=== PATIENT | male | born 1945 | race Caucasian/White ===

== ENCOUNTER 2022-12-23 07:31 | Outpatient (OUT) | payer MEDICARE, OTHER, SELFPAY ==
--- NOTE | 2022-12-23 08:19 | CA_ITS ---
Patient Name: CLAUDIA DIAS MR#: [id number] : 1945 Exam Date: 12/23/2022 Ordering Doctor: DR CARMELITA WALLACE M.D. ECHOCARDIOGRAM REPORT PROCEDURE: CA ECHO DOPPLER COMPLETE INDICATIONS: Chronic systolic congestive heart failure, nonrheumatic aortic valve stenosis, CABGx6, defibrillator, hypertension, smoker COMPARISON: None. DESCRIPTION: COMPLETE ECHOCARDIOGRAM Real-time transthoracic echocardiography with 2D, M-mode, spectral and color flow Doppler performed. QUALITY: Technical quality was good. LEFT VENTRICLE: Mild dilatation. Proximal septal hypertrophy (sigmoid septum). LV EF: Global left ventricular systolic function is severely reduced; visually estimated ejection fraction is 20-25%. The distal half of the septum is akinetic. The apex is akinetic. Severe, diffuse, hypokinesis. DIASTOLIC: Diastolic dysfunction. ATRIAL SEPTUM: Visually appears intact. LEFT ATRIUM: Severe dilatation. RIGHT ATRIUM: Moderate dilatation. A pacing wire is seen. RIGHT VENTRICLE: Poorly seen. Appears enlarged. Systolic function appears preserved. Pacer wire present. TRICUSPID VALVE: Normal mobility and thickness. Mild to moderate regurgitation. Doppler studies reveal moderately (45-60) elevated right sided pressures. RVSP 48 mmHg MITRAL VALVE: Moderately thickened with decreased mobility. Moderate mitral annular calcification. Moderate mitral regurgitation. AORTIC VALVE: Severely calcified aortic valve. Doppler velocity suggests low-flow, low gradient, severe aortic valve stenosis. DVI 0.18, PETER 0.8 cm2. Trivial aortic regurgitation. AORTIC ROOT: Normal diameter and appearance. PULMONIC VALVE: Normal thickness and mobility. No stenosis. No regurgitation. PERICARDIUM: No evidence of pericardial effusion. IVC: IVC is dilated (2.6 cm) with no collapse. CONCLUSION: 1. Global left ventricular systolic function is severely reduced; visually estimated ejection fraction is 20 to 25% 2. Segmental wall motion abnormalities 3. The right ventricle appears enlarged with preserved systolic function 4. Biatrial enlargement 5. Diastolic dysfunction 6. Mild to moderate tricuspid regurgitation 7. Moderately elevated right ventricular systolic pressure; RVSP 48 mmHg 8. Moderate mitral regurgitation 9. Severe, low-flow, low gradient, aortic valve stenosis; DVI 0.18 Adult Echocardiography Procedure Report Left Ventricle LVEDD (3.7 - 5.6 cm): 6.28 cm LVESD (2.2 - 4.0 cm): 5.16 cm LVIVS thickness (0.6 - 1.2 cm): 1.93 cm LVPW thickness (0.5 - 1.0 cm): 1.32 cm e': 0.06 m/s LVOT Max Gradient: 1.57 mm[Hg] LVOT Area (cm2): 0.63 m/s Peak Velocity (LVOT): 0.63 m/s Mean Velocity (LVOT): 0.43 m/s LVOT Diameter 2.30 cm Left Atrium LA Volume Index (2D A2C): 51.69 ml/m2 Left Atrium Systolic Dimension: 4.14 cm Mitral Valve Right Ventricle Aorta AO Root Diam: 3.78 cm Ascending Ao Diam: 3.21 cm Aortic Valve AoV Area (Peak Estevan): 0.76 cm2, 0.76 cm2 AoV Area (VTI): 0.74 cm2, 0.74 cm2 Peak Velocity(Antegrade Flow): 3.40 m/s, 2.82 m/s, 3.03 m/s Peak Gradient(Antegrade Flow): 46.37 mm[Hg], 31.76 mm[Hg], 36.65 mm[Hg] Mean Velocity(Antegrade Flow): 2.34 m/s, 2.05 m/s, 2.32 m/s Mean Gradient(Antegrade Flow): 25.62 mm[Hg], 19.27 mm[Hg], 23.06 mm[Hg] Velocity Time Integral: 85.61 cm, 63.86 cm, 75.11 cm Tricuspid Valve Peak Velocity (Regurgitant Flow): 2.88 m/s Pulmonic Valve Peak Gradient: 3.62 mm[Hg], 2.30 mm[Hg] Right Atrium Right Atrium Systolic Pressure: 80.23 ml, 80.23 ml Dictated by: Josep Christianson M.D. on 12/26/2022 at 16:45 Approved by: Josep Christianson M.D. on 12/26/2022 at 16:55
== END 2022-12-23 07:32 | disposition home or self-care (01) ==
LOC: CARD 07:32
PROVIDERS: PCP Internal Medicine; Visit Provider Internal Medicine Interventional Cardiology
DX: I08.3 Combined rheumatic disorders of mitral, aortic and tricuspid valves (principal); I50.22 Chronic systolic (congestive) heart failure
CPT/HCPCS: 93306

== ENCOUNTER 2023-08-21 09:53 | Outpatient (OUT) | payer MEDICARE, SELFPAY ==
--- NOTE | 2023-08-21 09:56 | VEIN_ITS ---
The [address] [address] Patient Name: CLAUDIA DIAS MRN: [id number] date: 1945 Sex: M Assigned Patient Location: Current Patient Location: Accession/Order Number: [id number] Exam Date: 08/21/2023 09:55 Report Date: 08/22/2023 07:54 At the request of: CARMELITA WALLACE Procedure: VC Ankle Brachial Index EXAM: VC Ankle Brachial Index HISTORY: I73.9 COMPARISON: None. FINDINGS: Segmental pressures presented as follows (right, left) in mmHg. Brachial: 142, 150 DPA: 65, 105 [employer] SERVER: 263, 112 1st Toe: 64, 132 ENRIQUETA: 1.75, 0.75 TBI: 0.43, 0.88 The ENRIQUETA is falsely elevated on the right due to arterial sclerosis, indicating mild arterial disease on the left The TBI indicates moderate right ischemia and is normal on the left VEIN/VC Ankle Brachial Index IMPRESSION: Elevated right leg ENRIQUETA due to arterial sclerosis Abnormal right TBI indicates moderate ischemia Left leg ENRIQUETA consistent with mild arterial occlusive disease Electronically authenticated by: ZANA HERNÁNDEZ Date: 08/22/2023 07:54
--- OUTSIDE RECORDS SUMMARY | 2023-08-21 09:57 | XMS_ITS | CCD ---
Author Organization [facility] Care Team Providers Care Thermostat Repairer Name Role Phone ARMANI STEWART Primary Care Unavailable STRUS, JUAN Ceballos Attending Unavailable PROVIDER, UNKNOWN Admitting Unavailable PROVIDER, UNKNOWN Attending Unavailable CONSULT, IP SURGERY VASCULAR Consulting Kait LUCINDA Welsh Attending Unavailable PROVIDER, UNKNOWN Admitting Unavailable STRUS, JUAN Referring Unavailable PROVIDER, UNKNOWN Admitting Unavailable PROVIDER, UNKNOWN Attending Unavailable STRUS, JUAN Referring Unavailable UNKNOWN, PROVIDER Admitting Unavailable UNKNOWN, PROVIDER Attending Unavailable VALMYRIAM, ARMANI Primary Care Unavailable VALMYRIAM, ARMANI Referring Unavailable MOUKARBEL, DR MAE Admitting Unavailable MOUKARBEL, DR MAE Attending Unavailable VALONE, DR CASTRO Primary Care Unavailable MISC, DR COLEMAN Admitting Unavailable MISC, DR COLEMAN Attending Unavailable VALONE, DR CASTRO Primary Care Unavailable MISC, DR COLEMAN Consulting Unavailable JEAN PIERRE, KYLE Referring Unavailable MOUKARBEL, CARMELITA Attending Unavailable JEAN PIERRE, KYLE Referring Unavailable MOUKARBEL, CARMELITA Attending Unavailable Allergies Allergy Classification Reported Allergen(s) Allergy Type Date of Onset Reaction(s) Facility (1 source) 08222,00; Translations: [06519,00] Propensity to adverse reactions (disorder) [address] [facility] Repository Problems Problem Classification Problem Date Documented Date Episodic/Chronic Cardiac dysrhythmias (2 sources) Ventricular premature depolarization; Translations: [Ventricular premature depolarization] Onset: 01-24-2023 Chronic Conduction disorders (4 sources) Encounter for adjustment and management of automatic implantable cardiac defibrillator; Translations: [Presence of automatic (implantable) cardiac defibrillator] Onset: 01-24-2023 Chronic Congestive heart failure; nonhypertensive (3 sources) Chronic systolic (congestive) heart failure; Translations: [CHRONIC SYSTOLIC HEART FAILURE] Onset: 04-18-2022 Chronic Coronary atherosclerosis and other heart disease (2 sources) Atherosclerotic heart disease of [place] coronary artery without angina pectoris; Translations: [Atherosclerotic heart disease of [place] coronary artery without angina pectoris] Onset: 01-24-2023 Chronic Coronary atherosclerosis and other heart disease (1 source) Presence of aortocoronary bypass graft; Translations: [PRESENCE AORTOCORONARY BYPASS GRAFT] Onset: 04-18-2022 Episodic Disorders of lipid metabolism (4 sources) Mixed hyperlipidemia; Translations: [MIXED HYPERLIPIDEMIA] Onset: 04-14-2022 Chronic Heart valve disorders (2 sources) Nonrheumatic aortic (valve) stenosis; Translations: [Nonrheumatic aortic (valve) stenosis] Onset: 04-06-2022 Chronic Hypertension with complications and secondary hypertension (1 source) Hypertensive heart disease with heart failure; Translations: [HTN HEART DISEASE W/HEART FAIL] Onset: 04-18-2022 Chronic Peripheral and visceral atherosclerosis (2 sources) Peripheral vascular disease, unspecified; Translations: [Peripheral vascular disease, unspecified] Onset: 01-24-2023 Chronic Substance-related disorders (1 source) Nicotine dependence, cigarettes, uncomplicated; Translations: [NICOTINE DEPEND CIGARETTES UNCOMP] Onset: 04-18-2022 Chronic Results Test Name Value Interpretation Reference Range Facility Office [facility] 08-10-2023 Follow-up visit [id number] Raymon Dias 1945 M Date Provider Department Center 08/10/2023 CARMELITA MCLEOD Family History Problem Relation Age of Onset Coronary artery disease Other Family Status - Relation Status Age at Other Level of Service:97172 OR OFFICE/OUTPATIENT ESTABLISHED MOD MDM 30 MIN Normal [facility] Office [facility] 01-24-2023 Follow-up visit [id number] Raymon Dias 1945 M Date Provider Department Center 01/24/2023 CARMELITA MCLEOD Family History Problem Relation Age of Onset Coronary artery disease Other Family Status - Relation Status Age at Other Level of Service:48132 OR OFFICE/OUTPATIENT ESTABLISHED MOD MDM 30-39 MIN Normal [facility] ECHOCARDIO M/2D COMPLETEon 0 04-14-2022 ECHOCARDIO M/2D COMPLETE Patient: RAYMON DIAS Exam Date: 04/14/2022 : 1945 Gender:Tiffanie Ordering : DR CARMELITA WALLACE M.D. Admission #: [id number] Family : DR ARMANI Kenney PAT D.Noemy. Order #: [id number] CLICK HERE TO VIEW EXAM ECHOCARDIOGRAM REPORT PROCEDURE: CARDIO PULMONARY ECHOCARDIO M/2D COMP INDICATIONS: Mixed hyperlipidemia,CABG x 6, AICD, hypertension, smoker COMPARISON: None. DESCRIPTION: COMPLETE ECHOCARDIOGRAM Real-time transthoracic echocardiography with 2D, M-mode, spectral and color flow Doppler performed. QUALITY: Technical quality was good. LEFT VENTRICLE: Normal chamber size. Proximal septal hypertrophy (sigmoid septum). Left ventricular systolic function is moderately reduced with segmental wall motion abnormalities. There is akinesis of the mid and distal septum, distal anterior wall and apex. No evidence of ventricular thrombus seen. LV EF: Moderately reduced left ventricular ejection fraction, (35-40%). DIASTOLIC: ATRIAL SEPTUM: Visually appears intact. LEFT ATRIUM: Severe dilatation. RIGHT ATRIUM: Moderate dilatation. RIGHT VENTRICLE: Normal chamber size. Normal right ventricular systolic function. Pacer wire present. TRICUSPID VALVE: Normal mobility and thickness. No stenosis with mild to moderate regurgitation. No evidence of pulmonary hypertension. RVSP 25 mmHg MITRAL VALVE: Moderately thickened with decreased mobility. No evidence of mitral valve stenosis. Mild mitral annular calcification. Mild to moderate mitral regurgitation. AORTIC VALVE: Normal trileaflet appearance. Severely calcified aortic valve. Severely diminished mobility. Doppler velocity suggest severe aortic valve stenosis. Mean gradient 19 mmHg, peak velocity 3.0 m/s, DVI 0.19, PETER 0.7 cm?. LVOT 2.2 cm. Mild aortic regurgitation. AORTIC ROOT: Normal diameter and appearance. PULMONIC VALVE: Normal thickness and mobility. No stenosis. No regurgitation. PERICARDIUM: No evidence of pericardial effusion. IVC: Collapses with inspirations. IVC is normal in size. PLEURA: CONCLUSION: 1. Left ventricular systolic function is moderately reduced with a segmental wall motion abnormalities. LVEF is 35 to 40%. 2. Normal right ventricular size and systolic function. 3. Severe aortic valve stenosis [stage D2, low-flow low gradient in the setting of reduced ejection fraction]. Mild aortic valve regurgitation. 4. Mild to moderate tricuspid and mitral regurgitation. 5. Normal right-sided pressures. Adult Echocardiography Procedure Report Left Ventricle LVEDD (3.7 - 5.6 cm): 5.26 cm LVESD (2.2 - 4.0 cm): 3.69 cm LVIVS thickness (0.6 - 1.2 cm): 1.69 cm LVPW thickness (0.5 - 1.0 cm): 1.24 cm e': 0.06 m/s LVOT Max Gradient: 1.24 mm[Hg] Peak Velocity (LVOT): 0.56 m/s Mean Velocity (LVOT): 0.41 m/s LVOT Diameter 2.2 cm Left Ventricular Ejection Fraction: 35-40 % Left Atrium LA Volume Index (2D A2C): 103.89 ml, 103.89 ml Left Atrium Systolic Dimension: 4.80 cm Mitral Valve Mitral Valve E-Wave Peak Velocity: 0.80 m/s, 0.90 m/s Right Ventricle Aorta AO Root Diam: 3.81 cm Aortic Valve AoV Area (Peak Estevan): 1.29 cm2, 1.64 cm2 AoV Area (VTI): 1.52 cm2, 2.06 cm2 Peak Velocity(Antegrade Flow): 1.96 m/s, 2.50 m/s, 3.00 m/s Peak Gradient(Antegrade Flow): 15.42 mm[Hg], 25.08 mm[Hg], 36.09 mm[Hg] Mean Velocity(Antegrade Flow): 1.40 m/s, 1.69 m/s, 2.00 m/s Mean Gradient(Antegrade Flow): 8.88 mm[Hg], 13.56 mm[Hg], 18.59 mm[Hg] Velocity Time Integral: 45.12 cm, 61.89 cm, 76.23 cm Tricuspid Valve Peak Velocity (Regurgitant Flow): 2.33 m/s Pulmonic Valve Peak Velocity: 0.84 m/s Peak Gradient: 2.84 mm[Hg] Right Atrium Right Atrium Systolic Pressure: 64.64 ml, 64.64 ml Dictated by: Carmelita Wallace M.D. on 04/14/2022 at 09:58 Approved by: Carmelita Wallace M.D. on 04/14/2022 at 10:18 Normal [facility] LIPID PROFILEon 04-14-2022 CHOL-HDL RATIO NORM SEE BELOW Normal [facility] Comment on above: Result Comment: 3.3 - 4.4 LOW RISK 4.4 - 7.1 AVERAGE RISK 7.1 - 11.0 MODERATE RISK >11.0 HIGH RISK Performed By: #### L IPID #### [facility] [address] [address] [address] Jackie Christopher Cholesterol [Mass/Vol] 157 mg/dL Normal <=200 [facility] Comment on above: Performed By: #### L IPID #### [facility] [address] [place], [place] [address] Dr. Jackie Christopher Cholesterol in HDL [Mass/Vol] 53 mg/dL Normal 40-60 [facility] Comment on above: Performed By: #### L IPID #### [facility] [address] [address] [address] Jackie Christopher Cholesterol in LDL [Mass/Vol] 90.6 mg/dL Normal [facility] Comment on above: Performed By: #### L IPID #### [facility] [address] [address] [address] Jackie Christopher Cholesterol.total/C holesterol in HDL [Mass ratio] 3.0 {ratio} Normal [facility] Comment on above: Performed By: #### L IPID #### [facility] [address] [address] [address] Jackie Christopher HDL NORMAL > or = 60 mg/dl - LO W CARDIOVASCULAR RISK <40 mg/dl - HIGH CARDIOVASCULAR RISK Normal [facility] Comment on above: Performed By: #### L IPID #### [facility] [address] [address] [address] Jackie Christopher LDL CALC NORMAL SEE BELOW Normal [facility] Comment on above: Result Comment: <100 mg/dl OPTIMAL 100 - 129 mg/dl NEAR OR ABOVE OPTIMAL 130 - 159 mg/dl BORDERLINE HIGH 160 - 189 mg/dl HIGH >190 mg/dl VERY HIGH Performed By: #### L IPID #### [facility] [address] [address] [address] Jackie Christopher Triglyceride [Mass/Vol] 67 mg/dL Normal <=150 [facility] Comment on above: Performed By: #### L IPID #### [facility] [address] [address] [address] Jackie Christopher VLDL CALC 13.4 mg/dL Normal [facility] Comment on above: Performed By: #### L IPID #### [facility] [address] [place], [place] [address] Dr. Jackie Christopher CBC with Diffon 10-18-2020 Abs. Basophil 0.00 k/uL Normal 0.0-0.2 [facility] Comment on above: Performed By: #### C MPX, TROPI, CDP #### [facility] [address] [place], [place] [phone] Social Media Marketing Manager: Clinton Steven MD Abs.Neutrophil (Seg) 6.50 k/uL Normal 2.1-6.5 [facility] Comment on above: Performed By: #### C MPX, TROPI, CDP #### [facility] [address] [place] [address] Social Media Marketing Manager: Clinton Steven MD Auto Diff Performed YES Normal [facility] Comment on above: Performed By: #### C MPX, TROPI, CDP #### [facility] [address] [place], [place] [phone] Social Media Marketing Manager: Clinton Steven MD Basophils/100 WBC (Bld) 0 % Normal 0-2 [facility] Comment on above: Performed By: #### C MPX TROPI, CDP #### [facility] [address] [place], [place] [phone] Social Media Marketing Manager: Clinton Steven MD Eosinophils (Bld) [#/Vol] 0.60 10*3/uL High 0.0-0.4 [facility] Comment on above: Performed By: #### C MPX, TROPI, CDP #### [facility] [address] [place], [place] [phone] Social Media Marketing Manager: Clinton Steven MD Eosinophils/100 WBC (Bld) 7 % High 0-5 [facility] Comment on above: Performed By: #### C MPX, TROPI, CDP #### [facility] [address] [phone] Social Media Marketing Manager: Clinton Steven MD Erythrocyte distribution width (RBC) [Ratio] 15.7 % High 12.1-15.2 [facility] Comment on above: Performed By: #### C MPX TROPI, CDP #### [facility] [address] [place] [address] Social Media Marketing Manager: Clinton Steven MD Hematocrit (Bld) [Volume fraction] 37.2 % Low 41-53 [facility] Comment on above: Performed By: #### C MPAna Paula TROPI, CDP #### [facility] [address] [place] [address] Social Media Marketing Manager: Clinton Steven MD Hemoglobin (Bld) [Mass/Vol] 12.6 g/dL Low 13.5-17.5 [facility] Comment on above: Performed By: #### C JEFF TROPI, CDP #### [facility] [address] [phone] Social Media Marketing Manager: Clinton Steven MD Lymphocytes (Bld) [#/Vol] 0.70 10*3/uL Low 1.0-4.8 [facility] Comment on above: Performed By: #### C JEFF TROPI, CDP #### [facility] [address] [place] [address] Social Media Marketing Manager: Clinton Steven MD Lymphocytes/100 WBC (Bld) 8 % Low 13-44 [facility] Comment on above: Performed By: #### C MPX, TROPI, CDP #### [facility] [address] [place] [address] Social Media Marketing Manager: Clinton Steven MD MCH (RBC) [Entitic mass] 33.5 pg Normal 26-34 [facility] Comment on above: Performed By: #### C MPX TROPI, CDP #### [facility] [address] [place] [address] Social Media Marketing Manager: Clinton Steven MD MCHC (RBC) [Mass/Vol] 33.8 g/dL Normal 31-37 [facility] Comment on above: Performed By: #### C MPX, TROPI, CDP #### [facility] [address] [place] [address] Social Media Marketing Manager: Clinton Steven MD MCV (RBC) [Entitic vol] 98.9 fL Normal 80-100 [facility] Comment on above: Performed By: #### C MPX, TROPI, CDP #### [facility] [address] [place] [address] Social Media Marketing Manager: Clinton Steven MD Monocytes (Bld) [#/Vol] 1.30 10*3/uL High 0.0-1.0 [facility] Comment on above: Performed By: #### C MPAna Paula, TROPI, CDP #### [facility] [address] [place] [address] Social Media Marketing Manager: Clinton Steven MD Monocytes/100 WBC (Bld) 14 % High 5-9 [facility] Comment on above: Performed By: #### C MPX, TROPI, CDP #### [facility] [address] [place] [address] Social Media Marketing Manager: Clinton Steven MD Neutrophil (Seg) 71 % Normal 39-75 [facility] Comment on above: Performed By: #### C MPX, TROPI, CDP #### [facility] [address] [place] [address] Social Media Marketing Manager: Clinton Steven MD Platelets (Bld) [#/Vol] 191 10*3/uL Normal 140-450 [facility] Comment on above: Performed By: #### C MPX, TROPI, CDP #### [facility] [address] [place] [address] Social Media Marketing Manager: Clinton Steven MD RBC (Bld) [#/Vol] 3.76 10*6/uL Low 4.5-5.9 [facility] Comment on above: Performed By: #### C GIOVANI AGUILARI, CDP #### [facility] [address] [place], [place] [phone] Social Media Marketing Manager: Clinton Steven MD WBC (Bld) [#/Vol] 9.2 10*3/uL Normal 3.5-11.0 [facility] Comment on above: Performed By: #### C MPX TROPI, CDP #### [facility] [address] [place] [address] Social Media Marketing Manager: Clinton Steven MD Abs.Imm.Granulocyte NOT REPORTED Normal 0.00-0.30 [facility] Comment on above: Performed By: #### C GIOVANI AGUILARI, CDP #### [facility] [address] [place], [place] [phone] Social Media Marketing Manager: Clinton Steven MD Immature Granulocyte NOT REPORTED Normal 0 [facility] Comment on above: Performed By: #### C MPAna Paula TROPI, CDP #### [facility] [address] [place], [place] [phone] Social Media Marketing Manager: Clinton Steven MD MPV NOT REPORTED Normal 6.0-12.0 [facility] Comment on above: Performed By: #### C MPX TROPI, CDP #### [facility] [address] [place], [place] [phone] Social Media Marketing Manager: Clinton Steven MD NRBC Automated NOT REPORTED Normal [facility] Comment on above: Performed By: #### C MPX TROPI, CDP #### [facility] [address] [place], [place] [phone] Social Media Marketing Manager: Clinton Steven MD Platelet Estimate NOT REPORTED Normal [facility] Comment on above: Performed By: #### C MPX, TROPI, CDP #### [facility] [address] [place], [place] [phone] Social Media Marketing Manager: Clinton Steven MD RBC morphology finding Nom (Bld) NOT REPORTED Normal [facility] Comment on above: Performed By: #### C MPX, TROPI, CDP #### [facility] [address] [place], [place] [phone] Social Media Marketing Manager: Clinton Steven MD WBC Morphology NOT REPORTED Normal [facility] Comment on above: Performed By: #### C MPX, TROPI, CDP #### [facility] [address] [place] [address] Social Media Marketing Manager: Clinton Steven MD CT HEAD WO CONTRASTon 2020 CT HEAD WO CONTRAST EXAMINATION: CT HEAD WO CONTRAST STROKE, 10/17/2020 10:13 PM EDT HISTORY: Reason for exam:->right eye vision changes COMPARISON: None. TECHNIQUE: CT scan of the head was performed without IV contrast. CT dose reduction technique was used, including Automated Exposure Control. FINDINGS: Limited study due to motion. BRAIN PARENCHYMA/CSF SPACES: Moderately enlarged ventricles and sulci consistent with atrophy. There is no hemorrhage, mass effect or midline shift. Moderate low attenuation in the white matter consistent with chronic microvascular ischemia. PARANASAL SINUSES: Clear. SKULL BASE AND CALVARIUM: Normal. EXTRACRANIAL SOFT TISSUES: Normal. IMPRESSION: 1. No acute intracranial abnormality. 2. Atrophy and chronic microvascular ischemia. 3. Limited study due to motion. Interpreted by: Gt Sharp MD Signed by: Gt Sharp MD 10/17/20 Final result Normal [facility] CTA HEAD NECK W CONTRASTon 0 10-18-2020 CTA HEAD NECK W CONTRAST CTA HEAD NECK W CONTRAST INDICATION:74 years old; Reason for exam:->right visual change with head movement TECHNIQUE: CT angiogram of the head and neck was performed. Coronal, sagittal and 3-D reformats were created and reviewed. IV contrast 100mL. w/o complications . Carotid stenosis measurements were made according to the NASCET criteria. Ionizing radiation dose reduced via iterative reconstruction/FBP blend and body size kV/mA adjustment. COMPARISON: Head CT performed earlier in the evening. FINDINGS: NECK FINDINGS: AORTIC ARCH: Calcific plaque in the aortic arch as well as in the proximal innominate, left common carotid artery, and left subclavian artery. ANTERIOR CIRCULATION: There is calcific plaque in the common carotid arteries bilaterally. Dense calcific plaque is seen in the carotid bifurcations. Allowing for a combination of dense calcification and overlying venous filling, there is findings consistent with flow limiting stenosis secondary to dense calcified plaque in the left carotid bifurcation and origin of the left ICA. On the right, only a mild degree of stenosis is seen. There is contrast noted within the extracranial portions of both ICA up to the level of the skull base. POSTERIOR CIRCULATION: The right vertebral artery is dominant with a hypoplastic left vertebral artery. The origins the left vertebral artery is poorly visualized. Calcific plaque is seen within both vertebral arteries. DEVELOPMENTAL ANOMALIES: None. OTHER: The airway is patent. There are breathing and swallowing artifacts. Cervical spondylosis is noted. HEAD BRAIN: Please the report of the head CT performed earlier this evening. ANTERIOR CIRCULATION: There is patent appearance of the intrapetrous, intracavernous, supraclinoid ICA. Calcific plaque is seen in all 3 segments. The distal termini are patent. The KINDRA and MCA are patent. No intraluminal thrombus is seen. The distal distributions appear symmetric. POSTERIOR CIRCULATION: There is calcific plaque in both distal vertebral arteries, worse on the left than the right. The right vertebral is dominant. The basilar artery is patent. Basilar tip has a normal appearance. There is patent origins of the SCA and COPPER ETCHER bilaterally. DEVELOPMENTAL ANOMALIES: None. OTHER: No pathologic enhancement is IMPRESSION: 1. Dense calcification and calcific plaque in the carotid bifurcations and origins of the great vessels. 2. Dense calcific plaque in the common carotid arteries bilaterally, worse on the left. On the left are findings consistent with flow limiting stenosis. 3. Calcification without flow-limiting stenosis in the intrapetrous, intracavernous, supraclinoid ICA. 4. Intracranial vessels are patent. No intraluminal thrombus or stenosis is seen in the apache of [place] and the distal distributions appear symmetric. A note was placed in the ops stat file for notification of the provider at 1:31 AM on 10/18/2020. 2. No aneurysm Interpreted by: Amaury Chamberlain Signed by: Amaury Chamberlain 10/18/20 Final result Normal [facility] Comp Metabolic Pr/rfx MGon 0 10-18-2020 Albumin [Mass/Vol] 4.0 g/dL Normal 3.5-5.2 [facility] Comment on above: Performed By: #### C MPX, TROPI, CDP #### [facility] [address] [place] [address] Social Media Marketing Manager: Clinton Steven MD Alkaline Phos 78 U/L Normal 40-129 [facility] Comment on above: Performed By: #### C MPX, TROPI, CDP #### [facility] [address] [place], [place] [phone] Social Media Marketing Manager: Clinton Steven MD ALT [Catalytic activity/Vol] 14 U/L Normal 5-41 [facility] Comment on above: Performed By: #### C MPAna Paula TROPI, CDP #### [facility] [address] [place] [address] Social Media Marketing Manager: Clinton Steven MD Anion gap [Moles/Vol] 10 mmol/L Normal 9-17 [facility] Comment on above: Performed By: #### C MPAna Paula TROPI, CDP #### [facility] [address] [place], [place] [phone] Social Media Marketing Manager: Clinton Steven MD AST [Catalytic activity/Vol] 15 U/L Normal <40 [facility] Comment on above: Performed By: #### C MPX TROPI, CDP #### [facility] [address] [place], [place] [phone] Social Media Marketing Manager: Clinton Steven MD Bilirubin [Mass/Vol] 0.42 mg/dL Normal 0.30-1.20 [facility] Comment on above: Performed By: #### C MPX, TROPI, CDP #### [facility] [address] [place], [place] [phone] Social Media Marketing Manager: Clinton Steven MD Calcium [Mass/Vol] 9.4 mg/dL Normal 8.6-10.4 [facility] Comment on above: Performed By: #### C MPX, TROPI, CDP #### [facility] [address] [place] [address] Social Media Marketing Manager: Clinton Steven MD Chloride [Moles/Vol] 102 mmol/L Normal 98-107 [facility] Comment on above: Performed By: #### C MPX, TROPI, CDP #### [facility] [address] [place] [address] Social Media Marketing Manager: Clinton Steven MD CO2 [Moles/Vol] 27 mmol/L Normal 20-31 [facility] Comment on above: Performed By: #### C MPX, TROPI, CDP #### [facility] [address] [place] [address] Social Media Marketing Manager: Clinton Steven MD Creatinine [Mass/Vol] 1.45 mg/dL High 0.70-1.20 [facility] Comment on above: Performed By: #### C MPX, TROPI, CDP #### [facility] [address] [place] [address] Social Media Marketing Manager: Clinton Steven MD GFR, Amer 58 mL/min Low >60 [facility] Comment on above: Performed By: #### C MPX, TROPI, CDP #### [facility] [address] [place] [address] Social Media Marketing Manager: Clinton Steven MD GFR,non Amer 47 mL/min Low >60 [facility] Comment on above: Performed By: #### C MPX, TROPI, CDP #### [facility] [address] [place] [address] Social Media Marketing Manager: Clinton Steven MD Glucose [Mass/Vol] 95 mg/dL Normal 70-99 [facility] Comment on above: Performed By: #### C MPX, TROPI, CDP #### [facility] [address], [place] [id number] Social Media Marketing Manager: Clinton Steven MD Potassium [Moles/Vol] 4.3 mmol/L Normal 3.7-5.3 [facility] Comment on above: Performed By: #### C MPX, TROPI, CDP #### [facility] [address], [place] [id number] Social Media Marketing Manager: Clinton Steven MD Protein [Mass/Vol] 6.8 g/dL Normal 6.4-8.3 [facility] Comment on above: Performed By: #### C MPX TROPI, CDP #### [facility] [address], [place] [id number] Social Media Marketing Manager: Clinton Steven MD Sodium [Moles/Vol] 139 mmol/L Normal 135-144 [facility] Comment on above: Performed By: #### C MPX, TROPI, CDP #### [facility] [address] [place] [address] Social Media Marketing Manager: Clinton Steven MD Urea nitrogen [Mass/Vol] 16 mg/dL Normal 8-23 [facility] Comment on above: Performed By: #### C MPX, TROPI, CDP #### [facility] [address], [place] [id number] Social Media Marketing Manager: Clinton Steven MD (cont.) Normal [facility] Comment on above: Result Comment: Aver age GFR for 70 or more years old: 75 mL/min/1.73sq m Chronic Kidney Disease: <60 mL/min/1.73sq m Kidney failure: <15 mL/min/1.73sq m eGFR calculated using average adult body mass. Additional eGFR calculator available at: http://www.[employer].Getyoo/multiple_crcl_2012.htm Performed By: #### C MPX, TROPI, CDP #### [facility] [address] [place] [address] Social Media Marketing Manager: Clinton Steven MD Albumin/Glob Ratio NOT REPORTED Normal 1.0-2.5 [facility] Comment on above: Performed By: #### C MPX, TROPI, CDP #### [facility] [address], [place] [id number] Social Media Marketing Manager: Clinton Steven MD BUN/CRE Ratio NOT REPORTED Normal 9-20 [facility] Comment on above: Performed By: #### C MPX, TROPI, CDP #### [facility] [address] [place] [address] Social Media Marketing Manager: Clinton Steven MD Staging: NOT REPORTED Normal [facility] Comment on above: Performed By: #### C MPX, TROPI, CDP #### [facility] [address] [place] [address] Social Media Marketing Manager: Clinton Steven MD [facility] Clinical Engineer Authentication Interface Message Text Attestation signed by Justyn Caro MD at 10/19/2020 11:13 AM Discussed with residents last night. 74 yo male who presents with flashes in right eye with certain positions. Reportedly has not had them over the last few hours. Symptoms do not appear characteristic of amaurosis or attributable to symptomatic carotid stenosis. Unable to view imaging from OSH so unable to determine degree of stenosis. Would recommend carotid duplex to further evaluate degree of stenosis of both carotid arteries. [facility] DIVISION OF ACUTE CARE SURGERY EMERGENCY GENERAL SURGERY CONSULTATION, HISTORY AND PHYSICAL Reason for consultation: Bilateral carotid stenosis Referring physician: Dr. Matt HPI: The patient is a 74 year old male with PMHx of presenting from OSH for flashes of light in his right temporal vision when turning his head to the right. Patient states this started around 1900 yesterday evening. It was initially occurring at least 5 times an hour although has slowly improved and has not had any episodes in the last 4 hours. Patient denies this ever happening in the past. PMH: HTN, CHF, COPD, PVD PSH: CABG ', Carotid enterectomy, RLE Stent, ICD MEDS: Lasix, Statin, Entresto, Carvedilol, Folic acid, Symbicort, montelukast ALL: NKDA FH: denies history of bleeding or clotting disorders SH: Daily tobacco, Social ETOH, and Denies drug use Review Of Systems: Skin: negative Eyes: Denies blurred or double vision. Endorses light flashes Ears/Nose/Throat: negative Respiratory: negative symptoms (no cough, hemoptysis, SOB, MORSE, PND, wheezing) Cardiovascular: negative symptoms (No CP/Pressure/Tightness , palpitations, orthopnea, PND, SOB, MORSE, edema, HUSTON or vision change) Gastrointestinal: negative symptoms (no abdominal pain, anorexia, n/v, indigestion, constipation, or diarrhea) Genitourinary: no urinary symptoms Neurologic: negative symptoms (no syncope, seizures, weakness, gait problems, numbness, burning pain, tremors, or memory loss) negative (no arthritic pain, no joint swelling, no muscle weakness) Psychiatric: negative (no sleep disturbance, anxiety, memory loss, disorientation, inattention, feelings of depression) Hematologic/Lymphatic /Immunologic: negative (no anemia, bleeding, bruising) Endocrine: negative review of symptoms PHYSICAL EXAM: VITALS: Vitals: 10/18/20 1541 BP: 123/74 Pulse: 75 Resp: 17 Temp: SpO2: 99% Physical Exam Constitutional: General: He is not in acute distress. Appearance: Normal appearance. HENT: Head: Normocephalic. Mouth/Throat: Mouth: Mucous membranes are moist. Pharynx: Oropharynx is clear. Eyes: Conjunctiva/sclera: Conjunctivae normal. Comments: Dilated pupils bilaterally 7mm Neck: Comments: Surgical scar left neck Cardiovascular: Rate and Rhythm: Normal rate and regular rhythm. Comments: Radial pulses / femoral palpable bilaterally. DP/PT are not palpable Pulmonary: Effort: Pulmonary effort is normal. No respiratory distress. Breath sounds: Rhonchi present. Abdominal: General: Bowel sounds are normal. There is no distension. Palpations: Abdomen is soft. Comments: Well healed surgical scar Musculoskeletal: General: No swelling or deformity. Normal range of motion. Cervical back: Normal range of motion. No rigidity. Skin: General: Skin is warm and dry. Capillary Refill: Capillary refill takes less than 2 seconds. Coloration: Skin is not pale. Neurological: General: No focal deficit present. Mental Status: He is alert. Motor: No weakness. Psychiatric: Mood and Affect: Mood normal. LABS: CBC/PT/INR None Basic Metabolic Panel None Arterial Blood Gases None IMAGING: - CTA head/neck 10/17/2020: 1. Dense calcification and calcific plaque in the carotid bifurcations and origins of the great vessels. 2. Dense calcific plaque in the common carotid arteries bilaterally, worse on the left. On the left are findings consistent with flow limiting???stenosis. 3. Calcification without flow-limiting stenosis in the intrapetrous, intracavernous, supraclinoid ICA. 4. Intracranial vessels are patent. No intraluminal thrombus or stenosis is seen in the apache of Heredia and the distal distributions appear symmetric. ASSESSMENT/RECOMMENDA TIONS: Raymon Dias is a 74 year old male who presents with white flashes in right peripheral vision. Patient has significant vascular history with carotid enterectomy. Currently on Plavix and aspirin. His symptoms have slowly resolved and have not been present for the past 4 hours. Concern there could be a vascular etiology to symptoms. Opthalmology also assessed the patient and performed formal bedside retinal exam - no signs of retinal breaks, detachment were apparent. Did rev (more content not included)... Normal [facility] [employer] [facility] Clinical Engineer Authentication Interface Message Text Eye Consult Note CC: New flashes, right eye HPI: Raymon Dias is a 74 year old male At 7pm alst night he turned his head to the right and noticed a jagged streak of light in his right eye that lasted about 3 hours. It has since subsided but he still notices it when he turns his head. Has had occasional dark floaters OD for years that are stable. Otherwise denies new or worsening discharge, tearing, irritation, redness, FBS, shade over vision, pain, blurred vision, sudden vision loss, photophobia or diplopia. POHx:Catract surgery in , wears reading glasses POFx: Denies Past medical, surgical, medication, family, social and allergy history were reviewed with patient and in chart. EXAM Visual acuity with correction, at near OD: 20/40 OS: 20/20-2 IOP OD: 14 OS: 17 Pupils: dark->light: OD: 4->3 no APD OS: 4->3 no APD EOM: OD: full OS: full Muscle balance: orthophoric Visual lee: OD: full to confrontation OS: full to confrontation Slit lamp examination External Exam: WNL OU L/L/L: OD: 1+ MGD OS: 1+ MGD Conj/Sclera: OD: conjunctivochalasis, no injection OS: conjunctivochalasis, no injection Cornea: OD: no epithelial defect, clear stroma OS: no epithelial defect, clear stroma Anterior chamber: OD: deep and quiet OS: deep and quiet Iris: OD: normal stroma OS: normal stroma Lens: OD: PCIOL OS: PCIOL Dilated OU with tropicamide 1% and phenylephrine 2.5% Vitreous OD: Syneresis, no heme or pigment OS: Syneresis, no heme or pigment Disc OD: Pallorous, Sharp, perfused, and c/d 0.2 OS: Pallorous, Sharp, perfused, deep cup, c/d 0.4, superotemporal atrophy Vessels OD: Normal course and caliber, no sheathing, no nicking, AV ratio 2:3 OS: Normal course and caliber, no sheathing, no nicking, AV ratio 2:3 Macula OD: Flat, no heme, no commotio, no holes, few drusen OS: Flat, no heme, no commotio, no holes, one drusen Periphery OD: Attached, no tears, inferior cobblestone OS: Attached, no tears, inferior cobblestone Assessment and Recommendations New flashes, right eye - Vitreous syneresis, both eyes - job negative, no heme - Risk factors: (-) trauma, (-) myopia - No history ROP or personal/family history of RD - No retinal breaks/detachment/hem e on [employer] - Retinal detachment precautions reviewed with patient - Patient lives in [facility] and has an appointment with his color printer operator at the [place] on December 03-- follow-up for new flashes at that visit. Please page [phone] with additional questions/concerns Vashti Reis MD Ophthalmology Resident Eye clinic [phone], located 3rd floor specialty services [facility] Physician Note: This was a resident only visit. I personally reviewed the mckeon and critical portions of the history and the ophthalmologic exam. I reviewed the resident's documentation, the patient's history and examination as documented above. I agree with the resident's medical decision making as documented in the resident's note. Tamar Nathan MD Normal [facility] ED Noteson 10-18-2020 Clinical Engineer Authentication Interface Message Text Vascular at bedside at this time Normal [facility] ED Provider Noteson 10-19-19 Clinical Engineer Authentication Interface Message Text EMERGENCY DEPARTMENT - VISIT NOTE --------- HISTORY OF PRESENT ILLNESS ----- Chief Complaint Patient presents with * Other sympt/complt of eye started with vision changes last night. sent from [facility]. here for vascular/neuro consult Obiee Report Developer: not needed - patient preferred language is Georgian. The history is provided by the Patient. Raymon Dias is a 74 year old male with a hx of HTN, CABG, defibrillator, COPD, PVD s/p RLE stents transferred to the ED for eval of carotid stenosis. Patient presents because he was told that he has blood vessel problems in his neck. He went to the ED yesterday for flashers in his right eye that occured when he would turn his head to the right. At rest he doesn't have them, he first noticed them last night at 1900. No current episodes of flashers. He otherwise feels well at this time and has had no recent illnesses. He hasn't taken his home meds today. Patient denies fever, chills, CP, SOB Per EMS: Flow limiting stenosis in carotid arteries, having floaters in R eye when he looks that direction Chart reviewed, relevant elements include the following: - CTA head/neck 10/17/2020: 1. Dense calcification and calcific plaque in the carotid bifurcations and origins of the great vessels. 2. Dense calcific plaque in the common carotid arteries bilaterally, worse on the left. On the left are findings consistent with flow limiting???stenosis. 3. Calcification without flow-limiting stenosis in the intrapetrous, intracavernous, supraclinoid ICA. 4. Intracranial vessels are patent. No intraluminal thrombus or stenosis is seen in the apache of [place]redia and the distal distributions appear symmetric. - COVID negative 10/17/2020 REVIEW OF SYSTEMS Review of Systems Constitutional: Negative for chills and fever. HENT: Negative for hearing loss. Eyes: Positive for visual disturbance (intermittent). Respiratory: Negative for shortness of breath. Cardiovascular: Negative for chest pain. Gastrointestinal: Negative for abdominal pain, nausea and vomiting. Genitourinary: Negative for decreased urine volume and frequency. Musculoskeletal: Negative for arthralgias and myalgias. Skin: Negative for rash. Neurological: Negative for dizziness and headaches. Psychiatric/Behaviora l: Negative for sleep disturbance. PAST HISTORY Pertinent Past History: - Follows with vascular surgery at [facility] for PVD: he has had stents placed in the thigh, CABG 1997, MA in 1986, defibrillator placed in 1995 batteries changed in the past 5 years - Meds: furosemide, atorvastatin, entresto, carvedilol, folic acid, miralax, vit D, aspirin, montelukast, symbicort Pertinent Social History: - Tobacco use, 25 year pack history PHYSICAL EXAM - BP 123/74 Pulse 75 Temp 98 ???F (36.7 ???C) (Oral) Resp 17 SpO2 99% Constitutional: Alert, awake and no acute distress HENT: No rhinorrhea, moist mucous membranes, and posterior orpharynx symmetric and noninjected Eyes: Pupils equal round and reactive to light, extraocular muscles intact, no discharge and noninjected Eyes: Pupils equal round and reactive to light, extraocular muscles intact OD - no discharge and noninjected - Visual Lee: no deficits - Cornea was stained, no corneal abrasions noted - Pressure: 17.3 OS - no discharge and noninjected - Visual Lee: no deficits - Cornea was stained, no corneal abrasions noted - Pressure: 17.3 Neck: Supple and no nuchal rigidity Thoracic: diffuse inspiratory/expirator y wheezing Heart: Regular rate and rhythm, III/ systolic murmur radiating to carotids Abdomen: Soft, nondistended and nontender : No CVAT Back: No abrasions to back Extremities: Full ROM all 4 extremities, symmetric radial, DP, and PT pulses, no LE edema Neuro: Alert normally oriented, normal speech, moving all extremities Skin: Warm and dry Psych: Normal affect, good eye contact and cooperative MEDICAL DECISION MAKING and ED COURSE Nursing triage and assessment notes reviewed and incorporated Evaluated by EM attending Armani Khan Course: ED Course as of Oct 18 2154 Sun Oct 18, 2020 1251 Paged ophtho [CM] [address] Reis from ophtho who will come eval the patient [CM] 1254 Paged vascular surgery [CM] 1256 Spoke to Kyle from vasc surg who will come eval the patient [CM] 4112 Paged Kyle, [facility] surgery consult, he passed the consult on to another provider at [phone] [CM] 4742 Spoke to [facility] Surg party plan sales consultant who will talk to her chief as carotid duplex can't be performed today [CM] ED Course User Index [CM] Armani Sullivan MD Medical Decision Makin (more content not included)... Normal [facility] [id number] 10-18-2020 SARS-CoV-2 (COVID-19) RNA JOCELIN+probe Ql (Unsp spec) Not detected [facility] Comment on above: Result Comment: Rapid NAAT: The specimen is NEGATIVE for SARS-CoV-2, the novel coronavirus associated with COVID-19. The ID NOW COVID-19 assay is designed to detect the virus that causes COVID-19 in patients with signs and symptoms of infection who are suspected of COVID-19. An individual without symptoms of COVID-19 and who is not shedding SARS-CoV-2 virus would expect to have a negative (not detected) result in this assay. Negative results should be treated as presumptive and, if inconsistent with clinical signs and symptoms or necessary for patient management, should be tested with an alternative molecular assay. Negative results do not preclude SARS-CoV-2 infection and should not be used as the sole basis for patient management decisions. Fact sheet for Healthcare Providers: https://www.fda.gov/media/498954/download Fact sheet for Patients: https://www.fda.gov/media/689949/download Methodology: Isothermal Nucleic Acid Amplification Performed By: #### C OVRB #### [facility] [address] [place] [address] Social Media Marketing Manager: Clinton Steven MD Troponinon 10-18-2020 Troponin, High Sens 28 ng/L High 0-22 [facility] Comment on above: Result Comment: High Sensitivity Troponin values cannot be compared with other Troponin methodologies. Patients with high levels of Biotin oral intake (i.e >5mg/day) may have falsely decreased Troponin levels. Samples collected within 8 hours of biotin intake may require additional information for diagnosis. Performed By: #### C MPX, TROPI, CDP #### [facility] [address] [place] [address] Social Media Marketing Manager: Clinton Steven MD Troponin Interp. NOT REPORTED Normal [facility] Comment on above: Performed By: #### C MPX, TROPI, CDP #### [facility] [address] [place], [place] [id number] Social Media Marketing Manager: Clinton Steven MD Troponin T NOT REPORTED Normal <0.03 [facility] Comment on above: Performed By: #### C MPX, TROPI, CDP #### [facility] [address] [place], [place] [id number] Social Media Marketing Manager: Clinton Steven MD Encounters Encounter Date Encounter Type Care Provider Facility Start: 08-10-2023 End: 08-10-[address] [facility] Start: 03-21-2023 End: 03-21-2023 ambulatory [facility] Start: 01-24-2023 End: 01-24-2023 ambulatory [facility] Start: 08-24-2022 End: 08-24-2022 ambulatory [facility] Start: 04-14-2022 End: 04-15-[address] DOCTOR GONZALEZ Facility: Start: 10-10-[address] CARMELITA WALLACE Fac ility:[facility] Start: 04-29-2021 End: 04-30-2021 ambulatory PROVIDER UNKNOWN Facility:[facility] Start: 10-18-2020 ambulatory UNKNOWN PROVIDER Facili ty:[facility] Start: 10-18-2020 End: 10-18-2020 ambulatory UNKNOWN PROVIDER Facility:[facility] Start: 10-18-2020 End: 10-18-2020 Emergency department patient visit IP SURG[facility]ASCULAR CONS[facility] Start: 10-17-2020 End: 10-18-2020 Emergency department patient visit ARMANI STEWART [facility] Payers Date Payer Category Payer Medicare [id number] 2020 Private Health Insurance 1960 Medicare [id number] 1960 Self-pay [id number] 1959 Unknown [id number] 1944 Unknown [id number] 2.16.8 [id number] 1944 Unknown [id number] 2.16. [id number] 1944 Unknown [id number] 2.16. [id number] 1944 Unknown [id number] 2.16. [id number] 1944 Unknown [id number] 2.16.8 [id number] 1944 Unknown [id number] 2.16.84 [id number] 1944 Unknown [id number] 2.16.84 [id number] Progress note 08-10-2023 Note Date & Type Note Facility 08-10-2023 Note [facility] Cardiology - [facility] Subjective Raymon Dias is a 77 y.o. year old male patient being seen for 6 mo follow up aortic valve stenosis, chronic systolic heart failure, PAD, and CAD. He has not completed dobutamine stress echo that was ordered at last visit in Jan 2023. He would like to discuss this with Dr. Cami maurice. His device was last interrogated in Mar 2023. Denies chest pain, SOB, and palpitations. C/o claudication. Says he can't walk like he used to. He had routine labs w/ lipid panel last month. 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 At last visit I ordered a dobutamine stress echocardiogram for further assessment of his aortic valve stenosis. He did not have that done. Today he reports that he has been doing relatively very well. He denies chest pain. He says he does not have shortness of breath on exertion. His main complaint is lower extremity claudication on the right side. He has to stop while walking. He does not have leg edema. No palpitations. Update 01/24/2023: He is seen in follow-up. He says today that he has been doing relatively well. He does not have chest pain. He has shortness of breath on exertion, NYHA class II. He does not have leg edema. Does not feel palpitation. His recent echocardiogram showed evidence of severe stage D2 low-flow low gradient aortic valve stenosis with an ejection fraction 20 to 25% which was lower than previously reported. Update 06/27/2022: He is seen in follow up. Today he reports that he has been doing really well. He denies chest pain and shortness of breath, he is in NYHA class II. He says that he can do what ever he wants to do. No lower extremity edema. No significant claudication. His recent echocardiogram suggested severe stage D2 low-flow low gradient aortic valve stenosis with ejection fraction moderately reduced at around 35%. Update 10/04/2021: He is seen in follow-up. He reports that he has been doing well with no angina and no significant heart failure symptoms. NYHA class II. No lower extremity edema. No significant claudication. Recent testing: Device check today 10/04/2021: 1 NSVT episode on 03/28/2021 for 12 seconds. Carotid ultrasound 04/29/2021: Right carotid less than 50% ICA stenosis, left ICA 50 to 60% stenosis, bilateral antegrade vertebral artery, left carotid was heavily calcified. Blood testing 09/15/2021: Hemoglobin 13.2, platelets 183, potassium 4.8, BUN 15, creatinine 1.0, EGFR 78, LFTs normal, cholesterol 146, LDL 96, HDL 43, triglycerides 74, TSH normal. Update 03/29/2021: He is seen in follow-up. Since last visit he reports that he has been doing well.He has no angina. He has shortness of breath on moderate exertion, NYHA class II. He has no lower extremity edema. Recently his PCP reduced his carvedilol to once a day due to low blood pressure. He underwent device check on to 01/02/2022 and this showed an episode of NSVT but no therapy was delivered. Update 09/16/2020: He is seen in follow-up. He reports that he has been doing pretty well. He denies chest pain or shortness of breath. He has no palpitations. No syncope. He has mild lower extremity edema. He feels good and golfs and has very good exercise capacity. NYHA class I. Recently I investigated his aortic valve stenosis. His transthoracic echocardiogram suggested that low-flow low gradient severe aortic valve stenosis in the setting of reduced ejection fraction. A dobutamine stress echocardiogram that was more consistent with moderate aortic valve stenosis. His ejection fraction is moderately reduced around 30-35%. His pacemaker check today 09/16/2020 did not show any significant events. Blood testing 07/16/2020: Hemoglobin A1c 6.3%, LFTs normal, LDL 82, HDL 57, cholesterol 149, triglycerides 60, BUN 20, creatinine 1.1, potassium 4.9, thyroid function normal. Echocardiogram 08/25/2020: Moderately severely reduced biventricular systolic function with wall motion abnormality, EF 25 to 30%, normal right ventricular systolic function, grade 3 diastolic dysfunction, severe low-flow low gradient aortic valve stenosis, mild (more content not included)... [facility] Progress note 01-24-2023 Note Date & Type Note Facility 01-24-2023 Note DC Cardiology - [facility] Subjective Raymon Dias is a 77 y.o. year old male patient being seen for 6 mo follow up CAD, PAD, and chronic systolic heart failure. Says PCP added Zetia 5mg daily about 1 month or so ago. Denies chest pain and SOB. Had echo last month. 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 He says today that he has been doing relatively well. He does not have chest pain. He has shortness of breath on exertion, NYHA class II. He does not have leg edema. Does not feel palpitation. His recent echocardiogram showed evidence of severe stage D2 low-flow low gradient aortic valve stenosis with an ejection fraction 20 to 25% which was lower than previously reported. Update 06/27/2022: He is seen in follow up. Today he reports that he has been doing really well. He denies chest pain and shortness of breath, he is in NYHA class II. He says that he can do what ever he wants to do. No lower extremity edema. No significant claudication. His recent echocardiogram suggested severe stage D2 low-flow low gradient aortic valve stenosis with ejection fraction moderately reduced at around 35%. Update 10/04/2021: He is seen in follow-up. He reports that he has been doing well with no angina and no significant heart failure symptoms. NYHA class II. No lower extremity edema. No significant claudication. Recent testing: Device check today 10/04/2021: 1 NSVT episode on 03/28/2021 for 12 seconds. Carotid ultrasound 04/29/2021: Right carotid less than 50% ICA stenosis, left ICA 50 to 60% stenosis, bilateral antegrade vertebral artery, left carotid was heavily calcified. Blood testing 09/15/2021: Hemoglobin 13.2, platelets 183, potassium 4.8, BUN 15, creatinine 1.0, EGFR 78, LFTs normal, cholesterol 146, LDL 96, HDL 43, triglycerides 74, TSH normal. Update 03/29/2021: He is seen in follow-up. Since last visit he reports that he has been doing well.He has no angina. He has shortness of breath on moderate exertion, NYHA class II. He has no lower extremity edema. Recently his PCP reduced his carvedilol to once a day due to low blood pressure. He underwent device check on to 01/02/2022 and this showed an episode of NSVT but no therapy was delivered. Update 09/16/2020: He is seen in follow-up. He reports that he has been doing pretty well. He denies chest pain or shortness of breath. He has no palpitations. No syncope. He has mild lower extremity edema. He feels good and golfs and has very good exercise capacity. NYHA class I. Recently I investigated his aortic valve stenosis. His transthoracic echocardiogram suggested that low-flow low gradient severe aortic valve stenosis in the setting of reduced ejection fraction. A dobutamine stress echocardiogram that was more consistent with moderate aortic valve stenosis. His ejection fraction is moderately reduced around 30-35%. His pacemaker check today 09/16/2020 did not show any significant events. Blood testing 07/16/2020: Hemoglobin A1c 6.3%, LFTs normal, LDL 82, HDL 57, cholesterol 149, triglycerides 60, BUN 20, creatinine 1.1, potassium 4.9, thyroid function normal. Echocardiogram 08/25/2020: Moderately severely reduced biventricular systolic function with wall motion abnormality, EF 25 to 30%, normal right ventricular systolic function, grade 3 diastolic dysfunction, severe low-flow low gradient aortic valve stenosis, mild aortic regurgitation, mild to moderate tricuspid regurgitation, normal right-sided pressures. Dobutamine stress echo 09/04/2020: The is consistent with moderate aortic valve stenosis. There was a suggestion of ischemia in the LAD territory with a biphasic response in the anterior wall on the apical 2 chamber view. Due to lack of IV contrast use the study was limited. Update 03/09/2020: He is seen in follow-up. He has been doing great. He has no symptoms of chest pain or shortness of breath. He has no significant lower extremity claudication. His blood testing in January 2020 at the [place] showed a creatinine of 1.0, BUN 25, potassium 4.9. Lower extremity arterial duplex 10/28/2019: Significant plaque formation throug (more content not included)... [facility] Summary Purpose Family History No Family History Records FoundNo Family History Records FoundNo Family History Records FoundNo Family History Records FoundNo Family History Records Found Advance Directives No Advanced Directives Records FoundNo Advanced Directives Records FoundNo Advanced Directives Records FoundNo Advanced Directives Records FoundNo Advanced Directives Records Found Additional Source Comments (unrecognized sect ion and content) No Status Records FoundNo Status Records FoundNo Status Records FoundNo Status Records FoundNo Status Records Found INFORMATION SOURCE (unrecogn ized section and content) DATE CREATED AUTHOR 10/19/2020 Cecilia joseph DATE CREATED AUTHOR AUTHOR'S ORGANIZ ATION 03/23/2021 [facility] [facility] DATE CREATED AUTHOR AUTHOR'S ORGANIZ ATION 05/06/2021 [facility] DATE CREATED AUTHOR AUTHOR'S ORGANIZ ATION 04/20/2022 [facility] DATE CREATED AUTHOR AUTHOR'S ORGANIZ ATION 08/11/2023 [facility] FOR RECORDS PERTAINING TO PATIENTS WHO ARE OR HAVE BEEN ENROLLED IN A CHEMICAL DEPENDENCY/SUBSTANCEABUSE PROGRAM, SOME INFORMATION MAY BE OMITTED. This clinical summary was aggregated from multiple sources. Caution should be exercised in using it in the provision of clinical care. This summary normalizes information from multiple sources, and as a consequence, information in this document may materially change the coding, format and clinical context of patient data. In addition, data may be omitted in some cases. CLINICAL DECISIONS SHOULD BE BASED ON THE PRIMARY CLINICAL RECORDS. [facility]. provides no warranty or guarantee of the accuracy or completeness of information in this document.
== END 2023-08-21 09:54 | disposition home or self-care (01) ==
LOC: VC 09:53
PROVIDERS: PCP Internal Medicine Interventional Cardiology; Visit Provider Internal Medicine Interventional Cardiology
DX: I73.9 Peripheral vascular disease, unspecified (principal)
CPT/HCPCS: 93922

== ENCOUNTER 2023-09-29 08:55 | Outpatient (OUT) | payer MEDICARE, SELFPAY ==
--- OUTSIDE RECORDS SUMMARY | 2023-09-29 09:00 | XMS_ITS | CCD ---
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 Name Role Phone ARMANI STEWART Primary Care Unavailable STRUS, JUAN Ceballos Attending Unavailable PROVIDER, UNKNOWN Admitting Unavailable PROVIDER, UNKNOWN Attending Unavailable CONSULT, IP SURGERY VASCULAR Consulting Kait yamililaLUCINDA Scott Attending Unavailable PROVIDER, UNKNOWN Admitting Unavailable STRUS, JUAN Referring Unavailable PROVIDER, UNKNOWN Admitting Unavailable PROVIDER, UNKNOWN Attending Unavailable STRUS, JUAN Referring Unavailable UNKNOWN, PROVIDER Admitting Unavailable UNKNOWN, PROVIDER Attending Unavailable VALONE, ARMANI Primary Care Unavailable VALONE, ARMANI Referring Unavailable MOUKARBEL, DR MAE Admitting Unavailable MOUKARBEL, DR MAE Attending Unavailable VALONE, DR CASTRO Primary Care Unavailable MISC, DR COLEMAN Admitting Unavailable MISC, DR COLEMAN Attending Unavailable VALONE, DR CASTRO Primary Care Unavailable MISC, DR COLEMAN Consulting Unavailable MOUKARBEL, CARMELITA Attending Unavailable JEAN PIERREKYLE Referring Unavailable MOUKARBEL, CARMELITA Attending Unavailable MADRIGALRISHI Referring Unavailable MOUKARBEL, CARMELITA Referring Unavailable MOUKARBEL, CARMELITA Referring Unavailable MOUKARBEL, CARMELITA Attending Unavailable Allergies Allergy Classification Reported Allergen(s) Allergy Type Date of Onset Reaction(s) Facility (1 source) 61331,00; Translations: [27772,00] Propensity to adverse reactions (disorder) 2 [facility] Rep[facility] Problems Problem Classification Problem Date Documented Date Episodic/Chronic Cardiac dysrhythmias (2 sources) Ventricular premature depolarization; Translations: [Ventricular premature depolarization] Onset: 08-10-2023 Chronic Conduction disorders (4 sources) Presence of automatic (implantable) cardiac defibrillator; Translations: [Encounter for adjustment and management of automatic implantable cardiac defibrillator] Onset: 03-21-2023 Chronic Congestive heart failure; nonhypertensive (3 sources) Chronic systolic (congestive) heart failure; Translations: [CHRONIC SYSTOLIC HEART FAILURE] Onset: 04-18-2022 Chronic Coronary atherosclerosis and other heart disease (2 sources) Atherosclerotic heart disease of rosebud coronary artery without angina pectoris; Translations: [Atherosclerotic heart disease of rosebud coronary artery without angina pectoris] Onset: 08-10-2023 Chronic Coronary atherosclerosis and other heart disease (3 sources) Presence of aortocoronary bypass graft; Translations: [PRESENCE [...] HEART DISEASE W/HEART FAIL] Onset: 04-18-2022 Chronic Occlusion or stenosis of precerebral arteries (2 sources) Occlusion and stenosis of bilateral carotid arteries; Translations: [Occlusion and stenosis of bilateral carotid arteries] Onset: 04-06-2022 Chronic Other screening for suspected conditions (not mental disorders or infectious disease) (2 sources) Abnormal result of other cardiovascular function study; Translations: [Abnormal result of other cardiovascular function study] Onset: 09-20-2023 Episodic Peripheral and visceral atherosclerosis (2 sources) Peripheral vascular disease, unspecified; Translations: [Peripheral vascular disease, unspecified] Onset: 08-10-2023 Chronic Substance-related disorders (1 source) Nicotine dependence, cigarettes, uncomplicated; Translations: [NICOTINE DEPEND CIGARETTES UNCOMP] Onset: 04-18-2022 Chronic Unclassified (2 sources) Other persistent atrial fibrillation; Translations: [Other persistent atrial fibrillation] Onset: 09-20-2023 Results Test Name Value Interpretation Reference Range [facility] ABDOMEN PELVIS W IV CONTRAST CTA ABDOMEN PELVIS W IV CONTRAST 09/25/2023 2:55 PM CLINICAL INDICATIONS: Nonrheumatic aortic valve stenosis. Pre-T aVR evaluation. PROTOCOL: Abdomen and pelvis CTA examination CONTRAST: 100 mL Omnipaque 350 TECHNIQUE: Multidetector CT angiography axial slices of the abdomen and pelvis were obtained with IV contrast. Multiplanar reformats, MIP, and volume rendered 3-D images were generated on a separate workstation and reviewed to further define anatomy and possible pathology. All CT scans at this facility use dose modulation, iterative reconstruction, and/or weight based dosing when appropriate to reduce radiation dose to as low as reasonably achievable. COMPARISON: None. FINDINGS: Lower Chest: Please refer to chest CT report from the same day for full details. ABDOMEN: Liver: Visualized part of the liver appeared unremarkable with homogeneous enhancement seen Bile Ducts: Normal caliber. Gallbladder: No calcified gallstones. Normal caliber wall. Pancreas: Within normal limits. Spleen: Within normal limits. Adrenals: Within normal limits. Kidneys: Within normal limits. Pelvis: Reproductive Organs: Few coarse prostatic calcifications are visualized. Ureters: Within normal limits. Bladder: Within normal limits. Bowel: Normal caliber. Mesenteric Lymph Nodes: No enlarged mesenteric lymph nodes. Peritoneum: No ascites or free air, no fluid collection. Vessels: Atherosclerotic changes with significant vascular calcification seen in the abdominal aorta and branches. Infrarenal small abdominal aortic aneurysm with diameter of 3.1 cm and vascular calcification along the wall. Extension of the vascular calcifications and after discussing disease into the common iliac arteries, external iliac arteries and femoral arteries bilaterally as well as internal iliac arteries. Metallic stent in the left common iliac artery and stent in the SMA. Significant vascular calcification and suggestion of occlusion versus severe stenosis of the proximal celiac trunk. Retroperitoneum: Within normal limits. Abdominal Wall: Right inguinal hernia containing only omental fat. Bones: Lower lumbar spondylosis with facet joint disease and bony spurring. IMPRESSION: Significant vascular calcifications and stenosis in the common, external and internal iliac arteries as well as bilateral femoral arteries. Vascular stents in the SMA and left common iliac artery. Suggestion of severe atherosclerotic calcification and complete occlusion versus severe stenosis of the celiac trunk. Right inguinal hernia containing only omental fat. Otherwise, no acute abdominal or pelvic pathology. Electronically signed: Margot Ballard MD. Not Vldtd Invalid Interpretation Code [facility] CTA CHEST W IV CONTRASTon CTA CHEST W IV CONTRAST CTA CHEST W IV CONTRAST 09/25/2023 2:54 PM CLINICAL INDICATIONS: Nonrheumatic aortic valve stenosis. Pre-T aVR evaluation. PROTOCOL: Gated chest CTA examination CONTRAST: 100 mL Omnipaque 350 TECHNIQUE: Multidetector CT axial slices of the chest were obtained with IV contrast. Multiplanar reformats were performed and viewed on a separate workstation and reviewed to further define anatomy and possible pathology. All CT scans at this facility use dose modulation, iterative reconstruction, and/or weight based dosing when appropriate to reduce radiation dose to as low as reasonably achievable. COMPARISON: None. FINDINGS: Lower neck: Thyroid gland within normal limits, no supraclavicle adenopathy. Vessels: Pulmonary arteries are Within normal limits. Severe atherosclerotic changes in the aorta. and coronary arteries. Evidence of prior coronary artery bypass graft with patent grafts seen. Mediastinum and Odilia: Within normal limits. Heart: Mild cardiomegaly. Pacer wires are seen coursing within the right heart associated with metallic artifacts. Mitral valve annulus and aortic cusp calcifications. No pericardial effusion. Airways: Within normal limits with linear opacities in the distal trachea likely represent mucous threads Lungs: Within normal limits. Pleura: Within normal limits. Chest Wall: Left subclavian pacemaker in place with metallic artifacts. Upper Abdomen: Please refer to abdomen pelvis CT report from the same day for full details. Bones: Lower cervical and thoracic bony spurring suggesting small mild spondylosis. Sternotomy wires from prior coronary artery bypass graft. Gated noncontrast cardiac CT examination revealed a grade 3 aortic cusp coarse calcifications with total calcium scoring of 4355. T aVR measurements: 3-D volume rendered image of the aortic root and proximal ascending aorta as well as coronal reconstruction. Localization of the left coronary cusp, right cusp and noncoronary cusp in axial images as well as localization of the esophagus in axial and 3-D volume rendered images. 3. Cusped view, anterior view, and no CREDIT CHARGE AUTHORIZER-CAU view are obtained in 3-D volume rendered images. The annulus measures 31.2 x 21.7 mm and total surface area is 3.86 squared centimeter. The parameter is 79.3 mm. Embedded geometric suggests a valve diameter of 26 mm. Height of the left coronary artery is 20.8 mm from the annulus and the right coronary artery is 19 mm from the annulus. Diameter of the left coronary sinus is 38.2 mm, right sinus 36.3 mm and noncoronary sinus 36.9 mm. Diameter of the sinotubular junction is 31.5 mm, ascending aorta is 35.5 mm and abdominal infrarenal aorta is 19 mm with vascular calcification seen. There is calcification in the right common iliac artery which measures 9 mm in diameter, right external iliac artery is stenosed with vascular calcification and diameter of only 4.1 mm as well as right femoral artery with diameter of only 4.6 mm secondary to vascular calcification. Left common iliac artery stent in place with diameter of 6.6 mm, left external iliac artery diameter is 6.4 mm and of the left femoral artery is 5.1 mm secondary to vascular calcification. There is mild tortuosity of the common and external iliac arteries bilaterally best seen in 3-D volume rendered images over the pelvis. IMPRESSION: Mild cardiomegaly and left subclavian pacer in place with evidence of prior coronary artery bypass graft with patent graft seen. Grade 3 coarse aortic cusp calcification and calcium scoring of 4355. T aVR measurements as listed above with significant narrowing and vascular calcifications in the common and external iliac as well as femoral arteries bilaterally; right more than left. Left common iliac artery stent in place. Embedded geometric suggests a valve diameter of 26 mm. Electronically signed: Margot Ballard MD. 9 Invalid Interpretation Code [facility] Office Visiton 09-20-2023 Follow-up visit [id number] Raymon Dias 1945 M Date Provider Department Center 09/20/2023 [place]-CARMELITA WALLACE CARD [facility] Family History Problem Relation Age of Onset Coronary artery disease Other Family Status - Relation Status Age at Other Level of Service:55551 AL OFFICE/OUTPATIENT ESTABLISHED HIGH MDM 40 MIN [facility] Orders Onlyon 09-20-2023 Orders Only [id number] Raymon Dias 1945 M Date Provider Department Center 09/20/2023 [place]-RISHI MADRIGAL [facility] CARD [facility] Family History Problem Relation Age of Onset Coronary artery disease Other Family Status - Relation Status Age at Other Normal [facility] 09-06-2023 28 Addended by: VON FRIEND on: 09/06/2023 05:00 PM Modules accepted: Orders [facility] 09-06-2023 36 Spoke with patient and scheduled him to see Dr. Wallace on 09/19. Also informed him to start Eliquis 5mg bid and stop aspirin. He verbalized understanding. Rx sent to pharmacy. [facility] 09-05-2023 36 He had his dobutamine stress echo today at [facility]. He was found to have atrial fibrillation at baseline. Also, the aortic valve stenosis is severe. We need to start him on eliquis 5 mg bid. Diagnosis is persistent atrial fibrillation. Please have him stop aspirin after starting eliquis. I need to see him soon to discuss the results of the test and next step. Normal [facility] Telephoneon 09-05-2023 Telephone [id number] Raymon Dias 1945 M Date Provider Department Center 09/05/2023 CARMELITA MCLEOD Family History Problem Relation Age of Onset Coronary artery disease Other Family Status - Relation Status Age at Other Normal [facility] Office Vis[facility] 08-10-2023 Follow-up visit [id number] Raymon Dias 1945 Date Provider Department [place] 08/10/2023 CARMELITA MCLEOD Family History Problem Relation Age of Onset Coronary artery disease Other Family Status - Relation Status Age at Other Level of Service:50456 AL OFFICE/OUTPATIENT ESTABLISHED MOD MDM 30 MIN [facility] Office Visiton 01-24-2023 Follow-up visit [id number] Raymon Dias 1945 M Date Provider Department Center 01/24/2023 CARMELITA MCLEOD Family History Problem Relation Age of Onset Coronary artery disease Other Family Status - Relation Status Age at Other Level of Service:28618 AL OFFICE/OUTPATIENT ESTABLISHED MOD MDM 30-39 MIN [facility] ECHOCARDIO M/2D COMPLETEon 0 04-14-2022 ECHOCARDIO M/2D COMPLETE Patient: RAYMON DIAS Exam Date: 04/14/2022 : 1945 Gender:Tiffanie Ordering : DR CARMELITA WALLACE M.D. Admission #: [id number] Family : DR ARMANI STEWART D.O. Order #: [id number] CLICK HERE TO VIEW EXAM ECHOCARDIOGRAM REPORT [...] Wallace M.D. on 04/14/2022 at 10:18 Normal [facility] LIPID PROFILEon 04-14-2022 CHOL-HDL RATIO NORM SEE BELOW Normal [facility] Comment on above: Result Comment: 3.3 - 4.4 LOW RISK 4.4 - 7.1 AVERAGE RISK 7.1 - 11.0 MODERATE RISK >11.0 HIGH RISK Performed By: #### L IPID #### [facility] [address] [place] [address] Dr. Jackie Christopher Cholesterol [Mass/Vol] 157 mg/dL Normal <=200 [facility] Comment on above: Performed By: #### L IPID #### [facility] [address] [place] [address] Dr. Jackie Christopher Cholesterol in HDL [Mass/Vol] 53 mg/dL Normal 40-60 [facility] Comment on above: Performed By: #### L IPID #### [facility] [address] [place] [address] Dr. Jackie Christopher Cholesterol in LDL [Mass/Vol] 90.6 mg/dL Normal [facility] Comment on above: Performed By: #### L IPID #### [facility] [address] [place] [address] Dr. Jackie Christopher Cholesterol.total/C holesterol in HDL [Mass ratio] 3.0 {ratio} Normal [facility] Comment on above: Performed By: #### L IPID #### [facility] [address] [place] [address] Dr. Jackie Christopher HDL NORMAL > or = 60 mg/dl - LOW CARDIOVASCULAR RISK <40 mg/dl - HIGH CARDIOVASCULAR RISK Normal [facility] Comment on above: Performed By: #### L IPID #### [facility] [address] [place] [address] Dr. Jackie Christopher LDL CALC NORMAL SEE BELOW Normal [facility] Comment on above: Result Comment: <100 mg/dl OPTIMAL 100 - 129 mg/dl NEAR OR ABOVE OPTIMAL 130 - 159 mg/dl BORDERLINE HIGH 160 - 189 mg/dl HIGH >190 mg/dl VERY HIGH Performed By: #### L IPID #### [facility] [address] [place] [address] Dr. Jackie Christopher Triglyceride [Mass/Vol] 67 mg/dL Normal <=150 [facility] Comment on above: Performed By: #### L IPID #### [facility] [address] [place] [address] Dr. Jackie Christopher VLDL CALC 13.4 mg/dL Normal [facility] Comment on above: Performed By: #### L IPID #### [facility] [address] [place] [address] Dr. Jackie Christopher CBC with Diffon 10-18-2020 Abs. Basophil 0.00 k/uL Normal 0.0-0.2 [facility] Comment on above: Performed By: #### C MPX, TROPI, CDP #### [facility] [address] [place], [place] [phone] Medicare Sales Representative: Clinton Steven MD Abs.Neutrophil (Seg) 6.50 k/uL Normal 2.1-6.5 [facility] Comment on above: Performed By: #### C MPX, TROPI, CDP #### [facility] [address] [place] [phone] Medicare Sales Representative: Clinton Steven MD Auto Diff Performed YES Normal [facility] Comment on above: Performed By: #### C MPX, TROPI, CDP #### [facility] [address] [place] [address] Medicare Sales Representative: Clinton Steven MD Basophils/100 WBC (Bld) 0 % Normal 0-2 [facility] Comment on above: Performed By: #### C MPX TROPI, CDP #### [facility] [address] [place] [phone] Medicare Sales Representative: Clinton Steven MD Eosinophils (Bld) [#/Vol] 0.60 10*3/uL High 0.0-0.4 [facility] Comment on above: Performed By: #### C MPX, TROPI, CDP #### [facility] [address] [place] [address] Medicare Sales Representative: Clinton Steven MD Eosinophils/100 WBC (Bld) 7 % High 0-5 [facility] Comment on above: Performed By: #### C MPX, TROPI, CDP #### [facility] [address] [place] [address] Medicare Sales Representative: Clinton Steven MD Erythrocyte distribution width (RBC) [Ratio] 15.7 % High 12.1-15.2 [facility] Comment on above: Performed By: #### C MPX, TROPI, CDP #### [facility] [address] [place] [address] Medicare Sales Representative: Clinton Steven MD Hematocrit (Bld) [Volume fraction] 37.2 % Low 41-53 [facility] Comment on above: Performed By: #### C GIOVANI AGUILARI, CDP #### [facility] [address] [place] [address] Medicare Sales Representative: Clinton Steven MD Hemoglobin (Bld) [Mass/Vol] 12.6 g/dL Low 13.5-17.5 [facility] Comment on above: Performed By: #### C MPAna Paula TROPI, CDP #### [facility] [address] [place] [address] Medicare Sales Representative: Clinton Steven MD Lymphocytes (Bld) [#/Vol] 0.70 10*3/uL Low 1.0-4.8 [facility] Comment on above: Performed By: #### C GIOVANI AGUILARI, CDP #### [facility] [address] [place] [address] Medicare Sales Representative: Clinton Steven MD Lymphocytes/100 WBC (Bld) 8 % Low 13-44 [facility] Comment on above: Performed By: #### C GIOVANI AGUILARI, CDP #### [facility] [address] [place] [address] Medicare Sales Representative: lCinton Steven MD MCH (RBC) [Entitic mass] 33.5 pg Normal 26-34 [facility] Comment on above: Performed By: #### C MPAna Paula TROPI, CDP #### [facility] [address] [place] [address] Medicare Sales Representative: Clinton Steven MD MCHC (RBC) [Mass/Vol] 33.8 g/dL Normal 31-37 [facility] Comment on above: Performed By: #### C MPAna Paula TROPI, CDP #### [facility] [address] [place] [address] Medicare Sales Representative: Clinton Steven MD MCV (RBC) [Entitic vol] 98.9 fL Normal 80-100 [facility] Comment on above: Performed By: #### C MPX, TROPI, CDP #### [facility] [address] [place] [address] Medicare Sales Representative: Clinton Steven MD Monocytes (Bld) [#/Vol] 1.30 10*3/uL High 0.0-1.0 [facility] Comment on above: Performed By: #### C MPX, TROPI, CDP #### [facility] [address] [place] [address] Medicare Sales Representative: Clinton Steven MD Monocytes/100 WBC (Bld) 14 % High 5-9 [facility] Comment on above: Performed By: #### C MPX, TROPI, CDP #### [facility] [address] [place] [address] Medicare Sales Representative: Clinton Steven MD Neutrophil (Seg) 71 % Normal 39-75 [facility] Comment on above: Performed By: #### C MPX, TROPI, CDP #### [facility] [address] [place] [address] Medicare Sales Representative: Clinton Steven MD Platelets (Bld) [#/Vol] 191 10*3/uL Normal 140-450 [facility] Comment on above: Performed By: #### C MPX, TROPI, CDP #### [facility] [address] [place] [address] Medicare Sales Representative: Clinton Steven MD RBC (Bld) [#/Vol] 3.76 10*6/uL Low 4.5-5.9 [facility] Comment on above: Performed By: #### C MPX, TROPI, CDP #### [facility] [address] [place] [address] Medicare Sales Representative: Clinton Steven MD WBC (Bld) [#/Vol] 9.2 10*3/uL Normal 3.5-11.0 [facility] Comment on above: Performed By: #### C MPX TROPI, CDP #### [facility] [address] [place], [place] [phone] Medicare Sales Representative: Clinton Steven MD Abs.Imm.Granulocyte NOT REPORTED Normal 0.00-0.30 [facility] Comment on above: Performed By: #### C MPX, TROPI, CDP #### [facility] [address] [place], [place] [phone] Medicare Sales Representative: Clinton Steven MD Immature Granulocyte NOT REPORTED Normal 0 [facility] Comment on above: Performed By: #### C MPX TROPI, CDP #### [facility] [address] [place], [place] [phone] Medicare Sales Representative: Clinton Steven MD MPV NOT REPORTED Normal 6.0-12.0 [facility] Comment on above: Performed By: #### C [facility], CDP #### [facility] [address] [place], [place] [phone] Medicare Sales Representative: Clinton Steven MD NRBC Automated NOT REPORTED Normal [facility] Comment on above: Performed By: #### C MPX TROPI, CDP #### [facility] [address] [place], [place] [phone] Medicare Sales Representative: Clinton Steven MD Platelet Estimate NOT REPORTED Normal [facility] Comment on above: Performed By: #### C MPX, TROPI, CDP #### [facility] [address] [place], [place] [phone] Medicare Sales Representative: Clinton Steven MD RBC morphology finding Nom (Bld) NOT REPORTED Normal [facility] Comment on above: Performed By: #### C MPX, TROPI, CDP #### [facility] [address] [place] [address] Medicare Sales Representative: Clinton Steven MD WBC Morphology NOT REPORTED Normal [facility] Comment on above: Performed By: #### C MPX, TROPI, CDP #### [facility] [address] [place] [address] Medicare Sales Representative: Clinton Steven MD CT HEAD WO CONTRASTon [...] Gt Sharp MD 10/17/20 Final result Normal [facility] CTA HEAD NECK W CONTRASTon 0 10-18-2020 [...] is patent origins of the SCA and AERIAL PHOTOGRAPHER bilaterally. DEVELOPMENTAL ANOMALIES: None. OTHER: No pathologic [...] thrombus or stenosis is seen in the [place] and the distal distributions appear symmetric. A note was placed in the ops stat file for notification of the provider at 1:31 AM on 10/18/2020. 2. No aneurysm Interpreted by: Amaury Chamberlain Signed by: Amaury Chamberlain 10/18/20 Final result Normal [facility] Comp Metabolic Pr/rfx MGon 0 10-18-2020 Albumin [Mass/Vol] 4.0 g/dL Normal 3.5-5.2 [facility] Comment on above: Performed By: #### C MPX, TROPI, CDP #### [facility] [address] [place] [address] Medicare Sales Representative: Clinton Steven MD Alkaline Phos 78 U/L Normal 40-129 [facility] Comment on above: Performed By: #### C GIOVANI AGUILARI, CDP #### [facility] [address] [place], [place] [phone] Medicare Sales Representative: Clinton Steven MD ALT [Catalytic activity/Vol] 14 U/L Normal 5-41 [facility] Comment on above: Performed By: #### C JEFF TROPI, CDP #### [facility] [address] [place] [address] Medicare Sales Representative: Clinton Steven MD Anion gap [Moles/Vol] 10 mmol/L Normal 9-17 [facility] Comment on above: Performed By: #### C GIOVANI AGUILARI, CDP #### [facility] [address], [place] [id number] Medicare Sales Representative: Clinton Steven MD AST [Catalytic activity/Vol] 15 U/L Normal <40 [facility] Comment on above: Performed By: #### C GIOVANI AGUILARI, CDP #### [facility] [address], [place] [id number] Medicare Sales Representative: Clinton Steven MD Bilirubin [Mass/Vol] 0.42 mg/dL Normal 0.30-1.20 [facility] Comment on above: Performed By: #### C GIOVANI AGUILARI, CDP #### [facility] [address], [place] [id number] Medicare Sales Representative: Clinton Steven MD Calcium [Mass/Vol] 9.4 mg/dL Normal 8.6-10.4 [facility] Comment on above: Performed By: #### C MPX TROPI, CDP #### [facility] [address], [place] [id number] Medicare Sales Representative: Clinton Steven MD Chloride [Moles/Vol] 102 mmol/L Normal 98-107 [facility] Comment on above: Performed By: #### C MPX, TROPI, CDP #### [facility] [address] [place] [address] Medicare Sales Representative: Clinton Steven MD CO2 [Moles/Vol] 27 mmol/L Normal 20-31 [facility] Comment on above: Performed By: #### C MPX, TROPI, CDP #### [facility] [address], [place] [id number] Medicare Sales Representative: Clinton Steven MD Creatinine [Mass/Vol] 1.45 mg/dL High 0.70-1.20 [facility] Comment on above: Performed By: #### C MPX, TROPI, CDP #### [facility] [address] [place] [address] Medicare Sales Representative: Clinton Steven MD GFR, Amer 58 mL/min Low >60 [facility] Comment on above: Performed By: #### C MPX, TROPI, CDP #### [facility] [address] [place] [address] Medicare Sales Representative: Clinton Steven MD GFR,non Amer 47 mL/min Low >60 [facility] Comment on above: Performed By: #### C MPX, TROPI, CDP #### [facility] [address] [place] [address] Medicare Sales Representative: Clinton Steven MD Glucose [Mass/Vol] 95 mg/dL Normal 70-99 [facility] Comment on above: Performed By: #### C MPX, TROPI, CDP #### [facility] [address] [place] [address] Medicare Sales Representative: Clinton Steven MD Potassium [Moles/Vol] 4.3 mmol/L Normal 3.7-5.3 [facility] Comment on above: Performed By: #### C MPX, TROPI, CDP #### [facility] [address], [place] [id number] Medicare Sales Representative: Clinton Steven MD Protein [Mass/Vol] 6.8 g/dL Normal 6.4-8.3 [facility] Comment on above: Performed By: #### C MPX TROPI, CDP #### [facility] [address] [place] [address] Medicare Sales Representative: Clinton Steven MD Sodium [Moles/Vol] 139 mmol/L Normal 135-144 [facility] Comment on above: Performed By: #### C GIOVANI AGUILARI, CDP #### [facility] [address] [place] [address] Medicare Sales Representative: Clinton Steven MD Urea nitrogen [Mass/Vol] 16 mg/dL Normal 8-23 [facility] Comment on above: Performed By: #### C JEFF TROPI, CDP #### [facility] [address] [place] [address] Medicare Sales Representative: Clinton Steven MD (cont.) Normal [facility] Comment on above: Result Comment: Aver age GFR for 70 or more years old: 75 mL/min/1.73sq m Chronic Kidney Disease: <60 mL/min/1.73sq m Kidney failure: <15 mL/min/1.73sq m eGFR calculated using average adult body mass. Additional eGFR calculator available at: http://www.RaySat.com/multiple_crcl_2012.htm Performed By: #### C MPAna Paula TROPI, CDP #### [facility] [address] [place] [address] Medicare Sales Representative: Clinton Steven MD Albumin/Glob Ratio NOT REPORTED Normal 1.0-2.5 [facility] Comment on above: Performed By: #### C MPX TROPI, CDP #### [facility] [address] [place] [address] Medicare Sales Representative: Clinton Steven MD BUN/CRE Ratio NOT REPORTED Normal 9-20 [facility] Comment on above: Performed By: #### C JAMAL AGUILAR, LULU #### [facility] [address] [place] [address] Medicare Sales Representative: Clinton Steven MD Staging: NOT REPORTED Normal [facility] Comment on above: Performed By: #### C DENEENXJAMAL, CDP #### [facility] [address] [place] [address] Medicare Sales Representative: Clinton Steven [facility] Orthotic/Prosthetic Practitioner Authentication Interface Message Text Attestation signed by [...] degree of stenosis of both carotid arteries. [facility] DIV[facility] OF ACUTE CARE SURGERY EMERGENCY [...] PMH: HTN, CHF, COPD, PVD PSH: CABG '98, Carotid enterectomy, RLE Stent, ICD MEDS: Lasix, Statin, Entresto, Carvedilol, Folic acid, Symbicort, montelukast ALL: NKDA FH: denies history of bleeding or clotting disorders SH: Daily tobacco, Social ETOH, and Denies drug use Review Of Systems: Skin: negative Eyes: Denies blurred or double vision. Endorses light flashes Ears/Nose/Throat: negative Respiratory: negative symptoms (no cough, hemoptysis, SOB, MORSE, PND, wheezing) Cardiovascular: negative symptoms (No CP/Pressure/Tightnes s, palpitations, orthopnea, PND, SOB, MORSE, edema, HUSTON [...] memory loss, disorientation, inattention, feelings of depression) Hematologic/Lymphati c/Immunologic: negative (no anemia, bleeding, bruising) Endocrine: negative [...] thrombus or stenosis is seen in [place] and the distal distributions appear symmetric. ASSESSMENT/RECOMMEND ATIONS: Raymon Dias is a 74 year old [...] rev (more content not included)... Normal [facility] Orthotic/Prosthetic Practitioner Authentication Interface Message Text Eye Consult Note [...] loss, photophobia or diplopia. 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 Please page [phone] with additional questions/concerns Vashti Reis MD Ophthalmology Resident Eye clinic [phone], located 3rd floor specialty services [facility] Physician Note: This was a resident only visit. I personally reviewed the mckeon and critical portions of the history and the ophthalmologic exam. I reviewed the resident's documentation, the patient's history and examination as documented above. I agree with the resident's medical decision making as documented in the resident's note. Tamar Nathan MD Normal [facility] ED Noteson 10-18-2020 Orthotic/Prosthetic Practitioner Authentication Interface Message Text Vascular at bedside at this time Normal [facility] ED Provider Noteson 10-19-19 Orthotic/Prosthetic Practitioner Authentication Interface Message Text EMERGENCY DEPARTMENT - VISIT NOTE HISTORY OF PRESENT ILLNESS ------ Chief Complaint Patient presents with * Other sympt/complt of eye started with vision changes last night. sent from [place]. here for vascular/neuro consult Manager Of Creative Services: not needed - patient preferred language is Turkish. The history is provided by the Patient. Raymon Dais is a 74 year old male with [...] thrombus or stenosis is seen in [place] and the distal distributions appear [...] rash. Neurological: Negative for dizziness and headaches. Psychiatric/Behavior al: Negative for sleep disturbance. PAST HISTORY -- Pertinent Past History: - Follows with vascular surgery at [facility] for PVD: he has had stents placed in the thigh, CABG 1997, [place] in 1986, defibrillator placed in 1995 batteries changed in the past 5 years - Meds: furosemide, atorvastatin, entresto, carvedilol, folic acid, miralax, vit D, aspirin, montelukast, symbicort Pertinent Social History: - Tobacco use, 25 year pack history PHYSICAL EXAM --- BP 123/74 Pulse 75 Temp 98 ???F [...] Supple and no nuchal rigidity Thoracic: diffuse inspiratory/expirato ry wheezing Heart: Regular rate and rhythm, III/ [...] cooperative MEDICAL DECISION MAKING and ED COURSE - Nursing triage and assessment notes reviewed and incorporated Evaluated by EM attending Armani Khan Course: ED Course as of Oct 18 2154 Sun Oct 18, 2020 1251 Paged ophtho [CM] [address] Reis from ophtho who will come eval the patient [CM] 1254 Paged vascular surgery [CM] 1256 Spoke to Kyle from vasc surg who will come eval the patient [CM] 0555 Paged Kyle, vasc surgery consult, he passed the consult on to another provider at [phone] [CM] 1301 Spoke to [facility] S[facility] library sales consultant who will talk to her chief as carotid duplex can't be performed today [CM] ED Course User Index [CM] Armani Sullivan MD Medical Decision Shawn (more content not included)... Normal [facility] [id number] 10-18-2020 SARS-CoV-2 (COVID-19) RNA JOCELIN+probe Ql (Unsp spec) Not detected Normal NOTDET [facility] Comment on above: Result Comment: Rapid NAAT: [...] management decisions. Fact sheet for Healthcare Providers: https://www.fda.gov/media/848124/download Fact sheet for Patients: https://www.fda.gov/media/082455/download Methodology: Isothermal Nucleic Acid Amplification Performed By: #### C OVRB #### [facility] [address] [place] [address] Medicare Sales Representative: Clinton Steven MD Troponinon 10-18-2020 Troponin, High Sens 28 ng/L High 0-22 [facility] Comment on above: Result Comment: High Sensitivity Troponin values cannot be compared with other Troponin methodologies. Patients with high levels of Biotin oral intake (i.e >5mg/day) may have falsely decreased Troponin levels. Samples collected within 8 hours of biotin intake may require additional information for diagnosis. Performed By: #### C MPX, TROPI, CDP #### [facility] [address] [place] [address] Medicare Sales Representative: Clinton Steven MD Troponin Interp. NOT REPORTED Normal [facility] Comment on above: Performed By: #### C MPX, TROPI, CDP #### [facility] [address] [place] [address] Medicare Sales Representative: Clinton Steven MD Troponin T NOT REPORTED Normal <0.03 [facility] Comment on above: Performed By: #### C JAMAL AGUILAR, LULU #### [facility] [address] [place] [address] Medicare Sales Representative: Clinton Steven MD Encounters Encounter Date Encounter Type Care Provider Facility Start: 09-25-2023 End: 09-25-2023 ambulatory RISHI MADRIGAL [facility] Start: 09-20-2023 End: 09-20-2023 ambulatory [facility] Start: 09-05-2023 End: 09-05-2023 ambulatory [facility] Start: 08-10-2023 End: 08-10-2023 ambulatory [facility] Start: 03-21-2023 End: [facility] Start: 01-24-2023 End: 01-24-2023 ambulatory [facility] Start: 04-14-2022 End: 04-15-[address] DOCTOR GONZALEZ Facility:[facility] Start: 10-10-[address] CARMELITA Casillas ility:[facility] Start: 04-29-2021 End: 04-30-2021 ambulatory PROVIDER UNKNOWN Facility:[facility] Start: 10-18-2020 ambulatory UNKNOWN PROVIDER Facili ty:[facility] Start: 10-18-2020 End: 10-18-2020 ambulatory UNKNOWN PROVIDER Facility:[facility] Start: 10-18-2020 End: 10-18-2020 Emergency department patient visit IP SURGERY VASCULAR CONSULT Facility:[facility] Start: 10-17-2020 End: 10-18-2020 Emergency department patient visit [facility] Payers Date Payer Category Payer Medicare [id number] 2020 Private Health Insurance 1960 Medicare [id number] 1960 Self-pay [id number] 1960 Unknown [id number] 1945 Unknown [id number] 2.16.8 [id number] 1945 Unknown [id number] 2.16. [id number] 1945 Unknown [id number] 2.16. [id number] 1944 Unknown [id number] 2.16. [id number] 1944 Unknown [id number] 2.16.8 [id number] 1944 Unknown [id number] 2.16.84 [id number] 1945 Unknown [id number] 2.16.84 [id number] Progress note 09-20-2023 Note Date & Type Note Facility 09-20-2023 Note [place] [facility] Subjective Raymon Dias is a 77 y.o. year old male patient being seen for follow up stress echo and ENRIQUETA's. Still denies chest pain, SOB, palpitations, and bleeding on Eliquis. Patient Active Problem List Diagnosis Acute tonsillitis [...] Alcohol use: Yes Comment: occasional HPI Update 09/20/2023: He is seen in follow-up. After last visit we proceeded with a dobutamine stress echocardiogram. This confirmed severe aortic valve stenosis. In addition the dobutamine stress echocardiogram raised the possibility of anterior ischemia. At the time of the echocardiogram he was also found to have atrial fibrillation. I had started him after that with on Eliquis for anticoagulation. Today he reports that he feels well. He still denies chest pain, shortness of breath and syncope at the current level of activity. No lower extremity edema. He continues to have on and off claudication symptoms. Update 08/10/2023: He is seen in follow-up. [...] 149, triglycerides 60, BUN 20, creatinine 1.1, pot (more content not included)... [facility] Progress note 08-10-2023 Note Date & Type Note Facility 08-10-2023 Note [place] [facility] Subjective Raymon Dias is a 77 y.o. year old male patient being seen for 6 mo follow up aortic valve stenosis, chronic systolic heart failure, PAD, and CAD. He has not completed dobutamine stress echo that was ordered at last visit in Jan 2023. He would like to discuss this with Dr. Wallace first. His device was last interrogated in Mar [...] valve stenosis, mild (more content not included)... [facility] Progress note 01-24-2023 Note Date & Type Note Facility 01-24-2023 Note [place] [facility] Subjective Raymon Dias is a [...] blood testing in [place] 2020 [place] the [place] showed a creatinine of 1.0, BUN 25, potassium 4.9. Lower extremity arterial duplex 10/28/2019: Significant plaque formation throug (more content not included)... [facility] Summary Purpose Family History No Family History [...] and content) DATE CREATED AUTHOR 10/19/2020 [facility] DATE CREATED AUTHOR AUTHOR'S ORGANIZ ATION 03/23/2021 [facility] DATE CREATED AUTHOR AUTHOR'S ORGANIZ ATION 05/06/2021 [facility] DATE CREATED AUTHOR AUTHOR'S ORGANIZ ATION [facility]/20/2022 [facility] DATE CREATED AUTHOR AUTHOR'S ORGANIZ ATION 09/26/2023 [facility] FOR RECORDS PERTAINING TO PATIENTS WHO ARE [...] BE BASED ON THE PRIMARY CLINICAL RECORDS. [employer] [facility]. provides no warranty or guarantee of the accuracy or completeness of information in this document.
[2023-09-29 09:07] LABS: Hemoglobin 13.2 g/dL (14.0-18.0)
[2023-09-29] MEDS: ALBUTEROL SULFATE 2.5 MG/3 ML VIAL NEB IH (09:54)
--- NOTE | 2023-09-29 09:56 | RT_ITS ---
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 Order Number: [id number] Reading MD: Justin Thomas Interpretive Statements Pulmonary function testing was completed according to ATS criteria. Findings were considered accurate and reproducible. Both pre- and post-bronchodilator values utilized for spirometry. Spirometry (based on pre-bronchodilator values): -FEV1/FVC: Normal @ 74% -FEV1: Moderately reduced @ 77% -FVC: Mildly reduced @ 75% -There is no significant bronchodilator response. Diffusion capacity: -DLCO: Moderate reduction @ 56% when corrected for Hb 13.2g/dL Flow-volume loop: -Mild obstructive pattern Impressions: -Though technically normal, spirometry appears to be trending towards a mild-moderate obstructive pattern without a bronchodilator response. No lung volumes were ordered. Moderate diffusion impairment. Overall study suggests underlying COPD/emphysema. Clinical correlation required. Electronically Signed On 10-03-2023 8:02:17 EDT by Justin Thomas
== END 2023-09-29 08:56 | disposition home or self-care (01) ==
LOC: CARD 08:56
PROVIDERS: PCP Internal Medicine Interventional Cardiology; Visit Provider Internal Medicine Interventional Cardiology
DX: I35.0 Nonrheumatic aortic (valve) stenosis (principal); I65.23 Occlusion and stenosis of bilateral carotid arteries
CPT/HCPCS: 36415; 85018; 94060; 94729; 99406

== ENCOUNTER 2023-10-06 13:38 | Outpatient (OUT) | payer MEDICARE, SELFPAY ==
--- OUTSIDE RECORDS SUMMARY | 2023-10-06 13:42 | XMS_ITS | CCD ---
Author Organization [facility] Care Team Providers Care Staff Therapist Name Role Phone ARMANI STEWART Primary Care [...] Date of Onset Reaction(s) Facility (1 source) 37791,00; Translations: [22998,00] Propensity to adverse reactions (disorder) 2 [facility] Repository Problems Problem Classification Problem Date [...] disease (2 sources) Atherosclerotic heart disease of [place] coronary artery without angina pectoris; Translations: [Atherosclerotic heart disease of [place] coronary artery without angina pectoris] Onset: 08-10-2023 [...] Facility [facility]A ABDOMEN PELVIS W IV [...] Ballard MD. Not Vldtd Invalid Interpretation Code [facility] CTA CHEST W IV CONTRASTon CTA CHEST [...] 3. Cusped view, anterior view, and no AUDIT LEAD-CAU view are obtained in 3-D volume rendered [...] Margot Ballard MD. 9 Invalid Interpretation Code [facility] Office Visiton 09-20-2023 Follow-up visit [id number] Raymon Dias 1945 M Date Provider Department Center 09/20/2023 [place]-CARMELITA WALLACE CARD [facility] Family History Problem Relation Age of Onset Coronary artery disease Other Family Status - Relation Status Age at Other Level of Service:08942 HI OFFICE/OUTPATIENT ESTABLISHED HIGH MDM 40 MIN [facility] Orders Onlyon 09-20-2023 Orders Only [id number] Raymon Dias 1945 M Date Provider Department Center 09/20/2023 [place]-RISHI MADRIGAL [facility] CARD [facility] Family History Problem Relation Age of Onset Coronary artery disease Other Family Status - Relation Status Age at Other Normal [facility] 09-06-2023 28 Addended by: VON FRIEND on: 09/06/2023 05:00 PM Modules accepted: Orders [facility] 09-06-2023 35 Spoke with patient and scheduled him to see Dr. Wallace on 09/19. Also informed him to start Eliquis 5mg bid and stop aspirin. He verbalized understanding. Rx sent to pharmacy. [facility] 09-05-2023 36 He had his dobutamine stress echo today at [facility]. He was found to have atrial fibrillation at baseline. Also, the aortic valve stenosis is severe. We need to start him on eliquis 5 mg bid. Diagnosis is persistent atrial fibrillation. Please have him stop aspirin after starting eliquis. I need to see him soon to discuss the results of the test and next step. Normal [facility] Telephoneon 09-05-2023 Telephone [id number] Raymon Dias 1945 M Date Provider Department Center 09/05/2023 CARMELITA MCLEOD Family History Problem Relation Age of Onset Coronary artery disease Other Family Status - Relation Status Age at Other Normal [facility] Office Visiton 08-10-2023 Follow-up visit [id number] Raymon Dias 1945 Date Provider Department [place] 08/10/2023 CARMELITA MCLEOD Family History Problem Relation Age of Onset Coronary artery disease Other Family Status - Relation Status Age at Other Level of Service:35353 HI OFFICE/OUTPATIENT ESTABLISHED MOD MDM 30 MIN [facility] Office Visiton 01-24-2023 Follow-up visit [id number] Raymon Dias 1945 M Date Provider Department Center 01/24/2023 CARMELITA MCLEOD Family History Problem Relation Age of Onset Coronary artery disease Other Family Status - Relation Status Age at Other Level of Service:66589 HI OFFICE/OUTPATIENT ESTABLISHED MOD MDM 30-39 MIN [facility] ECHOCARDIO M/2D COMPLETEon 0 04-14-2022 ECHOCARDIO M/2D COMPLETE Patient: RAYMON DIAS Exam Date: 04/14/2022 : 1945 Gender:Tiffanie Ordering : DR CARMELITA WALLACE M.D. Admission #: [id number] Family : DR ARMANI STEWART D.O. Order #: [id number] CLICK HERE TO VIEW EXAM ECHOCARDIOGRAM REPORT [...] Wallace M.D. on 04/14/2022 at 10:18 Normal [facility] LIPID PROFILEon 04-14-2022 CHOL-HDL RATIO NORM SEE BELOW Normal [facility] Comment on above: Result Comment: 3.3 - 4.4 LOW RISK 4.4 - 7.1 AVERAGE RISK 7.1 - 11.0 MODERATE RISK >11.0 HIGH RISK Performed By: #### L IPID #### [facility] [address] [place] [address] Dr. Jackie Christopher Cholesterol [Mass/Vol] 157 mg/dL Normal <=200 [facility] Comment on above: Performed By: #### L IPID #### [facility] [address] [place] [address] Dr. Jackie Christopher Cholesterol in HDL [Mass/Vol] 53 mg/dL Normal 40-60 [facility] Comment on above: Performed By: #### L IPID #### [facility] [address] [place] [address] Dr. Jackie Christopher Cholesterol in LDL [Mass/Vol] 90.6 mg/dL Normal [facility] Comment on above: Performed By: #### L IPID #### [facility] [address] [place] [address] Dr. Jackie Christopher Cholesterol.total/C holesterol in HDL [Mass ratio] 3.0 {ratio} Normal [facility] Comment on above: Performed By: #### L IPID #### [facility] [address] [place] [address] Dr. Jackie Christopher HDL NORMAL > or = 60 mg/dl - LOW CARDIOVASCULAR RISK <40 mg/dl - HIGH CARDIOVASCULAR RISK Normal [facility] Comment on above: Performed By: #### L IPID #### [facility] [address] [place] [address] Dr. Jackie Christopher LDL CALC NORMAL SEE BELOW Normal [facility] Comment on above: Result Comment: <100 mg/dl OPTIMAL 100 - 129 mg/dl NEAR OR ABOVE OPTIMAL 130 - 159 mg/dl BORDERLINE HIGH 160 - 189 mg/dl HIGH >190 mg/dl VERY HIGH Performed By: #### L IPID #### [facility] [address] [place] [address] Dr. Jackie Christopher Triglyceride [Mass/Vol] 67 mg/dL Normal <=150 [facility] Comment on above: Performed By: #### L IPID #### [facility] [address] [place] [address] Dr. Jackie Christopher VLDL CALC 13.4 mg/dL Normal [facility] Comment on above: Performed By: #### L IPID #### [facility] [address] [place] [address] Dr. Jackie Christopher CBC with Diffon 10-18-2020 Abs. Basophil 0.00 k/uL Normal 0.0-0.2 [facility] Comment on above: Performed By: #### C MPX, TROPI, CDP #### [facility] [address] [place], [place] [id number] White Kid Buffer: Clinton Steven MD Abs.Neutrophil (Seg) 6.50 k/uL Normal 2.1-6.5 [facility] Comment on above: Performed By: #### C MPX, TROPI, CDP #### [facility] [address] [place] [id number] White Kid Buffer: Clinton Steven MD Auto Diff Performed YES Normal [facility] Comment on above: Performed By: #### C MPX, TROPI, CDP #### [facility] [address] [place] [address] White Kid Buffer: Clinton Steven MD Basophils/100 WBC (Bld) 0 % Normal 0-2 [facility] Comment on above: Performed By: #### C MPX TROPI, CDP #### [facility] [address] [place] [id number] White Kid Buffer: Clinton Steven MD Eosinophils (Bld) [#/Vol] 0.60 10*3/uL High 0.0-0.4 [facility] Comment on above: Performed By: #### C MPX, TROPI, CDP #### [facility] [address] [place] [address] White Kid Buffer: Clinton Steven MD Eosinophils/100 WBC (Bld) 7 % High 0-5 [facility] Comment on above: Performed By: #### C MPX, TROPI, CDP #### [facility] [address] [place] [address] White Kid Buffer: Clinton Steven MD Erythrocyte distribution width (RBC) [Ratio] 15.7 % High 12.1-15.2 [facility] Comment on above: Performed By: #### C MPX, TROPI, CDP #### [facility] [address] [place] [address] White Kid Buffer: Clinton Steven MD Hematocrit (Bld) [Volume fraction] 37.2 % Low 41-53 [facility] Comment on above: Performed By: #### C GIOVANI AGUILARI, CDP #### [facility] [address] [place] [address] White Kid Buffer: Clinton Steven MD Hemoglobin (Bld) [Mass/Vol] 12.6 g/dL Low 13.5-17.5 [facility] Comment on above: Performed By: #### C MPAna Paula TROPI, CDP #### [facility] [address] [place] [address] White Kid Buffer: Clinton Steven MD Lymphocytes (Bld) [#/Vol] 0.70 10*3/uL Low 1.0-4.8 [facility] Comment on above: Performed By: #### C GIOVANI AGUILARI, CDP #### [facility] [address] [place] [address] White Kid Buffer: Clinton Steven MD Lymphocytes/100 WBC (Bld) 8 % Low 13-44 [facility] Comment on above: Performed By: #### C GIOVANI AGUILARI, CDP #### [facility] [address] [place] [address] White Kid Buffer: Clinton Steven MD MCH (RBC) [Entitic mass] 33.5 pg Normal 26-34 [facility] Comment on above: Performed By: #### C MPAna Paula TROPI, CDP #### [facility] [address] [place] [address] White Kid Buffer: Clinton Steven MD MCHC (RBC) [Mass/Vol] 33.8 g/dL Normal 31-37 [facility] Comment on above: Performed By: #### C MPAna Paula TROPI, CDP #### [facility] [address] [place] [address] White Kid Buffer: Clinton Steven MD MCV (RBC) [Entitic vol] 98.9 fL Normal 80-100 [facility] Comment on above: Performed By: #### C MPX, TROPI, CDP #### [facility] [address] [place] [address] White Kid Buffer: Clinton Steven MD Monocytes (Bld) [#/Vol] 1.30 10*3/uL High 0.0-1.0 [facility] Comment on above: Performed By: #### C MPX, TROPI, CDP #### [facility] [address] [place] [address] White Kid Buffer: Clinton Steven MD Monocytes/100 WBC (Bld) 14 % High 5-9 [facility] Comment on above: Performed By: #### C MPX, TROPI, CDP #### [facility] [address] [place] [address] White Kid Buffer: Clinton Steven MD Neutrophil (Seg) 71 % Normal 39-75 [facility] Comment on above: Performed By: #### C MPX, TROPI, CDP #### [facility] [address] [place] [address] White Kid Buffer: Clinton Steven MD Platelets (Bld) [#/Vol] 191 10*3/uL Normal 140-450 [facility] Comment on above: Performed By: #### C MPX, TROPI, CDP #### [facility] [address] [place] [address] White Kid Buffer: Clinton Steven MD RBC (Bld) [#/Vol] 3.76 10*6/uL Low 4.5-5.9 [facility] Comment on above: Performed By: #### C MPX, TROPI, CDP #### [facility] [address] [place] [address] White Kid Buffer: Clinton Steven MD WBC (Bld) [#/Vol] 9.2 10*3/uL Normal 3.5-11.0 [facility] Comment on above: Performed By: #### C MPX TROPI, CDP #### [facility] [address] [place], [place] [phone] White Kid Buffer: Clinton Steven MD Abs.Imm.Granulocyte NOT REPORTED Normal 0.00-0.30 [facility] Comment on above: Performed By: #### C MPX, TROPI, CDP #### [facility] [address] [place], [place] [phone] White Kid Buffer: Clinton Steven MD Immature Granulocyte NOT REPORTED Normal 0 [facility] Comment on above: Performed By: #### C MPX TROPI, CDP #### [facility] [address] [place], [place] [phone] White Kid Buffer: Clinton Steven MD MPV NOT REPORTED Normal 6.0-12.0 [facility] Comment on above: Performed By: #### C [facility], CDP #### [facility] [address] [place], [place] [phone] White Kid Buffer: Clinton Steven MD NRBC Automated NOT REPORTED Normal [facility] Comment on above: Performed By: #### C MPX TROPI, CDP #### [facility] [address] [place], [place] [phone] White Kid Buffer: Clinton Steven MD Platelet Estimate NOT REPORTED Normal [facility] Comment on above: Performed By: #### C MPX, TROPI, CDP #### [facility] [address] [place], [place] [phone] White Kid Buffer: Clinton Steven MD RBC morphology finding Nom (Bld) NOT REPORTED Normal [facility] Comment on above: Performed By: #### C MPX, TROPI, CDP #### [facility] [address] [place] [address] White Kid Buffer: Clinton Steven MD WBC Morphology NOT REPORTED Normal [facility] Comment on above: Performed By: #### C MPX, TROPI, CDP #### [facility] [address] [place] [address] White Kid Buffer: Clinton Steven MD CT HEAD WO CONTRASTon [...] Gt Sharp MD 10/17/20 Final result Normal [facility] CTA HEAD NECK W CONTRASTon 0 [...] is patent origins of the SCA and COUNTRY MANAGER bilaterally. DEVELOPMENTAL ANOMALIES: None. OTHER: No pathologic [...] thrombus or stenosis is seen in the akhiok of [place] and the distal distributions appear symmetric. A note was placed in the ops stat file for notification of the provider at 1:31 AM on 10/18/2020. 2. No aneurysm Interpreted by: Amaury Chamberlain Signed by: Amaury Chamberlain 10/18/20 Final result Normal [facility] Comp Metabolic Pr/rfx MGon 0 10-18-2020 Albumin [Mass/Vol] 4.0 g/dL Normal 3.5-5.2 [facility] Comment on above: Performed By: #### C MPX, TROPI, CDP #### [facility] [address] [place] [address] White Kid Buffer: Clinton Steven MD Alkaline Phos 78 U/L Normal 40-129 [facility] Comment on above: Performed By: #### C GIOVANI AGUILARI, CDP #### [facility] [address] [place], [place] [phone] White Kid Buffer: Clinton Steven MD ALT [Catalytic activity/Vol] 14 U/L Normal 5-41 [facility] Comment on above: Performed By: #### C JEFF TROPI, CDP #### [facility] [address] [place] [address] White Kid Buffer: Clinton Steven MD Anion gap [Moles/Vol] 10 mmol/L Normal 9-17 [facility] Comment on above: Performed By: #### C GIOVANI AGUILARI, CDP #### [facility] [address] [place], [place] [phone] White Kid Buffer: Clinton Steven MD AST [Catalytic activity/Vol] 15 U/L Normal <40 [facility] Comment on above: Performed By: #### C GIOVANI AGUILARI, CDP #### [facility] [address] [place], [place] [phone] White Kid Buffer: Clinton Steven MD Bilirubin [Mass/Vol] 0.42 mg/dL Normal 0.30-1.20 [facility] Comment on above: Performed By: #### C GIOVANI AGUILARI, CDP #### [facility] [address] [place], [place] [phone] White Kid Buffer: Clinton Steven MD Calcium [Mass/Vol] 9.4 mg/dL Normal 8.6-10.4 [facility] Comment on above: Performed By: #### C MPX TROPI, CDP #### [facility] [address] [place], [place] [id number] White Kid Buffer: Clinton Steven MD Chloride [Moles/Vol] 102 mmol/L Normal 98-107 [facility] Comment on above: Performed By: #### C MPX, TROPI, CDP #### [facility] [address] [place] [address] White Kid Buffer: Clinton Steven MD CO2 [Moles/Vol] 27 mmol/L Normal 20-31 [facility] Comment on above: Performed By: #### C MPX, TROPI, CDP #### [facility] [address] [place], [place] [id number] White Kid Buffer: Clinton Steven MD Creatinine [Mass/Vol] 1.45 mg/dL High 0.70-1.20 [facility] Comment on above: Performed By: #### C MPX, TROPI, CDP #### [facility] [address] [place] [address] White Kid Buffer: Clinton Steven MD GFR, Amer 58 mL/min Low >60 [facility] Comment on above: Performed By: #### C MPX, TROPI, CDP #### [facility] [address] [place] [address] White Kid Buffer: Clinton Steven MD GFR,non Amer 47 mL/min Low >60 [facility] Comment on above: Performed By: #### C MPX, TROPI, CDP #### [facility] [address] [place] [address] White Kid Buffer: Clinton Steven MD Glucose [Mass/Vol] 95 mg/dL Normal 70-99 [facility] Comment on above: Performed By: #### C MPX, TROPI, CDP #### [facility] [address] [place] [address] White Kid Buffer: Clinton Steven MD Potassium [Moles/Vol] 4.3 mmol/L Normal 3.7-5.3 [facility] Comment on above: Performed By: #### C MPX, TROPI, CDP #### [facility] [address] [place], [place] [phone] White Kid Buffer: Clinton Steven MD Protein [Mass/Vol] 6.8 g/dL Normal 6.4-8.3 [facility] Comment on above: Performed By: #### C MPX TROPI, CDP #### [facility] [address] [place] [address] White Kid Buffer: Clinton Steven MD Sodium [Moles/Vol] 139 mmol/L Normal 135-144 [facility] Comment on above: Performed By: #### C GIOVANI AGUILARI, CDP #### [facility] [address] [place] [address] White Kid Buffer: Clinton Steven MD Urea nitrogen [Mass/Vol] 16 mg/dL Normal 8-23 [facility] Comment on above: Performed By: #### C JEFF TROPI, CDP #### [facility] [address] [place] [address] White Kid Buffer: Clinton Steven MD (cont.) Normal [facility] Comment on above: Result Comment: Aver age GFR for 70 or more years old: 75 mL/min/1.73sq m Chronic Kidney Disease: <60 mL/min/1.73sq m Kidney failure: <15 mL/min/1.73sq m eGFR calculated using average adult body mass. Additional eGFR calculator available at: http://www.NOTIK.com/multiple_crcl_2012.htm Performed By: #### C MPAna Paula TROPI, CDP #### [facility] [address] [place] [address] White Kid Buffer: Clinton Steven MD Albumin/Glob Ratio NOT REPORTED Normal 1.0-2.5 [facility] Comment on above: Performed By: #### C MPX TROPI, CDP #### [facility] [address] [place] [address] White Kid Buffer: Clinton Steven MD BUN/CRE Ratio NOT REPORTED Normal 9-20 [facility] Comment on above: Performed By: #### C JAMAL AGUILAR, LULU #### [facility] [address] [place] [address] White Kid Buffer: Clinton Steven MD Staging: NOT REPORTED Normal [facility] Comment on above: Performed By: #### C DENEENXJAMAL, CDP #### [facility] [address] [place] [address] White Kid Buffer: Clinton Steven [facility] Materials Buyer Authentication Interface Message Text Attestation signed by [...] degree of stenosis of both carotid arteries. [facility] SURGERY EMERGENCY [...] thrombus or stenosis is seen in the akhiok of [place] and the distal distributions appear [...] rev (more content not included)... 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 Please page [phone] with additional questions/concerns Vashti Reis MD Ophthalmology Resident Eye clinic [phone], located 3rd floor specialty services [facility] Physician Note: This was a resident only visit. I personally reviewed the mckeon and critical portions of the history and the ophthalmologic exam. I reviewed the resident's documentation, the patient's history and examination as documented above. I agree with the resident's medical decision making as documented in the resident's note. Tamar Nathan MD Normal [facility] ED Noteson 10-18-2020 Materials Buyer Authentication Interface Message Text Vascular at bedside at this time Normal [facility] ED Provider Noteson 10-19-19 Materials Buyer Authentication Interface Message Text EMERGENCY DEPARTMENT - VISIT NOTE HISTORY OF PRESENT ILLNESS ------ Chief Complaint Patient presents with * Other sympt/complt of eye started with vision changes last night. sent from [employer]. here for vascular/neuro consult Chainstitch Seat Joiner: not needed - patient preferred language is Romanian. The history is provided by the Patient. [...] thrombus or stenosis is seen in the akhiok of [place] and the distal distributions appear [...] History: - Follows with vascular surgery at [place] for PVD: he has had stents placed in the thigh, CABG 1997, NE in 1986, defibrillator placed in 1995 batteries [...] who will come eval the patient [CM] [phone] Paged Kyle, vasc surgery consult, he passed the consult on to another provider at [phone] [CM] 1755 Spoke to Vasc Surg construction consultant who will talk to her chief as carotid duplex can't be performed today [CM] ED Course User Index [CM] Armani Sullivan MD Medical Decision Shawn (more content not included)... Normal [facility] [id number] 10-18-2020 SARS-CoV-2 (COVID-19) RNA JOCELIN+probe Ql (Unsp spec) Not detected Normal NOTDET [facility] Comment on above: Result Comment: Rapid NAAT: [...] management decisions. Fact sheet for Healthcare Providers: https://www.fda.gov/media/768919/download Fact sheet for Patients: https://www.fda.gov/media/278161/download Methodology: Isothermal Nucleic Acid Amplification Performed By: #### C OVRB #### [facility] [address] [place] [address] White Kid Buffer: Clinton Steven MD Troponinon 10-18-2020 Troponin, High Sens 28 ng/L High 0-22 [facility] Comment on above: Result Comment: High Sensitivity Troponin values cannot be compared with other Troponin methodologies. Patients with high levels of Biotin oral intake (i.e >5mg/day) may have falsely decreased Troponin levels. Samples collected within 8 hours of biotin intake may require additional information for diagnosis. Performed By: #### C MPX, TROPI, CDP #### [facility] [address] [place] [address] White Kid Buffer: Clinton Steven MD Troponin Interp. NOT REPORTED Normal [facility] Comment on above: Performed By: #### C MPX, TROPI, CDP #### [facility] [address] [place] [address] White Kid Buffer: Clinton Steven MD Troponin T NOT REPORTED Normal <0.03 [facility] Comment on above: Performed By: #### C JAMAL AGUILAR, LULU #### [facility] [address] [place] [address] White Kid Buffer: Clinton Steven MD Encounters Encounter Date Encounter Type Care Provider Facility Start: 09-25-2023 End: 09-25-2023 ambulatory RISHI MADRIGAL [facility] Start: 09-20-2023 End: 09-20-2023 ambulatory [facility] Start: 09-05-2023 End: 09-05-2023 ambulatory [facility] Start: 08-10-2023 End: 08-10-2023 ambulatory [facility] Start: 03-21-2023 End: 03-21-2023 [facility]: 01-24-2023 End: 01-24-2023 ambulatory [facility] Start: 04-14-2022 End: 04-15-[address] DOCTOR GONZALEZ Facility:[facility] Start: 10-10-[address] CARMELITA Casillas ility:[facility] Start: 04-29-2021 End: 04-30-2021 ambulatory PROVIDER UNKNOWN Facility:[facility] Start: 10-18-2020 ambulatory UNKNOWN PROVIDER Facili ty:[facility] Start: 10-18-2020 End: 10-18-2020 ambulatory UNKNOWN PROVIDER Facility:[facility] Start: 10-18-2020 End: 10-18-2020 Emergency department patient visit IP SURGERY VASCULAR CONSULT Facility:[facility] Start: 10-17-2020 End: 10-18-2020 Emergency department patient visit [facility] Payers Date Payer Category Payer Medicare [id number] 2020 Private Health Insurance 1960 Medicare [id number] 1960 Self-pay [id number] Unknown [id number] 1945 Unknown [id number] 1945 Unknown [id number] 2.16. [id number] 1944 Unknown [id number] 2.16. [id number] 1944 Unknown [id number] 2.16. [id number] 1944 Unknown [id number] 2.16.8 40.1.460379.3.579.2.647 1944 Unknown [id number] 2.16.84 [id number] 1944 Unknown [id number] 2.16.84 [id number] Progress note 09-20-2023 Note Date & Type Note Facility 09-20-2023 Note [facility] - [facility] Subjective Raymon Dias is a [...] creatinine 1.1, pot (more content not included)... [facility] Progress note 08-10-2023 Note Date & Type Note Facility 08-10-2023 Note [facility] - [facility] Subjective Raymon Dias is a [...] valve stenosis, mild (more content not included)... [facility] Progress note 01-24-2023 Note Date & Type Note Facility 01-24-2023 Note [facility] - [facility] Subjective Raymon Dias is a [...] plaque formation throug (more content not included)... [facility] Summary Purpose Family History No Family [...] CREATED AUTHOR AUTHOR'S ORGANIZ ATION 03/23/2021 [facility] DATE CREATED AUTHOR AUTHOR'S ORGANIZ ATION 05/06/2021 [facility] DATE CREATED AUTHOR AUTHOR'S ORGANIZ ATION [facility]/20/2022 [facility] DATE CREATED AUTHOR AUTHOR'S ORGANIZ ATION 09/26/2023 [facility] FOR RECORDS PERTAINING TO PATIENTS WHO ARE [...] BE BASED ON THE PRIMARY CLINICAL RECORDS. [facility]. provides no warranty or guarantee of the accuracy or completeness of information in this document.
[2023-10-06 14:13] LABS: Basophils Absolute Auto 0.1 10^3/uL (0.0-0.1); Basophils Percent Auto 0.5 % (0.2-2.0); Eosinophils Absolute Auto 0.2 10^3/uL (0.0-0.7); Eosinophils Percent Auto 2.4 % (0.9-7.0); Hematocrit 37.4 % (42.0-54.0); Hemoglobin 12.5 g/dL (14.0-18.0); Immature Granulocytes Abs Auto 0.06 10^3/uL (0.00-0.03); Immature Granulocytes Pct Auto 0.6 % (0.0-0.5); Lymphocytes Absolute Auto 0.8 10^3/uL (1.2-3.8); Lymphocytes Percent Auto 8.6 % (20.5-60.0); Mean Corpuscular HGB Conc 33.4 g/dL (29.9-35.2); Mean Corpuscular Hemoglobin 33.9 pg (25.9-34.0); Mean Corpuscular Volume 101.4 fL (80.0-94.0); Mean Platelet Volume 10.9 fL (9.5-13.5); Monocytes Absolute Auto 1.2 10^3/uL (0.3-0.8); Monocytes Percent Auto 13.1 % (1.7-12.0); Neutrophils Absolute Auto 7.1 10^3/uL (1.4-6.5); Neutrophils Percent Auto 74.8 % (43.0-75.0); Platelet Count 187 10^3/uL (150-450); Red Blood Count 3.69 10^6/uL (4.70-6.10); White Blood Count 9.5 10^3/uL (4.0-11.0)
[2023-10-06 14:24] LABS: Anion Gap 10.1; Calcium 9.2 mg/dL (8.5-10.1); Carbon Dioxide 28.5 mmol/L (21.0-32.0); Chloride 102 mmol/L (98-107); Estimated GFR (African America >60 (>=60); Estimated GFR (Non-African Ame >60 (>=60); Glucose 92 mg/dL (74-106); Potassium 4.6 mmol/L (3.5-5.1); Sodium 136 mmol/L (136-145)
== END 2023-10-06 13:39 | disposition home or self-care (01) ==
LOC: LAB 13:38
PROVIDERS: PCP Internal Medicine; Visit Provider Internal Medicine Interventional Cardiology
DX: I35.0 Nonrheumatic aortic (valve) stenosis (principal); R94.39 Abnormal result of other cardiovascular function study
CPT/HCPCS: 36415; 80048; 85025

== ENCOUNTER 2023-10-31 12:52 | Outpatient (OUT) | payer MEDICARE, SELFPAY ==
--- OUTSIDE RECORDS SUMMARY | 2023-10-31 13:04 | XMS_ITS | CCD ---
Author Organization [facility] Care Team Providers Care Electric Car Operator Name Role Phone ARMANI STEWART Primary [...] COLEMAN Consulting Unavailable MOUKARBEL, CARMELITA Attending Unavailable MOUKARBEL, CARMELITA Admitting Unavailable MOUKARBEL, CARMELITA Attending Unavailable MOUKARBEL, CARMELITA Attending Unavailable JEAN PIERREKYLE Salguero Referring Unavailable MOUKARBEL, CARMELITA Referring Unavailable MADRIGAL, RISHI Referring Unavailable MOUKARBEL, CARMELITA Referring Unavailable MOUKARBEL, CARMELITA Referring Unavailable MOUKARBEL, CARMELITA Attending Unavailable DERISO, EDUARD Attending Unavailable JEAN PIERRE, KYLE Referring Unavailable Allergies Allergy Classification Reported Allergen(s) Allergy Type Date of Onset Reaction(s) Facility (1 source) 99262,00; Translations: [66129,00] Propensity to adverse reactions (disorder) 2 [facility] Repository Problems Problem Classification Problem Date Documented Date Episodic/Chronic Cardiac dysrhythmias (4 sources) Paroxysmal atrial fibrillation; Translations: [Ventricular premature depolarization] Onset: 08-10-2023 Chronic Conduction disorders (4 sources) Encounter for adjustment and management of automatic implantable cardiac defibrillator; Translations: [Presence of automatic (implantable) cardiac defibrillator] Onset: 08-10-2023 Chronic Congestive heart failure; nonhypertensive (3 sources) Chronic systolic (congestive) heart failure; Translations: [CHRONIC SYSTOLIC HEART FAILURE] Onset: 04-18-2022 Chronic Coronary atherosclerosis and other heart disease (2 sources) Atherosclerotic heart disease of [place] coronary artery without angina pectoris; Translations: [Atherosclerotic heart disease of [place] coronary artery without angina pectoris] Onset: 08-10-2023 Chronic Coronary atherosclerosis and other heart disease (3 sources) Presence of aortocoronary bypass graft; Translations: [PRESENCE AORTOCORONARY BYPASS GRAFT] Onset: 04-18-2022 Episodic Disorders of lipid metabolism (4 sources) Mixed hyperlipidemia; Translations: [MIXED HYPERLIPIDEMIA] Onset: 04-14-2022 Chronic Heart valve disorders (2 sources) Nonrheumatic aortic (valve) stenosis; Translations: [Nonrheumatic aortic (valve) stenosis] Onset: 10-06-2023 Chronic Hypertension with complications and secondary hypertension [...] result of other cardiovascular function study] Onset: 10-06-2023 Episodic Peripheral and visceral atherosclerosis (2 sources) Peripheral vascular disease, unspecified; Translations: [Peripheral vascular disease, unspecified] Onset: 08-10-2023 Chronic Substance-related disorders (1 source) Nicotine dependence, cigarettes, uncomplicated; Translations: [NICOTINE DEPEND CIGARETTES UNCOMP] Onset: 04-18-2022 Chronic Unclassified (2 sources) New Patient; Translations: [New Patient] Onset: 10-05-2023 Unclassified (2 sources) Other persistent atrial fibrillation; Translations: [Other persistent atrial fibrillation] Onset: 09-20-2023 Results Test Name Value Interpretation Reference Range Facility Abstracton 10-23-2023 Abstract [id number] Raymon Dias Min 1945 M Date Provider Department Center 10/23/2023 CARMELITA MCLEOD [facility] [place] Count Family History Problem Relation Age of Onset Coronary artery disease Other Heart attack Mother Heart disease Mother Family Status - Relation Status Age at Other Mother [facility] Orders Onlyon 10-18-2023 Orders Only [id number] Raymon Dias 1945 M Date Provider Department Center 10/18/2023 Lucy-RISHI MADRIGAL [facility] Family History Problem Relation Age of Onset Coronary artery disease Other Heart attack Mother Heart disease Mother Family Status - Relation Status Age at Other Mother [facility] HPon 10-12-2023 HP H&P reviewed. The patient was examined and there are no changes to the H&P. Discussed risks, benefits, and alternative therapies with the patient, he understands and willing to proceed with RHC/coronary angiogram and possible PCI. Ladarius Weeks MD PGY-7 Interventional Bed Bug Exterminator [facility] NURSNOTEon 10-12-2023 NURSNOTE RN educated pt on d/c instructions. RN encouraged pt to voice any questions or concerns. Pt verbalizes no questions or concerns at this time. Pt was wheeled off of unit with all of belongings. [facility] NURSNOTE Dr. Weeks at bedside to assess pt groin sites. Per groin sites looks great and okay for pt to discharge at 1500. [facility] Abstracton 10-09-2023 Abstract [id number] Raymon Dias 1945 Date Provider Department [place] 10/09/2023 [place]-CARMELITA WALLACE [facility] [place] Count Family History Problem Relation Age of Onset Coronary artery disease Other Heart attack Mother Heart disease Mother Family Status - Relation Status Age at Other Mother [facility] Consulton 10-05-2023 Consult [id number] Raymon Dias 1945 M Date Provider Department Center 10/05/2023 [id number] GARZA HVCTS [place] [facility] Family History Problem Relation Age of Onset Coronary artery disease Other Heart attack Mother Heart disease Mother Family Status - Relation Status Age at Other Mother Level of Service:[id number] MD OFFICE/OP CONSLTJ NEW/EST PT HIGH MDM 55 MINUTES Reason for Visit and Comments: New Patient [632] - Aortic valve stenosis [facility] CTA ABDOMEN PELVIS W IV CONT RASTon 09-25-2023 CTA ABDOMEN PELVIS W IV CONTRAST [...] pathology. Electronically signed: Margot Ballard MD. Not Anadtd Invalid Interpretation Code [facility] CTA CHEST W IV CONTRASTon CTA [...] 3. Cusped view, anterior view, and no MELTER CLERK-CAU view are obtained in 3-D volume rendered [...] Margot Ballard MD. 9 Invalid Interpretation Code [facility] 09-20-2023 [facility] Cardiology [facility] Subjective Raymon Dias is a 77 y.o. year old male patient being seen for follow up stress echo and ENRIQUETA's. Still denies chest pain, SOB, palpitations, and bleeding on Eliquis. Patient Active Problem List Diagnosis Acute tonsillitis Aortic valve disorder Aortic valve stenosis Bruit Chronic systolic heart failure (CMS/HCC) Coronary atherosclerosis Essential hypertension Gastric ulcer Hyperlipidemia Implantable cardioverter-defibri llator (ICD) in situ Left ventricular systolic dysfunction [...] creatinine 1.1, pot (more content not included)... [facility] Office Visiton 09-20-2023 Follow-up visit [id number] [facility] 1945 M Date Provider Department Center 09/20/2023 CARMELITA MCLEOD Family History Problem Relation Age of Onset Coronary artery disease Other Heart attack Mother Heart disease Mother Family Status - Relation Status Age at Other Mother Level of Service:[id number] MD OFFICE/OUTPATIENT ESTABLISHED HIGH MDM 40 MIN [facility] Orders Onlyon 09-20-2023 Orders Only [id number] Raymon Dias 1945 M Date Provider Department Center 09/20/2023 Lucy-RISHI MADRIGAL [facility] Family History Problem Relation Age of Onset Coronary artery disease Other Family Status - Relation Status Age at Other [facility] 29on 09-06-2023 29 Addended by: VON FRIEND on: 09/06/2023 05:00 PM Modules accepted: Orders [facility] 36on 09-06-2023 36 Spoke with patient and scheduled him to see Dr. Wallace on 09/19. Also informed him to start Eliquis 5mg bid and stop aspirin. He verbalized understanding. Rx sent to pharmacy. [facility] 36on 09-05-2023 36 He had his dobutamine stress echo today at [facility]. He was found to have atrial fibrillation at baseline. Also, the aortic valve stenosis is severe. We need to start him on eliquis 5 mg bid. Diagnosis is persistent atrial fibrillation. Please have him stop aspirin after starting eliquis. I need to see him soon to discuss the results of the test and next step. [facility] Telephoneon 09-05-2023 Telephone [id number] Raymon Dias 1945 M Date Provider Department [place] 09/05/2023 CARMELITA CMLEOD Family History Problem Relation Age of Onset Coronary artery disease Other Family Status - Relation Status Age at Other [facility] Office Visiton 08-10-2023 Follow-up visit [id number] Raymon Dias 1945 [facility] Provider Department Center 08/10/2023 CARMELITA MCLEOD Family History Problem Relation Age of Onset Coronary artery disease Other Family Status - Relation Status Age at Other Level of Service:[id number] MD OFFICE/OUTPATIENT ESTABLISHED MOD MDM 30 MIN [facility] Office Visiton 01-24-2023 Follow-up visit [id number] Raymon Dias 1945 [facility] Provider Department [facility] 01/[facility] Problem Relation Age of Onset Coronary artery disease Other Family Status - Relation Status Age at Other Level of Service:24642 MD OFFICE/OUTPATIENT ESTABLISHED MOD MDM 30-39 MIN Normal [facility] ECHOCARDIO M/2D COMPLETEon 0 04-14-2022 ECHOCARDIO M/2D COMPLETE Patient: RAYMON DIAS Exam Date: 04/14/2022 : 1945 Gender:M Ordering : DR CARMELITA WALLACE M.D. Admission #: [id number] Family : DR ARMANI STEWART D.O. Order #: [id number] CLICK HERE TO VIEW EXAM ECHOCARDIOGRAM REPORT [...] Wallace M.D. on 04/14/2022 at 10:18 Normal [facility] LIPID PROFILEon 04-14-2022 CHOL-HDL RATIO NORM SEE BELOW Normal [facility] Comment on above: Result Comment: 3.3 - 4.4 LOW RISK 4.4 - 7.1 AVERAGE RISK 7.1 - 11.0 MODERATE RISK >11.0 HIGH RISK Performed By: #### L IPID #### [facility] [address] [address] [address] Jackie Christopher Cholesterol [Mass/Vol] 157 mg/dL Normal <=200 [facility] Comment on above: Performed By: #### L IPID #### [facility] [address] [address] [address] Jackie Christopher Cholesterol in HDL [Mass/Vol] 53 mg/dL Normal 40-60 [facility] Comment on above: Performed By: #### L IPID #### [facility] [address] [address] [address] Jackie Christopher Cholesterol in LDL [Mass/Vol] 90.6 mg/dL Normal [facility] Comment on above: Performed By: #### L IPID #### [facility] [address] [address] [address] Jackie Christopher Cholesterol.total/C holesterol in HDL [Mass ratio] 3.0 {ratio} Normal [facility] Comment on above: Performed By: #### L IPID #### [facility] [address] [address] [address] Jackie Christopher HDL NORMAL > or = 60 mg/dl - LOW CARDIOVASCULAR RISK <40 mg/dl - HIGH CARDIOVASCULAR RISK Normal [facility] Comment on above: Performed By: #### L IPID #### [facility] [address] [address] [address] Jackie Christopher LDL CALC NORMAL SEE BELOW Normal [facility] Comment on above: Result Comment: <100 mg/dl OPTIMAL 100 - 129 mg/dl NEAR OR ABOVE OPTIMAL 130 - 159 mg/dl BORDERLINE HIGH 160 - 189 mg/dl HIGH >190 mg/dl VERY HIGH Performed By: #### L IPID #### [facility] [address] [address] [address] Jackie Christopher Triglyceride [Mass/Vol] 67 mg/dL Normal <=150 [facility] Comment on above: Performed By: #### L IPID #### [facility] [address] [address] [address] Jackie Christopher VLDL CALC 13.4 mg/dL Normal [facility] Comment on above: Performed By: #### L IPID #### [facility] [address] [address] [address] Jackie Christopher CBC with Diffon 10-18-2020 Abs. Basophil 0.00 k/uL Normal 0.0-0.2 [facility] Comment on above: Performed By: #### C JAMAL AGUILAR, CDP #### [facility] [address] [place] [address] Rehabilitation Specialist: Clinton Steven MD Abs.Neutrophil (Seg) 6.50 k/uL Normal 2.1-6.5 [facility] Comment on above: Performed By: #### C JAMAL AGUILAR, CDP #### [facility] [address] [place] [address] Rehabilitation Specialist: Clinton Steven MD Auto Diff Performed YES Normal [facility] Comment on above: Performed By: #### C JAMAL AGUILAR, CDP #### [facility] [address] [place] [address] Rehabilitation Specialist: Clinton Steven MD Basophils/100 WBC (Bld) 0 % Normal 0-2 [facility] Comment on above: Performed By: #### C JAMAL AGUILAR, CDP #### [facility] [address] [place] [address] Rehabilitation Specialist: Clinton Steven MD Eosinophils (Bld) [#/Vol] 0.60 10*3/uL High 0.0-0.4 [facility] Comment on above: Performed By: #### C JAMAL AGUILAR, CDP #### [facility] [address] [place] [address] Rehabilitation Specialist: Clinton Steven MD Eosinophils/100 WBC (Bld) 7 % High 0-5 [facility] Comment on above: Performed By: #### C JAMAL AGUILAR, CDP #### [facility] [address] [place] [address] Rehabilitation Specialist: Clinton Steven MD Erythrocyte distribution width (RBC) [Ratio] 15.7 % High 12.1-15.2 [facility] Comment on above: Performed By: #### C JAMAL AGUILAR, CDP #### [facility] [address] [phone] Rehabilitation Specialist: Clinton Steven MD Hematocrit (Bld) [Volume fraction] 37.2 % Low 41-53 [facility] Comment on above: Performed By: #### C JAMAL AGUILAR, CDP #### [facility] [address] [phone] Rehabilitation Specialist: Clinton Steven MD Hemoglobin (Bld) [Mass/Vol] 12.6 g/dL Low 13.5-17.5 [facility] Comment on above: Performed By: #### C JAMAL AGUILAR, CDP #### [facility] [address] [phone] Rehabilitation Specialist: Clinton Steven MD Lymphocytes (Bld) [#/Vol] 0.70 10*3/uL Low 1.0-4.8 [facility] Comment on above: Performed By: #### C GIOVANI AGUILARI, CDP #### [facility] [address] [place] [address] Rehabilitation Specialist: Clinton Steven MD Lymphocytes/100 WBC (Bld) 8 % Low 13-44 [facility] Comment on above: Performed By: #### C JAMAL AGUILAR, CDP #### [facility] [address] [place] [address] Rehabilitation Specialist: Clinton Steven MD MCH (RBC) [Entitic mass] 33.5 pg Normal 26-34 [facility] Comment on above: Performed By: #### C JAMAL AGUILAR, CDP #### [facility] [address] [place] [address] Rehabilitation Specialist: Clinton Steven MD MCHC (RBC) [Mass/Vol] 33.8 g/dL Normal 31-37 [facility] Comment on above: Performed By: #### C JAMAL AGUILAR, CDP #### [facility] [address] [place] [address] [phone] Rehabilitation Specialist: Clinton Steven MD MCV (RBC) [Entitic vol] 98.9 fL Normal 80-100 [facility] Comment on above: Performed By: #### C JAMAL AGUILAR, CDP #### [facility] [address] [place] [address] Rehabilitation Specialist: Clinton Steven MD Monocytes (Bld) [#/Vol] 1.30 10*3/uL High 0.0-1.0 [facility] Comment on above: Performed By: #### C JAMAL AGUILAR, CDP #### [facility] [address] [place] [address] [phone] Rehabilitation Specialist: Clinton Steven MD Monocytes/100 WBC (Bld) 14 % High 5-9 [facility] Comment on above: Performed By: #### C JAMAL AGUILAR, CDP #### [facility] [address] [place], [place] [phone] Rehabilitation Specialist: Clinton Steven MD Neutrophil (Seg) 71 % Normal 39-75 [facility] Comment on above: Performed By: #### C MPX TROPI, CDP #### [facility] [address] [place] [address] Rehabilitation Specialist: Clinton Steven MD Platelets (Bld) [#/Vol] 191 10*3/uL Normal 140-450 [facility] Comment on above: Performed By: #### C MPX, TROPI, CDP #### [facility] [address] [phone] Rehabilitation Specialist: Clinton Steven MD RBC (Bld) [#/Vol] 3.76 10*6/uL Low 4.5-5.9 [facility] Comment on above: Performed By: #### C MPX TROPI, CDP #### [facility] [address] [place] [address] Rehabilitation Specialist: Clinton Steven MD WBC (Bld) [#/Vol] 9.2 10*3/uL Normal 3.5-11.0 [facility] Comment on above: Performed By: #### C MPX TROPI, CDP #### [facility] [address] [phone] Rehabilitation Specialist: Clinton Steven MD Abs.Imm.Granulocyte NOT REPORTED Normal 0.00-0.30 [facility] Comment on above: Performed By: #### C MPX TROPI, CDP #### [facility] [address] [place] [address] Rehabilitation Specialist: Clinton Steven MD Immature Granulocyte NOT REPORTED Normal 0 [facility] Comment on above: Performed By: #### C MPX, TROPI, CDP #### [facility] [address] [place] [address] Rehabilitation Specialist: Clinton Steven MD MPV NOT REPORTED Normal 6.0-12.0 [facility] Comment on above: Performed By: #### C MPX, TROPI, CDP #### [facility] [address] [place] [address] Rehabilitation Specialist: Clinton Steven MD NRBC Automated NOT REPORTED Normal [facility] Comment on above: Performed By: #### C MPX, TROPI, CDP #### [facility] [address] [place] [address] Rehabilitation Specialist: Clinton Steven MD Platelet Estimate NOT REPORTED Normal [facility] Comment on above: Performed By: #### C MPX, TROPI, CDP #### [facility] [address] [place] [address] Rehabilitation Specialist: Clinton Steven MD RBC morphology finding Nom (Bld) NOT REPORTED Normal [facility] Comment on above: Performed By: #### C MPX, TROPI, CDP #### [facility] [address] [place] [address] Rehabilitation Specialist: Clinton Steven MD WBC Morphology NOT REPORTED Normal [facility] Comment on above: Performed By: #### C MPX, TROPI, CDP #### [facility] [address] [place] [address] Rehabilitation Specialist: Clinton Steven MD CT HEAD WO CONTRASTon [...] Gt Sharp MD 10/17/20 Final result Normal [facility] CTA HEAD NECK W CONTRASTon 0 10-18-2020 [...] is patent origins of the SCA and [employer] bilaterally. DEVELOPMENTAL ANOMALIES: None. OTHER: No pathologic [...] thrombus or stenosis is seen in [place] and the distal distributions appear symmetric. A note was placed in the ops stat file for notification of the provider at 1:31 AM on 10/18/2020. 2. No aneurysm Interpreted by: Amaury Chamberlain Signed by: Amaury Chamberlain 10/18/20 Final result Normal [facility] Comp Metabolic Pr/rfx MGon 0 10-18-2020 Albumin [Mass/Vol] 4.0 g/dL Normal 3.5-5.2 [facility] Comment on above: Performed By: #### C MPX, TROPI, CDP #### [facility] [address] [place], [place] [phone] Rehabilitation Specialist: Clinton Steven MD Alkaline Phos 78 U/L Normal 40-129 [facility] Comment on above: Performed By: #### C MPX, TROPI, CDP #### [facility] [address] [place] [address] Rehabilitation Specialist: Clinton Steven MD ALT [Catalytic activity/Vol] 14 U/L Normal 5-41 [facility] Comment on above: Performed By: #### C MPX, TROPI, CDP #### [facility] [address] [place] [address] Rehabilitation Specialist: Clinton Steven MD Anion gap [Moles/Vol] 10 mmol/L Normal 9-17 [facility] Comment on above: Performed By: #### C MPX, TROPI, CDP #### [facility] [address] [place] [address] Rehabilitation Specialist: Clinton Steven MD AST [Catalytic activity/Vol] 15 U/L Normal <40 [facility] Comment on above: Performed By: #### C MPX, TROPI, CDP #### [facility] [address] [place], [place] [phone] Rehabilitation Specialist: Clinton Steven MD Bilirubin [Mass/Vol] 0.42 mg/dL Normal 0.30-1.20 [facility] Comment on above: Performed By: #### C MPX, TROPI, CDP #### [facility] [address] [place], [place] [phone] Rehabilitation Specialist: Clinton Steven MD Calcium [Mass/Vol] 9.4 mg/dL Normal 8.6-10.4 [facility] Comment on above: Performed By: #### C MPX, TROPI, CDP #### [facility] [address] [place], [place] [phone] Rehabilitation Specialist: Clinton Steven MD Chloride [Moles/Vol] 102 mmol/L Normal 98-107 [facility] Comment on above: Performed By: #### C MPX, TROPI, CDP #### [facility] [address] [place], [place] [phone] Rehabilitation Specialist: Clinton Steven MD CO2 [Moles/Vol] 27 mmol/L Normal 20-31 [facility] Comment on above: Performed By: #### C MPX, TROPI, CDP #### [facility] [address] [place], [place] [phone] Rehabilitation Specialist: Clinton Steven MD Creatinine [Mass/Vol] 1.45 mg/dL High 0.70-1.20 [facility] Comment on above: Performed By: #### C MPX, TROPI, CDP #### [facility] [address] [place] [address] Rehabilitation Specialist: Clinton Steven MD GFR, Amer 58 mL/min Low >60 [facility] Comment on above: Performed By: #### C MPX, TROPI, CDP #### [facility] [address] [place], [place] [phone] Rehabilitation Specialist: Clinton Steven MD GFR,non Amer 47 mL/min Low >60 [facility] Comment on above: Performed By: #### C GIOVANI AGUILARI, CDP #### [facility] [address] [place] [address] Rehabilitation Specialist: Clinton Steven MD Glucose [Mass/Vol] 95 mg/dL Normal 70-99 [facility] Comment on above: Performed By: #### C MPAna Paula TROPI, CDP #### [facility] [address] [place] [address] Rehabilitation Specialist: Clinton Steven MD Potassium [Moles/Vol] 4.3 mmol/L Normal 3.7-5.3 [facility] Comment on above: Performed By: #### C GIOVANI AGUILARI, CDP #### [facility] [address] [place] [address] Rehabilitation Specialist: Clinton Steven MD Protein [Mass/Vol] 6.8 g/dL Normal 6.4-8.3 [facility] Comment on above: Performed By: #### C GIOVANI AGUILARI, CDP #### [facility] [address] [place] [address] Rehabilitation Specialist: Clinton Steven MD Sodium [Moles/Vol] 139 mmol/L Normal 135-144 [facility] Comment on above: Performed By: #### C MPAna Paula TROPI, CDP #### [facility] [address] [place] [address] Rehabilitation Specialist: Clinton Steven MD Urea nitrogen [Mass/Vol] 16 mg/dL Normal 8-23 [facility] Comment on above: Performed By: #### C MPAna Paula TROPI, CDP #### [facility] [address] [place], [place] [phone] Rehabilitation Specialist: Clinton Steven MD (cont.) Normal [facility] Comment on above: Result Comment: Aver age GFR for 70 or more years old: 75 mL/min/1.73sq m Chronic Kidney Disease: <60 mL/min/1.73sq m Kidney failure: <15 mL/min/1.73sq m eGFR calculated using average adult body mass. Additional eGFR calculator available at: http://[email or web address]_crcl_2012.htm Performed By: #### C MPX, TROPI, CDP #### [facility] [address] [place], [place] [phone] Rehabilitation Specialist: Clinton Steven MD Albumin/Glob Ratio NOT REPORTED Normal 1.0-2.5 [facility] Comment on above: Performed By: #### C MPX, TROPI, CDP #### [facility] [address] [place] [address] Rehabilitation Specialist: Clinton Steven MD BUN/CRE Ratio NOT REPORTED Normal 11-02 [facility] Comment on above: Performed By: #### C MPX, TROPI, CDP #### [facility] [address] [place] [address] Rehabilitation Specialist: Clinton Steven MD Staging: NOT REPORTED Normal [facility] Comment on above: Performed By: #### C MPX, TROPI, CDP #### [facility] [address] [place] [address] Rehabilitation Specialist: Clinton Steven MD [facility] 10-18-2020 Seam Hammerer Authentication Interface Message Text Attestation signed by [...] degree of stenosis of both carotid arteries. [facility] DIVISION OF ACUTE CARE SURGERY EMERGENCY [...] thrombus or stenosis [place] and the distal distributions appear [...] rev (more content not included)... Normal [facility] Seam Hammerer Authentication Interface Message Text Eye Consult Note [...] RD - No retinal breaks/detachment/he me on PICTURE HANGER - Retinal detachment precautions reviewed with patient - Patient lives in [facility] and has an appointment with his patient service associate at the [place] on December 03-- follow-up for new flashes at that visit. Please page [phone] with additional questions/concerns Vashti Reis MD Ophthalmology Resident Eye clinic [phone], located 3rd floor specialty services [facility] Physician Note: This was a resident only visit. I personally reviewed the mckeon and critical portions of the history and the ophthalmologic exam. I reviewed the resident's documentation, the patient's history and examination as documented above. I agree with the resident's medical decision making as documented in the resident's note. Tamar Nathan MD Normal [facility] ED Noteson 10-18-2020 Seam Hammerer Authentication Interface Message Text Vascular at bedside at this time Normal [facility] ED Provider Noteson 10-19-19 Seam Hammerer Authentication Interface Message Text EMERGENCY DEPARTMENT - VISIT NOTE HISTORY OF PRESENT ILLNESS ------ Chief Complaint Patient presents with * Other sympt/complt of eye started with vision changes last [facility]neuro consult Fence Post Cutter: not needed - patient preferred language is Vietnamese. The history is provided by the Patient. [...] thrombus or stenosis [place] and the distal distributions appear [...] History: - Follows with vascular surgery at [facility] for PVD: he has had stents placed in the thigh, CABG 1997, [place] in 1986, defibrillator placed in 1995 batteries [...] surgery [CM] 1256 Spoke to Kyle from vas surg who will come eval the patient [CM] 1711 Paged Kyle, [facility] surgery consult, he passed the consult on to another provider at [phone] [CM] 9010 Spoke to [facility] consultant teacher who will talk to her chief as carotid duplex can't be performed today [CM] ED Course User Index [CM] Armani Sullivan MD Medical Decision Makin (more content not included)... [id number] 10-18-2020 SARS-CoV-2 (COVID-19) RNA JOCELIN+probe Ql (Unsp spec) Not detected Normal [facility] Comment on above: Result Comment: Rapid [...] management decisions. Fact sheet for Healthcare Providers: https://www.fda.gov/media/021047/download Fact sheet for Patients: https://www.fda.gov/media/529282/download Methodology: Isothermal Nucleic Acid Amplification Performed By: #### C OVRB #### [facility] [address] [place], [place] [id number] Rehabilitation Specialist: Clinton Steven MD Troponinon 10-18-2020 Troponin, High Sens 28 ng/L High 0-22 [facility] Comment on above: Result Comment: High Sensitivity Troponin values cannot be compared with other Troponin methodologies. Patients with high levels of Biotin oral intake (i.e >5mg/day) may have falsely decreased Troponin levels. Samples collected within 8 hours of biotin intake may require additional information for diagnosis. Performed By: #### C MPX, TROPI, CDP #### [facility] [address] [place], [place] [id number] Rehabilitation Specialist: Clinton Steven MD Troponin Interp. NOT REPORTED Normal [facility] Comment on above: Performed By: #### C MPX, TROPI, CDP #### [facility] [address] [place], [place] [id number] Rehabilitation Specialist: Clinton Steven MD Troponin T NOT REPORTED Normal <0.03 [facility] Comment on above: Performed By: #### C MPX, TROPI, CDP #### [facility] [address] [place], [place] [id number] Rehabilitation Specialist: Clinton Steven MD Encounters Encounter Date Encounter Type Care Provider Facility Start: 10-12-2023 End: 10-12-2023 ambulatory [facility] Start: 10-10-2023 End: 10-10-2023 ambulatory KYLE GREENFIELD [facility] Start: [facility]: 09-25-2023 End: 09-25-2023 ambulatory RISHI MADRIGAL [facility] Start: 09-20-2023 End: 09-20-2023 ambulatory [facility] Start: 09-05-2023 End: 09-05-2023 ambulatory [facility] Start: 08-10-2023 End: 06-27-2024 ambulatory [facility] Start: 03-21-2023 End: 03-21-2023 ambulatory KYLE JEAN PIERRE [facility] Start: 01-24-2023 End: 01-24-2023 ambulatory [facility] Start: 04-14-2022 End: 04-15-[address] DOCTOR GONZALEZ Facility:[facility] Start: 10-10-[address] CARMELITA WALLACE Fac ility:[facility] Start: 04-29-2021 End: 04-30-2021 ambulatory PROVIDER UNKNOWN Facility:[facility] Start: 10-18-2020 ambulatory UNKNOWN PROVIDER Facili ty:[facility] Start: 10-18-2020 End: 10-18-2020 ambulatory UNKNOWN PROVIDER Facility:[facility] Start: 10-18-2020 End: 10-18-2020 Emergency department patient visit IP SURGERY VASCULAR CONSULT Facility:[facility] Start: 10-17-2020 End: 10-18-2020 Emergency department patient visit [facility] Payers Date Payer Category Payer Medicare [id number] 2020 Private Health Insurance 1960 Medicare [id number] 1959 Self-pay [id number] 1959 Unknown [id number] 1944 Unknown [id number] 1944 Unknown [id number] 2. [id number] 1944 Unknown [id number] . [id number] 1944 Unknown [id number] 2.16. 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 Use of blood products discussed with patient who consented to blood products. Plan discussed with attending. Additional Equipment Requests [facility] Progress note 10-05-2023 Note Date & Type Note Facility 10-05-2023 Note Subjective Patient ID: Raymon Dias is a 77 y.o. male who presents for New Patient (Aortic valve stenosis ). HPI 77-year-old male here for new patient consultation for severe aortic valve stenosis. He was referred by Dr. Wallace. Medical history is significant for persistent atrial fibrillation since 09/20/2023 (on apixaban), chronic systolic heart failure (EF 25 to 30% in 2020), peripheral arterial disease (SMA stenting in 2014), right SFA/popliteal artery stenosis, renal artery stenosis, carotid artery disease (right CEA, year?, Recent carotid ultrasound in 2021 showed moderate disease), and coronary artery disease (CABG in 1997). He also has an ICD for primary prevention. 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 He underwent a complete workup and was found to have severe aortic valve stenosis. He was referred to CT surgery to evaluate need for SAVR versus TAVR. Patient denies any syncopal episodes. No dizziness or lightheadedness. He has noticed that he becomes tired more easily with decreased activity tolerance over the past several months. He occasionally takes a nap during the day. He is fairly active. Able to perform ADLs and light chores. NYHA class II. No orthopnea or PND. Review of Systems See HPI Objective Visit Vitals BP 112/83 (BP Location: Left arm, Patient Position: Sitting) Pulse 59 Physical Exam Constitutional: Appearance: Normal appearance. Eyes: Pupils: Pupils are equal, round, and reactive to light. Cardiovascular: Rate and Rhythm: Normal rate and regular rhythm. Heart sounds: Murmur (grade 4) heard. Pulmonary: Effort: Pulmonary effort is normal. No respiratory distress. Breath sounds: No wheezing or rales. Abdominal: General: There is no distension. Palpations: Abdomen is soft. Musculoskeletal: General: Swelling (mild, bilat ankles, nonpitting) present. Normal range of motion. Cervical back: Normal range of motion. Skin: General: Skin is warm and dry. Capillary Refill: Capillary refill takes less than 2 seconds. Coloration: Skin is not jaundiced or pale. Neurological: General: No focal deficit present. Mental Status: He is alert and oriented to person, place, and time. Psychiatric: Mood and Affect: Mood normal. Behavior: Behavior normal. Assessment/Plan Diagnoses and all orders for this visit: Nonrheumatic aortic valve stenosis Chronic systolic heart failure (CMS/HCC) Essential hypertension Plan: -Mr. Yates was seen and evaluated by the CT surgery team. New patient evaluation for severe aortic valve stenosis. Referred to us by Dr. Wallace. Available medical records and diagnostic imaging reviewed. Discussed disease process and treatment options for aortic valve stenosis. He is accompanied by his [id number] today. - He has multiple comorbid conditions, including HFrEF, atrial fibrillation, peripheral arterial disease, coronary artery disease and COPD. He has been experiencing worsening exertional dyspnea with decreased activity tolerance. -We recommend an aortic valve replacement. SAVR would be very high risk for him, given his comorbidities. This would also be a second sternotomy procedure. TAVR would be a more suitable option. We recommend the following *Left and right heart catheterization to rule out ischemia and pulmonary disease *Pulmonary function testing and pulmonology referral We will discuss his case with the referring loader magazine grinder. This case will likely be discussed at the next TAVR meeting No follow-up needed with CT surgery at this time. If he is not a candidate for TAVR and requires a redo sternotomy, we will recommend referral to a tertiary hospital for higher level of care. Recent Results (from the past 36 hour(s)) ECG 12 lead Collection Time: 10/12/23 7:10 AM Result Value Ref Range Ventricular Rate 54 BPM QRS DURATION 94 ms QT Interval 434 ms QTC CALCULATION(BAZETT) 411 ms R-Otego 13 degrees T Wave O[place]go 107 degrees POC Hb02% Collection Time: 10/12/23 8:11 AM Result Value Ref Range FDISCJ21% 69.6 (A) 90 - 95 % QC Pass/Fail Passed QC LOT # [id number] QC Expiration Date 43 SAMPLESITE PA No follow-ups on file. [facility] Progress note 09-20-2023 Note Date & Type Note Facility 09-20-2023 Note [facility] Subjective Raymon Dias is a [...] creatinine 1.1, pot (more content not included)... [facility] Progress note 08-10-2023 Note Date & Type Note Facility 08-10-2023 Note [facility] Subjective Raymon Dias is a [...] valve stenosis, mild (more content not included)... [facility] Progress note 01-24-2023 Note Date & Type Note Facility 01-24-2023 Note [facility] Subjective Raymon [address] [facility] Ohara is a 77 y.o. year old male [...] blood testing in January 2020 at the [place] showed a creatinine of 1.0, BUN 25, potassium 4.9. Lower extremity arterial duplex 10/28/2019: Significant plaque formation throug (more content not included)... [facility] Summary Purpose Family History No Family [...] CREATED AUTHOR AUTHOR'S ORGANIZ ATION 03/23/2021 [facility] DATE CREATED AUTHOR AUTHOR'S ORGANIZ ATION 05/06/2021 [facility] DATE CREATED AUTHOR AUTHOR'S ORGANIZ ATION 04/20/2022 [facility] DATE CREATED AUTHOR AUTHOR'S ORGANIZ ATION 10/28/2023 [facility] FOR RECORDS PERTAINING TO PATIENTS WHO ARE [...] BE BASED ON THE PRIMARY CLINICAL RECORDS. [employer] [facility]. provides no warranty or guarantee of the accuracy or completeness of information in this document.
[2023-10-31 13:09] LABS: Basophils Absolute Auto 0.1 10^3/uL (0.0-0.1); Basophils Percent Auto 0.7 % (0.2-2.0); Eosinophils Absolute Auto 0.2 10^3/uL (0.0-0.7); Eosinophils Percent Auto 2.4 % (0.9-7.0); Hemoglobin 12.8 g/dL (14.0-18.0); Immature Granulocytes Abs Auto 0.07 10^3/uL (0.00-0.03); Immature Granulocytes Pct Auto 0.8 % (0.0-0.5); Lymphocytes Absolute Auto 0.8 10^3/uL (1.2-3.8); Lymphocytes Percent Auto 8.6 % (20.5-60.0); Mean Corpuscular HGB Conc 33.7 g/dL (29.9-35.2); Mean Corpuscular Hemoglobin 34.2 pg (25.9-34.0); Mean Corpuscular Volume 101.6 fL (80.0-94.0); Mean Platelet Volume 10.6 fL (9.5-13.5); Monocytes Absolute Auto 1.3 10^3/uL (0.3-0.8); Neutrophils Absolute Auto 6.3 10^3/uL (1.4-6.5); Neutrophils Percent Auto 72.5 % (43.0-75.0); Platelet Count 184 10^3/uL (150-450); Red Blood Count 3.74 10^6/uL (4.70-6.10); Red Cell Distribution Width 13.9 % (11.0-15.0); White Blood Count 8.7 10^3/uL (4.0-11.0)
[2023-10-31 15:03] LABS: Anion Gap 9.8; BUN Creatinine Ratio 20.3; Calcium 9.3 mg/dL (8.5-10.1); Carbon Dioxide 30.1 mmol/L (21.0-32.0); Chloride 99 mmol/L (98-107); Estimated GFR (African America >60 (>=60); Estimated GFR (Non-African Ame 60 (>=60); Glucose 86 mg/dL (74-106); Potassium 4.9 mmol/L (3.5-5.1); Sodium 134 mmol/L (136-145)
== END 2023-10-31 12:53 | disposition home or self-care (01) ==
LOC: LAB 12:53
PROVIDERS: PCP Internal Medicine; Visit Provider Internal Medicine Interventional Cardiology
DX: I35.0 Nonrheumatic aortic (valve) stenosis (principal)
CPT/HCPCS: 36415; 80048; 85025

== ENCOUNTER 2023-11-14 15:39 | Outpatient (OUT) | payer MEDICARE, SELFPAY ==
--- OUTSIDE RECORDS SUMMARY | 2023-11-14 15:48 | XMS_ITS | CCD ---
Author Organization [facility] Care Team Providers Care Natural Sciences Professor Name Role Phone ARMANI STEWART Primary Care Unavailable STRUS, JUAN Ceballos Attending Unavailable PROVIDER, UNKNOWN Admitting Unavailable PROVIDER, UNKNOWN Attending Unavailable CONSULT, IP SURGERY VASCULAR Consulting Kait LUCINDA Welsh Attending Unavailable PROVIDER, UNKNOWN Admitting Unavailable STRUS, JUAN Referring Unavailable PROVIDER, UNKNOWN Admitting Unavailable PROVIDER, UNKNOWN Attending Unavailable STRUS, JUAN Referring Unavailable UNKNOWN, PROVIDER Admitting Unavailable UNKNOWN, PROVIDER Attending Unavailable PAT, ARMANI Primary Care Unavailable VALMYRIAM, ARMANI Referring Unavailable MOUKARBEL, DR MAE Admitting Unavailable MOUKARBEL, DR MAE Attending Unavailable VALONE, DR CASTRO Primary Care Unavailable MISC, DR COLEMAN Admitting Unavailable MISC, DR COLEMAN Attending Unavailable VALONE, DR CASTRO Primary Care Unavailable MISC, DR COLEMAN Consulting Unavailable JEAN PIERRE, KYLE Referring Unavailable JEAN PIERRE, KYLE Referring Unavailable MOUKARBEL, CARMELITA Attending Unavailable MADRIGAL, RISHI Referring Unavailable MADRIGAL, RISHI Referring Unavailable MOUKARBEL, CARMELITA Referring Unavailable MOUKARBEL, CARMELITA Referring Unavailable MOUKARBEL, CARMELITA Referring Unavailable MOUKARBEL, CARMELITA Attending Unavailable MOUKARBEL, CARMELITA Referring Unavailable MOUKARBEL, CARMELITA Attending Unavailable DERISOEDUARD Attending Unavailable MOUKARBEL, CARMELITA Admitting Unavailable MOUKARBEL, CARMELITA Attending Unavailable MOUKARBEL, CARMELITA Admitting Unavailable MOUKARBEL, CARMELITA Attending Unavailable MADRIGAL, RISHI Referring Unavailable Allergies Allergy Classification Reported Allergen(s) Allergy Type Date of Onset Reaction(s) Facility (1 source) 91116,00; Translations: [12543,00] Propensity to adverse reactions (disorder) 2 [facility] Problems Active Problems Problem Classification Problem Date Documented Date Episodic/Chronic Cardiac dysrhythmias (4 sources) Paroxysmal atrial fibrillation; Translations: [Ventricular premature depolarization] Onset: 01-24-2023 Chronic Conduction disorders (4 sources) Presence of automatic (implantable) cardiac defibrillator; Translations: [Encounter for adjustment and management of automatic implantable cardiac defibrillator] Onset: 03-21-2023 Chronic Congestive heart failure; nonhypertensive (3 sources) Chronic systolic (congestive) heart failure; Translations: [CHRONIC SYSTOLIC HEART FAILURE] Onset: 04-18-2022 Chronic Coronary atherosclerosis and other heart disease (2 sources) Atherosclerotic heart disease of [place] coronary artery without angina pectoris; Translations: [Atherosclerotic heart disease of [place] coronary artery without angina pectoris] Onset: 09-20-2023 Chronic Coronary atherosclerosis and other heart disease (3 sources) Presence of aortocoronary bypass graft; Translations: [PRESENCE AORTOCORONARY BYPASS GRAFT] Onset: 04-18-2022 Episodic Disorders of lipid metabolism (4 sources) Mixed hyperlipidemia; Translations: [MIXED HYPERLIPIDEMIA] Onset: 04-14-2022 Chronic Essential hypertension (2 sources) Essential (primary) hypertension; Translations: [Essential (primary) hypertension] Onset: 11-07-2023 Chronic Heart valve disorders (4 sources) Nonrheumatic aortic (valve) stenosis; Translations: [Presence of xenogenic heart valve] Onset: 11-07-2023 Chronic Hypertension with complications and secondary hypertension [...] unspecified; Translations: [Peripheral vascular disease, unspecified] Onset: 09-20-2023 Chronic Substance-related disorders (1 source) Nicotine dependence, cigarettes, uncomplicated; Translations: [NICOTINE DEPEND CIGARETTES UNCOMP] Onset: 04-18-2022 Chronic Unclassified (1 source) Encounter for other specified prophylactic measures; Translations: [Encounter for other specified prophylactic measures] Onset: 11-07-2023 Unclassified (2 sources) New Patient; Translations: [New Patient] Onset: 08-22-2024 Unclassified (2 sources) Other persistent atrial fibrillation; Translations: [Other persistent atrial fibrillation] Onset: 09-20-2023 Past or Other Problems Problem Classification Problem Date Documented Da te Episodic/Chronic Unclassified (1 source) Encounter for other specified prophylactic measures; Translations: [Encounter for other specified prophylactic measures] Onset: 11-07-2023 Results Test Name Value Interpretation Reference Range Facility 36on 11-11-2023 36 Post Discharge Call Good morning, I am Siddharth Sarmiento RN a lead nurse from [facility]. I am calling you to follow up on your stay with us and make sure all of your questions have been answered. You will be receiving a survey either electronic or via mail and we always aim to receive 9???s and 10???s. If there is any reason you feel as though you cannot give us these scores please indicate that now. 1. How have you been feeling since being discharged from the hospital? Pretty good 2. Did you understand your discharge instructions when they were given to prior to leaving? Yes Were you given an opportunity to ask questions? Yes 3. While a patient in the hospital, was your call light answered in a timely manner? Yes 4. Do have access to all medications that were prescribed to you at discharge? Yes 5. How would you rate your overall stay on a scale of 0-10, 10 being the best experience you have ever had. 10. Only complaint is the food took forever and they forgot my meal once. 6. Do you have any further questions you would like to discuss? No. Had a question about lab work, justowriter operator reached out to [facility] LAUNDRY SORTER and she will correct lab work. Tania will also call patient this afternoon. Patient Name Raymon Dias Date 11/11/23 Normal [facility] Telephoneon 11-11-2023 Telephone [id number] Raymon Dias 1945 M Date Provider Department Center 11/11/2023 Pam-SIDDHARTH SARMIENTO [facility] C Family History Problem Relation Age of Onset Coronary artery disease Other Heart attack Mother Heart disease Mother Family Status - Relation Status Age at Other Mother Reason for Visit and Comments: Hospital Follow-up [832] Normal [facility] DSon 11-10-2023 DS Admission Admitted 11/07/2023 for Nonrheumatic aortic valve stenosis Discharge Diagnosis Aortic valve stenosis Discharge Disposition Home or Self Care (01) Discharge Medications Your medication list CONTINUE taking these medications Instructions Last Dose Given Next Dose Due apixaban 5 mg tablet Commonly known as: Eliquis Take 1 tablet (5 mg) by mouth two times daily. atorvastatin 80 mg tablet Commonly known as: Lipitor budesonide-formoteroL 160-4.5 mcg/actuation inhaler Commonly known as: Symbicort carvedilol 12.5 mg tablet Commonly known as: Coreg clopidogrel 75 mg tablet Commonly known as: Plavix Entresto 24-26 mg tablet Generic drug: sacubitril-valsartan folic acid 800 mcg tablet Commonly known as: Folvite Jardiance 25 mg Generic drug: empagliflozin montelukast 10 mg tablet Commonly known as: Singulair polyethylene glycol oral powder Commonly known as: Glycolax spironolactone 25 mg tablet Commonly known as: Aldactone tamsulosin 0.4 mg 24 hr capsule Commonly known as: Flomax VITAMIN D3 ORAL Activity For 1 week Showering instructions: you can shower do not swim or sit down in a tub of water for 1 week Showering instructions: okay to shower do not swim or sit in a tub of water for 1 week Diet Continue on the same type of diet and foods as you were eating before your admission. Drink plenty of water. Continue on the same type of diet and foods as you were eating before your admission. Drink plenty of water. Allergies Patient has no known allergies. Hospital Course Raymon Dias is a 77 y.o. male with complex medical history, including persistent atrial fibrillation since 09/20/2023 (on apixaban), chronic systolic heart failure (EF 25 to 30% in 2020), peripheral arterial disease (SMA stenting in 2014), right SFA/popliteal artery stenosis, renal artery stenosis, carotid artery disease (right CEA, year?, Recent carotid ultrasound in 2021 showed moderate disease), and coronary artery disease (CABG in 1997). He also has an ICD for primary prevention. Over the past several months, he developed chest pain, dyspnea with exertion, worsening fatigue and palpitations. He underwent a complete workup and was found to have severe aortic valve stenosis. He was determined high risk for SAVR, therefore recommended for TAVR by CT Surgery and Interventional cardiology team with Transcarotid access with surgical cutdown in order to deliver the TAVR prostheses. 11/07/23 had TAVR with Transcarotid surgical cutdown. He tolerated the procedure well. Admitted to surgical ICU for close monitoring. While he has diffuse bruising, none of this has worsened; postop hemoglobin down from 12.9 yo10.8, drifting down slightly to 10.2 today, asymptomatic. Immediately postop his Plavix was resumed, and on 11/08 his home Eliquis was resumed. 11/10/2023: Today patient is in good spirits, up in chair and ambulating in room, no bleeding from left side neck incision, which is tender but no worse than yesterday. He denies chest discomfort, dyspnea, lightheadedness with position change, him very much wants to go home. Discussed limitations for home for bathing and lifting and weightbearing. Which will print with his AVS. Questions answered. Later in day patient discharged home in stable condition with family. Will have labs done next week. #Severe nonrheumatic aortic valve stenosis -S/P 34mm Medtronic Evolut FX TAVR via transcarotid access with surgical cutdown. -11/08/23 TTE shows the valve to be seated in good position with a mean gradient of 7mmHg and trival paravalvular insufficiency. #Indication for bacterial endocarditis prophylaxis CHRONIC DX #CAD s/p 5v CABG 1997 --10/12/23 [facility]: patent 5 coronary bypass grafts [Patent YOUNG to LAD, patent sequential saphenous venous graft to 3 obtuse marginal branches, patent saphenous venous graft to the right sided PDA]. #Persistent atrial fibrillation on apixaban #Chronic HFrEF, not in exacerbation --EF 25-30% per TTE since 2020 --EF 30% per intra-op JA 11/07/23 --EF 35% per TTE POD1 11/08/23 after TAVR #Nonischemic CM #Hx ICD for primary prevention ([employer]/Vuong single chamber ICD) #DMT2 #Cerebrovascular disease #Mesenteric vascular disease, asymptomatic #Peripheral arterial disease --SMA stenting in 2014 -- right SFA/popliteal artery stenosis, #Renal artery stenosis, #carotid artery disease (right CEA, year? #COPD Plan; --Appreciate CT surgery evaluation and recommendations; clear for discharge from their standpoint --case was discussed with Dr. Wallace, agrees can discharge with below plan. --VSS, HD stable, eating and drinking well. --resumed plavix immediately after surgery, and the evening of 11/08 resuming home eliquis with no acute bleeding issues. -HGB slowly declining as expected, no acute bleeding after procedure, --Continue coreg 12.5, entresto 24-26mg bid, aldactone 25, --H (more content not included)... [facility] 30on 11-09-2023 30 The patient is Moderately Stable - Low risk of patient condition declining or worsening The patient's goals for the shift include comfort and rest The clinical goals for the shift include VSS and comfort Problem: Pain - Adult Goal: Verbalizes/displays adequate comfort level or baseline comfort level Outcome: Progressing Problem: Safety - Adult Goal: Free from fall injury Outcome: Progressing Problem: Chronic Conditions and Co-morbidities Goal: Patient's chronic conditions and co-morbidity symptoms are monitored and maintained or improved Outcome: Progressing [facility] 30 Daily Case Managemen t Update Multidisciplinary rounds have been completed. Barriers to Discharge: Pending clinical course and improvement in clinical condition. Patient POD# 2 TAVR via transcarotid access with surgical cutdown. Cardiothoracic Surgery starting Apixaban and recommend monitoring for 24 hours to ensure no signs of bleeding. Discharge plan is home when medically ready. Diet: Dietary Orders (From admission, onward) Start Ordered 11/07/23 1447 Regular Diet Heart Healthy/HTN, CABG,Stroke, (2gNA, low fat, low cholesterol) Diet effective now Question Answer Comment Room Service? Yes Fat restriction: Heart Healthy/HTN, CABG,Stroke, (2gNA, low fat, low cholesterol) 11/07/23 1446 Physician Expected Discharge Date: Discharge Delays: PT Six Click Score: 18 OT Six Click Score: 21 PT Recommendations: Home OT Recommendations: Home New Consults: Therapy Orders (From admission, onward) Start Ordered 11/08/23 0752 PT eval and treat Until therapy completed Question: Reason for PT? Answer: eval and treat 11/08/23 0751 11/08/23 0752 OT eval and treat Until therapy completed Question: Reason for OT? Answer: eval and treat 11/08/23 0751 Normal [facility] CBCon 11-09-2023 Erythrocyte distribution width (RBC) [Ratio] 14.2 % Normal 11.5-15.0 [facility] Comment on above: Performed By: #### L [id number] ####[facility] [place] [address] ERYTHROCYTE MEAN CORPUSCULAR HEMOGLOBIN CONCENTRATION (G/DL) BY AUTOMATED 33.3 g/dL Normal 32.0-35.0 [facility] Comment on above: Performed By: #### L [id number] ####[facility] ([facility])[address] [place] [address] Hematocrit (Bld) [Volume fraction] 30.6 % Low 39.0-55.0 [facility] Comment on above: Performed By: #### L [id number] ####[facility] ([facility])[address] [place] [address] Hemoglobin (Bld) [Mass/Vol] 10.2 g/dL Low 13.0-17.0 [facility] Comment on above: Performed By: #### L [id number] ####[facility] ([facility] [place] [address] IMMATURE PLATELET FRACTION % 5.1 % Normal 0.8-6.3 [facility] Comment on above: Performed By: #### L [id number] ####[facility] ([facility])[address] [place] [address] MCH (RBC) [Entitic mass] 34.6 pg High 27.0-33.0 [facility] Comment on above: Performed By: #### L [id number] ####[facility] ([facility])[address] [place] [address] MCV (RBC) [Entitic vol] 103.7 fL High 82.0-98.0 [facility] Comment on above: Performed By: #### L [id number] ####[facility] ([facility] [place] [address] PLATELETS (10*3/UL) IN BLOOD AUTOMATED COUNT 129 10*3/uL Low 150-400 [facility] Comment on above: Performed By: #### L [id number] ####[facility] ([facility])[address] [place] [address] RBC (Bld) [#/Vol] 2.95 10*6/uL Low 4.20-5.70 [facility] Comment on above: Performed By: #### L [id number] ####[facility] ([facility])[address] [place] [address] WBC (Bld) [#/Vol] 12.00 10*3/uL High 4.00-10.60 [facility] Comment on above: Performed By: #### L [id number] ####[facility] ([facility])[address] [place] [address] COMPREHENSIVE METABOLIC PANE Gabriel 11-09-2023 Albumin [Mass/Vol] 3.2 g/dL Low 3.5-5.7 [facility] Comment on above: Performed By: #### L [id number] #### [facility] ([facility]) [address] [place] [address] ALP [Catalytic activity/Vol] 37 U/L Normal 34-104 [facility] Comment on above: Performed By: #### L [id number] #### [facility] ([facility]) [address] [place] [address] ALT [Catalytic activity/Vol] 3 U/L Low 7-52 [facility] Comment on above: Performed By: #### L [id number] #### [facility] ([facility] [address] [place] [address] Anion gap [Moles/Vol] 9 mmol/L Normal 7-20 [facility] Comment on above: Performed By: #### L [id number] #### [facility] ([facility]) [address] [place] [address] AST [Catalytic activity/Vol] 11 U/L Low 13-39 [facility] Comment on above: Performed By: #### L [id number] #### [facility] ([facility]) [address] [place] [address] Bilirubin [Mass/Vol] 0.7 mg/dL Normal 0.3-1.0 [facility] Comment on above: Performed By: #### L [id number] #### [facility] ([facility]) [address] [place] [address] Calcium [Mass/Vol] 8.9 mg/dL Normal 8.6-10.3 [facility] Comment on above: Performed By: #### L [id number] #### [facility] ([facility]) [address] [place] [address] Chloride [Moles/Vol] 105 mmol/L Normal 98-107 [facility] Comment on above: Performed By: #### L [id number] #### [facility] ([facility] [address] [place] [address] CO2 [Moles/Vol] 25 mmol/L Normal 21-31 [facility] Comment on above: Performed By: #### L [id number] #### [facility] [address] [place] [address] Creatinine [Mass/Vol] 0.86 mg/dL Normal 0.70-1.30 [facility] Comment on above: Performed By: #### L [id number] #### [facility] ([facility] [address] [place] [address] GLOMERULAR FILTRATION RATE ML/MIN/1.73 SQ M.PREDICTED 88.6 mL/min/1.73m*2 Normal >60.0 [facility] Comment on above: Result Comment: [facility]???s estimated glomerular filtration rate (eGFR) will no longer include consideration of race in its calculation. The National Kidney Foundation???s eGFR Task Force developed new recommendations for the estimation of the glomerular filtration rate in the [place] They recommend immediate implementation of the new equation refit without the race variable in all laboratories because the calculation does not include race. In addition to not including race in the calculation and reporting, it included diversity in its development, and has acceptable performance characteristics and potential consequences that do not disproportionately affect any one group of individuals. Performed By: #### L [id number] #### [facility] ([facility]) [address] [place] [address] Glucose [Mass/Vol] 91 mg/dL Normal 70-100 [facility] Comment on above: Performed By: #### L [id number] #### [facility] ([facility]) [address] [place] [address] Potassium [Moles/Vol] 4.4 mmol/L Normal 3.5-5.1 [facility] Comment on above: Performed By: #### L [id number] #### [facility] ([facility]) [address] [place] [address] Protein [Mass/Vol] 5.4 g/dL Low 6.0-8.3 [facility] Comment on above: Performed By: #### L [id number] #### [facility] ([facility]) [address] [place] [address] Sodium [Moles/Vol] 135 mmol/L Low 136-145 [facility] Comment on above: Performed By: #### L [id number] #### [facility] ([facility]) [address] [place] [address] Urea nitrogen [Mass/Vol] 26 mg/dL High 7-25 [facility] Comment on above: Performed By: #### L [id number] #### [facility] ([facility]) [address] [place] [address] UREA NITROGEN/CREATININ E (MASS RATIO) IN SER/PLAS 30.2 Normal [facility] Comment on above: Performed By: #### L [id number] #### [facility] ([facility]) [address] [place] [address] MAGNESIUMon 11-09-2023 Magnesium [Mass/Vol] 2.0 mg/dL Normal 1.9-2.7 [facility] Comment on above: Performed By: #### L [id number] #### [facility] ([facility]) [address] [place] [address] NURSNOTEon 11-09-2023 NURSNOTE Patient Name: Torin Dias : 1945 Primary Care Physician: Armani Stewart MD Admission Date: 11/07/2023 RAPID RESPONSE TEAM ICU TRANSFER FOLLOW-UP NOTE SUBJECTIVE / OBJECTIVE: Follow-up for previous transfer out of the ICU notification for 11/07 at 1223. ASSESSMENT / INTERVENTIONS: Recent Vital Signs: Vitals: 11/09/23 0529 11/09/23 0955 11/09/23 1300 11/09/232011 BP: (!) 126/45 126/88 120/54 BP Location: Left arm Left arm Left arm Patient Position: Lying Sitting Lying Pulse: 65 70 70 Resp: 20 18 18 Temp: 36.8 ???C (98.2 ???F) 36.6 ???C (97.9 ???F) 37 ???C (98.6 ???F) TempSrc: Temporal Temporal Temporal SpO2: 100% 100% 99% Weight: 73.9 kg (163 lb) Height: Latest Labs: Lab Results Component Value Date WBC 12.00 (H) 11/09/2023 WBC 16.06 (H) 11/08/2023 HGB 10.2 (L) 11/09/2023 HGB 10.8 (L) 11/08/2023 HCT 30.6 (L) 11/09/2023 HCT 33.0 (L) 11/08/2023 MCV 103.7 (H) 11/09/2023 MCV 102.2 (H) 11/08/2023 PLT 129 (L) 11/09/2023 PLT 149 (L) 11/08/2023 Lab Results Component Value Date GLUCOSE 91 11/09/2023 GLUCOSE 138 (H) 11/08/2023 CALCIUM 8.9 11/09/2023 CALCIUM 8.6 11/08/2023 NA 135 (L) 11/09/2023 NA 133 (L) 11/08/2023 K 4.4 11/09/2023 K 4.8 11/08/2023 CO2 25 11/09/2023 CO2 24 11/08/2023 CL 105 11/09/2023 CL 106 11/08/2023 BUN 26 (H) 11/09/2023 BUN 28 (H) 11/08/2023 CREATININE 0.86 11/09/2023 CREATININE 1.08 11/08/2023 EGFR 88.6 11/09/2023 EGFR 70.2 11/08/2023 BCR 30.2 11/09/2023 BCR 25.9 11/08/2023 Lab Results Component Value Date MG 2.0 11/09/2023 MG 2.1 11/07/2023 Lab Results Component Value Date PHOS 2.8 11/07/2023 Lab Results Component Value Date ALT 3 (L) 11/09/2023 AST 11 (L) 11/09/2023 ALKPHOS 37 11/09/2023 BILITOT 0.7 11/09/2023 No results found for: INR Follow-up: Patient seen resting in bed. Primary RN consulted for follow up. The patient's labs and vitals are stable at this time. The primary RN voiced no concerns at this time. The justowriter operator urged the primary RN to call the rapid team if any concerns arise overnight. Wan Serrano, MAXIM Rapid Response Team Nurse [phone] 11/09/2023 11:00 PM Normal [facility] NURSNOTE Patient Name: Torin Dias : 1945 Primary Care Physician: Armani Stewart MD Admission Date: 11/07/2023 RAPID RESPONSE TEAM ICU TRANSFER FOLLOW-UP NOTE SUBJECTIVE / OBJECTIVE: Follow-up for previous transfer out of the ICU notification for 11/07 at 1223. ASSESSMENT / INTERVENTIONS: Recent Vital Signs: Vitals: 11/09/23 0005 11/09/23 0409 11/09/23 0529 11/09/23 0955 BP: 140/71 134/59 (!) 126/45 BP Location: Left arm Left arm Left arm Patient Position: Lying Lying Lying Pulse: 69 68 65 Resp: 17 14 20 Temp: 36.8 ???C (98.2 ???F) 36.8 ???C (98.3 ???F) 36.8 ???C (98.2 ???F) TempSrc: Temporal Temporal Temporal SpO2: 98% 96% 100% Weight: 73.9 kg (163 lb) Height: Latest Labs: Lab Results Component Value Date WBC 12.00 (H) 11/09/2023 WBC 16.06 (H) 11/08/2023 HGB 10.2 (L) 11/09/2023 HGB 10.8 (L) 11/08/2023 HCT 30.6 (L) 11/09/2023 HCT 33.0 (L) 11/08/2023 MCV 103.7 (H) 11/09/2023 MCV 102.2 (H) 11/08/2023 PLT 129 (L) 11/09/2023 PLT 149 (L) 11/08/2023 Lab Results Component Value Date GLUCOSE 91 11/09/2023 GLUCOSE 138 (H) 11/08/2023 CALCIUM 8.9 11/09/2023 CALCIUM 8.6 11/08/2023 NA 135 (L) 11/09/2023 NA 133 (L) 11/08/2023 K 4.4 11/09/2023 K 4.8 11/08/2023 CO2 25 11/09/2023 CO2 24 11/08/2023 CL 105 11/09/2023 CL 106 11/08/2023 BUN 26 (H) 11/09/2023 BUN 28 (H) 11/08/2023 CREATININE 0.86 11/09/2023 CREATININE 1.08 11/08/2023 EGFR 88.6 11/09/2023 EGFR 70.2 11/08/2023 BCR 30.2 11/09/2023 BCR 25.9 11/08/2023 Lab Results Component Value Date MG 2.0 11/09/2023 MG 2.1 11/07/2023 Lab Results Component Value Date PHOS 2.8 11/07/2023 Lab Results Component Value Date ALT 3 (L) 11/09/2023 AST 11 (L) 11/09/2023 ALKPHOS 37 11/09/2023 BILITOT 0.7 11/09/2023 No results found for: INR Follow-up: Spoke with patient and primary RN. Patient up walking the halls. Vitals and labs are stable. No concerns at this time. Encouraged to reach out with any changes. Maximilian Genaro, RN Rapid Response Team Nurse [phone] 11/09/2023 11:42 AM Normal [facility] NURSNOTE Patient Name: Torin Dias : 1945 Primary Care Physician: Armani Stewart MD Admission Date: 11/07/2023 RAPID RESPONSE TEAM ICU TRANSFER FOLLOW-UP NOTE SUBJECTIVE / OBJECTIVE: Follow-up for previous transfer out of the ICU notification for 11/07 at 1223. ASSESSMENT / INTERVENTIONS: Recent Vital Signs: Vitals: 11/08/23 1302 11/08/23 1635 11/08/23 1953 11/09/23 0005 BP: 155/69 114/57 140/71 BP Location: Left arm Left arm Left arm Patient Position: Sitting Lying Lying Pulse: 67 67 69 Resp: 17 Temp: 37 ???C (98.6 ???F) 36.9 ???C (98.4 ???F) 36.8 ???C (98.2 ???F) TempSrc: Temporal Temporal Temporal SpO2: 99% 97% 98% Weight: 73.8 kg (162 lb 9.6 oz) Height: Latest Labs: Lab Results Component Value Date WBC 16.06 (H) 11/08/2023 WBC 15.10 (H) 11/07/2023 HGB 10.8 (L) 11/08/2023 HGB 12.9 (L) 11/07/2023 HCT 33.0 (L) 11/08/2023 HCT 39.7 11/07/2023 MCV 102.2 (H) 11/08/2023 MCV 103.9 (H) 11/07/2023 PLT 149 (L) 11/08/2023 PLT 156 11/07/2023 Lab Results Component Value Date GLUCOSE 138 (H) 11/08/2023 GLUCOSE 111 (H) 11/07/2023 CALCIUM 8.6 11/08/2023 CALCIUM 8.9 11/07/2023 NA 133 (L) 11/08/2023 NA 136 11/07/2023 K 4.8 11/08/2023 K 4.7 11/07/2023 CO2 24 11/08/2023 CO2 24 11/07/2023 CL 106 11/08/2023 CL 106 11/07/2023 BUN 28 (H) 11/08/2023 BUN 26 (H) 11/07/2023 CREATININE 1.08 11/08/2023 CREATININE 1.03 11/07/2023 EGFR 70.2 11/08/2023 EGFR 74.4 11/07/2023 BCR 25.9 11/08/2023 BCR 25.2 11/07/2023 Lab Results Component Value Date MG 2.1 11/07/2023 Lab Results Component Value Date PHOS 2.8 11/07/2023 No results found for: ALT , AST , GGT , ALKPHOS , BILITOT No results found for: INR Follow-up: Patient seen resting in bed. Primary RN consulted for follow up. The patient's labs and vitals are stable at this time. The primary RN voiced no concerns at this time. The justowriter operator urged the primary RN to call the rapid team if any concerns arise overnight. Wan Serrano RN Rapid Response Team Nurse [phone] 11/09/2023 12:19 AM Normal [facility] 30on 11-08-2023 30 Problem: Pain - Adul t Goal: Verbalizes/displays adequate comfort level or baseline comfort level Outcome: Progressing Problem: Safety - Adult Goal: Free from fall injury Outcome: Progressing Problem: Discharge Planning Goal: Discharge to home or other facility with appropriate resources Outcome: Progressing Problem: Chronic Conditions and Co-morbidities Goal: Patient's chronic conditions and co-morbidity symptoms are monitored and maintained or improved Outcome: Progressing Normal [facility] 30 Daily Case Managemen t Update Multidisciplinary rounds have been completed. Barriers to Discharge: 11/07- POD 1 TAVR (transcarotid access), RA, labs relatively unremarkable. BP slightly elevated overnight. ECHO this morning. Pt ot ordered. cb Diet: Dietary Orders (From admission, onward) Start Ordered 11/07/23 1447 Regular Diet Heart Healthy/HTN, CABG,Stroke, (2gNA, low fat, low cholesterol) Diet effective now Question Answer Comment Room Service? Yes Fat restriction: Heart Healthy/HTN, CABG,Stroke, (2gNA, low fat, low cholesterol) 11/07/23 1446 Physician Expected Discharge Date: 11/09/2023 Discharge Delays: PT Six Click Score: 9 OT Six Click Score: PT Recommendations: OT Recommendations: New Consults: Therapy Orders (From admission, onward) Start Ordered 11/08/23 0752 PT eval and treat Until therapy completed Question: Reason for PT? Answer: eval and treat 11/08/23 0751 11/08/23 0752 OT eval and treat Until therapy completed Question: Reason for OT? Answer: eval and treat 11/08/23 0751 Normal [facility] BASIC METABOLIC PANELon 10-15 Anion gap [Moles/Vol] 8 mmol/L Normal 7-20 [facility] Comment on above: Performed By: #### L [id number] #### [facility] ([facility]AK[facility]) [address] [place] [address] Calcium [Mass/Vol] 8.6 mg/dL Normal 8.6-10.3 [facility] Comment on above: Performed By: #### L [id number] #### [facility] ([facility]) [address] [place] [address] Chloride [Moles/Vol] 106 mmol/L Normal 98-107 [facility] Comment on above: Performed By: #### L [id number] #### [facility] ([facility]) [address] [place] [address] CO2 [Moles/Vol] 24 mmol/L Normal 21-31 [facility] Comment on above: Performed By: #### L [id number] #### [facility] ([facility]) [address] [place] [address] Creatinine [Mass/Vol] 1.08 mg/dL Normal 0.70-1.30 [facility] Comment on above: Performed By: #### L [id number] #### [facility] ([facility]) [address] [place] [address] GLOMERULAR FILTRATION RATE ML/MIN/1.73 SQ M.PREDICTED 70.2 mL/min/1.73m*2 Normal >60.0 [facility] Comment on above: Result Comment: The [facility]???s estimated glomerular filtration rate (eGFR) will no longer include consideration of race in its calculation. The National Kidney Foundation???s eGFR Task Force developed new recommendations for the estimation of the glomerular filtration rate in the [place] They recommend immediate implementation of the new equation refit without the race variable in all laboratories because the calculation does not include race. In addition to not including race in the calculation and reporting, it included diversity in its development, and has acceptable performance characteristics and potential consequences that do not disproportionately affect any one group of individuals. Performed By: #### L [id number] #### [facility] ([facility]) [address] [place] [address] Glucose [Mass/Vol] 138 mg/dL High 70-100 [facility] Comment on above: Performed By: #### L [id number] #### [facility] ([facility]) [address] [place] [address] Potassium [Moles/Vol] 4.8 mmol/L Normal 3.5-5.1 [facility] Comment on above: Performed By: #### L [id number] #### [facility] ([facility]) [address] [place] [address] Sodium [Moles/Vol] 133 mmol/L Low 136-145 [facility] Comment on above: Performed By: #### L [id number] #### [facility] ([facility]) [address] [place] [address] Urea nitrogen [Mass/Vol] 28 mg/dL High 7-25 [facility] Comment on above: Performed By: #### L [id number] #### [facility] ([facility]) [address] [place] [address] UREA NITROGEN/CREATININ E (MASS RATIO) IN SER/PLAS 25.9 Normal [facility] Comment on above: Performed By: #### L [id number] #### [facility] ([facility]) [address] [place] [address] CBCon 11-08-2023 Erythrocyte distribution width (RBC) [Ratio] 14.0 % Normal 11.5-15.0 [facility] Comment on above: Performed By: #### L [id number] #### [facility] ([facility]) [address] [place] [address] ERYTHROCYTE MEAN CORPUSCULAR HEMOGLOBIN CONCENTRATION (G/DL) BY AUTOMATED 32.7 g/dL Normal 32.0-35.0 [facility] Comment on above: Performed By: #### L [id number] #### [facility] [address] [place] [address] Hematocrit (Bld) [Volume fraction] 33.0 % Low 39.0-55.0 [facility] Comment on above: Performed By: #### L [id number] #### [facility] ([facility]) [address] [place] [address] Hemoglobin (Bld) [Mass/Vol] 10.8 g/dL Low 13.0-17.0 [facility] Comment on above: Performed By: #### L [id number] #### [facility] ([facility]) [address] [place] [address] MCH (RBC) [Entitic mass] 33.4 pg High 27.0-33.0 [facility] Comment on above: Performed By: #### L [id number] #### [facility] ([facility]) [address] [place] [address] MCV (RBC) [Entitic vol] 102.2 fL High 82.0-98.0 [facility] Comment on above: Performed By: #### L [id number] #### [facility] ([facility]) [address] [place] [address] PLATELETS (10*3/UL) IN BLOOD AUTOMATED COUNT 149 10*3/uL Low 150-400 [facility] Comment on above: Performed By: #### L [id number] #### [facility] ([facility] [address] [place] [address] RBC (Bld) [#/Vol] 3.23 10*6/uL Low 4.20-5.70 [facility] Comment on above: Performed By: #### L [id number] #### [facility] ([facility]) [address] [place] [address] WBC (Bld) [#/Vol] 16.06 10*3/uL High 4.00-10.60 [facility] Comment on above: Performed By: #### L [id number] #### [facility] ([facility]) [address] [place] [address] 30on 11-07-2023 30 Problem: Pain - Adul t Goal: Verbalizes/displays adequate comfort level or baseline comfort level Outcome: Progressing Flowsheets (Taken 11/07/20231999) Verbalizes/displays adequate comfort level or baseline comfort level: Encourage patient to monitor pain and request assistance Assess pain using appropriate pain scale Administer analgesics based on type and severity of pain and evaluate response Implement non-pharmacological measures as appropriate and evaluate response Consider cultural and social influences on pain and pain management Notify Licensed Independent Practitioner if interventions unsuccessful or patient reports new pain Problem: Safety - Adult Goal: Free from fall injury Outcome: Progressing Flowsheets (Taken 11/07/20231999) Free from fall injury: Assess patient frequently for physical needs Identify cognitive and physical deficits and behaviors that affect risk of falls [place] fall precautions as indicated by assessment Educate patient/family on patient safety, including physical limitations Instruct patient to call for assistance with activity based on assessment Modify environment to reduce risk of injury Problem: Discharge Planning Goal: Discharge to home or other facility with appropriate resources Outcome: Progressing Flowsheets (Taken 11/07/20231999) Discharge to home or other facility with appropriate resources: Identify barriers to discharge with patient and caregiver Arrange for needed discharge resources and transportation as appropriate Identify discharge learning needs (meds, wound care, etc) Arrange for interpreters to assist at discharge as needed Problem: Chronic Conditions and Co-morbidities Goal: Patient's chronic conditions and co-morbidity symptoms are monitored and maintained or improved Outcome: Progressing Flowsheets (Taken 11/07/20231999) Care Plan - Patient's Chronic Conditions and Co-Morbidity Symptoms are Monitored and Maintained or Improved: Monitor and assess patient's chronic conditions and comorbid symptoms for stability, deterioration, or improvement Collaborate with multidisciplinary team to address chronic and comorbid conditions and prevent exacerbation or deterioration Update acute care plan with appropriate goals if chronic or comorbid symptoms are exacerbated and prevent overall improvement and discharge The patient is Moderately Stable - Low risk of patient condition declining or worsening The patient's goals for the shift include comfort The clinical goals for the shift include VSS Over the shift, the patient did not make progress toward the following goals. Barriers to progression include . Recommendations to address these barriers include . Normal [facility] 30 Problem: Pain - Adul t Goal: Verbalizes/displays adequate comfort level or baseline comfort level Outcome: Progressing Problem: Safety - Adult Goal: Free from fall injury Outcome: Progressing Problem: Discharge Planning Goal: Discharge to home or other facility with appropriate resources Outcome: Progressing Problem: Chronic Conditions and Co-morbidities Goal: Patient's chronic conditions and co-morbidity symptoms are monitored and maintained or improved Outcome: Progressing Normal [facility] BASIC METABOLIC PANELon 09-03 19-2023 Anion gap [Moles/Vol] 11 mmol/L Normal 7-20 [facility] Comment on above: Performed By: #### L [id number] #### [facility] ([facility]) [address] [place] [address] Calcium [Mass/Vol] 8.9 mg/dL Normal 8.6-10.3 [facility] Comment on above: Performed By: #### L [id number] #### [facility] ([facility]) [address] [place] [address] Chloride [Moles/Vol] 106 mmol/L Normal 98-107 [facility] Comment on above: Performed By: #### L [id number] #### [facility] ([facility]) [address] [place] [address] CO2 [Moles/Vol] 24 mmol/L Normal 21-31 [facility] Comment on above: Performed By: #### L [id number] #### [facility] ([facility]) [address] [place] [address] Creatinine [Mass/Vol] 1.03 mg/dL Normal 0.70-1.30 [facility] Comment on above: Performed By: #### L [id number] #### [facility] ([facility]) [address] [place] [address] GLOMERULAR FILTRATION RATE ML/MIN/1.73 SQ M.PREDICTED 74.4 mL/min/1.73m*2 Normal >60.0 [facility] Comment on above: Result Comment: The [facility]???s estimated glomerular filtration rate (eGFR) will no longer include consideration of race in its calculation. The National Kidney Foundation???s eGFR Task Force developed new recommendations for the estimation of the glomerular filtration rate in the [place] They recommend immediate implementation of the new equation refit without the race variable in all laboratories because the calculation does not include race. In addition to not including race in the calculation and reporting, it included diversity in its development, and has acceptable performance characteristics and potential consequences that do not disproportionately affect any one group of individuals. Performed By: #### L [id number] #### [facility] ([facility]) [address] [place] [address] Glucose [Mass/Vol] 111 mg/dL High 70-100 [facility] Comment on above: Performed By: #### L [id number] #### [facility] ([facility]) [address] [place] [address] Potassium [Moles/Vol] 4.7 mmol/L Normal 3.5-5.1 [facility] Comment on above: Performed By: #### L [id number] #### [facility] ([facility]) [address] [place] [address] Sodium [Moles/Vol] 136 mmol/L Normal 136-145 [facility] Comment on above: Performed By: #### L [id number] #### [facility] ([facility]) [address] [place] [address] Urea nitrogen [Mass/Vol] 26 mg/dL High 7-25 [facility] Comment on above: Performed By: #### L [id number] #### [facility] ([facility]) [address] [place] [address] UREA NITROGEN/CREATININ E (MASS RATIO) IN SER/PLAS 25.2 Normal [facility] Comment on above: Performed By: #### L [id number] #### [facility] ([facility]) [address] [place] [address] CBCon 09-24-2024 Erythrocyte distribution width (RBC) [Ratio] 14.1 % Normal 11.5-15.0 [facility] Comment on above: Performed By: #### L [id number] #### [facility] , ERYTHROCYTE MEAN CORPUSCULAR HEMOGLOBIN CONCENTRATION (G/DL) BY AUTOMATED 32.5 g/dL Normal 32.0-35.0 [facility] Comment on above: Performed By: #### L [id number] #### [facility] , Hematocrit (Bld) [Volume fraction] 39.7 % Normal 39.0-55.0 [facility] Comment on above: Performed By: #### L [id number] #### [facility] , Hemoglobin (Bld) [Mass/Vol] 12.9 g/dL Low 13.0-17.0 [facility] Comment on above: Performed By: #### L [id number] #### [facility] , MCH (RBC) [Entitic mass] 33.8 pg High 27.0-33.0 [facility] Comment on above: Performed By: #### L [id number] #### [facility] , MCV (RBC) [Entitic vol] 103.9 fL High 82.0-98.0 [facility] Comment on above: Performed By: #### L [id number] #### [facility] , PLATELETS (10*3/UL) IN BLOOD AUTOMATED COUNT 156 10*3/uL Normal 150-400 [facility] Comment on above: Performed By: #### L [id number] #### [facility] , RBC (Bld) [#/Vol] 3.82 10*6/uL Low 4.20-5.70 [facility] Comment on above: Performed By: #### L [id number] #### [facility] , WBC (Bld) [#/Vol] 15.10 10*3/uL High 4.00-10.60 [facility] Comment on above: Performed By: #### L [id number] #### [facility] , CONSULTon 11-07-2023 CONSULT -- Attestation signed by Héctor Blancas MD at 11/08/2023 4:03 PM I have personally saw and examined the patient on the same date of the service as resident staff Jhon Dai. I agree with the above assessment and plan. Surgical Intensive Care Unit Consult Note Reason For Consult Critical care management Referring Physician: Dr. Wright Date and time of consultation: 11/07/23 Chief Complaint: Critical Care Management HPI: 77 y.o. year old male with past medical history of aortic stenosis, CHF, a fib on eliquis, T2DM who presented to SICU following TAVR procedure 11/07/23. Patient was extubated in OR, and transferred to SICU from PACU. Review of Systems: General: No For Chills, Fatigue, Fever, recent weight loss or weight gain Head/Neck: no blurry vision, tinnitus, headache Respiratory: No Cough, Shortness Of Breath, Or Wheezing Cardiovascular: No Chest Pain Or Dyspnea On Exertion Gastrointestinal: No Abdominal Pain, Nausea, Vomiting Or Diarrhea. No Hematochezia Genito-Urinary: No Dysuria, Trouble Voiding, Or Hematuria Musculoskeletal: No Gait Disturbance, Joint Pain, Weakness Endocrine: no heat or cold intolerance, no hyperglycemia, no polyuria Neurological: No TIA Or Stroke Symptoms, Dizziness, Confusion, Numbness/Tingling, Visual Changes Psych: No history of depression, anxiety or substance abuse Dermatological: No Skin Changes, Rash, Nail Or Hair Changes History: The following information was obtained through chart review as the patient was unable to provide information due to emergency nature and/or medical condition Past Medical History: has a past medical history of Arrhythmia, BPH (benign prostatic hyperplasia), Cardiomyopathy ([facility]/HCC), Carotid artery stenosis, CHF (congestive heart failure) ([facility]), Coronary artery disease, Gastric ulcer, Heart valve disease, Hyperlipidemia, Hypertension, Implantable cardioverter-defibrill ator (ICD) in situ, Nonrheumatic aortic (valve) stenosis, PAD (peripheral artery disease) ([facility]), Peripheral arterial occlusive disease ([facility]), and PVC (premature ventricular contraction). He has no past medical history of Chronic bronchitis ([facility]). Past Surgical History: has a past surgical history that includes Insert / replace / remove pacemaker; CTA Lower Extremity Left W IV Contrast; Coronary artery bypass graft (1997); Coronary angioplasty (1996); and Cardiac catheterization (1986). Allergies: Patient has no known allergies. Home Medications: Medications Prior to Admission Medication Sig Dispense Refill Last Dose atorvastatin (Lipitor) 80 mg tablet Take 80 mg by mouth at bedtime. 11/06/2023 budesonide-formoteroL (Symbicort) 160-4.5 mcg/actuation inhaler Inhale 2 puffs twice a day by inhalation route. 11/07/2023 carvedilol (Coreg) 12.5 mg tablet Take 6.25 mg by mouth with breakfast and with evening meal. 11/07/2023 clopidogrel (Plavix) 75 mg tablet Take 1 tablet every day by oral route for 90 days. 11/07/2023 empagliflozin (Jardiance) 25 mg Take 25 mg by mouth once daily as directed. 11/06/2023 folic acid (Folvite) 800 mcg tablet Take 0.8 mg by mouth in the morning. 11/06/2023 sacubitriL-valsartan (Entresto) 24-26 mg tablet Take 0.5 tablets twice a day by oral route. 11/06/2023 spironolactone (Aldactone) 25 mg tablet Take 25 mg by mouth once daily as directed. 11/06/2023 apixaban (Eliquis) 5 mg tablet Take 1 tablet (5 mg) by mouth two times daily. 180 tablet 3 Past Week cholecalciferol, vitamin D3, (VITAMIN D3 ORAL) Take 2,000 Int'l Units by mouth in the morning. 11/06/2023 montelukast (Singulair) 10 mg tablet Take 10 mg by mouth at bedtime. 11/06/2023 polyethylene glycol (Glycolax) oral powder Take 17 g by mouth if needed each day (constipation). 11/06/2023 tamsulosin (Flomax) 0.4 mg 24 hr capsule Take 1 capsule by mouth at bedtime. 11/06/2023 Social History: reports that he has been smoking cigarettes. He started smoking about 55 years ago. He has a 27.50 pack-year smoking history. He has never used smokeless tobacco. He reports current alcohol use of about 6.0 standard drinks of alcohol per week. He reports that he does not use drugs. Family History: pulled available information in [facility] from previous visits Family History Problem Relation Name Age of Onset Coronary artery disease Other Heart attack Mother juliann gautam Heart disease Mother juliann gautam Interval History: Objective Vitals: BP: (88-157)/(36-109) 125/66 (11/06 1600) Temp: [36 ???C (96.8 ???F)-36.2 ???C (97.2 ???F)] 36 ???C (96.8 ???F) (11/06 1400) Temp Source: Temporal (11/06 1250) Heart Rate: [52-106] 75 (11/06 1600) Resp: [10-19] 19 (11/06 1600) SpO2: [98 %-100 %] 100 % (11/06 1752) Height: [172.7 cm (5' 8 )] 172.7 cm (5' 8 ) (11/06 0635) Weight: [71.6 kg (157 lb 13.6 oz)] 71 (more content not included)... Normal [facility] HPon 11-07-2023 History Of Present Illness Raymon Dias is a 77 y.o. male presenting with severe stage D2 symptomatic aortic valve stenosis for TAVR. He has complex medical history. history of coronary disease status post bypass surgery in 1997, carotid artery stenosis status post right CEA, ischemic cardiomyopathy status post ICD implantation in the past. He has severe peripheral vascular disease status post SMA stenting in 2014. He also has renal artery stenosis. He has chronic systolic heart failure with reduced ejection fraction. He was evaluated by interventional cardiology and cardiothoracic surgery services and recommended TAVR for management of his aortic valve stenosis. Due to severe peripheral vascular disease, percutaneous transfemoral access was deemed not appropriate and not feasible. We have elected to proceed with transcarotid access with surgical cutdown in order to deliver the TAVR prostheses. Past Medical History He has a past medical history of Arrhythmia, BPH (benign prostatic hyperplasia), Cardiomyopathy (CMS/HCC), Carotid artery stenosis, CHF (congestive heart failure) ([facility]), Coronary artery disease, Gastric ulcer, Heart valve disease, Hyperlipidemia, Hypertension, Implantable cardioverter-defibrill ator (ICD) in situ, Nonrheumatic aortic (valve) stenosis, PAD (peripheral artery disease) ([facility]), Peripheral arterial occlusive disease ([facility]), and PVC (premature ventricular contraction). He has no past medical history of Chronic bronchitis ([facility]). Surgical History He has a past surgical history that includes Insert / replace / remove pacemaker; CTA Lower Extremity Left W IV Contrast; Coronary artery bypass graft (1997); Coronary angioplasty (1996); and Cardiac catheterization (1986). Social History He reports that he has been smoking cigarettes. He started smoking about 55 years ago. He has a 27.50 pack-year smoking history. He has never used smokeless tobacco. He reports current alcohol use of about 6.0 standard drinks of alcohol per week. He reports that he does not use drugs. Allergies Patient has no known allergies. Medications Medications Prior to Admission Medication Sig Dispense Refill Last Dose atorvastatin (Lipitor) 80 mg tablet Take 80 mg by mouth at bedtime. 11/06/2023 budesonide-formoteroL (Symbicort) 160-4.5 mcg/actuation inhaler Inhale 2 puffs twice a day by inhalation route. 11/07/2023 carvedilol (Coreg) 12.5 mg tablet Take 6.25 mg by mouth with breakfast and with evening meal. 11/07/2023 clopidogrel (Plavix) 75 mg tablet Take 1 tablet every day by oral route for 90 days. 11/07/2023 empagliflozin (Jardiance) 25 mg Take 25 mg by mouth once daily as directed. 11/06/2023 folic acid (Folvite) 800 mcg tablet Take 0.8 mg by mouth in the morning. 11/06/2023 montelukast sodium (MONTELUKAST ORAL) 11/06/2023 sacubitriL-valsartan (Entresto) 24-26 mg tablet Take 0.5 tablets twice a day by oral route. 11/06/2023 spironolactone (Aldactone) 25 mg tablet Take 25 mg by mouth once daily as directed. 11/06/2023 apixaban (Eliquis) 5 mg tablet Take 1 tablet (5 mg) by mouth two times daily. 180 tablet 3 tamsulosin (Flomax) 0.4 mg 24 hr capsule Take 1 capsule by mouth at bedtime. Unknown terbinafine (LamISIL) 250 mg tablet Take 250 mg by mouth in the morning. 7 days a month Review of Systems Cardiovascular: Positive for claudication (RLE). Hematologic/Lymphatic: Bruises/bleeds easily. Musculoskeletal: Positive for arthritis, back pain and joint pain. Neurological: Positive for light-headedness. All other systems reviewed and are negative. Physical Exam Constitutional: Appearance: He is well-developed. He is not ill-appearing. HENT: Head: Normocephalic and atraumatic. Nose: Nose normal. Eyes: General: No scleral icterus. Pupils: Pupils are equal, round, and reactive to light. Neck: Thyroid: No thyromegaly. Vascular: Carotid bruit present. No JVD. Cardiovascular: Rate and Rhythm: Normal rate. Rhythm irregularly irregular. Pulses: Radial pulses are 2+ on the right side and 2+ on the left side. Heart sounds: Murmur heard. Systolic (RUSB) murmur is present with a grade of 4/6. No friction rub. No gallop. Pulmonary: Effort: Pulmonary effort is normal. No respiratory distress. Breath sounds: Normal breath sounds. No wheezing or rales. Chest: Chest wall: No tenderness. Abdominal: General: Bowel sounds are normal. There is no distension. Palpations: Abdomen is soft. Tenderness: There is no abdominal tenderness. Musculoskeletal: General: No swelling. Cervical back: Neck supple. Right lower le+ Pitting Edema present. Left lower le+ Pitting Edema present. Skin: General: Skin is warm and dry. Neurological: General: No focal deficit present. Mental Status: He is alert and oriented to person, place, and time. Psychiatric: Mood and Affect: Mood normal. Behavior: Behavior is cooperative. Judgment: Judgm (more content not included)... Normal [facility] MAGNESIUMon 11-07-2023 Magnesium [Mass/Vol] 2.1 mg/dL Normal 1.9-2.7 [facility] Comment on above: Performed By: #### L [id number] #### [facility] , MRSA/MSSA DNA NASALon 2023 MRSA DNA Negative Normal Negative [facility] Comment on above: Order Comment: Testi ng methodology is an automated qualitative in vitro diagnostic test for the directdetection and differentiation of Staphylococcus aureus (SA) DNA and methicillin-resistant Staphylococcus aureus (MRSA) DNA from nasal swabs in patients at risk for nasal colonization. The test utilizes real-time polymerase chain reaction (PCR) for the amplification of MRSA/SA DNA and fluorogenic target-specific hybridization probes for the detection of the amplified DNA. A negative result does not preclude nasal colonization. Performed By: #### L [id number] ####[facility] ([facility] [place] [address] MSSA DNA Negative Normal Negative [facility] Comment on above: Order Comment: Testi ng methodology is an automated qualitative in vitro diagnostic test for the directdetection and differentiation of Staphylococcus aureus (SA) DNA and methicillin-resistant Staphylococcus aureus (MRSA) DNA from nasal swabs in patients at risk for nasal colonization. The test utilizes real-time polymerase chain reaction (PCR) for the amplification of MRSA/SA DNA and fluorogenic target-specific hybridization probes for the detection of the amplified DNA. A negative result does not preclude nasal colonization. Performed By: #### L [id number] ####[facility] [place] [address] NURSNOTEon 11-07-2023 NURSNOTE 2ml removed from TR band Normal [facility] NURSNOTE 2ml removed from TR Band to R wrist Normal [facility] NURSNOTE 2ml removed from R wrist TR band Normal [facility] NURSNOTE 2ml air removed from TR band Normal [facility] PHOSPHORUSon 11-07-2023 Magnesium [Mass/Vol] 2.8 mg/dL Normal 2.5-5.0 [facility] Comment on above: Performed By: #### L [id number] #### [facility] , POCT GLUCOSE METER UNSOLICIT ED RESULTSon 11-07-2023 Glucose [Mass/Vol] 98 mg/dL Normal 70-105 [facility] Comment on above: Order Comment: Waive d Testing in the ED is performed under the ED CLIA certificate #[id number]. Result Comment: jhag eman Performed By: #### L [id number] #### [facility] [address] [place] [address] TYPE AND SCREENon 11-07-2023 AB SCREEN Negative Normal [facility] Comment on above: Performed By: #### L [id number] #### [facility] , ABO group Nom (Bld) AB Normal [facility] Comment on above: Performed By: #### L [id number] #### [facility] , RH TYPE IN BLOOD Positive Normal [facility] Comment on above: Performed By: #### L [id number] #### [facility] , Orders Onlyon 11-01-2023 Orders Only [id number] Raymon Dias 1945 [facility] Provider Department Center 11/01/2023 RISHI CALDWELL [facility] [place] [facility] Family History Problem Relation Age of Onset Coronary artery disease Other Heart attack Mother Heart disease Mother Family Status - Relation Status Age at Other Mother Normal [facility] Orders Onlyon 10-31-2023 Orders Only [id number] Raymon Dias Min 1945 [facility] Provider Department Center 10/31/2023 RISHI CALDWELL [facility] [place] [facility] Family History Problem Relation Age of Onset Coronary artery disease Other Heart attack Mother Heart disease Mother Family Status - Relation Status Age at Other Mother Normal [facility] Abstracton 10-23-2023 Abstract [id number] Raymon Dias 1945 [facility] Provider Department Center 10/23/2023 CARMELITA MCLEOD [facility] [place] Family History Problem Relation Age of Onset Coronary artery disease Other Heart attack Mother Heart disease Mother Family Status - Relation Status Age at Other Mother Normal [facility] Center Orders Onlyon 10-18-2023 Orders Only [id number] Raymon Dias 1945 [facility] Provider Department Center 10/18/2023 Lucy-RISHI MADRIGAL [facility] [place] [facility] Family History Problem Relation Age of Onset Coronary artery disease Other Heart attack Mother Heart disease Mother Family Status - Relation Status Age at Other Mother Normal [facility] HPon 10-12-2023 HP H&P reviewed. The patient was examined and there are no changes to the H&P. Discussed risks, benefits, and alternative therapies with the patient, he understands and willing to proceed with RHC/coronary angiogram and possible PCI. Ladarius Weeks MD PGY-7 Interventional Weigh Box Tender [facility] NURSNOTEon 10-12-2023 NURSNOTE RN educated pt on d/ c instructions. RN encouraged pt to voice any questions or concerns. Pt verbalizes no questions or concerns at this time. Pt was wheeled off of unit with all of belongings. [facility] JOSSELIN Weeks at [facility] to assess pt groin sites. Per groin sites looks great and okay for pt to discharge at 1500. [facility] Abstracton 10-09-2023 Abstract [id number] Raymon Dias 1945 [facility] Provider Department [place] 10/09/2023 CARMELITA MCLEOD [facility] Family History Problem Relation Age of Onset Coronary artery disease Other Heart attack Mother Heart disease Mother Family Status - Relation Status Age at Other Mother [facility] Consulton 10-05-2023 Consult [id number] Raymon Dias 1945 M Date Provider Department Center 10/05/2023 [id number]-HNCCAUEDUARD GARZA [facility] [place] [facility] Family History Problem Relation Age of Onset Coronary artery disease Other Heart attack Mother Heart disease Mother Family Status - Relation Status Age at Other Mother Level of Service:95323 SC OFFICE/OP CONSLTJ NEW/EST PT HIGH MDM 55 MINUTES Reason for Visit and Comments: New Patient [632] - Aortic valve stenosis [facility] CTA ABDOMEN PELVIS W IV CONT Carmen 09-25-2023 CTA ABDOMEN PELVIS W IV CONTRAST [...] Ballard MD. Not Vldtd Invalid Interpretation Code [facility] CTA CHEST W IV CONTRASTon CTA CHEST [...] 3. Cusped view, anterior view, and no ONBOARDING SPECIALIST-CAU view are obtained in 3-D volume rendered [...] Margot Ballard MD. 9 Invalid Interpretation Code [facility] 09-20-2023 [facility] Cardiology [facility] Subjective Raymon Dias is a 77 y.o. year old male patient being seen for follow up stress echo and ENRIQUETA's. Still denies chest pain, SOB, palpitations, and bleeding on Eliquis. Patient Active Problem List Diagnosis Acute tonsillitis Aortic valve disorder Aortic valve stenosis Bruit Chronic systolic heart failure (CMS/HCC) Coronary atherosclerosis Essential hypertension Gastric ulcer Hyperlipidemia Implantable cardioverter-defibrill ator (ICD) in situ Left ventricular systolic dysfunction [...] creatinine 1.1, pot (more content not included)... Normal [facility] Office Visiton 09-20-2023 Follow-up visit [id number] [facility] 1945 M Date Provider Department Center 09/20/2023 CARMELITA MCLEOD Family History Problem Relation Age of Onset Coronary artery disease Other Heart attack Mother Heart disease Mother Family Status - Relation Status Age at Other Mother Level of Service:49511 SC OFFICE/OUTPATIENT ESTABLISHED HIGH MDM 40 MIN Normal [facility] Orders Onlyon 09-20-2023 Orders Only [id number] Raymon Dias 1945 M Date Provider Department Center 09/20/2023 144-[facility]AIE [facility] [place] [facility] Family History Problem Relation Age of Onset Coronary artery disease Other Family Status - Relation Status Age at Other [facility] 2909-06-2023 29 Addended by: VON FRIEND on: 09/06/2023 05:00 PM Modules accepted: Orders [facility] 3609-06-2023 36 Spoke with patient a nd scheduled him to see Dr. Wallace on 09/19. Also informed him to start Eliquis 5mg bid and stop aspirin. He verbalized understanding. Rx sent to pharmacy. [facility] 36on 09-05-2023 36 He had his dobutamin e stress echo today at [facility]. He was found to have atrial fibrillation at baseline. Also, the aortic valve stenosis is severe. We need to start him on eliquis 5 mg bid. Diagnosis is persistent atrial fibrillation. Please have him stop aspirin after starting eliquis. I need to see him soon to discuss the results of the test and next step. [facility] Telephoneon 09-05-2023 Telephone [id number] Raymon Dias 1945 Date Provider Department [place] 09/05/2023 CARMELITA MCLEOD Family History Problem Relation Age of Onset Coronary artery disease Other Family Status - Relation Status Age at Other [facility] Office [place] 08-10-2023 Follow-up visit [id number] Raymon Dias 1945 Date Provider Department Center 08/10/2023 CARMELITA MCLEOD Family History Problem Relation Age of Onset Coronary artery disease Other Family Status - Relation Status Age at Other Level of Service:56085 SC OFFICE/OUTPATIENT ESTABLISHED MOD MDM 30 MIN [facility] Office [place] 01-24-2023 Follow-up visit [id number] Raymon Dias 1945 M Date Provider Department Center 01/24/2023 CARMELITA MCLEOD Family History Problem Relation Age of Onset Coronary artery disease Other Family Status - Relation Status Age at Other Level of Service:40423 SC OFFICE/OUTPATIENT ESTABLISHED MOD MDM 30-39 MIN Normal [facility] ECHOCARDIO M/2D COMPLETEon 0 04-14-2022 ECHOCARDIO M/2D COMPLETE Patient: RAYMON DIAS Exam Date: 04/14/2022 : 1945 Gender:M Ordering : DR CARMELITA WALLACE M.D. Admission #: [id number] Family : DR ARMANI STEWART D.O. Order #: [id number] CLICK HERE TO VIEW EXAM ECHOCARDIOGRAM REPORT [...] Wallace M.D. on 04/14/2022 at 10:18 Normal [facility] LIPID PROFILEon 04-14-2022 CHOL-HDL RATIO NORM SEE BELOW Normal [facility] Comment on above: Result Comment: 3.3 - 4.4 LOW RISK 4.4 - 7.1 AVERAGE RISK 7.1 - 11.0 MODERATE RISK >11.0 HIGH RISK Performed By: #### L IPID #### [facility] [address] [address] [address] Jackie Christopher Cholesterol [Mass/Vol] 157 mg/dL Normal <=200 [facility] Comment on above: Performed By: #### L IPID #### [facility] [address] [address] [address] Jackie Christopher Cholesterol in HDL [Mass/Vol] 53 mg/dL Normal 40-60 [facility] Comment on above: Performed By: #### L IPID #### [facility] [address] [address] [address] Jackie Christopher Cholesterol in LDL [Mass/Vol] 90.6 mg/dL Normal [facility] Comment on above: Performed By: #### L IPID #### [facility] [address] [address] [address] Jackie Christopher Cholesterol.total/ Cholesterol in HDL [Mass ratio] 3.0 {ratio} Normal [facility] Comment on above: Performed By: #### L IPID #### [facility] [address] [address] [address] Jackie Christopher HDL NORMAL > or = 60 mg/dl - LO W CARDIOVASCULAR RISK <40 mg/dl - HIGH CARDIOVASCULAR RISK Normal [facility] Comment on above: Performed By: #### L IPID #### [facility] [address] [address] [address] Jackie Christopher LDL CALC NORMAL SEE BELOW Normal [facility] Comment on above: Result Comment: <100 mg/dl OPTIMAL 100 - 129 mg/dl NEAR OR ABOVE OPTIMAL 130 - 159 mg/dl BORDERLINE HIGH 160 - 189 mg/dl HIGH >190 mg/dl VERY HIGH Performed By: #### L IPID #### [facility] [address] [address] [address] Jackie Christopher Triglyceride [Mass/Vol] 67 mg/dL Normal <=150 [facility] Comment on above: Performed By: #### L IPID #### [facility] [id number] Jackie Christopher VLDL CALC 13.4 mg/dL Normal [facility] Comment on above: Performed By: #### L IPID #### [facility] [address] [address] [address] Jackie Christopher CBC with Diffon 10-18-2020 Abs. Basophil 0.00 k/uL Normal 0.0-0.2 [facility] Comment on above: Performed By: #### C JAMAL AGUILAR, CDP #### [facility] [address] [place], [place] [id number] Knuckle Bender: Clinton Steven MD Abs.Neutrophil (Seg) 6.50 k/uL Normal 2.1-6.5 [facility] Comment on above: Performed By: #### C JAMAL AGUILAR, CDP #### [facility] [address] [place], [place] [id number] Knuckle Bender: Clinton Steven MD Auto Diff Performed YES Normal [facility] Comment on above: Performed By: #### C JAMAL AGUILAR, CDP #### [facility] [address] [place], [place] [id number] Knuckle Bender: Clinton Steven MD Basophils/100 WBC (Bld) 0 % Normal 0-2 [facility] Comment on above: Performed By: #### C GIOVANI AGUILARI, CDP #### [facility] [address] [place], [place] [id number] Knuckle Bender: Clinton Steven MD Eosinophils (Bld) [#/Vol] 0.60 10*3/uL High 0.0-0.4 [facility] Comment on above: Performed By: #### C GIOVANI AGUILARI, CDP #### [facility] [address] [place] [address] Knuckle Bender: Clinton Steven MD Eosinophils/100 WBC (Bld) 7 % High 0-5 [facility] Comment on above: Performed By: #### C GIOVANI AGUILARI, CDP #### [facility] [address] [place] [address] Knuckle Bender: Clinton Steven MD Erythrocyte distribution width (RBC) [Ratio] 15.7 % High 12.1-15.2 [facility] Comment on above: Performed By: #### C GIOVANI AGUILARI, CDP #### [facility] [address] [place] [address] Knuckle Bender: Clinton Steven MD Hematocrit (Bld) [Volume fraction] 37.2 % Low 41-53 [facility] Comment on above: Performed By: #### C JAMAL AGUILAR, CDP #### [facility] [address] [place] [address] Knuckle Bender: Clinton Steven MD Hemoglobin (Bld) [Mass/Vol] 12.6 g/dL Low 13.5-17.5 [facility] Comment on above: Performed By: #### C JAMAL AGUILAR, CDP #### [facility] [address] [place] [address] Knuckle Bender: Clinton Steven MD Lymphocytes (Bld) [#/Vol] 0.70 10*3/uL Low 1.0-4.8 [facility] Comment on above: Performed By: #### C GIOVANI AGUILARI, CDP #### [facility] [address] [id number] Knuckle Bender: lCinton Steven MD Lymphocytes/100 WBC (Bld) 8 % Low 13-44 [facility] Comment on above: Performed By: #### C MPAna Paula TROPI, CDP #### [facility] [address] [place] [address] Knuckle Bender: Clinton Steven MD MCH (RBC) [Entitic mass] 33.5 pg Normal 26-34 [facility] Comment on above: Performed By: #### C MPAna Paula TROPI, CDP #### [facility] [address] [place] [address] Knuckle Bender: Clinton Steven MD MCHC (RBC) [Mass/Vol] 33.8 g/dL Normal 31-37 [facility] Comment on above: Performed By: #### C GIOVANI AGUILARI, CDP #### [facility] [address] [place] [address] Knuckle Bender: Clinton Steven MD MCV (RBC) [Entitic vol] 98.9 fL Normal 80-100 [facility] Comment on above: Performed By: #### C GIOVANI AGUILARI, CDP #### [facility] [address] [place] [address] Knuckle Bender: Clinton Steven MD Monocytes (Bld) [#/Vol] 1.30 10*3/uL High 0.0-1.0 [facility] Comment on above: Performed By: #### C GIOVANI AGUILARI, CDP #### [facility] [address] [place] [address] Knuckle Bender: Clinton Steven MD Monocytes/100 WBC (Bld) 14 % High 5-9 [facility] Comment on above: Performed By: #### C MPX TROPI, CDP #### [facility] [address] [place] [address] Knuckle Bender: Clinton Steven MD Neutrophil (Seg) 71 % Normal 39-75 [facility] Comment on above: Performed By: #### C MPX TROPI, CDP #### [facility] [address] [place] [address] Knuckle Bender: Clinton Steven MD Platelets (Bld) [#/Vol] 191 10*3/uL Normal 140-450 [facility] Comment on above: Performed By: #### C MPX TROPI, CDP #### [facility] [address] [place] [address] Knuckle Bender: Clinton Steven MD RBC (Bld) [#/Vol] 3.76 10*6/uL Low 4.5-5.9 [facility] Comment on above: Performed By: #### C MPX TROPI, CDP #### [facility] [address] [place] [address] Knuckle Bender: Clinton Steven MD WBC (Bld) [#/Vol] 9.2 10*3/uL Normal 3.5-11.0 [facility] Comment on above: Performed By: #### C MPXGIOVANII, CDP #### [facility] [address] [place] [address] Knuckle Bender: Clinton Steven MD Abs.Imm.Granulocyt e NOT REPORTED Normal 0.00-0.30 [facility] Comment on above: Performed By: #### C MPX TROPI, CDP #### [facility] [address] [place] [address] Knuckle Bender: Clinton Steven MD Immature Granulocyte NOT REPORTED Normal 0 [facility] Comment on above: Performed By: #### C MPX TROPI, CDP #### [facility] [address] [place] [address] Knuckle Bender: Clinton Steven MD MPV NOT REPORTED Normal 6.0-12.0 [facility] Comment on above: Performed By: #### C MPX TROPI, CDP #### [facility] [address] [place] [address] Knuckle Bender: Clinton Steven MD NRBC Automated NOT REPORTED Normal [facility] Comment on above: Performed By: #### C MPX, TROPI, CDP #### [facility] [address] [place] [address] Knuckle Bender: Clinton Steven MD Platelet Estimate NOT REPORTED Normal [facility] Comment on above: Performed By: #### C MPX, TROPI, CDP #### [facility] [address] [place] [address] Knuckle Bender: Clinton Steven MD RBC morphology finding Nom (Bld) NOT REPORTED Normal [facility] Comment on above: Performed By: #### C MPX, TROPI, CDP #### [facility] [address] [place] [address] Knuckle Bender: Clinton Steven MD WBC Morphology NOT REPORTED Normal [facility] Comment on above: Performed By: #### C MPX, TROPI, CDP #### [facility] [address] [place] [address] Knuckle Bender: Clinton Steven MD CT HEAD WO CONTRASTon [...] Gt Sharp MD 10/17/20 Final result Normal [facility] CTA HEAD NECK W CONTRASTon 0 10-18-2020 [...] is patent origins of the SCA and VENEER TAPING MACHINE OPERATOR bilaterally. DEVELOPMENTAL ANOMALIES: None. OTHER: No pathologic [...] thrombus or stenosis is seen in the [place] of [place] and the distal distributions appear symmetric. A note was placed in the ops stat file for notification of the provider at 1:31 AM on 10/18/2020. 2. No aneurysm Interpreted by: Amaury Chamberlain Signed by: Amaury Chamberlain 10/18/20 Final result Normal [facility] Comp Metabolic Pr/rfx MGon 0 10-18-2020 Albumin [Mass/Vol] 4.0 g/dL Normal 3.5-5.2 [facility] Comment on above: Performed By: #### C MPX TROPI, CDP #### [facility] [address] [place] [address] Knuckle Bender: Clinton Steven MD Alkaline Phos 78 U/L Normal 40-129 [facility] Comment on above: Performed By: #### C MPX TROPI, CDP #### [facility] [address] [place] [address] Knuckle Bender: Clinton Steven MD ALT [Catalytic activity/Vol] 14 U/L Normal 5-41 [facility] Comment on above: Performed By: #### C MPX TROPI, CDP #### [facility] [address] [place] [address] Knuckle Bender: Clinton Steven MD Anion gap [Moles/Vol] 10 mmol/L Normal 9-17 [facility] Comment on above: Performed By: #### C MPX TROPI, CDP #### [facility] [address] [place] [address] Knuckle Bender: Clinton Steven MD AST [Catalytic activity/Vol] 15 U/L Normal <40 [facility] Comment on above: Performed By: #### C MPX, TROPI, CDP #### [facility] [address] [place], [place] [phone] Knuckle Bender: Clinton Steven MD Bilirubin [Mass/Vol] 0.42 mg/dL Normal 0.30-1.20 [facility] Comment on above: Performed By: #### C MPX, TROPI, CDP #### [facility] [address] [place], [place] [id number] Knuckle Bender: Clinton Steven MD Calcium [Mass/Vol] 9.4 mg/dL Normal 8.6-10.4 [facility] Comment on above: Performed By: #### C MPX, TROPI, CDP #### [facility] [address] [place], [place] [id number] Knuckle Bender: Clinton Steven MD Chloride [Moles/Vol] 102 mmol/L Normal 98-107 [facility] Comment on above: Performed By: #### C MPX, TROPI, CDP #### [facility] [address] [place], [place] [phone] Knuckle Bender: Clinton Steven MD CO2 [Moles/Vol] 27 mmol/L Normal 20-31 [facility] Comment on above: Performed By: #### C MPX, TROPI, CDP #### [facility] [address] [place], [place] [id number] Knuckle Bender: Clinton Steven MD Creatinine [Mass/Vol] 1.45 mg/dL High 0.70-1.20 [facility] Comment on above: Performed By: #### C MPX, TROPI, CDP #### [facility] [address] [place] [address] Knuckle Bender: Clinton Steven MD GFR, Amer 58 mL/min Low >60 [facility] Comment on above: Performed By: #### C MPX, TROPI, CDP #### [facility] [address] [place], [place] [id number] Knuckle Bender: Clinton Steven MD GFR,non Amer 47 mL/min Low >60 [facility] Comment on above: Performed By: #### C GIOVANI AGUILARI, CDP #### [facility] [address] [place] [address] Knuckle Bender: Clinton Steven MD Glucose [Mass/Vol] 95 mg/dL Normal 70-99 [facility] Comment on above: Performed By: #### C GIOVANI AGUILARI, CDP #### [facility] [address] [place] [address] Knuckle Bender: Clinton Steven MD Potassium [Moles/Vol] 4.3 mmol/L Normal 3.7-5.3 [facility] Comment on above: Performed By: #### C GIOVANI AGUILARI, CDP #### [facility] [address] [place] [address] Knuckle Bender: Clinton Steven MD Protein [Mass/Vol] 6.8 g/dL Normal 6.4-8.3 [facility] Comment on above: Performed By: #### C GIOVANI AGUILARI, CDP #### [facility] [address] [place] [address] Knuckle Bender: Clinton Steven MD Sodium [Moles/Vol] 139 mmol/L Normal 135-144 [facility] Comment on above: Performed By: #### C GIOVANI AGUILARI, CDP #### [facility] [address] [place] [address] Knuckle Bender: Clinton Steven MD Urea nitrogen [Mass/Vol] 16 mg/dL Normal 8-23 [facility] Comment on above: Performed By: #### C GIOVANI AGUILARI, CDP #### [facility] [address] [place] [address] Knuckle Bender: Clinton Steven MD (cont.) Normal [facility] Comment on above: Result Comment: Aver age GFR for 70 or more years old: 75 mL/min/1.73sq m Chronic Kidney Disease: <60 mL/min/1.73sq m Kidney failure: <15 mL/min/1.73sq m eGFR calculated using average adult body mass. Additional eGFR calculator available at: http://www.[employer]/multiple_crcl_2012.htm Performed By: #### C MPX TROPI, CDP #### [facility] [address] [place], [place] [id number] Knuckle Bender: Clinton Steven MD Albumin/Glob Ratio NOT REPORTED Normal 1.0-2.5 [facility] Comment on above: Performed By: #### C MPX, TROPI, CDP #### [facility] [address] [place], [place] [id number] Knuckle Bender: Clinton Steven MD BUN/CRE Ratio NOT REPORTED Normal - [facility] Comment on above: Performed By: #### C MPX, TROPI, CDP #### [facility] [address], [place] [id number] Knuckle Bender: Clinton Steven MD Staging: NOT REPORTED [facility] Comment on above: Performed By: #### C MPAna Paula, TROPI, CDP #### [facility] [address] [place] [address] Knuckle Bender: Clinton Steven MD [facility] 10-18-2020 Clinical Researcher Authentication Interface Message Text Attestation signed by [...] degree of stenosis of both carotid arteries. [facility] EMERGENCY GENERAL SURGERY [...] MORSE, PND, wheezing) Cardiovascular: negative symptoms (No CP/Pressure/Tightness, palpitations, orthopnea, PND, SOB, MORSE, edema, HUSTON [...] memory loss, disorientation, inattention, feelings of depression) Hematologic/Lymphatic/ Immunologic: negative (no anemia, bleeding, bruising) Endocrine: negative [...] thrombus or stenosis is seen in the [place] of [place] and the distal distributions appear symmetric. ASSESSMENT/RECOMMENDAT IONS: Raymon Dias is a 74 year old [...] rev (more content not included)... Normal [facility] [employer] [facility] Clinical Researcher Authentication Interface Message Text Eye Consult Note [...] personal/family history of RD - No retinal breaks/detachment/heme on SALESMAN/OWNER - Retinal detachment precautions reviewed with patient - Patient lives in [facility] and has an appointment with his public health professor at the [place] on [place] 03-- follow-up for new flashes at that visit. Please page [phone] with additional questions/concerns Vashti Reis MD Ophthalmology Resident Eye clinic [phone], located 3rd floor specialty services [facility] Physician Note: This was a resident only visit. I personally reviewed the mckeon and critical portions of the history and the ophthalmologic exam. I reviewed the resident's documentation, the patient's history and examination as documented above. I agree with the resident's medical decision making as documented in the resident's note. Tamar Nathan MD Normal [facility] ED Noteson 10-18-2020 Clinical Researcher Authentication Interface Message Text Vascular at bedside at this time Normal [facility] ED Provider Noteson 10-19-19 Clinical Researcher Authentication Interface Message Text EMERGENCY DEPARTMENT - VISIT NOTE -------- HISTORY OF PRESENT ILLNESS ---- Chief Complaint Patient presents with * Other sympt/complt of eye started with vision changes last night. sent from [email or web address]. here for vascular/neuro consult Welder Tack: not needed - patient preferred language is Albanian. The history is provided by the Patient. [...] thrombus or stenosis is seen in the [place] of [place] and the distal distributions appear symmetric. - [...] rash. Neurological: Negative for dizziness and headaches. Psychiatric/Behavioral : Negative for sleep disturbance. PAST HISTORY Pertinent Past History: - Follows with vascular surgery at [place] for PVD: he has had stents placed in the thigh, CABG 1997, CO in 1986, defibrillator placed in 1995 batteries changed in the past 5 years - Meds: furosemide, atorvastatin, entresto, carvedilol, folic acid, miralax, vit D, aspirin, montelukast, symbicort Pertinent Social History: - Tobacco use, 25 year pack history PHYSICAL EXAM BP 123/74 Pulse 75 Temp 98 ???F [...] Supple and no nuchal rigidity Thoracic: diffuse inspiratory/expiratory wheezing Heart: Regular rate and rhythm, III/ [...] surgery [CM] 1256 Spoke to Kyle from [facility] surg who will come eval the patient [CM] 1711 Paged Kyle, [facility] surgery consult, he passed the consult on to another provider at [phone] [CM] 4218 Spoke to [facility] Surg beauty consultant who will talk to her chief as carotid duplex can't be performed today [CM] ED Course User Index [CM] Armani Sullivan MD Medical Decision Makin (more content not included)... Normal [id number] 10-18-2020 SARS-CoV-2 (COVID-19) RNA JOCELIN+probe Ql (Unsp spec) Not detected Normal [facility] Comment on above: Result Comment: Rapid [...] management decisions. Fact sheet for Healthcare Providers: https://www.fda.gov/media/730145/download Fact sheet for Patients: https://www.fda.gov/media/664431/download Methodology: Isothermal Nucleic Acid Amplification Performed By: #### C OVRB #### [facility] [address] [place] [address] Knuckle Bender: Clinton Steven MD Troponinon 10-18-2020 Troponin, High Sens 28 ng/L High 0-22 [facility] Comment on above: Result Comment: High Sensitivity Troponin values cannot be compared with other Troponin methodologies. Patients with high levels of Biotin oral intake (i.e >5mg/day) may have falsely decreased Troponin levels. Samples collected within 8 hours of biotin intake may require additional information for diagnosis. Performed By: #### C MPX, TROPI, CDP #### [facility] [address] [place] [address] Knuckle Bender: Clinton Steven MD Troponin Interp. NOT REPORTED Normal [facility] Comment on above: Performed By: #### C MPX, TROPI, CDP #### [facility] [address] [place] [address] Knuckle Bender: Clinton Steven MD Troponin T NOT REPORTED Normal <0.03 [facility] Comment on above: Performed By: #### C MPX, TROPI, CDP #### [facility] [address] [place] [address] Knuckle Bender: Clinton Steven MD Encounters Encounter Date Encounter Type Care Provider Facility Start: 11-08-2023 Evaluation and management of inpatient [facility] Start: 11-07-2023 End: 11-07-2023 ambulatory [facility] Start: 11-07-2023 End: 11-10-2023 Evaluation and management of inpatient [facility] Start: 10-12-2023 End: 10-12-2023 ambulatory [facility] Start: 10-10-2023 End: 10-10[facility]23 [facility]: 10-05-2023 ambulatory [facility] Start: 09-25-2023 End: 09-25-2023 ambulatory [facility] Start: 09-20-2023 End: 09-20-2023 ambulatory [facility] Start: 09-05-2023 End: 09-05-2023 ambulatory [facility] Start: 08-10-2023 End: 08-10-2023 ambulatory [facility] Start: 03-21-2023 End: 03-21-2023 [facility] 01-24-2023 End: 01-24-2023 ambulatory [facility] Start: 04-14-2022 End: 04-15-[address] DOCTOR GONZALEZ Facility:[facility] Start: 10-10-[address] CARMELITA WALLACE Fac ility:[facility] Start: 04-29-2021 End: 04-30-2021 ambulatory PROVIDER UNKNOWN Facility:[facility] Start: 10-18-2020 ambulatory UNKNOWN PROVIDER Facili ty:[facility] Start: 10-18-2020 End: 10-18-2020 ambulatory UNKNOWN PROVIDER Facility:[facility] Start: 10-18-2020 End: 10-18-2020 Emergency department patient visit IP SURGERY VASCULAR CONSULT Facility:[facility] Start: 10-17-2020 End: 10-18-2020 Emergency department patient visit [facility] Payers Date Payer Category Payer Medicare [id number] 2020 Private Health Insurance 1960 Medicare [id number] 1960 Self-pay [id number] 1960 Unknown [id number] 1945 Unknown [id number] 1945 Unknown [id number] 2.. [id number] 1944 Unknown [id number] 2.. [id number] 1944 Unknown [id number] 2.. [id number] 1944 Unknown [id number] 2.16.8 [id number] 1945 Unknown [id number] [id number] [id number] 1945 Unknown [id number] [id number] [id number] Clinical Notes 01-24-2023 to 11-10-2023 Note Date & Type Note Facility 11-10-2023 Note Occupational Therapy Name: Raymon Dias Date of : 1945 Today's Date: 11/10/23 Pt is unable to be seen for therapy at this time secondary to per patient he worked with PT this morning and just got back in to bed. Pt family arrived and he defers treatment at this time . Will check back and complete therapy session as appropriate. Check No Charge Time attempted: 1400p [facility] 11-10-2023 Note Subjective 77 year old male with complex medical history, including persistent atrial fibrillation since 09/20/2023 (on apixaban), chronic systolic heart failure (EF 25 to 30% in 2020), peripheral arterial disease (SMA stenting in 2014), right SFA/popliteal artery stenosis, renal artery stenosis, carotid artery disease (right CEA, year?, Recent carotid ultrasound in 2021 showed moderate disease), and coronary artery disease (CABG in 1997). He also has an ICD for primary prevention. Over the past several months, he developed chest pain, dyspnea with exertion, worsening fatigue and palpitations. He underwent a complete workup and was found to have severe aortic valve stenosis. He was determined high risk for SAVR, therefore recommended for TAVR by CT Surgery and Interventional cardiology team. Transcarotid access with surgical cutdown in order to deliver the TAVR prostheses. Mr. Yates was admitted for elective TAVR on 11/07/23. He tolerated the procedure well. Admitted to surgical ICU for close monitoring 11/08/23: Sitting up in chair without complaints. No acute events overnight. Atrial fibrillation on ECG monitor with heart rate in the 70s.. No dizziness or lightheadedness during transfer and ambulation. Pain control. Denies shortness of breath. No chest pain. No numbness, tingling, or weakness of bilateral upper or lower extremities. Tolerating regular diet. No nausea vomiting. Denies abdominal pain. 11/09/23: Transferred from ICU to stepdown on yesterday. Sitting up in bed. Endorses tenderness to left neck on palpation. Small left neck hematoma, unchanged. No bruit or underlying fluctuance. Denies difficulty swallowing. No visual changes, numbness or tingling. NO acute events overnight. 11/10/23: No acute events overnight. Patient was kept in the hospital overnight to monitor for any signs of bleeding since he resumed apixaban on yesterday, in addition to Plavix. He has remained stable. Left neck appearance and examination is unchanged. No neurological deficits. No dizziness and lightheadedness, no visual changes or other neurological complaints or deficits. Ambulating well without difficulty. Tolerating regular diet. No fever or chills. Objective Patient Vitals for the past 24 hrs: BP Temp Temp src Pulse Resp SpO2 Weight 11/10/23 0800 (!) 118/99 -- -- 65 13 91 % -- 11/10/23 0750 136/71 37.4 ???C (99.3 ???F) Tympanic 60 15 -- -- 11/10/23 0554 -- -- -- -- -- -- 70.6 kg (155 lb 9.6 oz) 11/10/23 0400 125/60 -- -- 72 18 95 % -- 11/10/23 0000 116/50 -- -- 53 16 98 % -- 11/09/232011 120/54 37 ???C (98.6 ???F) Temporal 70 18 99 % -- 11/09/23 1300 126/88 36.6 ???C (97.9 ???F) Temporal 70 18 100 % -- Physical Exam Constitutional: Appearance: Normal appearance. HENT: Head: Normocephalic. Eyes: Pupils: Pupils are equal, round, and reactive to light. Neck: Comments: [place] size left neck hematoma unchanged. No bruit. Cardiovascular: Rate and Rhythm: Normal rate and regular rhythm. Pulmonary: Effort: Pulmonary effort is normal. No respiratory distress. Breath sounds: No wheezing or rales. Abdominal: General: There is no distension. Palpations: Abdomen is soft. Musculoskeletal: General: No swelling. Normal range of motion. Cervical back: Normal range of motion. Skin: General: Skin is warm and dry. Capillary Refill: Capillary refill takes less than 2 seconds. Coloration: Skin is not jaundiced or pale. Findings: Bruising present. Comments: Bruising and ecchymosis to the right and left neck over the procedure sites. The area is tender to palpation, but at an appropriate level given postprocedure timeframe. There is an occlusive dressing in place with clean gauze. No palpable hematoma or underlying fluctuance. Neurological: General: No focal deficit present. Mental Status: He is alert and oriented to person, place, and time. Cranial Nerves: No cranial nerve deficit. Sensory: No sensory deficit. Motor: No weakness. Coordination: Coordination normal. Psychiatric: Mood and Affect: Mood normal. Behavior: Behavior normal. Lab Results Component Value Date NA 135 (L) 11/09/2023 K 4.4 11/09/2023 CL 105 11/09/2023 ANIONGAP 9 11/09/2023 BUN 26 (H) 11/09/2023 CREATININE 0.86 11/09/2023 CALCIUM 8.9 11/09/2023 MG 2.0 11/09/2023 PHOS 2.8 11/07/2023 Lab Results Component Value Date BILITOT 0.7 11/09/2023 ALKPHOS 37 11/09/2023 AST 11 (L) 11/09/2023 ALT 3 (L) 11/09/2023 PROT 5.4 (L) 11/09/2023 ALBUMIN 3.2 (L) 11/09/2023 Lab Results Component Value Date WBC 12.00 (H) 11/09/2023 RBC 2.95 (L) 11/09/2023 HGB 10.2 (L) 11/09/2023 HCT 30.6 (L) 11/09/2023 MCV 103.7 (H) 11/09/2023 MCH 34.6 (H) 11/09/2023 MCHC 33.3 11/09/2023 RDW 14.2 11/09/2023 PLT 129 (L) 11/09/2023 No X-ray results found for the past 24 hoursNo MRI results found for the past [address] results found for the past 24 hours Encounter Date: 11/07/23 ECG 12 lead (more content not included)... [facility] 11-10-2023 Note Physical Therapy Physical Therapy Treatment Patient Name: Raymon Dias : 1945 Today's Date: 11/10/2023 11/10/23 Time Calculation Start Time 1105 Stop Time 1120 Time Calculation (min) 15 min PT Therapeutic Procedures Time Entry Therapeutic Activity Time Entry 15 Patient Active Problem List Diagnosis Acute tonsillitis Aortic valve disorder Aortic valve stenosis Bruit Chronic systolic heart failure (CMS/HCC) Coronary atherosclerosis Essential hypertension Gastric ulcer Hyperlipidemia Implantable cardioverter-defibrillator (ICD) in situ Left ventricular systolic dysfunction Paroxysmal ventricular tachycardia (CMS/HCC) Carotid artery stenosis Mesenteric artery stenosis (CMS/HCC) Peripheral arterial occlusive disease (CMS/HCC) Primary cardiomyopathy (CMS/HCC) Chronic systolic congestive heart failure (CMS/HCC) Abnormal cardiovascular stress test Aortic stenosis, severe 11/10/23 1126 PT Last Visit PT Received On 11/10/23 Response to Previous Treatment Patient with no complaints from previous session. General Family/Caregiver Present No Subjective Pt in bed awake and alert, pleasant and agreeable to participate. Nrsg okays session. Activity Tolerance Endurance Stage III Activity Tolerance Comments Pt exhibited mild fatigue and SOB with activity requiring a few standing rest breaks. HR 55 bpm at rest -> 83 bpm with activity. BP 114/96 before activity, 135/64 end of session. Precautions Medical Precautions telemetry Pain Assessment Pain Assessment No/denies pain (Initially declined but did report increased RLE pain during ambulation which he reported is chronic.) Cognition Overall Cognitive Status WFL Arousal/Alertness Appropriate responses to stimuli Orientation Level Oriented X4 Following Commands Follows all commands and directions without difficulty Safety Judgment Good awareness of safety precautions Awareness of Errors Good awareness of errors made Deficits Fully aware of deficits Attention Span Appears intact Memory Appears intact Problem Solving Able to problem solve independently Communication Intact Cognition Comments Pleasant and cooperative throughout, no cognitive concerns. General Assessment Skin Integrity bruising throughout L side of neck near incision site Static Sitting Balance Static Sitting-Balance Support Feet supported Static Sitting-Level of Assistance Independent Static Sitting-Comment/Number of Minutes no seated balance concerns Dynamic Sitting Balance Dynamic Sitting-Balance Support Feet supported Dynamic Sitting-Balance Lateral lean;Forward lean;Reaching for objects Dynamic Sitting Balance-Level of Assistance Independent Dynamic Sitting-Comments no LOB Static Standing Balance Static Standing-Balance Support No upper extremity supported Static Standing-Level of Assistance Close supervision Static Standing-Comment/Number of Minutes no AD needed Dynamic Standing Balance Dynamic Standing-Balance Support Unilateral upper extremity supported;No upper extremity supported Dynamic Standing-Balance Lateral lean;Forward lean;Reaching across midline;Reaching for objects Dynamic Standing Balance-Level of Assistance Close supervision Dynamic Standing-Comments Pt able to bend fwd to retrieve shoes in standing and don with single leg support, one hand supported on bed to prevent LOB. Ambulation Ambulation Yes Ambulation 1 Surface 1 Level tile Device 1 No device Assistance 1 Close supervision Quality of Gait 1 mild antalgic gait during RLE stance phase, steady ambulatory pace Comments/Distance (ft) 1 > 200' with 2 standing rest breaks due to fatigue Bed Mobility Bed Mobility Yes Bed Mobility 1 Bed Mobility From 1 Supine Bed Mobility Type 1 To Bed Mobility to 1 Short sit Level of Assistance 1 Independent Bed Mobility Comments 1 Performed with HOB slightly elevated and no rails Transfers Transfer Yes Transfer 1 Transfer From 1 Bed;Chair with arms Transfer Type 1 To and from Transfer to 1 Stand Technique 1 Sit to stand;Stand to sit Transfer Device 1 rolling walker Transfer Level of Assistance 1 Close supervision Trials/Comments 1 no LOB noted Other Activity Other Activity 1 Pt in chair with call light and all needs available upon justowriter operator exit. 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 Pt may benefit from one more treatment this admission to ensure safe return to [facility] as his goal is to return home. Prognosis Good Evaluation/Treatment Tolerance Patient tolerated treatment well Medical Staff Made Aware Yes PT Education/Comments safety Plan Level of assist 1 assist Treatment/Interventions Functional transfer training;Endurance training;Patient/family training;Bed mobility;Gait training PT Plan Skilled PT P (more content not included)... [facility] 11-10-2023 Note Daily Case Managemen t Update Barriers to Discharge et per Progress Note/s: POD#3 TAVR. Eliquis resumed yesterday @ 2207. Monitor for signs of bleeding for 24 hours. PT OT recs Home no needs. Diet: Dietary Orders (From admission, onward) Start Ordered 11/07/23 1447 Regular Diet Heart Healthy/HTN, CABG,Stroke, (2gNA, low fat, low cholesterol) Diet effective now Question Answer Comment Room Service? Yes Fat restriction: Heart Healthy/HTN, CABG,Stroke, (2gNA, low fat, low cholesterol) 11/07/23 1446 Physician Expected Discharge Date: 11/09/2023 Discharge Delays: PT Six Click Score: 24 OT Six Click Score: 22 PT Recommendations: Home OT Recommendations: Home New Consults: Therapy Orders (From admission, onward) Start Ordered 11/08/23 0752 PT eval and treat Until therapy completed Question: Reason for PT? Answer: eval and treat 11/08/23 0751 11/08/23 0752 OT eval and treat Until therapy completed Question: Reason for OT? Answer: eval and treat 11/08/23 0751 [facility] 11-09-2023 Note Occupational Therapy Occupational Therapy Treatment Patient Name: Raymon Dias : 1945 Today's Date: 11/09/2023 Time In-1115 Time Out-1139 Problem List Patient Active Problem List Diagnosis Acute tonsillitis Aortic valve disorder Aortic valve stenosis Bruit Chronic systolic heart failure (CMS/HCC) Coronary atherosclerosis Essential hypertension Gastric ulcer Hyperlipidemia Implantable cardioverter-defibrillator (ICD) in situ Left ventricular systolic dysfunction Paroxysmal ventricular tachycardia (CMS/HCC) Carotid artery stenosis Mesenteric artery stenosis (CMS/HCC) Peripheral arterial occlusive disease (CMS/HCC) Primary cardiomyopathy (CMS/HCC) Chronic systolic congestive heart failure (CMS/HCC) Abnormal cardiovascular stress test Aortic stenosis, severe Pain: Pain Assessment Pain Assessment: 0-10 Pain Score: 0 - No pain Objective General Visit Information: OT Last Visit OT Received On: 11/09/23 General Subjective: Pt willing to participate in session. Family/Caregiver Present: No Precautions Precautions Medical Precautions: telemetry, fall Cognition Cognition Overall Cognitive Status: Within Functional Limits Orientation Level: Oriented X4 Following Commands: Follows all commands and directions without difficulty LE Dressing LE Dressing: Yes Sock Level of Assistance: Setup Shoe Level of Assistance: Independent (to don slippersseated EOB) LE Dressing Where Assessed: Edge of bed Toileting Toileting Level of Assistance: Independent Where Assessed: Toilet Toileting Comments: for hygiene and clothing mgmt. Toilet Transfers Toilet Transfer From: Bed Toilet Transfer Type: To and from Toilet Transfer to: Standard toilet Toilet Transfer Technique: Ambulating Toilet Transfers: Supervision Static Sitting Balance Static Sitting Balance Static Sitting-Balance Support: Feet supported Static Sitting-Level of Assistance: Independent Dynamic Sitting Balance Dynamic Sitting Balance Dynamic Sitting-Balance Support: Feet supported, Right upper extremity supported, Left upper extremity supported Dynamic Sitting-Balance: Lateral lean, Forward lean, Reaching for objects Dynamic Sitting Balance-Level of Assistance: Independent Static Standing Balance Static Standing Balance Static Standing-Balance Support: No upper extremity supported Static Standing-Level of Assistance: Close supervision Dynamic Standing Balance Dynamic Standing Balance Dynamic Standing-Balance Support: No upper extremity supported Dynamic Standing-Balance: Forward lean, Reaching for objects Dynamic Standing Balance-Level of Assistance: Close supervision Bed Mobility Bed Mobility Bed Mobility: Yes Bed Mobility 1 Bed Mobility From 1: Supine Bed Mobility Type 1: To Bed Mobility to 1: Short sit Level of Assistance 1: Independent Transfers Transfers Transfer: Yes Transfer 1 Transfer From 1: Bed Transfer Type 1: To and from Transfer to 1: Toilet Technique 1: Sit to stand, Stand to sit Transfer Device 1: none Transfer Level of Assistance 1: Close supervision Transfers 2 Transfer From 2: Bed Transfer Type 2: To Transfer to 2: Chair with arms Technique 2: Sit to stand, Stand to sit Transfer Device 2: none Transfer Level of Assistance 2: Close supervision Activity Tolerance Activity Tolerance Ambulation comments: Pt demos fair+ safety during all functional mobility tasks and no LOB Outcome Assessments AM-PAC 6 Clicks Putting on and taking off regular lower body clothing?: A Little (Min Assist/Contact Guard/Supervision) Bathing(Including washing,rinsing,drying)?: A Little (Min Assist/Contact Guard/Supervision) Toileting, which includes using the toilet,bedpan,or urinal?: None (Independent) Putting on and taking off regular upper body clothing?: None (Independent) Taking care of personal grooming such as brushing teeth?: None (Independent) Eating meals?: None (Independent) Total Score OT [facility]: 22 Assessment/Plan OT Assessment OT Impairments: Decreased ADL status, Decreased endurance, Decreased functional mobility OT Assessment/ROGER Summary: Continue with skilled OT due to weakness and fatigue OT Education/Comments: Safety with adl transfer safety / technique with good return demo Plan Level of assist: 1 assist Treatment Interventions: ADL retraining, Functional transfer training, Endurance training, Patient/family training, Neuromuscular reeducation, Compensatory technique education OT Plan: Skilled OT OT Discharge Recommendations: Home Equipment Recommended: none OT - Discharge Recommendations Placed: Yes OT Goals: Multi-Disciplinary Problems (from Occupational Therapy) Active Problems Problem: Balance Start Date: 11/08/23 Goal Start Date Expected End Date End Date LTG - Patient will maintain stand balance to allow for safe mobility 11/08/23 (more content not included)... [facility] 11-09-2023 Note Subjective 77 year old male with complex medical history, including persistent atrial fibrillation since 09/20/2023 (on apixaban), chronic systolic heart failure (EF 25 to 30% in 2020), peripheral arterial disease (SMA stenting in 2014), right SFA/popliteal artery stenosis, renal artery stenosis, carotid artery disease (right CEA, year?, Recent carotid ultrasound in 2021 showed moderate disease), and coronary artery disease (CABG in 1997). He also has an ICD for primary prevention. Over the past several months, he developed chest pain, dyspnea with exertion, worsening fatigue and palpitations. He underwent a complete workup and was found to have severe aortic valve stenosis. He was determined high risk for SAVR, therefore recommended for TAVR by CT Surgery and Interventional cardiology team. Transcarotid access with surgical cutdown in order to deliver the TAVR prostheses. Mr. Yates was admitted for elective TAVR on 11/07/23. He tolerated the procedure well. Admitted to surgical ICU for close monitoring 11/08/23: Sitting up in chair without complaints. No acute events overnight. Atrial fibrillation on ECG monitor with heart rate in the 70s.. No dizziness or lightheadedness during transfer and ambulation. Pain control. Denies shortness of breath. No chest pain. No numbness, tingling, or weakness of bilateral upper or lower extremities. Tolerating regular diet. No nausea vomiting. Denies abdominal pain. 11/09/23: Transferred from ICU to stepdown on yesterday. Sitting up in bed. Endorses tenderness to left neck on palpation. Small left neck hematoma, unchanged. No bruit or underlying fluctuance. Denies difficulty swallowing. No visual changes, numbness or tingling. NO acute events overnight. Objective Patient Vitals for the past 24 hrs: BP Temp Temp src Pulse Resp SpO2 Weight 11/09/23 0955 (!) 126/45 36.8 ???C (98.2 ???F) Temporal 65 20 100 % -- 11/09/23 0529 -- -- -- -- -- -- 73.9 kg (163 lb) 11/09/23 0409 134/59 36.8 ???C (98.3 ???F) Temporal 68 14 96 % -- 11/09/23 0005 140/71 36.8 ???C (98.2 ???F) Temporal 69 17 98 % -- 11/08/23 1953 114/57 36.9 ???C (98.4 ???F) Temporal 67 18 97 % -- 11/08/23 1635 155/69 37 ???C (98.6 ???F) Temporal 67 21 99 % -- 11/08/23 1302 -- -- -- -- -- -- 73.8 kg (162 lb 9.6 oz) Physical Exam Constitutional: Appearance: Normal appearance. HENT: Head: Normocephalic. Eyes: Pupils: Pupils are equal, round, and reactive to light. Neck: Comments: [place] size left neck hematoma unchanged. No bruit. Cardiovascular: Rate and Rhythm: Normal rate and regular rhythm. Pulmonary: Effort: Pulmonary effort is normal. No respiratory distress. Breath sounds: No wheezing or rales. Abdominal: General: There is no distension. Palpations: Abdomen is soft. Musculoskeletal: General: No swelling. Normal range of motion. Cervical back: Normal range of motion. Skin: General: Skin is warm and dry. Capillary Refill: Capillary refill takes less than 2 seconds. Coloration: Skin is not jaundiced or pale. Findings: Bruising present. Comments: Bruising and ecchymosis to the right and left neck over the procedure sites. The area is tender to palpation, but at an appropriate level given postprocedure timeframe. There is an occlusive dressing in place with clean gauze. No palpable hematoma or underlying fluctuance. Neurological: General: No focal deficit present. Mental Status: He is alert and oriented to person, place, and time. Cranial Nerves: No cranial nerve deficit. Sensory: No sensory deficit. Motor: No weakness. Coordination: Coordination normal. Psychiatric: Mood and Affect: Mood normal. Behavior: Behavior normal. Lab Results Component Value Date NA 135 (L) 11/09/2023 K 4.4 11/09/2023 CL 105 11/09/2023 ANIONGAP 9 11/09/2023 BUN 26 (H) 11/09/2023 CREATININE 0.86 11/09/2023 CALCIUM 8.9 11/09/2023 MG 2.0 11/09/2023 PHOS 2.8 11/07/2023 Lab Results Component Value Date BILITOT 0.7 11/09/2023 ALKPHOS 37 11/09/2023 AST 11 (L) 11/09/2023 ALT 3 (L) 11/09/2023 PROT 5.4 (L) 11/09/2023 ALBUMIN 3.2 (L) 11/09/2023 Lab Results Component Value Date WBC 12.00 (H) 11/09/2023 RBC 2.95 (L) 11/09/2023 HGB 10.2 (L) 11/09/2023 HCT 30.6 (L) 11/09/2023 MCV 103.7 (H) 11/09/2023 MCH 34.6 (H) 11/09/2023 MCHC 33.3 11/09/2023 RDW 14.2 11/09/2023 PLT 129 (L) 11/09/2023 No X-ray results found for the past 24 hoursNo MRI results found for the past [address] results found for the past 24 hours Encounter Date: 11/07/23 ECG 12 lead Result Value Ventricular Rate 65 QRS DURATION 88 QT Interval 430 QTC CALCULATION(BAZETT) 447 R-Mundelein -26 T Wave [place] 116 Impression Atrial fibrillation Anterior infarct , age undetermined T wave abnormality, consider lateral ischemia Abnormal ECG When compared with ECG of 12-OCT-2023 06:58, Atrial fibrillation has replaced Electronic ventricular pacemaker Confirmed by SHELDON (more content not included)... [facility] 11-09-2023 Note Physical Therapy Name: Raymon Dias Date of : 1945 Today's Date: 11/09/23 Pt is unable to be seen for therapy at this time secondary to session okay per RN. Upon entry to room, pt EOB working with occupational therapy . Will check back and complete therapy session as appropriate. Check No Charge Time attempted: 1126 Susan Taylor, PT [facility] 11-09-2023 Note [facility] CARDIOLOGY INPAT IENT PROGRESS NOTE Reason for follow up: severe aortic stenosis s/p TAVR, HFrEF Subjective Evaluated on stepdown. Up in chair, good spirits, left side of neck is tender, has walked in room with no CP, SOB, palpitations, dizziness. Discussed plan to resume his Eliquis this evening, and if hemodynamically stable discharged tomorrow. Tele: Afib with controlled rates ALLERGIES No Known Allergies CURRENT MEDS acetaminophen, 1,000 mg, oral, q8h apixaban, 5 mg, oral, BID atorvastatin, 80 mg, oral, Nightly carvedilol, 6.25 mg, oral, BID with meals clopidogrel, 75 mg, oral, Daily dapagliflozin propanediol, 10 mg, oral, Daily fluticasone propion-salmeteroL, 2 puff, inhalation, q12h folic acid, 1 mg, oral, Daily montelukast, 10 mg, oral, Nightly Oxygen Therapy, , inhalation, Continuous sacubitril-valsartan, 1 tablet, oral, BID spironolactone, 25 mg, oral, Once Daily tamsulosin, 0.4 mg, oral, Nightly PRN medications: ondansetron, ondansetron ODT OR ondansetron, prochlorperazine Objective Patient Vitals for the past 24 hrs: BP Temp Temp src Pulse Resp SpO2 Weight 11/09/23 0529 -- -- -- -- -- -- 73.9 kg (163 lb) 11/09/23 0409 134/59 36.8 ???C (98.3 ???F) Temporal 68 14 96 % -- 11/09/23 0005 140/71 36.8 ???C (98.2 ???F) Temporal 69 17 98 % -- 11/08/23 1953 114/57 36.9 ???C (98.4 ???F) Temporal 67 18 97 % -- 11/08/23 1635 155/69 37 ???C (98.6 ???F) Temporal 67 21 99 % -- 11/08/23 1302 -- -- -- -- -- -- 73.8 kg (162 lb 9.6 oz) 11/08/23 1200 138/55 37.1 ???C (98.8 ???F) Temporal 63 21 95 % -- 11/08/23 1126 131/69 -- -- 72 17 94 % -- 11/08/23 1100 -- -- -- 60 18 92 % -- 11/08/23 1000 136/65 -- -- 74 19 99 % -- 11/08/23 0900 -- -- -- 72 25 97 % -- BP 134/59 (BP Location: Left arm, Patient Position: Lying) Pulse 68 Temp 36.8 ???C (98.3 ???F) (Temporal) Resp 14 Ht 1.727 m (5' 8 ) Wt 73.9 kg (163 lb) SpO2 96% BMI 24.78 kg/m??? Wt Readings from Last 3 Encounters: 11/09/23 73.9 kg (163 lb) 10/05/23 73.5 kg (162 lb) 09/20/23 72.6 kg (160 lb) General: Awake, alert, appropriate mood / affect, NAD Eyes: anicteric sclera. Non-injected conjunctiva. No xanthelasmas Neck: No elevated JVP. No carotid bruit Right neck access site with mild puffiness, no hematoma or significant bruising. Pulm: Breath sounds diffusely reduced, with occasional coarse rhonchi that clears with cough. No wheeze or crackles. Cards: HR irreg irreg, NL S1, S2. No S3 or S4 gallop. Murmur: none Abd: Soft, Nontender, physiologic bowel sounds are present Extr: Lower extremity edema: none. DP pulses present bilaterally Skin: warm, dry, well perfused, diffuse echymosis all extremities. Neuro: A&Ox3, No gross deficits Lab Results Component Value Date NA 135 (L) 11/09/2023 K 4.4 11/09/2023 CL 105 11/09/2023 ANIONGAP 9 11/09/2023 BUN 26 (H) 11/09/2023 CREATININE 0.86 11/09/2023 CALCIUM 8.9 11/09/2023 MG 2.0 11/09/2023 PHOS 2.8 11/07/2023 Lab Results Component Value Date BILITOT 0.7 11/09/2023 ALKPHOS 37 11/09/2023 AST 11 (L) 11/09/2023 ALT 3 (L) 11/09/2023 PROT 5.4 (L) 11/09/2023 ALBUMIN 3.2 (L) 11/09/2023 No results found for: CHOLESTEROL , CHOLESTEROL TOTAL , TRIGLYCERIDES , HDL , LDL CHOLESTEROL , LDL DIRECT , LDL CALC No results found for: BNP No results found for: THYROID , TSH , FREE T4 No results found for: DIGOXIN LVL No results found for: HGBA1C No results found for: BNP Lab Results Component Value Date WBC 12.00 (H) 11/09/2023 RBC 2.95 (L) 11/09/2023 HGB 10.2 (L) 11/09/2023 HCT 30.6 (L) 11/09/2023 MCV 103.7 (H) 11/09/2023 MCH 34.6 (H) 11/09/2023 MCHC 33.3 11/09/2023 RDW 14.2 11/09/2023 PLT 129 (L) 11/09/2023 No X-ray results found for the past 24 hours CV Testing: Encounter Date: 11/07/23 ECG 12 lead Result Value Ventricular Rate 65 QRS DURATION 88 QT Interval 430 QTC CALCULATION(BAZETT) 447 R-[place] -26 T Wave [place] 116 Impression Atrial fibrillation Anterior infarct , age undetermined T wave abnormality, consider lateral ischemia Abnormal ECG When compared with ECG of 12-OCT-2023 06:58, Atrial fibrillation has replaced Electronic ventricular pacemaker Confirmed by Lona JUAREZ, LONA Alexandra ([id number]) on 11/07/2023 5:03:09 PM 11/08/23 TTE POD 1 after TAVR Left Ventricle: The left ventricle is mildly enlarged. Global left ventricular systolic function is moderately to severely reduced. The EF is 35 % visually. Regional wall motion abnormalities (see diagram). Right Ventricle: The right ventricle is normal in size. Normal right ventricular systolic function. A pacemaker wire is seen in the right atrium and right ventricle. Left Atrium: The left atrium appears enlarged. Aortic Valve: S/P 34mm Medtronic Evolut FX TAVR with a mean gradient of 7mmHg and trival paravalvular insufficiency. Great Vessels: IVC: The IVC is dilated. Respiratory inspiration less than 50%. Overall Conc (more content not included)... [facility] 11-08-2023 Note [facility] CARDIOLOGY INPAT IENT PROGRESS NOTE Reason for follow up: severe aortic stenosis s/p TAVR, HFrEF Subjective Evaluted after transferred to stepdown. Good spirits, left side of neck is sore, has been OOB< no other complaints. Denies CP, SOB, palpitations, dizziness. Tele: Afib with controlled rates ALLERGIES No Known Allergies CURRENT MEDS acetaminophen, 1,000 mg, oral, q8h [START ON 11/09/2023] apixaban, 5 mg, oral, BID atorvastatin, 80 mg, oral, Nightly carvedilol, 6.25 mg, oral, BID with meals clopidogrel, 75 mg, oral, Daily dapagliflozin propanediol, 10 mg, oral, Daily fluticasone propion-salmeteroL, 2 puff, inhalation, q12h folic acid, 1 mg, oral, Daily montelukast, 10 mg, oral, Nightly Oxygen Therapy, , inhalation, Continuous sacubitril-valsartan, 1 tablet, oral, BID spironolactone, 25 mg, oral, Once Daily tamsulosin, 0.4 mg, oral, Nightly PRN medications: ondansetron, ondansetron ODT OR ondansetron, prochlorperazine Objective Patient Vitals for the past 24 hrs: BP Temp Temp src Pulse Resp SpO2 Weight 11/08/23 1953 114/57 36.9 ???C (98.4 ???F) Temporal 67 18 97 % -- 11/08/23 1635 155/69 37 ???C (98.6 ???F) Temporal 67 21 99 % -- 11/08/23 1302 -- -- -- -- -- -- 73.8 kg (162 lb 9.6 oz) 11/08/23 1200 138/55 37.1 ???C (98.8 ???F) Temporal 63 21 95 % -- 11/08/23 1126 131/69 -- -- 72 17 94 % -- 11/08/23 1100 -- -- -- 60 18 92 % -- 11/08/23 1000 136/65 -- -- 74 19 99 % -- 11/08/23 0900 -- -- -- 72 25 97 % -- 11/08/23 0800 141/61 36.7 ???C (98.1 ???F) Oral 69 18 100 % -- 11/08/23 0700 160/55 -- -- 79 (!) 28 90 % -- 11/08/23 0649 137/73 -- -- 62 18 96 % -- 11/08/23 0600 (!) 161/128 -- -- 63 20 94 % -- 11/08/23 0500 (!) 144/126 -- -- 66 19 100 % -- 11/08/23 0400 139/51 36.7 ???C (98 ???F) Oral 53 13 100 % -- 11/08/23 0300 141/65 -- -- 63 16 97 % -- 11/08/23 0200 146/63 -- -- 59 16 96 % -- 11/08/23 0100 (!) 140/48 -- -- 61 16 99 % -- 11/08/23 0000 145/67 36.6 ???C (97.9 ???F) Oral 57 (!) 28 99 % -- 11/07/23 2300 -- -- -- 66 17 99 % -- 11/07/23 2200 156/60 -- -- 57 15 99 % -- 11/07/232129 -- -- -- 57 13 99 % -- 11/07/232114 -- -- -- 64 15 100 % -- 11/07/23 2100 155/57 -- -- 62 16 98 % -- 11/07/235 -- -- -- 61 16 98 % -- 11/07/23 2030 140/60 -- -- 63 14 99 % -- BP 114/57 (BP Location: Left arm, Patient Position: Lying) Pulse 67 Temp 36.9 ???C (98.4 ???F) (Temporal) Resp 18 Ht 1.727 m (5' 8 ) Wt 73.8 kg (162 lb 9.6 oz) SpO2 97% BMI 24.72 kg/m??? Wt Readings from Last 3 Encounters: 11/08/23 73.8 kg (162 lb 9.6 oz) 10/05/23 73.5 kg (162 lb) 09/20/23 72.6 kg (160 lb) General: Awake, alert, appropriate mood / affect, NAD Eyes: anicteric sclera. Non-injected conjunctiva. No xanthelasmas Neck: No elevated JVP. No carotid bruit Bulky dressing to neck with no strike-through, hematoma or bruising. Pulm: Breath sounds clear to ascultation bilaterally with no wheeze, crackles or rhonchi Cards: HR irreg irreg, NL S1, S2. No S3 or S4 gallop. Murmur: none Abd: Soft, Nontender, physiologic bowel sounds are present Extr: Lower extremity edema: none. DP pulses present bilaterally Skin: warm, dry, well perfused, diffuse echymosis all extremities. Neuro: A&Ox3, No gross deficits Lab Results Component Value Date NA 133 (L) 11/08/2023 K 4.8 11/08/2023 CL 106 11/08/2023 ANIONGAP 8 11/08/2023 BUN 28 (H) 11/08/2023 CREATININE 1.08 11/08/2023 CALCIUM 8.6 11/08/2023 MG 2.1 11/07/2023 PHOS 2.8 11/07/2023 No results found for: BILITOT , BILIDIR , ALKPHOS , AST , ALT , PROT , ALBUMIN No results found for: CHOLESTEROL , CHOLESTEROL TOTAL , TRIGLYCERIDES , HDL , LDL CHOLESTEROL , LDL DIRECT , LDL CALC No results found for: BNP No results found for: THYROID , TSH , FREE T4 No results found for: DIGOXIN LVL No results found for: HGBA1C No results found for: BNP Lab Results Component Value Date WBC 16.06 (H) 11/08/2023 RBC 3.23 (L) 11/08/2023 HGB 10.8 (L) 11/08/2023 HCT 33.0 (L) 11/08/2023 MCV 102.2 (H) 11/08/2023 MCH 33.4 (H) 11/08/2023 MCHC 32.7 11/08/2023 RDW 14.0 11/08/2023 PLT 149 (L) 11/08/2023 No X-ray results found for the past 24 hours CV Testing: Encounter Date: 11/07/23 ECG 12 lead Result Value Ventricular Rate 65 QRS DURATION 88 QT Interval 430 QTC CALCULATION(BAZETT) 447 R-[place] -26 T Wave [place] 116 Impression Atrial fibrillation Anterior infarct , age undetermined T wave abnormality, consider lateral ischemia Abnormal ECG When compared with ECG of 12-OCT-2023 06:58, Atrial fibrillation has replaced Electronic ventricular pacemaker Confirmed by Lona JUAREZ, LONA Alexandra ([id number]) on 11/07/2023 5:03:09 PM 11/08/23 TTE POD 1 after TAVR Left Ventricle: The left ventricle is mildly enlarged. Global left ventricular systolic function is moderately to severely reduced. The EF is 35 % visually. Regional wall motion abnormalities (see diagram). Right Mo (more content not included)... [facility] 11-08-2023 Note Subjective 77 year old male with complex medical history, including persistent atrial fibrillation since 09/20/2023 (on apixaban), chronic systolic heart failure (EF 25 to 30% in 2020), peripheral arterial disease (SMA stenting in 2014), right SFA/popliteal artery stenosis, renal artery stenosis, carotid artery disease (right CEA, year?, Recent carotid ultrasound in 2021 showed moderate disease), and coronary artery disease (CABG in 1997). He also has an ICD for primary prevention. Over the past several months, he developed chest pain, dyspnea with exertion, worsening fatigue and palpitations. He underwent a complete workup and was found to have severe aortic valve stenosis. He was determined high risk for SAVR, therefore recommended for TAVR by CT Surgery and Interventional cardiology team. Transcarotid access with surgical cutdown in order to deliver the TAVR prostheses. Mr. Yates was admitted for elective TAVR on 11/07/23. He tolerated the procedure well. Admitted to surgical ICU for close monitoring Sitting up in chair without complaints. No acute events overnight. Atrial fibrillation on ECG monitor with heart rate in the 70s.. No dizziness or lightheadedness during transfer and ambulation. Pain control. Denies shortness of breath. No chest pain. No numbness, tingling, or weakness of bilateral upper or lower extremities. Tolerating regular diet. No nausea vomiting. Denies abdominal pain. Objective Patient Vitals for the past 24 hrs: BP Temp Temp src Pulse Resp SpO2 11/08/23 1000 -- -- -- 74 19 99 % 11/08/23 0900 -- -- -- 72 25 97 % 11/08/23 0800 141/61 -- -- 69 18 100 % 11/08/23 0700 160/55 -- -- 79 (!) 28 90 % 11/08/23 0649 137/73 -- -- 62 18 96 % 11/08/23 0600 (!) 161/128 -- -- 63 20 94 % 11/08/23 0500 (!) 144/126 -- -- 66 19 100 % 11/08/23 0400 139/51 36.7 ???C (98 ???F) Oral 53 13 100 % 11/08/23 0300 141/65 -- -- 63 16 97 % 11/08/23 0200 146/63 -- -- 59 16 96 % 11/08/23 0100 (!) 140/48 -- -- 61 16 99 % 11/08/23 0000 145/67 36.6 ???C (97.9 ???F) Oral 57 (!) 28 99 % 11/07/23 2300 -- -- -- 66 17 99 % 11/07/23 2200 156/60 -- -- 57 15 99 % 11/07/23 2130 -- -- -- 57 13 99 % 11/07/235 -- -- -- 64 15 100 % 11/07/23 2100 155/57 -- -- 62 16 98 % 11/07/232044 -- -- -- 61 16 98 % 11/07/232029 140/60 -- -- 63 14 99 % 11/07/232014 -- -- -- 64 16 97 % 11/07/231999 (!) 143/127 37.1 ???C (98.8 ???F) Oral 74 16 98 % 11/07/23 1900 (!) 134/97 -- -- 69 20 -- 11/07/23 1800 (!) 162/44 -- -- 77 16 100 % 11/07/23 1752 -- -- -- -- -- 100 % 11/07/23 1700 -- -- -- 79 17 99 % 11/07/23 1600 125/66 -- -- 75 19 100 % 11/07/23 1530 -- -- -- 69 -- -- 11/07/23 1500 -- -- -- -- -- 100 % 11/07/23 1400 128/66 36 ???C (96.8 ???F) -- 66 10 100 % 11/07/23 1342 148/70 -- -- 70 19 100 % 11/07/23 1322 157/63 -- -- 65 17 98 % 11/07/23 1305 149/59 -- -- 61 14 98 % 11/07/23 1250 131/82 36 ???C (96.8 ???F) Temporal 65 18 100 % 11/07/23 1154 (!) 114/37 -- -- 61 18 100 % 11/07/23 1153 (!) 114/37 -- -- 61 18 100 % 11/07/23 1137 (!) 130/47 -- -- 69 18 100 % 11/07/23 1129 (!) 121/45 -- -- 106 18 100 % 11/07/23 1107 (!) 110/36 -- -- 65 18 100 % Physical Exam Constitutional: Appearance: Normal appearance. HENT: Head: Normocephalic. Eyes: Pupils: Pupils are equal, round, and reactive to light. Cardiovascular: Rate and Rhythm: Normal rate and regular rhythm. Pulmonary: Effort: Pulmonary effort is normal. No respiratory distress. Breath sounds: No wheezing or rales. Abdominal: General: There is no distension. Palpations: Abdomen is soft. Musculoskeletal: General: No swelling. Normal range of motion. Cervical back: Normal range of motion. Skin: General: Skin is warm and dry. Capillary Refill: Capillary refill takes less than 2 seconds. Coloration: Skin is not jaundiced or pale. Findings: Bruising present. Comments: Bruising and ecchymosis to the right and left neck over the procedure sites. The area is tender to palpation, but at an appropriate level given postprocedure timeframe. There is an occlusive dressing in place with clean gauze. No palpable hematoma or underlying fluctuance. Neurological: General: No focal deficit present. Mental Status: He is alert and oriented to person, place, and time. Cranial Nerves: No cranial nerve deficit. Sensory: No sensory deficit. Motor: No weakness. Coordination: Coordination normal. Psychiatric: Mood and Affect: Mood normal. Behavior: Behavior normal. Lab Results Component Value Date NA 133 (L) 11/08/2023 K 4.8 11/08/2023 CL 106 11/08/2023 ANIONGAP 8 11/08/2023 BUN 28 (H) 11/08/2023 CREATININE 1.08 11/08/2023 CALCIUM 8.6 11/08/2023 MG 2.1 11/07/2023 PHOS 2.8 11/07/2023 No results found for: BILITOT , BILIDIR , ALKPHOS , AST , ALT , PROT , ALBUMIN Lab Results Component Value Date WBC 16.06 (H) 11/08/2023 RBC 3.23 (L) 11/08/2023 HGB 10.8 (L) 11/08/2023 HCT 33.0 (L) 11/08/2023 (more content not included)... [facility] 11-08-2023 Note 11/08/23 1033 Admission Assessment Questions Verify insurance with patient Yes Do you understand medical disease or what brought you into the hospital? Yes Who is your current PCP? Armani Stewart MD Can I schedule a follow up appointment for you at the time of discharge? Yes Do you understand why you are taking your current medications? Yes Are you taking your medications as prescribed? Yes Did patient provide teach back? Yes Pharmacy Bedside Delivery Status Not Interested Does the patient have a case work aide assigned to them through their insurance? No Living Arrangement (Current/Prior to Hospitalization) Private residence (with ) Does the patient have history of HHC or SNF? No Assistive Device Not applicable Patient's goal for discharge home Was patient reminded that goal for discharge is 11am? No Does the patient have transportation at discharge? Yes Type of Residence Private residence Is PT/OT appropriate? Yes Is PT/OT ordered? Yes Is SW consult appropriate? No Is SW consult ordered? No Do you understand the benefits of MyChart? Yes Were you able to send link and activate MyChart? MyChart already active [facility] 11-08-2023 Note ------ Attestation signed by Héctor Blancas MD at 11/08/2023 3:59 PM (Updated) I have personally saw and examined the patient on the same date of the service as resident staff Jhon Dai. I agree with the above assessment and plan. #aortic valve stenosis, s/p TAVR repair Normal vitals overnight Postop TTE showed no acute valvular concerns #Cerebrovascular disease #Mesenteric vascular disease #peripheral vascular disease - home apixaban, plavix #HFrEF - home entresto, spironolactone, jardiance/farxiga Stable for transfer out of ICU ------ Surgical Intensive Care Unit Progress Note Chief Complaint: Critical Care Management Subjective: 77 y.o. year old male with past medical history of aortic stenosis, CHF, a fib on eliquis, T2DM who presented to SICU following TAVR procedure 11/07/23. Patient was extubated in OR, and transferred to SICU from PACU. Review of Systems: General: No For Chills, Fatigue, Fever, recent weight loss or weight gain Head/Neck: no blurry vision, tinnitus, headache Respiratory: No Cough, Shortness Of Breath, Or Wheezing Cardiovascular: No Chest Pain Or Dyspnea On Exertion Gastrointestinal: No Abdominal Pain, Nausea, Vomiting Or Diarrhea. No Hematochezia Genito-Urinary: No Dysuria, Trouble Voiding, Or Hematuria Musculoskeletal: No Gait Disturbance, Joint Pain, Weakness Endocrine: no heat or cold intolerance, no hyperglycemia, no polyuria Neurological: No TIA Or Stroke Symptoms, Dizziness, Confusion, Numbness/Tingling, Visual Changes Psych: No history of depression, anxiety or substance abuse Dermatological: No Skin Changes, Rash, Nail Or Hair Changes Interval History: No acute events overnight. Resting comfortably on room air. Denies chest pain, palpitations, shortness of breath, nausea, vomiting, diarrhea. Okay to transfer out of SICU today per cardiology. Objective Vitals: BP: (106-162)/(36-128) 160/55 (11/07 699) Temp: [36 ???C (96.8 ???F)-37.1 ???C (98.8 ???F)] 36.7 ???C (98 ???F) (11/08 399) Temp Source: Oral (11/08 399) Heart Rate: [52-106] 79 (11/07 699) Resp: [10-28] 28 (11/07 699) SpO2: [90 %-100 %] 90 % (11/07 699) Height: -- Weight: -- Pollo Coma Scale Score: 15 I/O last 3 completed shifts: In: 2506.2 (35 mL/kg) [P.O.:600; I.V.:1589.2 (22.2 mL/kg); IV Piggyback:317] Out: 800 (11.2 mL/kg) [Urine:700 (0.3 mL/kg/hr); Blood:100] Weight: 71.6 kg Physical Exam: General: No For Chills, Fatigue, Fever, recent weight loss or weight gain Head/Neck: no blurry vision, tinnitus, headache Respiratory: No Cough, Shortness Of Breath, Or Wheezing Cardiovascular: No Chest Pain Or Dyspnea On Exertion Gastrointestinal: No Abdominal Pain, Nausea, Vomiting Or Diarrhea. No Hematochezia Genito-Urinary: No Dysuria, Trouble Voiding, Or Hematuria Musculoskeletal: No Gait Disturbance, Joint Pain, Weakness Endocrine: no heat or cold intolerance, no hyperglycemia, no polyuria Neurological: No TIA Or Stroke Symptoms, Dizziness, Confusion, Numbness/Tingling, Visual Changes Psych: No history of depression, anxiety or substance abuse Dermatological: No Skin Changes, Rash, Nail Or Hair Changes Labs: Recent Results (from the past 12 hour(s)) CBC Collection Time: 11/08/23 3:25 AM Result Value Ref Range Auto WBC 16.06 (H) 4.00 - 10.60 10*3/uL RBC 3.23 (L) 4.20 - 5.70 10*6/uL Hemoglobin 10.8 (L) 13.0 - 17.0 g/dL Hematocrit 33.0 (L) 39.0 - 55.0 % MCV 102.2 (H) 82.0 - 98.0 fL MCH 33.4 (H) 27.0 - 33.0 pg MCHC 32.7 32.0 - 35.0 g/dL RDW 14.0 11.5 - 15.0 % Platelets 149 (L) 150 - 400 10*3/uL Basic metabolic panel Collection Time: 11/08/23 3:25 AM Result Value Ref Range Sodium 133 (L) 136 - 145 mmol/L Potassium 4.8 3.5 - 5.1 mmol/L Chloride 106 98 - 107 mmol/L CO2 24 21 - 31 mmol/L BUN 28 (H) 7 - 25 mg/dL Creatinine 1.08 0.70 - 1.30 mg/dL Glucose 138 (H) 70 - 100 mg/dL Calcium 8.6 8.6 - 10.3 mg/dL Anion Gap 8 7 - 20 mmol/L eGFR 70.2 >60.0 mL/min/1.73m*2 BUN/Creatinine Ratio 25.9 Transthoracic Echo (TTE) LImited w/wo Contrast, Strain, 3D, Color FLow, Bubble Study Collection Time: 11/08/23 7:54 AM Result Value Ref Range BSA 1.85 m2 Radiologic studies: No X-ray results found for the past [address] results found for the past 24 hours No MRI results found for the past 24 hours EKG: Encounter Date: 11/07/23 ECG 12 lead Result Value Ventricular Rate 65 QRS DURATION 88 QT Interval 430 QTC CALCULATION(BAZETT) 447 R-Mundelein -26 T Wave Mundelein 116 Impression Atrial fibrillation Anterior infarct , age undetermined T wave abnormality, consider lateral ischemia Abnormal ECG When compared with ECG of 12-OCT-2023 06:58, Atrial fibrillation has replaced Electronic ventricular pacemaker Confirmed by Lona JUAREZ, LONA Alexandra ([id number]) on 11/07/2023 5:0 (more content not included)... [facility] 11-08-2023 Note Interventional cardi ology update Reviewed vitals, labs, imaging most notably for echo this morning and examined the patient. In summary, doing quite well with access sites stable with no hematomas. Stable neuroexam.. Kidney function stable. Hemoglobin down to 10.8 from 12.9 with no overt bleeding. Echo showed normal gradients with no significant leak. No effusion. Discussed with our CT surgery and ID colleagues and plan to resume Plavix today. Monitor for another day in the stepdown unit and potential for discharge tomorrow. Discussed with Dr. Wright and Dr. Wallace from IC. Ladarius Weeks MD PGY-7 Interventional Weigh Box Tender [facility] 11-08-2023 Note Physical Therapy Physical Therapy Evaluation Patient Name: Raymon Dias : 1945 Today's Date: 11/08/2023 Patient is a 77 y/o male presenting 11/07/23 for scheduled TAVR due to aortic stenosis. Currently POD #1. Tolerated evaluation well today, mild SOB with mobility though steady and safe during mobility. Discharge: Home General Subjective: RN approved PT session and OOB activity. In bed upon arrival, agreeable to session. Upon cmpletion, patient left up in the chair with call light within reach, RN aware. PT Diagnosis: Impaired activity tolerance Patient Active Problem List Diagnosis Acute tonsillitis Aortic valve disorder Aortic valve stenosis Bruit Chronic systolic heart failure (CMS/HCC) Coronary atherosclerosis Essential hypertension Gastric ulcer Hyperlipidemia Implantable cardioverter-defibrillator (ICD) in situ Left ventricular systolic dysfunction Paroxysmal ventricular tachycardia (CMS/HCC) Carotid artery stenosis Mesenteric artery stenosis (CMS/HCC) Peripheral arterial occlusive disease (CMS/HCC) Primary cardiomyopathy (CMS/HCC) Chronic systolic congestive heart failure (CMS/HCC) Abnormal cardiovascular stress test Aortic stenosis, severe Past Medical History: Diagnosis Date Arrhythmia BPH (benign prostatic hyperplasia) Cardiomyopathy (CMS/HCC) Carotid artery stenosis CHF (congestive heart failure) (CMS/HCC) Coronary artery disease Gastric ulcer Heart valve disease Hyperlipidemia Hypertension Implantable cardioverter-defibrillator (ICD) in situ Nonrheumatic aortic (valve) stenosis PAD (peripheral artery disease) (CMS/HCC) Peripheral arterial occlusive disease (CMS/HCC) PVC (premature ventricular contraction) Past Surgical History: Procedure Laterality Date CARDIAC CATHETERIZATION 1986 CORONARY ANGIOPLASTY 1996 CORONARY ARTERY BYPASS GRAFT 1997 CTA LOWER EXTREMITY LEFT W IV CONTRAST INSERT / REPLACE / REMOVE PACEMAKER Precautions Precautions Medical Precautions: cardiac, fall risk, telemetry, IV Pain Pain Assessment Pain Assessment: 0-10 Pain Score: 2 Pain Type: Surgical pain, Acute pain Pain Location: Neck Pain Orientation: Left Cognition Cognition Overall Cognitive Status: Within Functional Limits Arousal/Alertness: Appropriate responses to stimuli Orientation Level: Oriented X4 Following Commands: Follows all commands and directions without difficulty General Assessment General Assessment Hearing: Intact Hand Dominance: Left Home Living Home Living Type of Home: Condo Lives With: Spouse Home Adaptive Equipment: None Home Layout: One level Home Access: Stairs to enter with rails Entrance Stairs-Rails: Right Entrance Stairs-Number of Steps: 2 Bathroom Shower/Tub: Tub/shower unit Bathroom Equipment: Grab bars in shower, Shower chair with back Prior Level of Function Prior Function Level of Whitman: Independent with ADLs and functional transfers, Independent with homemaking with ambulation Prior Functional Mobility: Independent without device ADL Assistance: Independent Homemaking Assistance: Independent Vision Basic Assessment Vision - Basic Assessment Current Vision: No visual deficits Activity Tolerance Activity Tolerance Endurance: Stage III General Assessments Activity Tolerance Endurance: Stage III Sensation Light Touch: No apparent deficits Coordination Movements are Fluid and Coordinated: Yes Postural Control Postural Control: Within Functional Limits Static Sitting Balance Static Sitting-Balance Support: Feet supported Static Sitting-Level of Assistance: Independent Dynamic Sitting Balance Dynamic Sitting-Balance Support: Feet supported, Right upper extremity supported, Left upper extremity supported Dynamic Sitting-Balance: Lateral lean, Forward lean Dynamic Sitting Balance-Level of Assistance: Independent Static Standing Balance Static Standing-Balance Support: Right upper extremity supported (IV pole management) Static Standing-Level of Assistance: Close supervision Dynamic Standing Balance Dynamic Standing-Balance Support: Right upper extremity supported (IV pole management) Dynamic Standing Balance-Level of Assistance: Close supervision Functional Assessments Bed Mobility Bed Mobility: Yes Bed Mobility 1 Bed Mobility From 1: Supine Bed Mobility Type 1: To Bed Mobility to 1: Short sit Level of Assistance 1: Independent Bed Mobility Comments 1: HOB elevated ~30 degrees Transfers Transfer: Yes Transfer 1 Technique 1: Sit to stand, Stand to sit (Sit to stand from EOB, stand to sit into chair) Transfer Device 1: none Transfer Level of Assistance 1: Close supervision Ambulation Ambulation: Yes Ambulation 1 Surface 1: Level tile Device 1: (IV pole for management to RUE) Assistance 1: Close supervision Quality of Gait 1: Slower pace with short step length though st (more content not included)... [facility] 11-08-2023 Note Occupational Therapy Occupational Therapy Evaluation Patient Name: Raymon Dias : 1945 Today's Date: 11/08/2023 Time In: 823 Time Out: 842 Raymon Dias is a 77 y.o. 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) Primary cardiomyopathy (CMS/HCC) Chronic systolic congestive heart failure (CMS/HCC) Abnormal cardiovascular stress test Aortic stenosis, severe Past Medical History: Diagnosis Date Arrhythmia BPH (benign prostatic hyperplasia) Cardiomyopathy (CMS/HCC) Carotid artery stenosis CHF (congestive heart failure) (CMS/HCC) Coronary artery disease Gastric ulcer Heart valve disease Hyperlipidemia Hypertension Implantable cardioverter-defibrillator (ICD) in situ Nonrheumatic aortic (valve) stenosis PAD (peripheral artery disease) (CMS/HCC) Peripheral arterial occlusive disease (CMS/HCC) PVC (premature ventricular contraction) Past Surgical History: Procedure Laterality Date CARDIAC CATHETERIZATION 1986 CORONARY ANGIOPLASTY 1996 CORONARY ARTERY BYPASS GRAFT 1997 CTA LOWER EXTREMITY LEFT W IV CONTRAST INSERT / REPLACE / REMOVE PACEMAKER Precautions Precautions Medical Precautions: cardiac, fall risk Pain Pain Assessment Pain Score: 2 (neck area / sx site) Cognition Cognition Overall Cognitive Status: Within Functional Limits General Assessment General Assessment Hearing: (wfl) Hand Dominance: Left Home Living Home Living Type of Home: Condo Lives With: Spouse Home Adaptive Equipment: (sc, gb, hhs) Home Layout: One level Home Access: Stairs to enter with rails (2) Bathroom Shower/Tub: Tub/shower unit Prior Level of Function Prior Function Level of Whitman: Independent with ADLs and functional transfers, Independent with homemaking with ambulation (drives) Prior Functional Mobility: Independent without device Prior IADLs IADL History Homemaking Responsibilities: Yes Dynamic Sitting Balance Dynamic Sitting Balance Dynamic Sitting Balance-Level of Assistance: Independent Static Standing Balance Static Standing Balance Static Standing-Level of Assistance: Close supervision ADL ADL LE Dressing Assistance: Stand by Transfers Transfers Transfer: (indep supine to sit EOB, SBA : 30 feet X3, standing six minutes and sit into chair) Objective General Assessments Activity Tolerance Endurance: Stage II Vision - Basic Assessment Current Vision: No visual deficits Sensation Light Touch: No apparent deficits Coordination Movements are Fluid and Coordinated: Yes Extremity Assessments RUE Assessment RUE Assessment: (reports no issues with UB / MMT deferred) Outcome Assessments AM-PAC 6 Clicks Putting on and taking off regular lower body clothing?: A Little (Min Assist/Contact Guard/Supervision) Bathing(Including washing,rinsing,drying)?: A Little (Min Assist/Contact Guard/Supervision) Toileting, which includes using the toilet,bedpan,or urinal?: A Little (Min Assist/Contact Guard/Supervision) Putting on and taking off regular upper body clothing?: None (Independent) Taking care of personal grooming such as brushing teeth?: None (Independent) Eating meals?: None (Independent) Total Score OT [facility]: 21 Assessment/Plan OT Assessment OT Impairments: Decreased ADL status, Decreased endurance, Decreased functional mobility OT Assessment/TIE PRESSER Summary: (needs skilled OT due to weakness and fatigue) Prognosis: Good Evaluation/Treatment Tolerance: Patient limited by fatigue Medical Staff Made Aware: Yes OT Education/Comments: (LB adl and adl transfer safety / technique with good return demo) Plan Level of assist: 1 assist Treatment Interventions: ADL retraining, Functional transfer training, Endurance training, Patient/family training, Neuromuscular reeducation, Compensatory technique education OT Plan: Skilled OT OT Frequency: 5 times per week until discharge & PRN OT Discharge Recommendations: Home OT - Discharge Recommendations Placed: Yes OT Goals Multi-Disciplinary Problems (from Occupational Therapy) Active Problems Problem: Balance Start Date: 11/08/23 Goal Start Date Expected End Date End Date LTG - Patient will maintain stand balance to allow for safe mobility 11/08/23 11/22/23 -- Problem: Bathing Start Date: 11/08/23 Goal Start Date Expected (more content not included)... [facility] 11-07-2023 Note Patient: Raymon Copeland Zaira Ohara Procedure Summary Date: 11/07/23 Room / Location: [facility] OR [address] [place] [address] / [facility] Operating Room Anesthesia Start: 830 Anesthesia Stop: 1257 Procedures: TAVR Carotid CUTDOWN (Left) Diagnosis: Nonrheumatic aortic valve stenosis (s/p successful transcarotid TAVR using a 34 mm Evolut FX valve.) Surgeons: Carmelita Wallace MD Responsible Provider: Dev Rosa DO Anesthesia Type: general ASA Status: 3 Anesthesia Type: general Vitals Value Taken Time BP 157/63 11/07/23 1322 Temp 36.2 11/07/23 1343 Pulse 65 11/07/23 1322 Resp 17 11/07/23 1322 SpO2 98 % 11/07/23 1322 Anesthesia Post Evaluation Patient location during evaluation: PACU Patient participation: complete - patient participated Level of consciousness: awake and alert Pain score: 3 Pain management: adequate Multimodal analgesia pain management approach Airway patency: patent Two or more strategies used to mitigate risk of obstructive sleep apnea Cardiovascular status: hemodynamically stable Respiratory status: acceptable, room air, spontaneous ventilation and nonlabored ventilation Hydration status: euvolemic Patient is hemodynamically stable and is able to be discharged from PACU per anesthesia protocol. There were no known notable events for this encounter. [facility] 11-07-2023 Note Patient: Raymon Ohara Procedure Information Anesthesia Start Date/Time: 11/07/23830 Procedures: TAVR Carotid intervention Location: [address] / [facility] Operating Room Surgeons: Carmelita Wallace MD Relevant Problems Cardio (+) Aortic stenosis, severe (+) Aortic valve stenosis (+) Carotid artery stenosis (+) Chronic systolic congestive heart failure (CMS/HCC) (+) Coronary atherosclerosis (+) Essential hypertension (+) Mesenteric artery stenosis (CMS/HCC) (+) Paroxysmal ventricular tachycardia (CMS/HCC) (+) Peripheral arterial occlusive disease (CMS/HCC) GI (+) Gastric ulcer Other (+) Acute tonsillitis Clinical information reviewed: Tobacco Allergies Meds Med Hx Surg Hx Fam Hx Soc Hx Physical Exam Airway Mallampati: II TM distance: >3 FB Neck ROM: full Cardiovascular - normal exam Dental Pulmonary - normal exam Abdominal Anesthesia Plan ASA 3 general (Right radial lisa side port and right {injection or internal jugular side port central line from surgeon. GETA.) Patient did not smoke on day of procedure. Education provided regarding risk of obstructive sleep apnea. intravenous induction Postoperative administration of opioids is intended. Trial extubation is planned. Anesthetic plan and risks discussed with patient. Use of blood products discussed with patient who consented to blood products. Plan discussed with attending. Additional Equipment Requests [facility] 11-07-2023 Note Airway Date/Time: 11/07/2023 9:22 AM Urgency: elective General Information and Staff Patient location during procedure: OR Anesthesiologist: Dev Rosa DO Resident/SHOE SEWING MACHINE OPERATOR AND TENDER/CAA: Marybel Irizarry MD Performed: resident/SHOE SEWING MACHINE OPERATOR AND TENDER/CAA Indications and Patient Condition Indications for airway management: anesthesia Spontaneous Ventilation: absent Sedation level: deep Preoxygenated: yes Mask difficulty assessment: 1 - vent by mask Final Airway Details Final airway type: endotracheal airway Successful airway: ETT Cuffed: yes Successful intubation technique: video laryngoscopy Facilitating devices/methods: intubating stylet Endotracheal tube insertion site: oral Blade: Mobley Blade size: #3 ETT size (mm): 7.5 Cormack-Lehane Classification: grade I - full view of glottis Placement verified by: chest auscultation and capnometry Measured from: lips ETT to lips (cm): 22 Number of attempts at approach: 1 Number of other approaches attempted: 0 [facility] 10-12-2023 Note Patient: Raymon Ohara Procedure Information Date/Time: 10/12/23 0730 Procedures: Coronary angiography Right heart cath Coronary bypass graft study Location: [facility] ELIGIBILITY ANALYST 2 [facility] / [facility] (Cath) Providers: Carmelita Wallace MD [...] Plan discussed with attending. Additional Equipment Requests [facility] 10-05-2023 Note Subjective Patient ID: Raymon Dias [...] primary prevention. He recently presented to his high pressure boiler operator with complaints of chest pain, dyspnea with [...] valve stenosis. He is accompanied by his [id number] today. - He has multiple comorbid conditions, [...] will discuss his case with the referring high pressure boiler operator. This case will likely be discussed at [...] Interval 434 ms QTC CALCULATION(BAZETT) 411 ms R-Mundelein 13 degrees T Wave Mundelein 107 degrees POC Hb02% Collection Time: 10/12/23 8:11 AM Result Value Ref Range SJFLWG70% 69.6 (A) 90 - 95 % QC Pass/Fail Passed QC LOT # [id number] QC Expiration Date SAMPLESITE PA No follow-ups on file. [facility] 09-20-2023 Note [facility] Subjective Raymon Dias is a 77 [...] creatinine 1.1, pot (more content not included)... [facility] 08-10-2023 Note [facility] Subjective Raymon Dias is a 77 [...] valve stenosis, mild (more content not included)... [facility] 01-24-2023 Note [facility] Subjective Raymon Dias is a 77 [...] blood testing in January 2020 at the [place] showed a creatinine of 1.0, BUN 25, potassium 4.9. Lower extremity arterial duplex 10/28/2019: Significant plaque formation throug (more content not included)... [facility] Summary Purpose Family History No Family History [...] CREATED AUTHOR AUTHOR'S ORGANIZ ATION 03/23/2021 [facility] [employer] [facility] DATE CREATED AUTHOR AUTHOR'S ORGANIZ ATION 05/06/2021 [facility] DATE CREATED AUTHOR AUTHOR'S ORGANIZ ATION 04/20/2022 [facility] DATE CREATED AUTHOR AUTHOR'S ORGANIZ ATION 11/13/[address] [facility] FOR RECORDS PERTAINING TO PATIENTS [...] BE BASED ON THE PRIMARY CLINICAL RECORDS. [facility]. provides no warranty or guarantee of the accuracy or completeness of information in this document.
[2023-11-14 16:08] LABS: Basophils Absolute Auto 0.1 10^3/uL (0.0-0.1); Basophils Percent Auto 0.6 % (0.2-2.0); Eosinophils Absolute Auto 0.3 10^3/uL (0.0-0.7); Eosinophils Percent Auto 2.5 % (0.9-7.0); Hematocrit 34.4 % (42.0-54.0); Hemoglobin 11.4 g/dL (14.0-18.0); Immature Granulocytes Abs Auto 0.13 10^3/uL (0.00-0.03); Immature Granulocytes Pct Auto 1.3 % (0.0-0.5); Mean Corpuscular HGB Conc 33.1 g/dL (29.9-35.2); Mean Corpuscular Hemoglobin 33.9 pg (25.9-34.0); Mean Corpuscular Volume 102.4 fL (80.0-94.0); Mean Platelet Volume 10.6 fL (9.5-13.5); Monocytes Absolute Auto 1.5 10^3/uL (0.3-0.8); Monocytes Percent Auto 14.9 % (1.7-12.0); Neutrophils Absolute Auto 7.1 10^3/uL (1.4-6.5); Neutrophils Percent Auto 70.7 % (43.0-75.0); Platelet Count 213 10^3/uL (150-450); Red Blood Count 3.36 10^6/uL (4.70-6.10); Red Cell Distribution Width 13.9 % (11.0-15.0); White Blood Count 10.1 10^3/uL (4.0-11.0)
[2023-11-14 16:29] LABS: Anion Gap 9.2; BUN Creatinine Ratio 21.2; Calcium 9.7 mg/dL (8.5-10.1); Carbon Dioxide 29.6 mmol/L (21.0-32.0); Chloride 100 mmol/L (98-107); Estimated GFR (African America >60 (>=60 mL/min/1.73m^2); Estimated GFR (Non-African Ame 52 (>=60 mL/min/1.73m^2); Glucose 118 mg/dL (74-106); Potassium 4.8 mmol/L (3.5-5.1); Sodium 134 mmol/L (136-145)
== END 2023-11-14 15:40 | disposition home or self-care (01) ==
PROVIDERS: PCP Internal Medicine
DX: I35.0 Nonrheumatic aortic (valve) stenosis (principal); Z95.3 Presence of xenogenic heart valve; Z29.89 Encounter for other specified prophylactic measures; I50.22 Chronic systolic (congestive) heart failure
CPT/HCPCS: 36415; 80048; 85025

== ENCOUNTER 2023-12-18 12:43 | Outpatient (OUT) | payer MEDICARE, SELFPAY ==
[2023-12-18 13:11] LABS: Hematocrit 37.3 % (42.0-54.0); Hemoglobin 12.5 g/dL (14.0-18.0); Mean Corpuscular HGB Conc 33.5 g/dL (29.9-35.2); Mean Corpuscular Hemoglobin 34.7 pg (25.9-34.0); Mean Corpuscular Volume 103.6 fL (80.0-94.0); Mean Platelet Volume 10.7 fL (9.5-13.5); Platelet Count 204 10^3/uL (150-450); Red Cell Distribution Width 14.3 % (11.0-15.0); White Blood Count 10.9 10^3/uL (4.0-11.0)
[2023-12-18 13:31] LABS: Eosinophils Absolute Manual 0.43 10^3/uL (0.00-0.70); Macrocytosis 2+; Monocytes Absolute Manual 1.52 10^3/uL (0.30-0.80); Segmented Neut Absolute Manual 7.63 10^3/uL (1.4-6.5)
[2023-12-18 14:06] LABS: Anion Gap 14.7; BUN Creatinine Ratio 22.1; Calcium 9.6 mg/dL (8.5-10.1); Carbon Dioxide 24.1 mmol/L (21.0-32.0); Chloride 104 mmol/L (98-107); Estimated GFR (African America >60 (>=60 mL/min/1.73m^2); Estimated GFR (Non-African Ame 57 (>=60 mL/min/1.73m^2); Glucose 104 mg/dL (74-106); Potassium 4.8 mmol/L (3.5-5.1); Sodium 138 mmol/L (136-145)
== END 2023-12-18 12:44 | disposition home or self-care (01) ==
LOC: LAB 12:44
PROVIDERS: PCP Internal Medicine; Visit Provider Physician Assistant Medical
DX: I35.0 Nonrheumatic aortic (valve) stenosis (principal); I50.22 Chronic systolic (congestive) heart failure; I11.0 Hypertensive heart disease with heart failure; Z95.3 Presence of xenogenic heart valve; Z29.89 Encounter for other specified prophylactic measures
CPT/HCPCS: 36415; 80048; 85007; 85027

== ENCOUNTER 2024-04-29 12:24 | Outpatient (OUT) | payer MEDICARE, SELFPAY ==
--- OUTSIDE RECORDS SUMMARY | 2024-04-29 12:39 | XMS_ITS | CCD ---
Author Organization [facility] Care Team Providers Care Medical Record Clerk Name Role Phone ARMANI STEWART Primary Care Unavailable STRUS, JUAN Ceballos Attending Unavailable PROVIDER, UNKNOWN Admitting Unavailable PROVIDER, UNKNOWN Attending Unavailable CONSULT, IP SURGERY VASCULAR Consulting Kait LUCINDA Welsh Attending Unavailable PROVIDER, UNKNOWN Admitting Unavailable STRUS, JUAN Referring Unavailable PROVIDER, UNKNOWN Admitting Unavailable PROVIDER, UNKNOWN Attending Unavailable STRUS, JUAN Referring Unavailable UNKNOWN, PROVIDER Admitting Unavailable UNKNOWN, PROVIDER Attending Unavailable ARMANI STEWART Primary Care Unavailable PAT, ARMANI Referring Unavailable MOUKARBEL, DR MAE Admitting Unavailable MOUKARBEL, DR MAE Attending Unavailable VALONE, DR CASTRO Primary Care Unavailable MISC, DR COLEMAN Admitting Unavailable MISC, DR COLEMAN Attending Unavailable VALMYRIAM, DR CASTRO Primary Care Unavailable MISC, DR COLEMAN Consulting Unavailable Armani Stewart MD Primary Care Provider GIBRAN GONGORA Attending Unavailable RUS, GIBRAN eMneses Referring Unavailable Unavailable Primary Care Provider UnavailGIBRAN Fonseca Attending Unavailable MOUKARBEL, CARMELITA Attending Unavailable ZO NAVARRO Attending Unavailable MADRIGALRISHI Referring Unavailable MADRIGAL, RISHI Referring Unavailable MOUKARBELCARMELITA Attending Unavailable MOUKARBEL, CARMELITA Referring Unavailable MOUKARBEL, CARMELITA Referring Unavailable MOUKARBEL, CARMELITA Admitting Unavailable MOUKARBEL, CARMELITA Attending Unavailable MOUKARBEL, CARMELITA Referring Unavailable MADRIGAL, RISHI Referring Unavailable MADRIGAL, RISHI Referring Unavailable MOUKARBEL, CARMELITA Referring Unavailable LAUREN PARHAM Attending Unavailable JEAN PIERREKYLE Salguero Attending Unavailable MOUKARBEL, CARMELITA Attending Unavailable MOUKARBEL, CARMELITA Attending Unavailable MOUKARBEL, CARMELITA Admitting Unavailable MOUKARBEL, CARMELITA Attending Unavailable KYLE GREENFIELD Referring Unavailable JEAN PIERRE, KYLE Referring Unavailable JEAN PIERREKYLE Salguero Admitting Unavailable JEAN PIERREKYLE MUSTAFA Attending Unavailable JEAN PIERRE, KYLE Referring Unavailable Allergies Allergy Classification Reported Allergen(s) Allergy Type Date of Onset Reaction(s) Facility (1 source) 00021,00; Translations: [80084,00] Propensity to adverse reactions (disorder) 2 [facility] Repository Medications Current Medications Medication Drug Class(es) Dates Sig (Normalized) Sig (Original) apixaban 5 mg oral tablet (3 sources) Factor Xa Inhibitor Start: 09-28-2023 take 1 tablet by mouth in the morning apixaban (Eliquis) 5 MG tablet Take 5 mg by mouth in the morning and 5 mg in the evening. 09/28/2023 Active atorvastatin 40 mg oral tablet (3 sources) HMG-CoA Reductase Inhibitor take 1 tablet by mouth once daily atorvastatin (Lipitor) 40 MG tablet Take 1 tablet by mouth Daily Active 60 actuat budesonide 0.16 mg/actuat / formoterol fumarate 0.0045 mg/actuat metered dose inhaler (3 sources) Corticosteroid, beta2-Adrenergic Agonist take 2 puff(s) by inhalation twice daily budesonide-formotero l (Symbicort) 160-4.5 MCG/ACT inhaler Inhale 2 puffs twice a day by inhalation route. Active carvedilol 12.5 mg oral tablet (3 sources) alpha-Adrenergic Jana, beta-Adrenergic Jana carvedilol (Coreg) 12.5 MG tablet Take 12.5 mg by mouth Active cholecalciferol 0.025 mg oral capsule (3 sources) Vitamin D take 1 capsule by mouth once daily cholecalciferol (Vitamin D-3) 25 MCG (1000 UT) capsule Take 2,000 Units by mouth Daily Active clopidogrel 75 mg oral tablet (3 sources) P2Y12 Platelet Inhibitor clopidogrel (Plavix) 75 MG tablet Take 75 mg by mouth Active empagliflozin 25 mg oral tablet (3 sources) Sodium-Glucose Cotransporter 2 Inhibitor empagliflozin (Jardiance) 25 MG Take 25 mg by mouth Active folic acid 0.8 mg oral tablet (3 sources) folic acid (Folv ite) 800 MCG tablet 0.8 mg Active montelukast 10 mg oral tablet (3 sources) Leukotriene Receptor Antagonist montelukast (Singulair) 10 MG tablet Take 10 mg by mouth Active polyethylene glycol 3350 07738 mg powder for oral solution (3 sources) Osmotic Laxative polyethylene gl ycol, PEG, 3350 (Miralax) 17 g packet Take by mouth Active sacubitril 24 mg / valsartan 26 mg oral tablet (3 sources) Angiotensin 2 Receptor Jana take 24-26 mg by mouth twice daily sacubitril-valsartan (Entresto) 24-26 MG tablet Take 0.5 tablets twice a day by oral route. Active spironolactone 25 mg oral tablet (3 sources) Aldosterone Antagonist spironolactone (Aldactone) 25 MG tablet Take 25 mg by mouth Active tamsulosin hydrochloride 0.4 mg oral capsule (3 sources) alpha-Adrenergic Jana take 1 capsule by mouth every twenty-four hours at bedtime tamsulosin (Flomax) 0.4 MG 24 hr capsule Take 1 capsule by mouth at bedtime Active Problems Active Problems Problem Classification Problem Date Documented Date Episodic/Chronic Cardiac dysrhythmias (4 sources) Paroxysmal atrial fibrillation; Translations: [Ventricular premature depolarization] Onset: 08-10-2023 Chronic Conduction disorders (6 sources) Presence of automatic (implantable) cardiac defibrillator; Translations: [Encounter for checking and testing of cardiac pacemaker pulse generator [battery]] Onset: 10-10-2023 Chronic Congestive heart failure; nonhypertensive (3 sources) Chronic systolic (congestive) heart failure; Translations: [CHRONIC SYSTOLIC HEART FAILURE] Onset: 04-18-2022 Chronic Coronary atherosclerosis and other heart disease (2 sources) Atherosclerotic heart disease of [place] coronary artery without angina pectoris; Translations: [Atherosclerotic heart disease of [place] coronary artery without angina pectoris] Onset: 12-07-2023 Chronic Disorders of lipid metabolism (4 sources) Mixed hyperlipidemia; Translations: [MIXED HYPERLIPIDEMIA] Onset: 04-14-2022 Chronic Essential hypertension (2 sources) Essential (primary) hypertension; Translations: [Essential (primary) hypertension] Onset: 11-08-2023 Chronic Heart valve disorders (4 sources) Presence of xenogenic heart valve; Translations: [Nonrheumatic aortic (valve) stenosis] Onset: 11-07-2023 Chronic Hypertension with complications and secondary hypertension (1 source) Hypertensive heart disease with heart failure; Translations: [HTN HEART DISEASE W/HEART FAIL] Onset: 04-18-2022 Chronic Mycoses (2 sources) Onychomycosis; Translations: [Tinea unguium] 11-29-2023 Episodic Occlusion or stenosis of precerebral arteries (2 sources) Occlusion and stenosis of bilateral carotid arteries; Translations: [Occlusion and stenosis of bilateral carotid arteries] Onset: 04-06-2022 Chronic Other connective tissue disease (2 sources) Pain in right foot; Translations: [Pain in right foot] 11-29-2023 Episodic Other skin disorders (2 sources) Dystrophia unguium; Translations: [Nail dystrophy] 11-29-2023 Episodic Peripheral and visceral atherosclerosis (8 sources) Peripheral vascular disease; Translations: [Peripheral vascular disease, unspecified] Onset: 12-07-2023 11-29-2023 Chronic Substance-related disorders (1 source) Nicotine dependence, cigarettes, uncomplicated; Translations: [NICOTINE DEPEND CIGARETTES UNCOMP] Onset: 04-18-2022 Chronic Unclassified (2 sources) Other persistent atrial fibrillation; Translations: [Other persistent atrial fibrillation] Onset: 12-07-2023 Unclassified (1 source) Encounter for other specified prophylactic measures; Translations: [Encounter for other specified prophylactic measures] Onset: 11-07-2023 Unclassified (2 sources) New Patient; Translations: [New Patient] Onset: 10-05-2023 Past or Other Problems Problem Classification Problem Date Documented Da te Episodic/Chronic Coronary atherosclerosis and other heart disease (3 sources) Presence of aortocoronary bypass graft; Translations: [PRESENCE AORTOCORONARY BYPASS GRAFT] Onset: 04-18-2022 Episodic Other screening for suspected conditions (not mental disorders or infectious disease) (2 sources) Abnormal result of other cardiovascular function study; Translations: [Abnormal result of other cardiovascular function study] Onset: 10-06-2023 Episodic Unclassified (1 source) Encounter for other specified prophylactic measures; Translations: [Encounter for other specified prophylactic measures] Onset: 11-07-2023 Results Test Name Value Interpretation Reference Range Facility Office Visiton 01-08-2024 Follow-up visit [id number] Claudia Kent 1945 M Date Provider Department Center 01/08/2024 CARMELITA MCLEOD Family History Problem Relation Age of Onset Coronary artery disease Other Heart attack Mother Heart disease Mother Family Status - Relation Status Age at Other Mother Level of Service:50534 [place] OFFICE/OUTPATIENT ESTABLISHED LOW MDM 20 MIN Normal [facility] Office Visiton 12-28-2023 Follow-up visit [id number] Claudia Kent 1945 M Date Provider Department Center 12/28/2023 [id number] NAVARROevue [facility] Family History Problem Relation Age of Onset Coronary artery disease Other Heart attack Mother Heart disease Mother Family Status - Relation Status Age at Other Mother Level of Service:68084 [place] OFFICE/OUTPATIENT ESTABLISHED LOW MDM 20 MIN [facility] HPon 12-20-2023 [facility] Electrophysiology Consult Note [place] Cardiology [facility] Reason for visit: Device at TIARRA HPI: Claudia Kent is a 77 y.o. year old with past medical history of persistent atrial fibrillation on apixaban, chronic ischemic cardiomyopathy s/p ICD placement, peripheral arterial disease (SMA stenting in 2014), right SFA/popliteal artery stenosis, renal artery stenosis, carotid artery disease (right CEA, year?, Recent carotid ultrasound in 2021 showed moderate disease), and coronary artery disease (CABG in 1997). He underwent a complete workup and was found to have severe aortic valve stenosis. He was determined high risk for SAVR, therefore recommended for TAVR by CT Surgery and Interventional cardiologyteam with Transcarotid access with surgical cutdown in order to deliver the TAVR prostheses. He underwent the TAVR procedure on 11/07/2023 and was subsequently discharged. Given that he has an ICD [place] single-chamber ICD which is reached TIARRA he has come for a generator change discussion. He elects PMH: Past Medical History: Diagnosis Date Arrhythmia BPH (benign prostatic hyperplasia) Cardiomyopathy (CMS/HCC) Carotid artery stenosis CHF (congestive heart failure) (CMS/HCC) Coronary artery disease Gastric ulcer Heart valve disease Hyperlipidemia Hypertension Implantable cardioverter-defibrill ator (ICD) in situ Nonrheumatic aortic (valve) stenosis PAD (peripheral artery disease) (CMS/HCC) Peripheral arterial occlusive disease (CMS/HCC) PVC (premature ventricular contraction) PSH: Past Surgical History: Procedure Laterality Date CARDIAC CATHETERIZATION 1986 CORONARY ANGIOPLASTY 1996 CORONARY ARTERY BYPASS GRAFT 1997 CTA LOWER EXTREMITY LEFT W IV CONTRAST INSERT / REPLACE / REMOVE PACEMAKER SH: Social Determinants of Health Tobacco Use: High Risk (11/07/2023) Patient History Smoking Tobacco Use: Every Day Smokeless Tobacco Use: Never Passive Exposure: Not on file Alcohol Use: Not on file Financial Resource Strain: Low Risk (11/07/2023) Overall Financial Resource Strain (CARDIA) Difficulty of Paying Living Expenses: Not hard at all Food Insecurity: No Food Insecurity (11/07/2023) Hunger Vital Sign Worried About Running Out of Food in the Last Year: Never true Ran Out of Food in the Last Year: Not on file Transportation Needs: No Transportation Needs (11/07/2023) Transportation Lack of Transportation (Medical): No Lack of Transportation (Non-Medical): Not on file Physical Activity: Not on file Stress: Not on file Social Connections: Not on file Intimate Partner Violence: Unknown (11/07/2023) Humiliation, Afraid, Rape, and Kick questionnaire Fear of Current or Ex-Partner: No Emotionally Abused: Not on file Physically Abused: Not on file Sexually Abused: Not on file Depression: Not at risk (10/05/2023) PHQ-2 PHQ-2 Score: 0 Housing Stability: Low Risk (11/07/2023) Housing Stability Vital Sign Unable to Pay for Housing in the Last Year: Not on file Number of Places Lived in the Last Year: Not on file Unstable Housing in the Last Year: No Utilities: Not At Risk (11/07/2023) [facility] Utilities Threatened with loss of utilities: No Allergies: No Known Allergies Weight: 72.1kg Visit Vitals BP 134/62 (BP Location: Left arm, Patient Position: Sitting) Pulse 60 Ht 1.727 m (5' 8 ) Wt 72.1 kg (159 lb) SpO2 99% BMI 24.18 kg/m??? Smoking Status Every Day BSA 1.86 m??? Meds: Current Outpatient Medications on File Prior to Visit Medication Sig Dispense Refill apixaban (Eliquis) 5 mg tablet Take 1 tablet (5 mg) by mouth two times daily. 180 tablet 3 atorvastatin (Lipitor) 80 mg tablet Take 80 mg by mouth at bedtime. budesonide-formoteroL (Symbicort) 160-4.5 mcg/actuation inhaler Inhale 2 puffs twice a day by inhalation route. carvedilol (Coreg) 12.5 mg tablet Take 6.25 mg by mouth with breakfast and with evening meal. cholecalciferol, vitamin D3, (VITAMIN D3 ORAL) Take 2,000 Int'l Units by mouth in the morning. clopidogrel (Plavix) 75 mg tablet Take 1 tablet every day by oral route for 90 days. empagliflozin (Jardiance) 25 mg Take 25 mg by mouth once daily as directed. folic acid (Folvite) 800 mcg tablet Take 0.8 mg by mouth in the morning. montelukast (Singulair) 10 mg tablet Take 10 mg by mouth at bedtime. sacubitriL-valsartan (Entresto) 24-26 mg tablet Take 0.5 tablets twice a day by oral route. spironolactone (Aldactone) 25 mg tablet Take 25 mg by mouth once daily as directed. tamsulosin (Flomax) 0.4 mg 24 hr capsule Take 1 capsule by mouth at bedtime. terbinafine (LamISIL) 250 mg tablet Take 250 mg by mouth in the morning. [DISCONTINUED] polyethylene glycol (Glycolax) oral powder Take 17 g by mouth if needed each day (constipation). No current facility-administered medications on file prior to visit. ROS: Review of Systems Cardiovascular: Positive for dyspnea on exertion (int (more content not included)... [facility] NURSNOTEon 12-20-2023 NURSNOTE RN educated pt on d/ c instructions. This included: site care, limited physical activity, resume normal diet, future appointments, medications, and moderate sedation instructions. RN educated pt on when to notify physician and when to go to the hospital. RN encouraged pt to voice any questions or concerns, and answered any questions or concerns if pt verbalized. Pt was wheeled off of unit with all of belongings. [facility] NURSNOTE CHG wipes and betadi ne nasal swabs completed. [facility] Orders Onlyon 12-20-2023 Orders Only [id number] Claudia Kent 1945 M Date Provider Department Center 12/20/2023 CRESCENCIO ANTHONY [facility] Family History Problem Relation Age of Onset Coronary artery disease Other Heart attack Mother Heart disease Mother Family Status - Relation Status Age at Other Mother [facility] Telephoneon 12-18-2023 Telephone [id number] Claudia Kent 1945 M Date Provider Department Center 12/18/2023 [id number] MCDONALD [facility] VAS [facility] Family History Problem Relation Age of Onset Coronary artery disease Other Heart attack Mother Heart disease Mother Family Status - Relation Status Age at Other Mother Reason for Visit and Comments: 1 mo KCCQ [Other] Normal [facility] Follow-Upon 12-07-2023 Follow-Up [id number] Claudia Kent 1945 M Date Provider Department Center 12/07/2023 BandarCAMI CARMELITA [facility] CARD [facility] Family History Problem Relation Age of Onset Coronary artery disease Other Heart attack Mother Heart disease Mother Family Status - Relation Status Age at Other Mother Level of Service:47862 NH OFFICE/OUTPATIENT ESTABLISHED LOW MDM 20 MIN Reason for Visit and Comments: Follow-up [225132] Post-op TAVR [730] Normal [facility] Office Visiton 12-05-2023 Follow-up visit [id number] Claudia Kent 1945 [facility] Provider Department Center 12/05/2023 SarinaKYLE GREENFIELD [facility] Family History Problem Relation Age of Onset Coronary artery disease Other Heart attack Mother Heart disease Mother Family Status - Relation Status Age at Other Mother Level of Service:69887 NH OFFICE/OUTPATIENT NEW MODERATE MDM 45 MINUTES Normal [facility] US PVR/SEGMENTAL PRESSU RES LOWERon 11-29-2023 [facility] US PVR/SEGMENTAL PRESSURES LOWER EXAM: ENRIQUETA Limited Plethysmography Ultrasound. REASON FOR EXAM: PVD, claudication. COMPARISON: None TECHNIQUE: Blood pressure cuffs were applied and measurements were obtained with waveform analysis. FINDINGS: Brachial pressure R/L: 144/141 Right lower extremity: Distal thigh pressure/index: 145/1.01 Calf pressure/index: 132/0.92 PT pressure/index: 146/1.01 DP pressure/index: 155/1.08 Great Toe pressure/index: Cannot occlude Pulsatility is slightly dampened. Pulsatile waveform is present in the second, third, fourth, and fifth toe. Waveforms slightly dampened in the first toe. Left lower extremity: Distal thigh pressure/index: 139/0.97 Calf pressure/index: 155/1.08 PT pressure/index: 217/1.51 DP pressure/index: 163/1.13 Great Toe pressure/index: Cannot occlude Pulsatility is slightly dampened Pulsatile waveform is present in all toes. IMPRESSION: Borderline/mild arterial occlusive disease suggested in the lower extremity bilaterally. *This report is generated using voice recognition reporting (M[employer]ili[employer]). On occasion PowerScribe erroneously drops words from the report or replaces the spoken word with similar sounding words. Please call with any questions/concerns regarding this report.* Dictated and transcribed 12/14/2023/tm This report has been electronically signed and approved by the interpreting radiologist. Electronically Signed Uriel Rousseau M.D. 2023-12-15 08:07:25 Normal Not Available Comment on above: Order Comment: Reque sting segmental pressures with PVRs and TBIs. Thank you. Orders Onlyon 11-15-2023 Orders Only [id number] Claudia Kent 1945 M [facility] Provider Department Center 11/15/2023 [id number], HISTORICAL DCC ONC DCC Family History Problem Relation Age of Onset Coronary artery disease Other Heart attack Mother Heart disease Mother Family Status - Relation Status Age at Other Mother Normal [facility] Follow-Upon 11-14-2023 Follow-Up [id number] Claudia Kent 1945 M Date Provider Department Center 11/14/2023 Geovany-LAUREN PARHAM Family History Problem Relation Age of Onset Coronary artery disease Other Heart attack Mother Heart disease Mother Family Status - Relation Status Age at Other Mother Level of Service:86062 NH OFFICE/OUTPATIENT ESTABLISHED MOD MDM 30 MIN Reason for Visit and Comments: Post-op TAVR [730] Coronary Artery Disease [187] Normal [facility] 36on 11-11-2023 36 Post Discharge Call Good morning, I am Siddharth Sarmiento, RN a lead nurse from [facility]. I am calling you to follow up [...] No. Had a question about lab work, scenario writer reached out to [facility]QU[employer]ITION [facility] and she will correct lab work. Tania will also call patient this afternoon. Patient Name Claudia Kent Date 11/11/23 [facility] Telephoneon 11-11-2023 Telephone [id number] Claudia Kent 1945 M Date Provider Department Center 11/11/2023 PamSIDDHARTH [facility] Medical Family History Problem Relation Age of Onset Coronary artery disease Other Heart attack Mother Heart disease Mother Family Status - Relation Status Age at Other Mother Reason for Visit and Comments: Hospital Follow-up [832] [facility] DSon 11-10-2023 DS Admission Admitted 11/07/2023 for Nonrheumatic aortic valve stenosis Discharge Diagnosis Aortic valve stenosis Discharge Disposition Home or Self Care () Discharge Medications Your medication list CONTINUE taking [...] Patient has no known allergies. Hospital Course Claudia Kent is a 77 y.o. male with complex [...] DX #CAD s/p 5v CABG 1997 --10/12/23 LHC: patent 5 coronary bypass grafts [Patent YOUNG [...] their standpoint --case was discussed with Dr. Almanza, agrees can discharge with below plan. --VSS, HD stable, eating and drinking well. --resumed plavix immediately after surgery, and the evening of 11/08 resuming home eliquis with no acute bleeding issues. -HGB slowly declining as expected, no acute bleeding after procedure, --Continue coreg 12.5, entresto 24-26mg bid, aldactone 25, --H (more content not included)... Normal [facility] 30on 11-09-2023 30 The patient is [...] and maintained or improved Outcome: Progressing Normal [facility] 30 Daily Case Managemen t Update [...] Answer: eval and treat 11/08/23 0751 Normal [facility] CBCon 11-09-2023 Erythrocyte distribution width (RBC) [Ratio] 14.2 % Normal 11.5-15.0 [facility] Comment on above: Performed By: #### L [id number] #### [facility] (BEAKER) [address] [place] [address] ERYTHROCYTE MEAN CORPUSCULAR HEMOGLOBIN CONCENTRATION (G/DL) BY AUTOMATED 33.3 g/dL Normal 32.0-35.0 [facility] Comment on above: Performed By: #### L [id number] #### [facility] (BEAKER) [address] [place] [address] Hematocrit (Bld) [Volume fraction] 30.6 % Low 39.0-55.0 [facility] Comment on above: Performed By: #### L [id number] #### [facility] (BEAKER) [address] [place] [address] Hemoglobin (Bld) [Mass/Vol] 10.2 g/dL Low 13.0-17.0 [facility] Comment on above: Performed By: #### L [id number] #### [facility] (BEAKER) [address] [place] [address] IMMATURE PLATELET FRACTION % 5.1 % Normal 0.8-6.3 [facility] Comment on above: Performed By: #### L [id number] #### [facility] ([facility]) [address] [place] [address] MCH (RBC) [Entitic mass] 34.6 pg High 27.0-33.0 [facility] Comment on above: Performed By: #### L [id number] #### [facility] ([facility]) [address] [place] [address] MCV (RBC) [Entitic vol] 103.7 fL High 82.0-98.0 [facility] Comment on above: Performed By: #### L [id number] #### [facility] ([facility]) [address] [place] [address] PLATELETS (10*3/UL) IN BLOOD AUTOMATED COUNT 129 10*3/uL Low 150-400 [facility] Comment on above: Performed By: #### L [id number] #### [facility] ([facility]) [address] [place] [address] RBC (Bld) [#/Vol] 2.95 10*6/uL Low 4.20-5.70 [facility] Comment on above: Performed By: #### L [id number] #### [facility] ([facility]ER) [address] [place] [address] WBC (Bld) [#/Vol] 12.00 10*3/uL High 4.00-10.60 [facility] Comment on above: Performed By: #### L [id number] #### [facility] ([facility]AKER) [address] [place] [address] COMPREHENSIVE METABOLIC PANE Gabriel 11-09-2023 Albumin [Mass/Vol] 3.2 g/dL Low 3.5-5.7 [facility] Comment on above: Performed By: #### L [id number] #### [facility] (BEAKER) [address] [place] [address] ALP [Catalytic activity/Vol] 37 U/L Normal 34-104 [facility] Comment on above: Performed By: #### L [id number] #### [facility] ([facility]) [address] [place] [address] ALT [Catalytic activity/Vol] 3 U/L Low 7-52 [facility] Comment on above: Performed By: #### L [id number] #### [facility] ([facility]ER) [address] [place] [address] Anion gap [Moles/Vol] 9 mmol/L Normal 7-20 [facility] Comment on above: Performed By: #### L [id number] #### [facility] ([facility]) [address] [place] [address] AST [Catalytic activity/Vol] 11 U/L Low 13-39 [facility] Comment on above: Performed By: #### L [id number] #### [facility] ([facility]) [address] [place] [address] Bilirubin [Mass/Vol] 0.7 mg/dL Normal 0.3-1.0 [facility] Comment on above: Performed By: #### L [id number] #### [facility] ([facility]) [address] [place] [address] Calcium [Mass/Vol] 8.9 mg/dL Normal 8.6-10.3 [facility] Comment on above: Performed By: #### L [id number] #### [facility] ([facility]) [address] [place] [address] Chloride [Moles/Vol] 105 mmol/L Normal 98-107 [facility] Comment on above: Performed By: #### L [id number] #### [facility] ([facility]) [address] [place] [address] CO2 [Moles/Vol] 25 mmol/L Normal 21-31 [facility] Comment on above: Performed By: #### L [id number] #### [facility] ([facility]) [address] [place] [address] Creatinine [Mass/Vol] 0.86 mg/dL Normal 0.70-1.30 [facility] Comment on above: Performed By: #### L [id number] #### [facility] ([facility]) [address] [place] [address] GLOMERULAR FILTRATION RATE ML/MIN/1.73 SQ M.PREDICTED 88.6 mL/min/1.73m*2 Normal >60.0 [facility] Comment on above: Result Comment: The [facility]???s estimated glomerular filtration rate (eGFR) will no [...] group of individuals. Performed By: #### L [id number] #### [facility] ([facility]) [address] [place] [address] Glucose [Mass/Vol] 91 mg/dL Normal 70-100 [facility] Comment on above: Performed By: #### L [id number] #### [facility] ([facility]) [address] [place] [address] Potassium [Moles/Vol] 4.4 mmol/L Normal 3.5-5.1 [facility] Comment on above: Performed By: #### L [id number] #### [facility] ([facility]) [address] [place] [address] Protein [Mass/Vol] 5.4 g/dL Low 6.0-8.3 [facility] Comment on above: Performed By: #### L [id number] #### [facility] ([facility]) [address] [place] [address] Sodium [Moles/Vol] 135 mmol/L Low 136-145 [facility] Comment on above: Performed By: #### L [id number] #### [facility] ([facility]) [address] [facility] [place] [address] Urea nitrogen [Mass/Vol] 26 mg/dL High 7- [facility] Comment on above: Performed By: #### L [id number] #### [facility] ([facility]) [address] [place] [address] UREA NITROGEN/CREATININ E (MASS RATIO) IN SER/PLAS 30.2 Normal [facility] Comment on above: Performed By: #### L [id number] #### [facility] ([facility]) [address] [place] [address] MAGNESIUMon 11-09-2023 Magnesium [Mass/Vol] 2.0 mg/dL Normal 1.9-2.7 [facility] Comment on above: Performed By: #### L [id number] #### [facility] ([facility]) [address] [facility] [place] [address] NURSNOTEon 11-09-2023 NURSNOTE Patient Name: Torin Kent : 1945 Primary Care Physician: Armani Stewart [...] voiced no concerns at this time. The scenario writer urged the primary RN to call the rapid team if any concerns arise overnight. Wan Serrano RN Rapid Response Team Nurse [phone] 11/09/2023 11:00 PM Normal [facility] NURSNOTE Patient Name: Torin Kent : 1945 Primary Care Physician: Armani Stewart [...] to reach out with any changes. Maximilian Lam RN Rapid Response Team Nurse [phone] 11/09/2023 11:42 AM Normal [facility] NURSNOTE Patient Name: Torin Kent : 1945 Primary Care Physician: Armani Stewart [...] Lying Lying Pulse: 67 67 69 Resp: 21 18 17 Temp: 37 ???C (98.6 ???F) 36.9 [...] voiced no concerns at this time. The scenario writer urged the primary RN to call the rapid team if any concerns arise overnight. Wan Serrano RN Rapid Response Team Nurse [phone] 11/09/2023 12:19 AM Normal [facility] 30on 11-08-2023 30 Problem: Pain - Adul [...] and maintained or improved Outcome: Progressing Normal [facility] 30 Daily Case Managemen t Update [...] Answer: eval and treat 11/08/23 0751 Normal [facility] BASIC METABOLIC PANELon 10-15 Anion gap [Moles/Vol] 8 mmol/L Normal 7-20 [facility] Comment on above: Performed By: #### L [id number] #### [facility] ([facility]) [address] [place] [address] Calcium [Mass/Vol] 8.6 mg/dL Normal 8.6-10.3 [facility] Comment on above: Performed By: #### L [id number] #### [facility] ([facility]) [address] [place] [address] Chloride [Moles/Vol] 106 mmol/L Normal 98-107 [facility] Comment on above: Performed By: #### L [id number] #### [facility] ([facility]) [address] [place] [address] CO2 [Moles/Vol] 24 mmol/L Normal 21-31 [facility] Comment on above: Performed By: #### L [id number] #### [facility] ([facility]) [address] [place] [address] Creatinine [Mass/Vol] 1.08 mg/dL Normal 0.70-1.30 [facility] Comment on above: Performed By: #### L [id number] #### [facility] ([facility]) [address] [place] [address] GLOMERULAR FILTRATION RATE ML/MIN/1.73 SQ M.PREDICTED 70.2 mL/min/1.73m*2 Normal >60.0 [facility] Comment on above: Result Comment: The [facility]???s estimated glomerular filtration rate (eGFR) will no [...] individuals. Performed By: #### L [id number] #### [facility] ([facility]) [address] [place] [address] Glucose [Mass/Vol] 138 mg/dL High 70-100 [facility] Comment on above: Performed By: #### L [id number] #### [facility] ([facility]) [address] [place] [address] Potassium [Moles/Vol] 4.8 mmol/L Normal 3.5-5.1 [facility] Comment on above: Performed By: #### L [id number] #### [facility] ([facility]) [address] [place] [address] Sodium [Moles/Vol] 133 mmol/L Low 136-145 [facility] Comment on above: Performed By: #### L [id number] #### [facility] ([facility]) [address] [place] [address] Urea nitrogen [Mass/Vol] 28 mg/dL High 7-25 [facility] Comment on above: Performed By: #### L [id number] #### [facility] ([facility]) [address] [place] [address] UREA NITROGEN/CREATININ E (MASS RATIO) IN SER/PLAS 25.9 Normal [facility] Comment on above: Performed By: #### L [id number] #### [facility] ([facility]) [address] [place] [address] CBCon 11-08-2023 Erythrocyte distribution width (RBC) [Ratio] 14.0 % Normal 11.5-15.0 [facility] Comment on above: Performed By: #### L [id number] ####[facility] ([facility])[address] [place] [address] ERYTHROCYTE MEAN CORPUSCULAR HEMOGLOBIN CONCENTRATION (G/DL) BY AUTOMATED 32.7 g/dL Normal 32.0-35.0 [facility] Comment on above: Performed By: #### L [id number] ####[facility] ([facility])[address] [place] [address] Hematocrit (Bld) [Volume fraction] 33.0 % Low 39.0-55.0 [facility] Comment on above: Performed By: #### L [id number] ####[facility] ([facility])[address] [place] [address] Hemoglobin (Bld) [Mass/Vol] 10.8 g/dL Low 13.0-17.0 [facility] Comment on above: Performed By: #### L [id number] ####[facility] ([facility])[address] [place] [address] MCH (RBC) [Entitic mass] 33.4 pg High 27.0-33.0 [facility] Comment on above: Performed By: #### L [id number] ####[facility] ([facility])[address] [place] [address] MCV (RBC) [Entitic vol] 102.2 fL High 82.0-98.0 [facility] Comment on above: Performed By: #### L [id number] ####[facility] ([facility])[address] [place] [address] PLATELETS (10*3/UL) IN BLOOD AUTOMATED COUNT 149 10*3/uL Low 150-400 [facility] Comment on above: Performed By: #### L [id number] ####[facility] ([facility])[address] [place] [address] RBC (Bld) [#/Vol] 3.23 10*6/uL Low 4.20-5.70 [facility] Comment on above: Performed By: #### L [id number] ####[facility] ([facility])[address] [place] [address] WBC (Bld) [#/Vol] 16.06 10*3/uL High 4.00-10.60 [facility] Comment on above: Performed By: #### L [id number] ####[facility] ([facility])[address] [place] [address] 30on 11-07-2023 30 Problem: Pain - Adul [...] and behaviors that affect risk of falls [place] fall precautions as indicated by assessment Educate [...] to address these barriers include . Normal [facility] 30 Problem: Pain - Adul t Goal: [...] and maintained or improved Outcome: Progressing Normal [facility] BASIC METABOLIC PANELon 09- Anion gap [Moles/Vol] 11 mmol/L Normal 7-20 [facility] Comment on above: Performed By: #### L [id number] #### [facility] ([facility]) [address] [place] [address] Calcium [Mass/Vol] 8.9 mg/dL Normal 8.6-10.3 [facility] Comment on above: Performed By: #### L [id number] #### [facility] ([facility]) [address] [place] [address] Chloride [Moles/Vol] 106 mmol/L Normal 98-107 [facility] Comment on above: Performed By: #### L [id number] #### [facility] ([facility]) [address] [place] [address] CO2 [Moles/Vol] 24 mmol/L Normal 21-31 [facility] Comment on above: Performed By: #### L [id number] #### [facility] ([facility]) [address] [place] [address] Creatinine [Mass/Vol] 1.03 mg/dL Normal 0.70-1.30 [facility] Comment on above: Performed By: #### L [id number] #### [facility] ([facility]) [address] [place] [address] GLOMERULAR FILTRATION RATE ML/MIN/1.73 SQ M.PREDICTED 74.4 mL/min/1.73m*2 Normal >60.0 [facility] Comment on above: Result Comment: The [facility]???s estimated glomerular filtration rate (eGFR) will no [...] individuals. Performed By: #### L [id number] #### [facility] ([facility]) [address] [place] [address] Glucose [Mass/Vol] 111 mg/dL High 70-100 [facility] Comment on above: Performed By: #### L [id number] #### [facility] ([facility]) [address] [place] [address] Potassium [Moles/Vol] 4.7 mmol/L Normal 3.5-5.1 [facility] Comment on above: Performed By: #### L [id number] #### [facility] ([facility]) [address] [place] [address] Sodium [Moles/Vol] 136 mmol/L Normal 136-145 [facility] Comment on above: Performed By: #### L [id number] #### [facility] ([facility]) [address] [place] [address] Urea nitrogen [Mass/Vol] 26 mg/dL High 7-25 [facility] Comment on above: Performed By: #### L [id number] #### [facility] ([facility]) [address] [place] [address] UREA NITROGEN/CREATININ E (MASS RATIO) IN SER/PLAS 25.2 Normal [facility] Comment on above: Performed By: #### L [id number] #### [facility] ([facility]) [address] [place] [address] CBCon 11-07-2023 Erythrocyte distribution width (RBC) [Ratio] 14.1 % Normal 11.5-15.0 [facility] Comment on above: Performed By: #### L [id number] #### [facility] ([facility]) [address] [place] [address] ERYTHROCYTE MEAN CORPUSCULAR HEMOGLOBIN CONCENTRATION (G/DL) BY AUTOMATED 32.5 g/dL Normal 32.0-35.0 [facility] Comment on above: Performed By: #### L [id number] #### [facility] ([facility]) [address] [place] [address] Hematocrit (Bld) [Volume fraction] 39.7 % Normal 39.0-55.0 [facility] Comment on above: Performed By: #### L [id number] #### [facility] ([facility]) [address] [place] [address] Hemoglobin (Bld) [Mass/Vol] 12.9 g/dL Low 13.0-17.0 [facility] Comment on above: Performed By: #### L [id number] #### [facility] ([facility]) [address] [place] [address] MCH (RBC) [Entitic mass] 33.8 pg High 27.0-33.0 [facility] Comment on above: Performed By: #### L [id number] #### [facility] ([facility]) [address] [place] [address] MCV (RBC) [Entitic vol] 103.9 fL High 82.0-98.0 [facility] Comment on above: Performed By: #### L [id number] #### [facility] ([facility]) [place] [address] PLATELETS (10*3/UL) IN BLOOD AUTOMATED COUNT 156 10*3/uL Normal 150-400 [facility] Comment on above: Performed By: #### L [id number] #### [facility] ([facility]) [address] [place] [address] RBC (Bld) [#/Vol] 3.82 10*6/uL Low 4.20-5.70 [facility] Comment on above: Performed By: #### L [id number] #### [facility] ([facility]) [place] [address] WBC (Bld) [#/Vol] 15.10 10*3/uL High 4.00-10.60 [facility] Comment on above: Performed By: #### L [id number] #### [facility] ([facility]) [place] [address] CONSULTon 11-07-2023 CONSULT -- Attestation signed by [...] Carotid artery stenosis, CHF (congestive heart failure) (CMS/HCC), Coronary artery disease, Gastric ulcer, Heart valve disease, Hyperlipidemia, Hypertension, Implantable cardioverter-defibrill ator (ICD) in situ, Nonrheumatic aortic (valve) stenosis, PAD (peripheral artery disease) (CMS/HCC), Peripheral arterial occlusive disease (CMS/HCC), and PVC (premature ventricular contraction). He has no past medical history of Chronic bronchitis (CMS/HCC). Past Surgical History: has a past surgical [...] drugs. Family History: pulled available information in [facility] from previous visits Family History Problem Relation [...] oz)] 71 (more content not included)... Normal [facility] HPon 11-07-2023 History Of Present Illness Claudia Kent is a 77 y.o. male presenting with [...] of Arrhythmia, BPH (benign prostatic hyperplasia), Cardiomyopathy ([facility]/HCC), Carotid artery stenosis, CHF (congestive heart failure) ([facility]), Coronary artery disease, Gastric ulcer, Heart valve disease, Hyperlipidemia, Hypertension, Implantable cardioverter-defibrill ator (ICD) in situ, Nonrheumatic aortic (valve) stenosis, PAD (peripheral artery disease) ([facility]), Peripheral arterial occlusive disease ([facility]), and PVC (premature ventricular contraction). He has no past medical history of Chronic bronchitis ([facility]). Surgical History He has a past surgical [...] Judgment: Judgm (more content not included)... Normal [facility] MAGNESIUMon 11-07-2023 Magnesium [Mass/Vol] 2.1 mg/dL Normal 1.9-2.7 [facility] Comment on above: Performed By: #### L [id number] #### [facility] ([facility]) [address] [place] [address] MRSA/MSSA DNA NASALon 2023 MRSA DNA Negative Normal Negative [facility] Comment on above: Order Comment: Testi ng [...] preclude nasal colonization. Performed By: #### L [id number] ####[facility] ([facility])[address] [place] [address] MSSA DNA Negative Normal Negative [facility] Comment on above: Order Comment: Testi ng [...] preclude nasal colonization. Performed By: #### L [id number] ####[facility] ([facility])[address] [place] [address] NURSNOTEon 11-07-2023 NURSNOTE 2ml removed from TR band Normal [facility] NURSNOTE 2ml removed from TR Band to R wrist Normal [facility] NURSNOTE 2ml removed from R wrist TR band Normal [facility] NURSNOTE 2ml air removed from TR band Normal [facility] OPNOTEon 11-07-2023 OPNOTE TAVR, Carotid CUTDOW N (L) Operative Note Date: 11/07/2023 Location: [facility] OR Name: Claudia Kent, : 1945, Diagnosis Pre-op Diagnosis * Nonrheumatic aortic valve stenosis [I35.0] Post-op Diagnosis * Nonrheumatic aortic valve stenosis [I35.0] Procedures TAVR 37825 - [place] OFFICE/OUTPT VISIT,PROCEDURE ONLY Carotid CUTDOWN 30829 - [place] OFFICE/OUTPT VISIT,PROCEDURE ONLY Successful transcatheter aortic valve replacement using a 34 mm Medtronic Evolut FX valve via percutaneous transcarotid access. Aortic root angiography. Placement of a temporary pacemaker wire. Left heart catheterization. Access into the right internal jugular vein and right radial artery under ultrasound guidance. Balloon aortic valvuloplasty. Surgical left carotid cutdown performed by cardiothoracic surgery. Surgeons Primary: Carmelita Almanza MD Assisting: Gibran English MD; Hernando Wright MD; Mateo Wright MD Fellow: Ladarius Weeks MD Procedure Summary Anesthesia: General ASA: III Estimated Blood Loss: 100 mL Total IV Fluids: 1000 mL Drains: * None in log * Implants Type Name Action Serial No. Prosthetic Valve Evolut FX Transcatheter Aortic Valve 34mm - [id number] - [id number] Implanted [id number] Staff: Academic Physician: Canelo Robbins RN Relief Academic Physician: Yadiel Sherman RN Relief Scrub: Jenni Ortiz Scrub Person: Huma Hong CST [place] Academic Physician: Justyn Parada RN Secondary Scrub: Óscar Crowley RN Indications: Claudia Kent is an 77 y.o. male who is having surgery for Nonrheumatic aortic valve stenosis [I35.0]. Patient has severe symptomatic stage D2 aortic valve stenosis. he was evaluated in Cardiology and Cardiothoracic Surgery Clinics, and was deemed appropriate for TAVR as treatment for his aortic valve stenosis. he had shared decision making and agreed to the procedure. he is brought today for that purpose. Given his severe peripheral vascular disease transfemoral access was not an option. Therefore he was considered for alternative access via transcarotid surgical cutdown. I explained all the risks and benefits of the procedure including but not limited to infection, bleeding, acute kidney injury, possibility of dialysis, bowel ischemia, liver failure, stroke, respiratory failure, PR, need for mechanical support such as balloon pump, Impella, ecmo, and . Procedure Details: The patient was seen in the preoperative area. The risks, benefits, complications, treatment options, non-operative alternatives, expected recovery and outcomes were discussed with the patient. The possibilities of reaction to medication, pulmonary aspiration, injury to surrounding structures, bleeding, recurrent infection, the need for additional procedures, failure to diagnose a condition, and creating a complication requiring transfusion or operation were discussed with the patient. The patient concurred with the proposed plan, giving informed consent. The site of surgery was properly noted/marked if necessary per policy. The patient has been actively warmed in preoperative area. Preoperative antibiotics have been ordered and given within 1 hours of incision. Venous thrombosis prophylaxis have been ordered including bilateral sequential compression devices Patient was brought to the operating room suite. He was placed in a supine position. He was induced under general anesthesia and intubated. Patient was prepped and draped in normal sterile fashion. A time out was performed. The right neck area were prepped and draped in usual fashion. Ultrasound guidance was used for micropuncture access in the right internal jugular vein and a 7-[place] x 11 cm introducer sheath was secured in place. A 5-[place] balloon-tipped pacemaker wire was advanced through the internal jugular vein sheath to the right ventricular apex and adequate capture was confirmed. The right wrist area was prepped and draped in usual fashion. Access was obtained using ultrasound guidance and micropuncture technique in the right radial artery and a 7-[place] x 11 cm Hydrophilic sheath was placed. An incision was made in the left neck along the border of the sternocleidomastoid. Cautery was used to get through the subcutaneous and fascia. Blunt dissection was used to expose the left common carotid artery. Care was taken to ensure the hypoglossal nerve was protected. We had proximal and distal control. A soft area of the proximal common carotid artery was used for access. Heparin was given and therapeutic ACT was confirmed. Micropuncture technique was used for access in the left carotid artery. The access was upsized to a 8 [place] by 11 cm sheath. Through the right radial sheath, an angled 5-[place] pigtail catheter was then advanced to the ascending aorta and into the noncoronary cusp. Aortic root angiography was performed in the cusp overlap view as determined by prior CT scan measurements. A pigtai (more content not included)... Normal [facility] PHOSPHORUSon 11-07-2023 Magnesium [Mass/Vol] 2.8 mg/dL Normal 2.5-5.0 [facility] Comment on above: Performed By: #### L [id number] #### [facility] ([facility]) [address] [place] [address] POCT GLUCOSE METER UNSOLICIT ED RESULTSon 11-07-2023 Glucose [Mass/Vol] 98 mg/dL Normal 70-105 [facility] Comment on above: Order Comment: Waive d Testing in the ED is performed under the ED CLIA certificate #[id number]. Result Comment: jhag eman Performed By: #### L [id number] #### [facility] ([facility]) [address] [place] [address] TYPE AND SCREENon 11-07-2023 AB SCREEN Negative Normal [facility] Comment on above: Performed By: #### L [id number] #### [facility]OD [facility] , ABO group Nom (Bld) AB Normal [facility] Comment on above: Performed By: #### L [id number] #### [facility] , RH TYPE IN BLOOD Positive Normal [facility] Comment on above: Performed By: #### L [id number] #### [facility] , Orders Onlyon 11-01-2023 Orders Only [id number] Claudia Kent 1945 Date Provider Department Center 11/01/2023 RISHI CALDWELL [facility] CARD DE HeartVAS Family History Problem Relation Age of Onset Coronary artery disease Other Heart attack Mother Heart disease Mother Family Status - Relation Status Age at Other Mother Normal [facility] Orders Onlyon 10-31-2023 Orders Only [id number] Claudia Kent 1945 M Date Provider Department Center 10/31/2023 144RISHI MENDOZA [facility] CARD DE HeartVAS Family History Problem Relation Age of Onset Coronary artery disease Other Heart attack Mother Heart disease Mother Family Status - Relation Status Age at Other Mother Normal [facility] Abstracton 10-23-2023 Abstract [id number] Claudia Kent 1945 M Date Provider Department Center 10/23/2023 CARMELITA MCLEOD [facility] CARD Webber Count Family History Problem Relation Age of Onset Coronary artery disease Other Heart attack Mother Heart disease Mother Family Status - Relation Status Age at Other Mother [facility] Orders Onlyon 10-18-2023 Orders Only [id number] Claudia Kent 1945 Date Provider Department Center 10/18/2023 Lucy-RISHI MADRIGAL [facility] CARD DE HeartVAS Family History Problem Relation Age of Onset Coronary artery disease Other Heart attack Mother Heart disease Mother Family Status - Relation Status Age at Other Mother [facility] HPon 10-12-2023 HP H&P reviewed. The patient was examined and there are no changes to the H&P. Discussed risks, benefits, and alternative therapies with the patient, he understands and willing to proceed with RHC/coronary angiogram and possible PCI. Ladarius Weeks MD PGY-7 Interventional Grocery Checker [facility] NURSNOTEon 10-12-2023 NURSNOTE RN educated pt on d/ c instructions. RN encouraged pt to voice any questions or concerns. Pt verbalizes no questions or concerns at this time. Pt was wheeled off of unit with all of belongings. [facility] NURSNOTE Dr. Weeks at [facility] to assess pt groin sites. Per groin sites looks great and okay for pt to discharge at 1500. [facility] Abstracton 10-09-2023 Abstract [id number] Claudia Kent 1945 M Date Provider Department Center 10/09/2023 [place]-CARMELITA ALMANZA [facility] CARD Webber Count Family History Problem Relation Age of Onset Coronary artery disease Other Heart attack Mother Heart disease Mother Family Status - Relation Status Age at Other Mother [facility] Consulton 10-05-2023 Consult [id number] Claudia Kent 1945 M Date Provider Department Center 10/05/2023 [id number] Family History Problem Relation Age of Onset Coronary artery disease Other Heart attack Mother Heart disease Mother Family Status - Relation Status Age at Other Mother Level of Service:33542 [place] OFFICE/OP CONSLTJ NEW/EST PT HIGH MDM 55 MINUTES Reason for Visit and Comments: New Patient [632] - Aortic valve stenosis [facility] CTA ABDOMEN PELVIS W IV CONT RASTon [...] Ballard MD. Not Vldtd Invalid Interpretation Code [facility] CTA CHEST W IV CONTRASTon CTA [...] 3. Cusped view, anterior view, and no FISH RECEIVER-CAU view are obtained in 3-D volume rendered [...] valve diameter of 26 mm. Electronically signed: Marogt Ballard MD. 9 Invalid Interpretation Code [facility] 09-20-2023 [facility] Cardiology - [facility] Subjective Claudia Kent is a 77 y.o. year old male [...] 1.1, pot (more content not included)... Normal [facility] Office Visiton 09-20-2023 Follow-up visit [id number] [facility] 1945 M Date Provider Department Center 09/20/2023 CARMELITA MCLEOD Family History Problem Relation Age of Onset Coronary artery disease Other Heart attack Mother Heart disease Mother Family Status - Relation Status Age at Other Mother Level of Service:48922 [place] OFFICE/OUTPATIENT ESTABLISHED HIGH MDM 40 MIN [facility] Orders Onlyon 09-20-2023 Orders Only [id number] Claudia Kent 1945 M Date Provider Department Center 09/20/2023 Lucy-RISHI MADRIGAL [facility] CARD [facility] Family History Problem Relation Age of Onset Coronary artery disease Other Family Status - Relation Status Age at Other [facility] 29on 09-06-2023 29 Addended by: VON RFIEND on: 09/06/2023 05:00 PM Modules accepted: Orders [facility] 36on 09-06-2023 36 Spoke with patient a nd scheduled him to see Dr. Almanza on 09/19. Also informed him to start Eliquis 5mg bid and stop aspirin. He verbalized understanding. Rx sent to pharmacy. [facility] 36on 09-05-2023 36 He had his dobutamin e stress echo today at [facility]. He was found to have atrial fibrillation at baseline. Also, the aortic valve stenosis is severe. We need to start him on eliquis 5 mg bid. Diagnosis is persistent atrial fibrillation. Please have him stop aspirin after starting eliquis. I need to see him soon to discuss the results of the test and next step. [facility] Telephoneon 09-05-2023 Telephone [id number] Claudia Kent 1945 M Date Provider Department Center 09/05/2023 CARMELITA MCLEOD Family History Problem Relation Age of Onset Coronary artery disease Other Family Status - Relation Status Age at Other [facility] Office Visiton 08-10-2023 Follow-up visit [id number] Claudia Kent 1945 M Date Provider Department Center 08/10/2023 CARMELITA MCLEOD Family History Problem Relation Age of Onset Coronary artery disease Other Family Status - Relation Status Age at Other Level of Service:51356 [place] OFFICE/OUTPATIENT ESTABLISHED MOD MDM 30 MIN [facility] ECHOCARDIO M/2D COMPLETEon 0 04-14-2022 ECHOCARDIO M/2D COMPLETE Patient: CLAUDIA KENT. Exam Date: 04/14/2022 : 1945 Gender:M Ordering : DR CARMELITA ALMANZA M.D. Admission #: [id number] Family : DR ARMANI STEWART D.O. Order #: [id number] CLICK HERE TO VIEW EXAM ECHOCARDIOGRAM REPORT [...] 64.64 ml, 64.64 ml Dictated by: Carmelita Almanza M.D. on 04/14/2022 at 09:58 Approved by: Carmelita Almanza M.D. on 04/14/2022 at 10:18 Normal [facility] LIPID PROFILEon 04-14-2022 CHOL-HDL RATIO NORM SEE BELOW Normal [facility] Comment on above: Result Comment: 3.3 - 4.4 LOW RISK 4.4 - 7.1 AVERAGE RISK 7.1 - 11.0 MODERATE RISK >11.0 HIGH RISK Performed By: #### L IPID #### [facility] [address] [address] [address] Jackie Christopher Cholesterol [Mass/Vol] 157 mg/dL Normal <=200 [facility] Comment on above: Performed By: #### L IPID #### [facility] [address] [place] [address] Dr. Jackie Christopher Cholesterol in HDL [Mass/Vol] 53 mg/dL Normal 40-60 [facility] Comment on above: Performed By: #### L IPID #### [facility] [address] [place] [address] Dr. Jackie Christopher Cholesterol in LDL [Mass/Vol] 90.6 mg/dL Normal [facility] Comment on above: Performed By: #### L IPID #### [facility] [address] [place] [address] Dr. Jackie Christopher Cholesterol.total/ Cholesterol in HDL [Mass ratio] 3.0 {ratio} Normal [facility] Comment on above: Performed By: #### L IPID #### [facility] [address] [place] [address] Dr. Jackie Christopher HDL NORMAL > or = 60 mg/dl - LO W CARDIOVASCULAR RISK <40 mg/dl - HIGH CARDIOVASCULAR RISK Normal [facility] Comment on above: Performed By: #### L IPID #### [facility] [address] [place] [address] Dr. Jackie Christopher LDL CALC NORMAL SEE BELOW Normal [facility] Comment on above: Result Comment: <100 mg/dl OPTIMAL 100 - 129 mg/dl NEAR OR ABOVE OPTIMAL 130 - 159 mg/dl BORDERLINE HIGH 160 - 189 mg/dl HIGH >190 mg/dl VERY HIGH Performed By: #### L IPID #### [facility] [address] [place] [address] Dr. Jackie Christopher Triglyceride [Mass/Vol] 67 mg/dL Normal <=150 [facility] Comment on above: Performed By: #### L IPID #### [facility] [id number] Jackie Christopher VLDL CALC 13.4 mg/dL Normal [facility] Comment on above: Performed By: #### L IPID #### [facility] [id number] Jackie Christopher CBC with Diffon 10-18-2020 Abs. Basophil 0.00 k/uL Normal 0.0-0.2 [facility] Comment on above: Performed By: #### C MPX TROPI, CDP #### [facility] [address] [place] [address] Family Services Specialist: Clinton Steven MD Abs.Neutrophil (Seg) 6.50 k/uL Normal 2.1-6.5 [facility] Comment on above: Performed By: #### C MPX, TROPI, CDP #### [facility] [address] [place] [address] Family Services Specialist: Clinton Steven MD Auto Diff Performed YES Normal [facility] Comment on above: Performed By: #### C MPX, TROPI, CDP #### [facility] [address] [place] [address] Family Services Specialist: Clinton Steven MD Basophils/100 WBC (Bld) 0 % Normal 0-2 [facility] Comment on above: Performed By: #### C MPX TROPI, CDP #### [facility] [address] [place] [address] Family Services Specialist: Clinton Steven MD Eosinophils (Bld) [#/Vol] 0.60 10*3/uL High 0.0-0.4 [facility] Comment on above: Performed By: #### C MPX, TROPI, CDP #### [facility] [address] [place], [place] [id number] Family Services Specialist: Clinton Steven MD Eosinophils/100 WBC (Bld) 7 % High 0-5 [facility] Comment on above: Performed By: #### C JAMAL AGUILAR, CDP #### [facility] [address] [place] [address] Family Services Specialist: Clinton Steven MD Erythrocyte distribution width (RBC) [Ratio] 15.7 % High 12.1-15.2 [facility] Comment on above: Performed By: #### C JAMAL AGUILAR, CDP #### [facility] [address] [id number] Family Services Specialist: Clinton Steven MD Hematocrit (Bld) [Volume fraction] 37.2 % Low 41-53 [facility] Comment on above: Performed By: #### C JAMAL AGUILAR, CDP #### [facility] [address] [place] [address] Family Services Specialist: Clinton Steven MD Hemoglobin (Bld) [Mass/Vol] 12.6 g/dL Low 13.5-17.5 [facility] Comment on above: Performed By: #### C JAMAL AGUILAR, CDP #### [facility] [address] [place] [address] Family Services Specialist: Clinton Steven MD Lymphocytes (Bld) [#/Vol] 0.70 10*3/uL Low 1.0-4.8 [facility] Comment on above: Performed By: #### C JAMAL AGUILAR, CDP #### [facility] [address] [id number] Family Services Specialist: Clinton Steven MD Lymphocytes/100 WBC (Bld) 8 % Low 13-44 [facility] Comment on above: Performed By: #### C JAMAL AGUILAR, CDP #### [facility] [address] [id number] Family Services Specialist: Clinton Steven MD MCH (RBC) [Entitic mass] 33.5 pg Normal 26-34 [facility] Comment on above: Performed By: #### C MPX TROPI, CDP #### [facility] [address] [place] [address] Family Services Specialist: Clinton Steven MD MCHC (RBC) [Mass/Vol] 33.8 g/dL Normal 31-37 [facility] Comment on above: Performed By: #### C MPX TROPI, CDP #### [facility] [address] [place] [address] Family Services Specialist: Clinton Steven MD MCV (RBC) [Entitic vol] 98.9 fL Normal 80-100 [facility] Comment on above: Performed By: #### C GIOVANI AGUILARI, CDP #### [facility] [address] [place] [address] Family Services Specialist: Clinton Steven MD Monocytes (Bld) [#/Vol] 1.30 10*3/uL High 0.0-1.0 [facility] Comment on above: Performed By: #### C GIOVANI AGUILARI, CDP #### [facility] [address] [place] [address] Family Services Specialist: Clinton Steven MD Monocytes/100 WBC (Bld) 14 % High 5-9 [facility] Comment on above: Performed By: #### C JEFF TROPI, CDP #### [facility] [address] [place] [address] Family Services Specialist: Clinton Steven MD Neutrophil (Seg) 71 % Normal 39-75 [facility] Comment on above: Performed By: #### C MPX TROPI, CDP #### [facility] [address] [place] [address] Family Services Specialist: Clinton Steven MD Platelets (Bld) [#/Vol] 191 10*3/uL Normal 140-450 [facility] Comment on above: Performed By: #### C MPX TROPI, CDP #### [facility] [address] [place], [place] [id number] Family Services Specialist: Clinton Steven MD RBC (Bld) [#/Vol] 3.76 10*6/uL Low 4.5-5.9 [facility] Comment on above: Performed By: #### C MPX, TROPI, CDP #### [facility] [address] [place], [place] [id number] Family Services Specialist: Clinton Steven MD WBC (Bld) [#/Vol] 9.2 10*3/uL Normal 3.5-11.0 [facility] Comment on above: Performed By: #### C MPX, TROPI, CDP #### [facility] [address] [place], [place] [id number] Family Services Specialist: Clinton Steven MD Abs.Imm.Granulocyt e NOT REPORTED Normal 0.00-0.30 [facility] Comment on above: Performed By: #### C MPX, TROPI, CDP #### [facility] [address] [place] [address] Family Services Specialist: Clinton Steven MD Immature Granulocyte NOT REPORTED Normal 0 [facility] Comment on above: Performed By: #### C MPX, TROPI, CDP #### [facility] [address] [place] [address] Family Services Specialist: Clinton Steven MD MPV NOT REPORTED Normal 6.0-12.0 [facility] Comment on above: Performed By: #### C MPX, TROPI, CDP #### [facility] [address] [place] [address] Family Services Specialist: Clinton Steven MD NRBC Automated NOT REPORTED Normal [facility] Comment on above: Performed By: #### C MPX, TROPI, CDP #### [facility] [address] [place] [address] Family Services Specialist: Clinton Setven MD Platelet Estimate NOT REPORTED Normal [facility] Comment on above: Performed By: #### C MPX, TROPI, CDP #### [facility] [address] [place], [place] [id number] Family Services Specialist: Clinton Steven MD RBC morphology finding Nom (Bld) NOT REPORTED Normal [facility] Comment on above: Performed By: #### C MPX, TROPI, CDP #### [facility] [address] [place], [place] [id number] Family Services Specialist: Clinton Steven MD WBC Morphology NOT REPORTED Normal [facility] Comment on above: Performed By: #### C MPX, TROPI, CDP #### [facility] [address] [place], [place] [id number] Family Services Specialist: Clinton Steven MD CT HEAD WO [...] Gt Sharp MD 10/17/20 Final result Normal [facility] CTA HEAD NECK W CONTRASTon [...] is patent origins of the SCA and LICENSED PSYCHOLOGIST bilaterally. DEVELOPMENTAL ANOMALIES: None. OTHER: No pathologic [...] thrombus or stenosis is seen in the [place] of [place] and the distal distributions appear symmetric. A note was placed in the ops stat file for notification of the provider at 1:31 AM on 10/18/2020. 2. No aneurysm Interpreted by: Amaury Chamberlain Signed by: Amaury Chamberlain 10/18/20 Final result Normal [facility] Comp Metabolic Pr/rfx MGon 0 10-18-2020 Albumin [Mass/Vol] 4.0 g/dL Normal 3.5-5.2 [facility] Comment on above: Performed By: #### C MPX, TROPI, CDP #### [facility] [address] [place] [address] Family Services Specialist: Clinton Steven MD Alkaline Phos 78 U/L Normal 40-129 [facility] Comment on above: Performed By: #### C MPX, TROPI, CDP #### [facility] [address] [place] [address] Family Services Specialist: Clinton Steven MD ALT [Catalytic activity/Vol] 14 U/L Normal 5-41 [facility] Comment on above: Performed By: #### C MPX, TROPI, CDP #### [facility] [address] [place] [address] Family Services Specialist: Clinton Steven MD Anion gap [Moles/Vol] 10 mmol/L Normal 9-17 [facility] Comment on above: Performed By: #### C MPX, TROPI, CDP #### [facility] [address] [place] [address] Family Services Specialist: Clinton Steven MD AST [Catalytic activity/Vol] 15 U/L Normal <40 [facility] Comment on above: Performed By: #### C MPX, TROPI, CDP #### [facility] [address] [place], [place] [id number] Family Services Specialist: Clinton Steven MD Bilirubin [Mass/Vol] 0.42 mg/dL Normal 0.30-1.20 [facility] Comment on above: Performed By: #### C MPX, TROPI, CDP #### [facility] [address] [place], [place] [id number] Family Services Specialist: Clinton Steven MD Calcium [Mass/Vol] 9.4 mg/dL Normal 8.6-10.4 [facility] Comment on above: Performed By: #### C MPX, TROPI, CDP #### [facility] [address] [place], [place] [id number] Family Services Specialist: Clinton Steven MD Chloride [Moles/Vol] 102 mmol/L Normal 98-107 [facility] Comment on above: Performed By: #### C MPX, TROPI, CDP #### [facility] [address] [place] [address] Family Services Specialist: Clinton Steven MD CO2 [Moles/Vol] 27 mmol/L Normal 20-31 [facility] Comment on above: Performed By: #### C MPX, TROPI, CDP #### [facility] [address] [place] [address] Family Services Specialist: Clinton Steven MD Creatinine [Mass/Vol] 1.45 mg/dL High 0.70-1.20 [facility] Comment on above: Performed By: #### C MPX, TROPI, CDP #### [facility] [address] [place] [address] Family Services Specialist: Clinton Steven MD GFR, Amer 58 mL/min Low >60 [facility] Comment on above: Performed By: #### C MPX, TROPI, CDP #### [facility] [address] [place] [address] Family Services Specialist: Clinton Steven MD GFR,non Amer 47 mL/min Low >60 [facility] Comment on above: Performed By: #### C MPX, TROPI, CDP #### [facility] [address] [place] [address] Family Services Specialist: Clinton Steven MD Glucose [Mass/Vol] 95 mg/dL Normal 70-99 [facility] Comment on above: Performed By: #### C GIOVANI AGUILARI, CDP #### [facility] [address] [place], [place] [id number] Family Services Specialist: Clinton Steven MD Potassium [Moles/Vol] 4.3 mmol/L Normal 3.7-5.3 [facility] Comment on above: Performed By: #### C GIOVANI AGUILARI, CDP #### [facility] [address] [place], [place] [id number] Family Services Specialist: Clinton Steven MD Protein [Mass/Vol] 6.8 g/dL Normal 6.4-8.3 [facility] Comment on above: Performed By: #### C GIOVANI AGUILARI, CDP #### [facility] [address] [place], [place] [id number] Family Services Specialist: Clinton Steven MD Sodium [Moles/Vol] 139 mmol/L Normal 135-144 [facility] Comment on above: Performed By: #### C GIOVANI AGUILARI, CDP #### [facility] [address] [place], [place] [address] Family Services Specialist: Clinton Steven MD Urea nitrogen [Mass/Vol] 16 mg/dL Normal 8-23 [facility] Comment on above: Performed By: #### C GIOVANI AGUILARI, CDP #### [facility] [address] [place], [place] [id number] Family Services Specialist: Clinton Steven MD (cont.) Normal [facility] Comment on above: Result Comment: Aver age GFR for 70 or more years old: 75 mL/min/1.73sq m Chronic Kidney Disease: <60 mL/min/1.73sq m Kidney failure: <15 mL/min/1.73sq m eGFR calculated using average adult body mass. Additional eGFR calculator available at: http://www.Serometrix.Continuum/multiple_crcl_2012.htm Performed By: #### C MPX, TROPI, CDP #### [facility] [address] [place], [place] [id number] Family Services Specialist: Clinton Steven MD Albumin/Glob Ratio NOT REPORTED Normal 1.0-2.5 [facility] Comment on above: Performed By: #### C MPX, TROPI, CDP #### [facility] [address] [place], [place] [id number] Family Services Specialist: Clinton Steven MD BUN/CRE Ratio NOT REPORTED Normal 9-20 [facility] Comment on above: Performed By: #### C MPX, TROPI, CDP #### [facility] [address] [place], [place] [id number] Family Services Specialist: Clinton Steven MD Staging: NOT REPORTED Normal [facility] Comment on above: Performed By: #### C MPX, TROPI, CDP #### [facility] [address] [place] [address] Family Services Specialist: Clinton Steven MD [facility] 10-18-2020 [employer] Authentication Interface Message Text Attestation signed by [...] degree of stenosis of both carotid arteries. [facility] SURGERY EMERGENCY GENERAL [...] thrombus or stenosis is seen in the [place] of [place] and the distal distributions appear symmetric. ASSESSMENT/RECOMMENDAT IONS: Claudia Kent is a 74 year old male who [...] rev (more content not included)... Normal [facility] Authentication Interface Message Text Eye Consult Note CC: New flashes, right eye HPI: Claudia Kent is a 74 year old male At [...] of RD - No retinal breaks/detachment/heme on BINDER ROLLER - Retinal detachment precautions reviewed with patient - Patient lives in [facility] and has an appointment with his supervisor agricultural education at the [place] on December 03-- follow-up for new flashes at that visit. Please page [phone] with additional questions/concerns Vashti Reis MD Ophthalmology Resident Eye clinic [phone], located 3rd floor specialty services [facility] Physician Note: This was a resident only visit. I personally reviewed the mckeon and critical portions of the history and the ophthalmologic exam. I reviewed the resident's documentation, the patient's history and examination as documented above. I agree with the resident's medical decision making as documented in the resident's note. Tamar Nathan MD Normal [facility] ED Noteson 10-18-2020 [employer] Authentication Interface Message Text Vascular at bedside at this time Normal [facility] ED Provider Noteson 10-19-19 [employer] Authentication Interface Message Text EMERGENCY DEPARTMENT - VISIT NOTE -------- HISTORY OF PRESENT ILLNESS ---- Chief Complaint Patient presents with * Other sympt/complt of eye started with vision changes last night. sent from [facility]. here for vascular/neuro consult Cage Fighter: not needed - patient preferred language is Bermudian. The history is provided by the Patient. Claudia Kent is a 74 year old male with [...] thrombus or stenosis is seen in the [place] and the distal distributions appear [...] History: - Follows with vascular surgery at [place] for PVD: he has had stents placed in the thigh, CABG 1997, PR in 1986, defibrillator placed in 1995 batteries [...] 2154 Sun Oct 18, 2020 1251 Paged [facility] [CM] [address] Reis from [facility] who will come eval the patient [CM] 1254 Paged vascular surgery [CM] 1256 Spoke to Kyle from [facility] surg who will come eval the patient [CM] 1711 Paged Kyle, [facility] surgery consult, he passed the consult on to another provider at [phone] [CM] 1889 Spoke to [facility] Surg sr. consultant who will talk to her chief as carotid duplex can't be performed today [CM] ED Course User Index [CM] Armani Sullivan MD Medical Decision Makin (more content not included)... Normal [facility] [id number] 10-18-2020 SARS-CoV-2 (COVID-19) RNA JOCELIN+probe Ql (Unsp spec) Not detected Normal [facility] Comment on above: Result Comment: Rapid [...] management decisions. Fact sheet for Healthcare Providers: https://www.fda.gov/media/274552/download Fact sheet for Patients: https://www.fda.gov/media/998231/download Methodology: Isothermal Nucleic Acid Amplification Performed By: #### C OVRB #### [facility] [address] [place] [address] Family Services Specialist: Clinton Steven MD Troponinon 10-18-2020 Troponin, High Sens 28 ng/L High 0-22 [facility] Comment on above: Result Comment: High Sensitivity Troponin values cannot be compared with other Troponin methodologies. Patients with high levels of Biotin oral intake (i.e >5mg/day) may have falsely decreased Troponin levels. Samples collected within 8 hours of biotin intake may require additional information for diagnosis. Performed By: #### C MPX, TROPI, CDP #### [facility] [address] [place], [place] [id number] Family Services Specialist: Clinton Steven MD Troponin Interp. NOT REPORTED Normal [facility] Comment on above: Performed By: #### C MPX, TROPI, CDP #### [facility] [address] [place], [place] [id number] Family Services Specialist: Clinton Steven MD Troponin T NOT REPORTED Normal <0.03 [facility] Comment on above: Performed By: #### C MPX, TROPI, CDP #### [facility] [address] [place], [place] [id number] Family Services Specialist: Clniton Steven MD Vital Signs Date Time Vital Sign Value Performing Clinician Faci lity 11-29-2023 13:31-0400 Body height 172.7 cm Gibran Gongora DPM Work Phone: [facility] 11-29-2023 13:31-0400 Body mass index (BMI) [Ratio] 26.76 kg/m2 Gibran Gongora DPM Work Phone: [facility] 11-29-2023 13:31-0400 Body weight 79.83 kg Gibran Gongora DPM Work Phone: [facility] Encounters Encounter Date Encounter Type Care Provider Facility Start: 01-30-2024 End: 01-30-2024 ambulatory [facility] Start: 01-08-2024 End: 01-09-2024 ambulatory [facility] Start: 12-28-2023 End: 12-28-2023 ambulatory [facility] Start: 12-21-2023 End: 12-21-2023 Telephone encounter Sabi[facility] Start: 12-20-2023 ambulatory [facility] Start: 12-19-2023 End: 12-29-2023 Telephone encounter Itzel Dial RN [facility] Start: 12-15-2023 End: 12-15-2023 Orders Only Gibran Gongora DPM Work Phone: [facility] Comment on above: Peripheral vascular disease (CMS/HCC) (Primary Dx) Start: 12-14-2023 End: 12-14-2023 ambulatory GIBRAN GONGORA Not Available Start: 12-07-2023 End: 12-07-2023 ambulatory RISHI [facility] Start: 12-05-2023 End: 12-05-2023 ambulatory [facility] Start: 12-05-2023 End: 12-05-2023 ambulatory [facility] Start: 11-29-2023 End: 11-29-2023 ambulatory GIBRAN GONGORA Not Available Start: 11-29-2023 End: 11-29-2023 Office outpatient new 45 minutes Gibran Gongora DPM Work Phone: [facility] Comment on above: Onychodystrophy (Jeanette muna Dx); Onychomycosis; Right foot pain; Peripheral vascular disease (CMS/HCC) Start: 11-14-2023 End: 11-14-20[facility] Start: 11-08-2023 Evaluation and manag ement of inpatient RISHI [facility] Start: 11-07-2023 End: 11-07-2023 ambulatory RISHI [facility] Start: 11-07-2023 End: 11-10-2023 Evaluation and management of inpatient [facility] Start: 10-12-2023 End: 10-12-2023 ambulatory [facility] Start: 10-10-2023 End: 10-10-2023 ambulatory [facility] Start: 10-05-2023 [facility]: 09-25-2023 End: 09-25-2023 ambulatory RISHI [facility] Start: 09-20-2023 End: 09-20-2023 ambulatory [facility] Start: 09-05-2023 End: 09-05-2023 ambulatory [facility] Start: 08-10-2023 End: 08-10-2023 ambulatory [facility] Start: 04-14-2022 End: 04-15-[address] DOCTOR GONZALEZ Facility:[facility] Start: 10-10-[address] CARMELITA ALMANZA Fac ility:[facility] Start: 04-29-2021 End: 04-30-2021 ambulatory PROVIDER UNKNOWN Facility:[facility] Start: 10-18-2020 ambulatory UNKNOWN PROVIDER Facili ty:[facility] Start: 10-18-2020 End: 10-18-2020 ambulatory UNKNOWN PROVIDER Facility:[facility] Start: 10-18-2020 End: 10-18-2020 Emergency department patient visit IP SURGERY VASCULAR CONSULT Facility:[facility] Start: 10-17-2020 End: 10-18-2020 Emergency department patient visit [facility] Plan of Treatment Date Care Activity Detail Author Start: 08-25-2030 DTaP,Tdap and Td Vac cines (2 - Tdap) DTaP,Tdap and Td Vaccines (2 - Tdap) [facility] Start: 2009 Fall Risk Screening Fall Risk Screen ing [facility] Start: 2009 Pneumococcal Vaccine : 65+ Years (1 of 1 - PCV) Pneumococcal Vaccine: 65+ Years (1 of 1 - PCV) [facility] Start: 1994 Administration of varicella zoster vaccine Zoster (Shingles) Vaccine (1 of 2) [facility] Start: 1956 Depression Screening Depression Scre [facility] Start: 1956 Tobacco Screening Tobacco Screening [facility] US.doppler Extremity arteries - bilateral for physiologic artery study at rest and with exercise VASC US PVR/SEGMENTAL PRESSURES LOWER Imaging Routine Peripheral vascular disease (CMS/HCC) Ordered: 11/29/2023 [facility] Work Phone: Comment on above: Ordered: 11/29/2023 Immunizations Immunization Date Immunization Notes Care Provider Fa cility 11-17-2023 influenza, high dose seasonal, preservative-free Gibran Rusher DPM Work Phone: [facility] 11-10-2022 RSV, recombinant, pr otein subunit RSVpreF, adjuvant reconstitu, 120mcg/0.5mL, PF (Arexvy) Gibran Rusher DPM Work Phone: [facility] 11-16-2021 Influenza, Seasonal, Quadrivalent, Adjuvanted Gibran Rusher DPM Work Phone: [facility] 12-02-2020 Influenza, Seasonal, Quadrivalent, Adjuvanted Gibran Rusher DPM Work Phone: [facility] 08-25-2020 diphtheria, tetanus toxoids and pertussis vaccine Gibran Rusher DPM Work Phone: [facility] 11-27-2017 influenza, injectabl e, quadrivalent, preservative free Gibran Rusher DPM Work Phone: [facility] Payers Date Payer Category Payer Medicare (Managed Care) [facility] MEDIC[facility] [id number] 2023 Medicare [id number] 2020 Private Health Insurance 1959 Medicare [id number] 1959 Self-pay [id number] 1959 Unknown [id number] 1944 Unknown [id number] 1944 Unknown [id number] 1944 Unknown [id number] 1944 Unknown [id number] 1944 Unknown [id number] 1944 Unknown [id number] 1944 Unknown [id number] 1944 Unknown [id number] 1944 Unknown [id number] Social History Date Type Detail Facility Start: 11-29-2023 Tobacco smoking stat [facility] Smokes tobacco daily [facility] History of tobacco use [facility]igarette [facility] Start: 11-29-2023 Tobacco use and exposure Smokeless tobacco non-user [facility] Start: 11-29-2023 Alcoholic beverage intake Current drinker of alcohol (finding) [facility] Start: 07-25-2018 End: 11-29-2023 Alcoholic beverage intake [facility] Start: 1945 Sex assigned at Not on file [facility] Start: 07-25-2018 End: 11-29-2023 Gender identity Not on file [facility] Tobacco smoking stat [facility] Tobacco smoking consumption unknown [facility] Childcare Unknown [facility] Start: 09-18-2014 Sex Male (finding) [facility] Clinical Notes 08-10-2023 to 01-08-2024 Telephone Encounter - Sabiha Pearce CMA - 12/21/2023 4:05 PM ESTTelephone Encounter - Sabiha Pearce CMA - 12/21/2023 4:05 PM ESTTelephone Encounter - Itzel Dial RN - 12/19/2023 9:00 AM EST Note Date & Type Note Facility 01-08-2024 Note [place] Cardiology - [facility] Heart and Vascular Center Subjective Claudia Kent is a 78 y.o. year old male patient being seen for follow up segmental pressures performed on 12/14/2023 at [facility]. 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 He said he was able to trim it back but wasn't able to remove it because the hop farm worker didn't feel good pulses per patient. He denies chest pain, SOB, palpitations, lightheadedness/syncope, and bleeding on Eliquis. Patient Active Problem [...] Abnormal cardiovascular stress test Aortic stenosis, severe ICD (implantable cardioverter-defibrillator), single, in situ Family History Problem Relation Name Age of Onset Coronary artery disease Other Heart attack Mother juliann gautam Heart disease Mother juliann gautam Social History Tobacco Use Smoking status: Every Day Current packs/day: 0.50 Average packs/day: 0.5 packs/day for 55.5 years (27.7 ttl pk-yrs) Types: Cigarettes Start date: 07/14/1968 Smokeless tobacco: Never Substance Use Topics Alcohol use: Yes Alcohol/week: 6.0 standard drinks of alcohol Types: 6 Cans of beer per week Comment: 6 per month Drug use: Never HPI Update 01/08/2024: He is seen in follow-up. Following last visit with me he underwent ICD generator change on 12/20/[address] Kyle Greenfield. Today he is seen to discuss his peripheral vascular disease. He recently had an ingrown toenail and the hop farm worker trimmed that but did not want to remove it due to poor circulation in his feet. He had lower extremity noninvasive vascular studies that showed borderline to mild occlusive disease. Otherwise he feels great. He has no chest pain or shortness of breath and no significant lower extremity edema. Update 12/07/2023: He is seen in follow-up 1 month after TAVR. After last visit with me we ended up proceeding with TAVR via a transcarotid approach. This was performed with a self-expanding Medtronic Evolut FX valve. He did well with the procedure. Today he reports that he has been feeling great. He has had much more energy since the TAVR procedure. He has no significant chest pain or shortness of breath. No lower extremity edema. His echocardiogram today showed normal functioning of the TAVR bioprosthesis. His ICD needs a generator change and this was scheduled for December 20, 2023. Update 09/20/2023: He is seen in follow-up. [...] around 35%. Update 10/04/2021: He is seen (more content not included)... [facility] 12-28-2023 Note [place] Cardiology - [facility] Heart and Vascular Center Subjective Claudia Kent is a 78 y.o. year old male patient being seen for post device generator change due to device EOL. Patient Active Problem List Diagnosis Acute tonsillitis [...] Abnormal cardiovascular stress test Aortic stenosis, severe ICD (implantable cardioverter-defibrillator), single, in situ Family History Problem Relation Name Age of Onset Coronary artery disease Other Heart attack Mother juliann gautam Heart disease Mother juliann gautam Social History Tobacco Use Smoking status: Every Day Current packs/day: 0.50 Average packs/day: 0.5 packs/day for 55.5 years (27.7 ttl pk-yrs) Types: Cigarettes Start date: 07/14/1968 Smokeless tobacco: Never Substance Use Topics Alcohol use: Yes Alcohol/week: 6.0 standard drinks of alcohol Types: 6 Cans of beer per week Comment: 6 per month Drug use: Never HPI Update 12/28/2023 Patient presents today for CHF. He is doing well. He denies any cardiac complaints or concerns. He denies any chest pain or shortness of breath. He denies any lower extremity edema, orthopnea, paroxysmal nocturnal dyspnea. No fevers or chills. No discharge from site. Update 12/07/2023: He is seen in follow-up 1 month after TAVR. After last visit with me we ended up proceeding with TAVR via a transcarotid approach. This was performed with a self-expanding Medtronic Evolut FX valve. He did well with the procedure. Today he reports that he has been feeling great. He has had much more energy since the TAVR procedure. He has no significant chest pain or shortness of breath. No lower extremity edema. His echocardiogram today showed normal functioning of the TAVR bioprosthesis. His ICD needs a generator change and this was scheduled for December 20, 2023. Update 09/20/2023: He is seen in follow-up. [...] normal, cholesterol 146, LDL 96, HDL 43, t (more content not included)... [facility] 12-21-2023 Miscellaneous Notes Spoke with patient in regards to referral from Dr. Gongora. Patient seen Dr. Almanza. 12/21/23- insurance OON - patient see Dr. Almanza. 12/19/23- spoke with Dr. Alamo office and they are sending facesheet, isurance info and office note. 12/15/23- LVM at Dr. Gongora office to CB to get more information on the patient. - 12/18/23 PT STATES HE SEES A VAS DR DENISE AND WILL SEE HIM documented in this encounter [facility] 12-21-2023 Telephone encounter Note Spoke with patient in regards to referral from Dr. Gongora. Patient seen Dr. Almanza. 12/21/23- insurance OON - patient see Dr. Almanza. 12/19/23- spoke with Dr. Alamo office and they are sending facesheet, isurance info and office note. 12/15/23- LVM at Dr. Gongora office to CB to get more information on the patient. 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 Use of blood products discussed with patient who. Additional Equipment Requests [facility] 12-19-2023 Miscellaneous Notes Images from the original note were not included. Attempted to call patient to get scheduled. Raysa told lauro Yatesr that he had another vascular doctor. Wanted to inquire who this was as this referral was sent in 12/[address] Gongora. Spoke with patients and she will have patient call office back. Spoke with patient. He states he sees Dr Carmelita Almanza for vascular. 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 He states he will see Dr Hawk tomorrow and will discuss with him and give us a call back regarding a TALENT ACQUISITION LEAD appt. documented in this encounter [facility] 12-19-2023 Telephone encounter Note Images from the original note were not included. Attempted to call patient to get scheduled. lauro Pattersonr that he had another vascular doctor. Wanted to inquire who this was as this referral was sent in 12/[address] Gongora. Spoke with patients and she will have [facility]-19-2023 Telephone encounter Note Spoke with patient. He states he sees Dr Carmelita Almanza for vascular. 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 He states he will see Dr Hawk tomorrow and will discuss with him and give us a call back regarding a TALENT ACQUISITION LEAD appt. [facility] 12-07-2023 Note [place] Cardiology - [facility] Heart and Vascular Center Subjective Claudia Kent is a 77 y.o. year old male patient being seen for Follow-up and Post-op TAVR Patient Active Problem List Diagnosis Acute tonsillitis [...] Abnormal cardiovascular stress test Aortic stenosis, severe ICD (implantable cardioverter-defibrillator), single, in situ Family History Problem Relation Name Age of Onset Coronary artery disease Other Heart attack Mother juliann gautam Heart disease Mother juliann gautam Social History Tobacco Use Smoking status: Every Day Packs/day: 0.50 Years: 55.00 Additional pack years: 0.00 Total pack years: 27.50 Types: Cigarettes Start date: 07/14/1968 Smokeless tobacco: Never Substance Use Topics Alcohol use: Yes Alcohol/week: 6.0 standard drinks of alcohol Types: 6 Cans of beer per week Comment: 6 per month Drug use: Never HPI Update 12/07/2023: He is seen in follow-up 1 month after TAVR. After last visit with me we ended up proceeding with TAVR via a transcarotid approach. This was performed with a self-expanding Medtronic Evolut FX valve. He did well with the procedure. Today he reports that he has been feeling great. He has had much more energy since the TAVR procedure. He has no significant chest pain or shortness of breath. No lower extremity edema. His echocardiogram today showed normal functioning of the TAVR bioprosthesis. His ICD needs a generator change and this was scheduled for December 20, 2023. Update 09/20/2023: He is seen in follow-up. [...] to once a day due to low bloo (more content not included)... [facility] 12-05-2023 Note [place] Electrophysiology Consult Note [place] Cardiology [facility] Reason for visit: Device at [facility] HPI: Claudia Kent is a 77 y.o. year old with past medical history of persistent atrial fibrillation on apixaban, chronic ischemic cardiomyopathy s/p ICD placement, peripheral arterial disease (SMA stenting in 2014), right SFA/popliteal artery stenosis, renal artery stenosis, carotid artery disease (right CEA, year?, Recent carotid ultrasound in 2021 showed moderate disease), and coronary artery disease (CABG in 1997). He underwent a complete workup and was found to have severe aortic valve stenosis. He was determined high risk for SAVR, therefore recommended for TAVR by CT Surgery and Interventional cardiologyteam with Transcarotid access with surgical cutdown in order to deliver the TAVR prostheses. He underwent the TAVR procedure on 11/07/2023 and was subsequently discharged. Given that he has an ICD [place] single-chamber ICD which is reached [facility] he has come for a generator change discussion. He elects PMH: Past Medical History: Diagnosis Date Arrhythmia BPH (benign prostatic hyperplasia) Cardiomyopathy (CMS/HCC) Carotid artery stenosis CHF (congestive heart failure) (CMS/HCC) Coronary artery disease Gastric ulcer Heart valve disease Hyperlipidemia Hypertension Implantable cardioverter-defibrillator (ICD) in situ Nonrheumatic aortic (valve) stenosis PAD (peripheral artery disease) (CMS/HCC) Peripheral arterial occlusive disease (CMS/HCC) PVC (premature ventricular contraction) PSH: Past Surgical History: Procedure Laterality Date CARDIAC CATHETERIZATION 1986 CORONARY ANGIOPLASTY 1996 CORONARY ARTERY BYPASS GRAFT 1997 CTA LOWER EXTREMITY LEFT W IV CONTRAST INSERT / REPLACE / REMOVE PACEMAKER SH: Social Determinants of Health Tobacco Use: High Risk (11/07/2023) Patient History Smoking Tobacco Use: Every Day Smokeless Tobacco Use: Never Passive Exposure: Not on file Alcohol Use: Not on file Financial Resource Strain: Low Risk (11/07/2023) Overall Financial Resource Strain (CARDIA) Difficulty of Paying Living Expenses: Not hard at all Food Insecurity: No Food Insecurity (11/07/2023) Hunger Vital Sign Worried About Running Out of Food in the Last Year: Never true Ran Out of Food in the Last Year: Not on file Transportation Needs: No Transportation Needs (11/07/2023) Transportation Lack of Transportation (Medical): No Lack of Transportation (Non-Medical): Not on file Physical Activity: Not on file Stress: Not on file Social Connections: Not on file Intimate Partner Violence: Unknown (11/07/2023) Humiliation, Afraid, Rape, and Kick questionnaire Fear of Current or Ex-Partner: No Emotionally Abused: Not on file Physically Abused: Not on file Sexually Abused: Not on file Depression: Not at risk (10/05/2023) PHQ-2 PHQ-2 Score: 0 Housing Stability: Low Risk (11/07/2023) Housing Stability Vital Sign Unable to Pay for Housing in the Last Year: Not on file Number of Places Lived in the Last Year: Not on file Unstable Housing in the Last Year: No Utilities: Not At Risk (11/07/2023) [facility] Utilities Threatened with loss of utilities: No Allergies: No Known Allergies Weight: 72.1kg Visit Vitals BP 134/62 (BP Location: Left arm, Patient Position: Sitting) Pulse 60 Ht 1.727 m (5' 8 ) Wt 72.1 kg (159 lb) SpO2 99% BMI 24.18 kg/m??? Smoking Status Every Day BSA 1.86 m??? Meds: Current Outpatient Medications on File Prior to Visit Medication Sig Dispense Refill apixaban (Eliquis) 5 mg tablet Take 1 tablet (5 mg) by mouth two times daily. 180 tablet 3 atorvastatin (Lipitor) 80 mg tablet Take 80 mg by mouth at bedtime. budesonide-formoteroL (Symbicort) 160-4.5 mcg/actuation inhaler Inhale 2 puffs twice a day by inhalation route. carvedilol (Coreg) 12.5 mg tablet Take 6.25 mg by mouth with breakfast and with evening meal. cholecalciferol, vitamin D3, (VITAMIN D3 ORAL) Take 2,000 Int'l Units by mouth in the morning. clopidogrel (Plavix) 75 mg tablet Take 1 tablet every day by oral route for 90 days. empagliflozin (Jardiance) 25 mg Take 25 mg by mouth once daily as directed. folic acid (Folvite) 800 mcg tablet Take 0.8 mg by mouth in the morning. montelukast (Singulair) 10 mg tablet Take 10 mg by mouth at bedtime. sacubitriL-valsartan (Entresto) 24-26 mg tablet Take 0.5 tablets twice a day by oral route. spironolactone (Aldactone) 25 mg tablet Take 25 mg by mouth once daily as directed. tamsulosin (Flomax) 0.4 mg 24 hr capsule Take 1 capsule by mouth at bedtime. terbinafine (LamISIL) 250 mg tablet Take 250 mg by mouth in the morning. [DISCONTINUED] polyethylene glycol (Glycolax) oral powder Take 17 g by mouth if needed each day (constipation). No current facility-administered medications on file prior to visit. ROS: Review of Systems Cardiovascular: Positive for dyspnea on exertion (int (more content not included)... [facility] 11-29-2023 History of Present illness Narrative Images from the original note were not included. Subjective Patient ID: Claudia Kent is a 77 y.o. male who presents for Ingrown Toenail (77 yo TALENT ACQUISITION LEAD presents today with ingrown nail, RGT. Pt relates trying to cut out himself, made it worse. Pt states it is painful, denies drainage or pus. Pt keeping a band-aid on the toe; there was blood on band-aid. ). HPI This is a new patient who presents to clinic with concern of his right hallux toenail. Patient states that the nail is very thickened feels ingrown. He has tried trimming it out himself but continues to have pain. It has been painful for months and getting worse. He states that whenever he tries to trim it it seems to bleed. He has a history of phenol matricectomy of the left hallux many years ago and would like to discuss phenol matricectomy for the total right hallux. Review of Systems Constitutional: Negative for activity change and appetite change. Respiratory: Negative for chest tightness and shortness of breath. Cardiovascular: Negative for chest pain. Musculoskeletal: Positive for arthralgias and gait problem. Skin: Negative for color change and wound. Neurological: Positive for numbness. Negative for weakness. Psychiatric/Behavioral: Negative for agitation and behavioral problems. Hematological: Does not bruise/bleed easily. Endocrine: Negative for cold intolerance and heat intolerance. Allergic/Immunologic: Negative for immunocompromised state. Past medical History Past Medical History: Diagnosis Date Hypercholesteremia (CMS/HCC) Hypertension (CMS/HCC) Medications Current Outpatient Medications: apixaban (Eliquis) 5 MG tablet, Take 5 mg by mouth in the morning and 5 mg in the evening., Disp: , Rfl: atorvastatin (Lipitor) 40 MG tablet, Take 1 tablet by mouth Daily, Disp: , Rfl: budesonide-formoterol (Symbicort) 160-4.5 MCG/ACT inhaler, Inhale 2 puffs twice a day by inhalation route., Disp: , Rfl: carvedilol (Coreg) 12.5 MG tablet, Take 12.5 mg by mouth, Disp: , Rfl: cholecalciferol (Vitamin D-3) 25 MCG (1000 UT) capsule, Take 2,000 Units by mouth Daily, Disp: , Rfl: clopidogrel (Plavix) 75 MG tablet, Take 75 mg by mouth, Disp: , Rfl: empagliflozin (Jardiance) 25 MG, Take 25 mg by mouth, Disp: , Rfl: folic acid (Folvite) 800 MCG tablet, 0.8 mg, Disp: , Rfl: montelukast (Singulair) 10 MG tablet, Take 10 mg by mouth, Disp: , Rfl: polyethylene glycol, PEG, 3350 (Miralax) 17 g packet, Take by mouth, Disp: , Rfl: sacubitril-valsartan (Entresto) 24-26 MG tablet, Take 0.5 tablets twice a day by oral route., Disp: , Rfl: spironolactone (Aldactone) 25 MG tablet, Take 25 mg by mouth, Disp: , Rfl: tamsulosin (Flomax) 0.4 MG 24 hr capsule, Take 1 capsule by mouth at bedtime, Disp: , Rfl: Allergies Patient has no known allergies. Past Surgical History Past Surgical History: Procedure Laterality Date AORTIC VALVE REPLACEMENT 11/07/2023 CT ANGIOGRAM ABDOMEN PELVIS 09/25/2023 CT ANGIOGRAM ABDOMEN PELVIS 09/25/2023 CT ANGIOGRAM HEART CORONARY 09/25/2023 CT ANGIOGRAM TAVR 09/25/2023 Family History Family History Problem Relation Name Age of Onset Heart disease Mother Objective Physical Exam Constitutional: General: He is not in acute distress. HENT: Head: Atraumatic. Cardiovascular: Comments: DP and PT pulses nonpalpable. Skin temperature warm to cool. Hair growth absent. Skin diffusely thin. Hair growth absent. Musculoskeletal: Cervical back: No tenderness. Skin: Capillary Refill: Capillary refill takes less than 2 seconds. Comments: Right hallux toenail severely thickened and dystrophic with yellow discoloration, crumbly texture, subungual debris. There is no drainage or cellulitis noted. There is tenderness to palpation of the nail. Neurological: General: No focal deficit present. Mental Status: He is alert. Psychiatric: Mood and Affect: Mood normal. Behavior: Behavior normal. Assessment/Plan ICD-10-CM 1. Onychodystrophy L60.3 2. Onychomycosis B35.1 3. Right foot pain M79.671 4. Peripheral vascular disease (CMS/HCC) I73.9 VASC US PVR/SEGMENTAL PRESSURES LOWER Patient examined and evaluated. Discussed treatment options for the thickened, mycotic toenail. Patient would like to move forward with phenol matricectomy. Given vascular physical examination I would be concern for healing potential to move forward with phenol matricectomy. Recommend noninvasive arterial studies including segmental pressures, PVRs and TBIs bilaterally to evaluate for healing potential. If this is normal then we would be able to move forward with phenol matricectomy. If he has significant blockages I will refer him to vascular to consider surgical intervention to be able to move forward with phenol matricectomy. Alternatively consider conservative management with regular debridement of the toenail. Today the right hallux was anesthetized to allow for debridement. Hallux was anesthetized with 3 cc of 2 percent lidocaine plain. The nail was debrided in length and thickness without incident utilizing a nail Nipper and bur sapphire stylus grinder without incident. We will follow up with him as needed pending vascular studies. This note was created with the assistance of a speech recognition program. While intending to generate a timely document that accurately reflects the content of the visit, no guarantee can be provided that every grammatical or spelling mistake has been or will be identified or corrected. Thank you for your understanding. Gibran Gongora DPM documented in this encounter [facility] 11-14-2023 Note Pt is here for a one week post TAVR. Pt denies chest pain, palpatations, sob. Review of Systems Cardiovascular: Positive for claudication (RLE). Hematologic/Lymphatic: Bruises/bleeds easily. Musculoskeletal: Positive for arthritis, back pain and joint pain. Neurological: Positive for light-headedness. All other systems reviewed and are negative. [facility] [place] [facility] 11-14-2023 Note Cardiovascular Medic [facility] SUBJECTIVE Chief Complaint Patient presents with Post-op TAVR Coronary Artery Disease Claudia Kent is a 77 y.o. male here for follow-up after his recent TAVR procedure. HPI PMHx: aortic valve stenosis s/p TAVR, peripheral vascular disease s/p SMS stenting, CAD s/p bypass 1997, carotid stenosis s/p right CEA, HFrEF, ICM s/p ICD, renal artery stenosis , persistent a.fib 11/18/2023 Doing well after his recent TAVR. He has some dizziness with position changes. He has no SOB. Denies CP, palpitations. Trace leg edema that his stable. He would like to go on a golf outing this weekend, I advised he rest. ---- Hospital Course Claudia Kent is a 77 y.o. male with complex [...] DX #CAD s/p 5v CABG 1997 --10/12/23 [facility]: patent 5 coronary bypass grafts [Patent [...] their standpoint --case was discussed with Dr. Almanza, agrees can discharge with below plan. --VSS, HD stable, eating and drinking well. --resumed plavix immediately after surgery, and the evening of 11/08 resuming home eliquis with no acute bleeding issues. -HGB slowly declining as expected, no acute bleeding after procedure, --Continue coreg 12.5, entresto 24-26mg bid, aldactone 25, --He has ambulated in room, no bleeding issues, HD stable and will disch home with written instructions to print with AVS --CBC, CMP, next week (lives near [facility]). --he requires prophylaxis for bacterial endocarditis lifelong, was dicussed --Has appts already for 1 week OFU and 4 week [address]TE [address] FU Dr. Almanza. Patient Active Problem List Diagnosis Acute tonsillitis Aortic valve disorder Aortic valve stenosis Bruit Chronic systolic heart failure (CMS/HCC) Coronary atherosclerosis Essential hypertension Gastric ulcer Hyperlipidemia Implantable cardioverter-defibrillator (ICD) in situ Left ventricular systolic dysfunction Paroxysmal ventricular tachycardia (CMS/HCC) Carotid artery stenosis Mesenteric artery stenosis (CMS/HCC) Peripheral arterial occlusive disease (CMS/HCC) Primary car (more content not included)... [facility] [place] 11-10-2023 Note Occupational Therapy Name: Claudia Kent Date of : 1945 Today's Date: 11/10/23 Pt is unable to be seen for therapy at this time secondary to per patient he worked with PT this morning and just got back in to bed. Pt family arrived and he defers treatment at this time . Will check back and complete therapy session as appropriate. Check No Charge Time attempted: 1400p [facility] 11-10-2023 Note Subjective 77 year old male [...] round, and reactive to light. Neck: Comments: [place] size left neck hematoma unchanged. No bruit. [...] ECG 12 lead (more content not included)... [facility] 11-10-2023 Note Physical Therapy Physical Therapy Treatment Patient Name: Claudia Kent : 1945 Today's Date: 11/10/2023 11/10/23 Time [...] call light and all needs available upon scenario writer exit. PT Assessment PT Assessment/TIE CUTTER Summary Pt exhibited mild fatigue and SOB with activity, however, was able to recognize when rest breaks were warranted without cues. Pt may benefit from one more treatment this admission to ensure safe return to [facility] as his goal is to return home. Prognosis Good Evaluation/Treatment Tolerance Patient tolerated treatment well Medical Staff Made Aware Yes PT Education/Comments safety Plan Level of assist 1 assist Treatment/Interventions Functional transfer training;Endurance training;Patient/family training;Bed mobility;Gait training PT Plan Skilled PT P (more content not included)... [facility] [place] 11-10-2023 Note Daily Case Managemen t Update [...] OT? Answer: eval and treat 11/08/23 0751 [facility] 11-09-2023 Note Occupational Therapy Occupational Therapy Treatment Patient Name: Claudia Kent : 1945 Today's Date: 11/09/2023 Time In-1115 Time Out-1139 Problem List Patient Active Problem List Diagnosis Acute tonsillitis Aortic valve disorder Aortic valve stenosis Bruit Chronic systolic heart failure (CMS/HCC) Coronary atherosclerosis Essential hypertension Gastric ulcer Hyperlipidemia Implantable cardioverter-defibrillator (ICD) in situ Left ventricular systolic dysfunction Paroxysmal ventricular tachycardia ([facility]/HCC) Carotid artery stenosis Mesenteric artery stenosis (CMS/HCC) Peripheral arterial occlusive disease ([facility]/HCC) Primary cardiomyopathy (CMS/HCC) Chronic systolic congestive heart [...] Eating meals?: None (Independent) Total Score OT [facility]: 22 Assessment/Plan OT Assessment OT Impairments: [...] safe mobility 11/08/23 (more content not included)... [facility] [place] [facility] 11-09-2023 Note Subjective 77 year old male [...] 11/09/23 0409 134/59 36.8 ???C (98.3 ???F) 68 14 96 % -- 11/09/23 0005 140/71 36.8 ???C (98.2 ???F) 69 17 98 % -- 11/08/23 1953 114/57 36.9 ???C (98.4 ???F) 67 18 97 % -- 11/08/23 1635 155/69 37 ???C (98.6 ???F) 67 21 99 % -- 11/08/23 1302 -- -- -- -- -- -- 73.8 kg (162 lb 9.6 oz) Physical Exam Constitutional: Appearance: Normal appearance. HENT: Head: Normocephalic. Eyes: Pupils: Pupils are equal, round, and reactive to light. Neck: Comments: [place] size left neck hematoma unchanged. No bruit. [...] 88 QT Interval 430 QTC CALCULATION(BAZETT) 447 R-[place] -26 T Wave [place] 116 Impression Atrial fibrillation Anterior infarct , age undetermined T wave abnormality, consider lateral ischemia Abnormal ECG When compared with ECG of 12-OCT-2023 06:58, Atrial fibrillation has replaced Electronic ventricular pacemaker Confirmed by SHELDON (more content not included)... [facility] [place] 11-09-2023 Note Physical Therapy Name: Claudia Kent Date of : 1945 Today's Date: 11/09/23 Pt is unable to be seen for therapy at this time secondary to session okay per RN. Upon entry to room, pt EOB working with occupational therapy . Will check back and complete therapy session as appropriate. Check No Charge Time attempted: 1126 Susan Taylor, PT [facility] [place] 11-09-2023 Note UTP CARDIOLOGY INPAT IENT PROGRESS [...] 88 QT Interval 430 QTC CALCULATION(BAZETT) 447 R-[place] -26 T Wave [place] 116 Impression Atrial fibrillation Anterior infarct , [...] 50%. Overall Conc (more content not included)... [facility] [place] 11-08-2023 Note UTP CARDIOLOGY INPAT IENT PROGRESS [...] -- -- 57 15 99 % -- 11/07/230 -- -- -- 57 13 99 % -- 11/07/232114 -- -- -- 64 15 100 % -- 11/07/23 2100 155/57 -- -- 62 16 98 % -- 11/07/232044 -- -- -- 61 16 98 [...] 88 QT Interval 430 QTC CALCULATION(BAZETT) 447 R-[place] -26 T Wave [place] 116 Impression Atrial fibrillation Anterior infarct , [...] diagram). Right Mo (more content not included)... [facility] [place] 11-08-2023 Note Subjective 77 year old male [...] 156/60 -- -- 57 15 99 % 11/07/230 -- -- -- 57 13 99 % [...] 33.0 (L) 11/08/2023 (more content not included)... [facility] [place] [facility] 11-08-2023 Note 11/08/23 1033 Admission Assessment Questions [...] Interested Does the patient have a case reviewer assigned to them through their insurance? No [...] No Do you understand the benefits of My Best Interesthart? Yes Were you able to send link and activate [employer]? MyChart already active [facility] [place] 11-08-2023 Note Attestation signed by Héctor Blancas MD at [...] [email or web address]/[email or web address] Stable for transfer out of ICU Surgical Intensive Care Unit Progress Note Chief [...] 88 QT Interval 430 QTC CALCULATION(BAZETT) 447 R-[place] -26 T Wave [place] 116 Impression Atrial fibrillation Anterior infarct , age undetermined T wave abnormality, consider lateral ischemia Abnormal ECG When compared with ECG of 12-OCT-2023 06:58, Atrial fibrillation has replaced Electronic ventricular pacemaker Confirmed by Lona JUAREZ, LONA Alexandra ([id number]) on 11/07/2023 5:0 (more content not included)... [facility] 11-08-2023 Note Interventional cardi ology update Reviewed [...] tomorrow. Discussed with Dr. Wright and Dr. Almanza from . Ladarius Weeks MD PGY-7 Interventional Grocery Checker [facility] [place] 11-08-2023 Note Physical Therapy Physical Therapy Evaluation Patient Name: Claudia Kent : 1945 Today's Date: 11/08/2023 Patient is [...] Level of Function Prior Function Level of [place]: Independent with ADLs and functional transfers, Independent [...] length though st (more content not included)... [facility] [place] 11-08-2023 Note Occupational Therapy Occupational Therapy Evaluation Patient Name: Claudia Kent : 1945 Today's Date: 11/08/2023 Time In: 823 Time Out: 842 Claudia Kent is a 77 y.o. male presenting with [...] Level of Function Prior Function Level of [place]: Independent with ADLs and functional transfers, Independent [...] Eating meals?: None (Independent) Total Score OT AMPAC: 21 Assessment/Plan OT Assessment OT Impairments: Decreased ADL status, Decreased endurance, Decreased functional mobility OT Assessment/ROGER Summary: (needs skilled OT due to weakness [...] Start Date Expected (more content not included)... [facility] [place] 11-07-2023 Note Patient: Claudia Ohara Procedure Summary Date: 11/07/23 Room / Location: [address] / [facility] Operating Room Anesthesia Start: 830 Anesthesia Stop: 1256 Procedures: TAVR Carotid CUTDOWN (Left) Diagnosis: Nonrheumatic aortic valve stenosis (s/p successful transcarotid TAVR using a 34 mm Evolut FX valve.) Surgeons: Carmelita Almanza MD Responsible Provider: Dev Rosa DO Anesthesia [...] no known notable events for this encounter. [facility] 11-07-2023 Note Patient: Claudia Ohara Procedure Information Anesthesia Start Date/Time: 11/07/23830 Procedures: TAVR Carotid intervention Location: [facility] OR [address] [place] [address] / [facility] Operating Room Surgeons: Carmelita Almanza MD Relevant Problems Cardio (+) Aortic stenosis, [...] internal jugular side port central line from . PILO.) Patient did not smoke on day of procedure. Education provided regarding risk of obstructive sleep apnea. intravenous induction Postoperative administration of opioids is intended. Trial extubation is planned. Anesthetic plan and risks discussed with patient. Use of blood products discussed with patient who consented to blood products. Plan discussed with attending. Additional Equipment Requests [facility] 11-07-2023 Note Airway Date/Time: 11/07/2023 9:22 AM Urgency: elective General Information and Staff Patient location during procedure: OR Anesthesiologist: Dev Rosa DO Resident/CHEMICAL ENGRAVER/CAA: Marybel Irizarry MD Performed: resident/CHEMICAL ENGRAVER/CAA Indications and Patient Condition Indications for airway [...] 1 Number of other approaches attempted: 0 [facility] [place] 10-12-2023 Note Patient: Claudia Ohara Procedure Information Date/Time: 10/12/23 0730 Procedures: Coronary angiography Right heart cath Coronary bypass graft study Location: [facility] MACHINE PRECISION ENGRAVER 2 BIPLANE / [facility] (Cath) Providers: Carmelita Almanza MD Clinical information reviewed: Allergies Meds Physical [...] Plan discussed with attending. Additional Equipment Requests [facility] [place] [facility] 10-05-2023 Note Subjective Patient ID: Claudia Kent is a 77 y.o. male who presents for New Patient (Aortic valve stenosis ). HPI 77-year-old male here for new patient consultation for severe aortic valve stenosis. He was referred by Dr. Almanza. Medical history is significant for persistent atrial [...] primary prevention. 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 Referred to us by Dr. Almanza. Available medical records and diagnostic imaging reviewed. Discussed disease process and treatment options for aortic valve stenosis. He is accompanied by his [id number] today. - He has multiple comorbid conditions, [...] will discuss his case with the referring city supervisor. This case will likely be discussed at [...] Interval 434 ms QTC CALCULATION(BAZETT) 411 ms R-[place] 13 degrees T Wave [place] 107 degrees POC Hb02% Collection Time: 10/12/23 8:11 AM Result Value Ref Range QGYTSE45% 69.6 (A) 90 - 95 % QC Pass/Fail Passed QC LOT # [id number] QC Expiration Date 43,025 SAMPLESITE PA No follow-ups on file. [facility] 09-20-2023 Note [place] Cardiology - [facility] Subjective Claudia Kent is a 77 y.o. year old male [...] creatinine 1.1, pot (more content not included)... [facility] 08-10-2023 Note [place] Cardiology - [facility] Subjective lCaudia Kent is a 77 y.o. year old male [...] mild (more content not included)... [facility] Evaluation note Diagnosis Onychodystrophy- Primary Other specified disease of nail Onychomycosis Dermatophytosis of nail Right foot pain Pain in soft tissues of limb Peripheral vascular disease (CMS/HCC) Unspecified peripheral vascular disease documented in this encounter [facility] HealthcareEvaluation note* Diagnosis Peripheral vascular disease (CMS/HCC)- Primary Unspecified peripheral vascular disease documented in this encounter [facility] HealthcareInstructionsNot on filedocumented in this encounterProHenry County Hospital SystemInstructionsNot on filedocumented in this encounterProMedica [facility] Summary Purpose Family History No Family History [...] and content) DATE CREATED AUTHOR 10/19/2020 Cecilia seguratal DATE CREATED AUTHOR AUTHOR'S ORGANIZ ATION 03/23/2021 [facility] DATE CREATED AUTHOR AUTHOR'S ORGANIZ ATION 05/06/2021 [facility] DATE CREATED AUTHOR AUTHOR'S ORGANIZ ATION 04/20/2022 [facility] DATE CREATED AUTHOR AUTHOR'S ORGANIZ ATION 12/18/2023 [facility] EPIC DATE CREATED AUTHOR AUTHOR'S ORGANIZ ATION 04/28/2024 [facility] Reason for Visit (unrecogniz ed section and content) Reason Comments Ingrown Toenail 77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 Pt relates trying to cut out himself, made it worse. Pt states it is painful, denies drainage or pus. Pt keeping a band-aid on the toe; there was blood on band-aid. Care Teams (unrecognized sec tion and content) Medical Record Clerk Relationship Specialty Start Date End Date Armani Stewart MD [address] [place] [id number] PCP - General Internal Medicine 11/29/23 Medical Record Clerk Relationship Specialty Start Date End Date Armani Stewart MD [facility] [place] [address] PCP - General Internal Medicine 11/29/23 FOR RECORDS PERTAINING TO PATIENTS WHO ARE [...] BE BASED ON THE PRIMARY CLINICAL RECORDS. [facility]. provides no warranty or guarantee of the accuracy or completeness of information in this document.
[2024-04-29 12:57] LABS: Hematocrit 40.3 % (42.0-54.0); Hemoglobin 13.7 g/dL (14.0-18.0); Mean Corpuscular Hemoglobin 33.8 pg (25.9-34.0); Mean Corpuscular Volume 99.5 fL (80.0-94.0); Mean Platelet Volume 10.2 fL (9.5-13.5); Platelet Count 196 10^3/uL (150-450); Red Blood Count 4.05 10^6/uL (4.70-6.10); Red Cell Distribution Width 14.1 % (11.0-15.0); White Blood Count 11.7 10^3/uL (4.0-11.0)
[2024-04-29 13:26] LABS: Alanine Aminotransferase 19 U/L (16-63); Albumin Level 3.7 g/dL (3.4-5.0); Alkaline Phosphatase 75 U/L (46-116); Anion Gap 8.3; Aspartate Amino Transferase 17 U/L (15-37); BUN Creatinine Ratio 26.4; Bilirubin Total 0.7 mg/dL (0.2-1.0); Calcium 9.8 mg/dL (8.5-10.1); Carbon Dioxide 29.8 mmol/L (21.0-32.0); Chloride 100 mmol/L (98-107); Estimated GFR (African America >60 (>=60 mL/min/1.73m^2); Estimated GFR (Non-African Ame 54 (>=60 mL/min/1.73m^2); Globulin 3.6 g/dL; Glucose 96 mg/dL (74-106); Potassium 5.1 mmol/L (3.5-5.1); Sodium 133 mmol/L (136-145); Total Protein 7.3 g/dL (6.4-8.2)
[2024-04-29 14:19] LABS: Eosinophils Absolute Manual 0.46 10^3/uL (0.00-0.70); Monocytes Absolute Manual 1.98 10^3/uL (0.30-0.80); Segmented Neut Absolute Manual 8.54 10^3/uL (1.4-6.5)
[2024-04-29 14:21] LABS: Burr Cells 1+
== END 2024-04-29 12:25 | disposition home or self-care (01) ==
LOC: LAB 12:28
PROVIDERS: PCP Internal Medicine; Visit Provider Internal Medicine Interventional Cardiology
DX: I48.19 Other persistent atrial fibrillation (principal); Z95.810 Presence of automatic (implantable) cardiac defibrillator
CPT/HCPCS: 36415; 80053; 85007; 85027

== ENCOUNTER 2024-05-31 10:03 | Outpatient (OUT) | payer MEDICARE, SELFPAY ==
--- OUTSIDE RECORDS SUMMARY | 2024-05-31 10:11 | XMS_ITS | CCD ---
Author Organization [facility] Care Team Providers Care Still Operator Name Role Phone ARMANI STEWART Primary [...] Attending Unavailable PAT, ARMANI Primary Care Unavailable PAT, ARMANI Referring Unavailable MOUKARBEL, DR MAE Admitting Unavailable MOUKARBEL, DR MAE Attending Unavailable VALONE, DR CASTRO Primary Care Unavailable MISC, DR COLEMAN Admitting Unavailable MISC, DR COLEMAN Attending Unavailable VALMYRIAM, DR CASTRO Primary Care Unavailable MISC, DR COLEMAN Consulting Unavailable Armani Stewart MD Primary Care Provider GIBRAN GONGORA Attending Unavailable GIBRAN GONGORA Referring Unavailable Unavailable Primary Care Provider Unavailabl e CARMELITA ALMANZA Admitting Unavailable MOUKARBELCARMELITA Attending Unavailable KYLE GREENFIELD Referring Unavailable LAUREN PARHAM Attending Unavailable JEAN PIERREKYLE Salguero Referring Unavailable MADRIGAL, RISHI Referring Unavailable MOUKARBEL, CARMELITA Attending Unavailable JEAN PIERREKYLE Attending Unavailable JEAN PIERREKYLE Salguero Referring Unavailable ALGHOTHANIZO Attending Unavailable JEAN PIERREKYLE Salguero Attending Unavailable MOUKARBELCARMELITA Referring Unavailable MOUKARBEL, CARMELITA Referring Unavailable MOUKARBEL, CARMELITA Attending Unavailable MOUKARBEL, CARMELITA Referring Unavailable MADRIGAL, RISHI Referring Unavailable MOUKARBEL, CARMELITA Referring Unavailable MADRIGAL, RISHI Referring Unavailable MOUKARBEL, CARMELITA Attending Unavailable MADRIGAL, RISHI Referring Unavailable MOUKARBEL, CARMELITA Attending Unavailable GIBRAN ENGLISH Attending Unavailable LAUREN PARHAM Attending Unavailable MOUKARBELCARMELITA Attending Unavailable JEAN PIERREKYLE Salguero Referring Unavailable MOUKARBEL, CARMELITA Admitting Unavailable CARMELITA ALMANZA Attending Unavailable KYLE GREENFIELD Admitting Unavailable KYLE GREENFIELD Attending Unavailable Allergies Allergy Classification Reported Allergen(s) Allergy Type Date of Onset Reaction(s) Facility (1 source) 64014,00; Translations: [76383,00] Propensity to adverse reactions (disorder) 2 [facility] Repository Medications Current Medications Medication Drug Class(es) [...] mg by mouth Active polyethylene glycol 3350 77226 mg powder for oral solution (3 sources) [...] disease (2 sources) Atherosclerotic heart disease of [place] coronary artery without angina pectoris; Translations: [Atherosclerotic heart disease of [place] coronary artery without angina pectoris] Onset: 08-10-2023 Chronic Disorders of lipid metabolism (4 sources) [...] disease; Translations: [Peripheral vascular disease, unspecified] Onset: 08-10-2023 11-29-2023 Chronic Skin and subcutaneous tissue infections (2 sources) Local infection of the skin and subcutaneous tissue, unspecified; Translations: [Local infection of the skin and subcutaneous tissue, unspecified] Onset: 04-29-2024 Episodic Substance-related disorders (1 source) Nicotine dependence, cigarettes, [...] Value Interpretation Reference Range Facility Office Visiton 05-23-2024 Follow-up visit [id number] Claudia Kent 1945 M Date Provider Department Center 05/23/2024 166-LAUREN PARHAM CARD [facility] Family History Problem Relation Age of Onset Coronary artery disease Other Heart attack Mother Heart disease Mother Family Status - Relation Status Age at Other Mother Level of Service:62116 UT OFFICE/OUTPATIENT ESTABLISHED MOD MDM 30 MIN Reason for Visit and Comments: Congestive Heart Failure [127] Normal [facility] Orders Onlyon 05-23-2024 Orders Only [id number] Claudia Kent 1945 [facility] Provider Department Center 05/23/2024 895-ERMA CORDERO CARD [facility] Family History Problem Relation Age of Onset Coronary artery disease Other Heart attack Mother Heart disease Mother Family Status - Relation Status Age at Other Mother Normal [facility] Office Visiton 04-29-2024 Follow-up visit [id number] Claudia Kent 1945 Date Provider Department Center 04/29/2024 241-KYLE GREENFIELD [facility] CARD [facility] Family History Problem Relation Age of Onset Coronary artery disease Other Heart attack Mother Heart disease Mother Family Status - Relation Status Age at Other Mother Level of Service:46097 UT OFFICE/OUTPATIENT ESTABLISHED LOW MDM 20 MIN Normal [facility] Follow-up visit [id number] Claudia Kent 1945 [facility] Provider Department Center 04/29/2024 367-CARMELITA ALMANZA CARD [facility] Family History Problem Relation Age of Onset Coronary artery disease Other Heart attack Mother Heart disease Mother Family Status - Relation Status Age at Other Mother Level of Service:37694 UT OFFICE/OUTPATIENT ESTABLISHED MOD MDM 30 MIN Normal [facility] Office Visiton 01-08-2024 Follow-up visit [id number] Claudia Kent 1945 M Date Provider Department Center 01/08/2024 [place]-CARMELITA ALMANZA CARD [facility] Family History Problem Relation Age of Onset Coronary artery disease Other Heart attack Mother Heart disease Mother Family Status - Relation Status Age at Other Mother Level of Service:76510 UT OFFICE/OUTPATIENT ESTABLISHED LOW MDM 20 MIN Normal [facility] Office Visiton 12-28-2023 Follow-up visit [id number] Claudia Kent 1945 M Date Provider Department Center 12/28/2023 3848-ZO NAVARRO [facility] Family History Problem Relation Age of Onset Coronary artery disease Other Heart attack Mother Heart disease Mother Family Status - Relation Status Age at Other Mother Level of Service:65830 UT OFFICE/OUTPATIENT ESTABLISHED LOW MDM 20 MIN Normal [facility] HPon 12-20-2023 [facility] Electrophysiology Consult Note ID Cardiology - [facility] Reason for visit: Device at TIARRA [...] Year: No Utilities: Not At Risk (11/07/2023) [facility] Utilities Threatened with loss of utilities: [...] (int (more content not included)... [facility] NURSNOTEon 12-20-2023 NURSNOTE RN educated pt on [...] unit with all of belongings. [facility] NURSNOTE CHG wipes and betadi ne nasal swabs completed. [facility] Orders Onlyon 12-20-2023 Orders Only [id number] Claudia Kent 1945 M Date Provider Department Center 12/20/2023 CRESCENCIO ANTHONY [facility] VASC LAB ID [facility] Family History Problem Relation Age of Onset Coronary artery disease Other Heart attack Mother Heart disease Mother Family Status - Relation Status Age at Other Mother [facility] Telephoneon 12-18-2023 Telephone [id number] Claudia Kent 1945 M Date Provider Department Center 12/18/2023 LATESHA VELAZCO [facility] VASC LAB [facility] Family History Problem Relation Age of Onset Coronary artery disease Other Heart attack Mother Heart disease Mother Family Status - Relation Status Age at Other Mother Reason for Visit and Comments: 1 mo KCCQ [Other] Normal [facility] Follow-Upon 12-07-2023 Follow-Up [id number] Claudia Kent 1945 M Date Provider Department Center 12/07/2023 CARMELITA MCLEOD C CARD [facility] Family History Problem Relation Age of Onset Coronary artery disease Other Heart attack Mother Heart disease Mother Family Status - Relation Status Age at Other Mother Level of Service:49056 UT OFFICE/OUTPATIENT ESTABLISHED LOW MDM 20 MIN Reason for Visit and Comments: Follow-up [675233] Post-op TAVR [730] Normal [facility] Office Visiton 12-05-2023 Follow-up visit [id number] Claudia Kent 1945 M Date Provider Department Center 12/05/2023 Negra-KYLE GREENFIELD CARD [facility] Family History Problem Relation Age of Onset Coronary artery disease Other Heart attack Mother Heart disease Mother Family Status - Relation Status Age at Other Mother Level of Service:40515 UT OFFICE/OUTPATIENT NEW MODERATE MDM 45 MINUTES Normal [facility] VASC US PVR/SEGMENTAL PRESSU RES LOWERon 11-29-2023 VASC US PVR/SEGMENTAL PRESSURES LOWER EXAM: [employer] [...] report is generated using voice recognition reporting ([employer]). On occasion [employer] erroneously drops words from the report or [...] Thank you. Orders Onlyon 11-15-2023 Orders Only [id number] Claudia Kent 1945 [facility] Provider Department Center 11/15/2023 [id number], HISTORICAL DCC ONC DCC Family History Problem Relation Age of Onset Coronary artery disease Other Heart attack Mother Heart disease Mother Family Status - Relation Status Age at Other Mother Normal [facility] Follow-Upon 11-14-2023 Follow-Up [id number] Claudia Kent 1945 M Date Provider Department Center 11/14/2023 166-LAUREN PARHAM CARD [facility] Family History Problem Relation Age of Onset Coronary artery disease Other Heart attack Mother Heart disease Mother Family Status - Relation Status Age at Other Mother Level of Service:59054 UT OFFICE/OUTPATIENT ESTABLISHED MOD MDM 30 MIN Reason for Visit and Comments: Post-op TAVR [730] Coronary Artery Disease [187] Normal [facility] 36on 11-11-2023 36 Post Discharge Call Good morning, I am Siddharth Sarmiento, RN a lead nurse from [facility]. I am calling you to follow up [...] No. Had a question about lab work, keno writer / runner reached out to [facility] [employer]IRON[employer] HE[employer] TECHNOLOGIST and she will correct lab work. Tania will also call patient this afternoon. Patient Name Claudia Kent Date 11/11/23 [facility] Telephoneon 11-11-2023 Telephone [id number] Claudia Kent 1945 M Date Provider Department Center 11/11/2023 Todd2-SIDDHARTH SARMIENTO [facility] C Family History Problem Relation Age of Onset Coronary artery disease Other Heart attack Mother Heart disease Mother Family Status - Relation Status Age at Other Mother Reason for Visit and Comments: Hospital Follow-up [832] [facility] DSon 11-10-2023 DS Admission Admitted 11/07/2023 for [...] 25, --H (more content not included)... Normal [facility] 30on 11-09-2023 30 The patient is Moderately [...] and maintained or improved Outcome: Progressing Normal [facility] 30 Daily Case Managemen t Update Multidisciplinary [...] Answer: eval and treat 11/08/23 0751 Normal [facility] CBCon 11-09-2023 Erythrocyte distribution width (RBC) [Ratio] 14.2 % Normal 11.5-15.0 [facility] Comment on above: Performed By: #### L [id number] #### [facility] ([employer]) [address] [place] [address] ERYTHROCYTE MEAN CORPUSCULAR HEMOGLOBIN CONCENTRATION (G/DL) BY AUTOMATED 33.3 g/dL Normal 32.0-35.0 [facility] Comment on above: Performed By: #### L [id number] #### [facility] ([employer]) [address] [place] [address] Hematocrit (Bld) [Volume fraction] 30.6 % Low 39.0-55.0 [facility] Comment on above: Performed By: #### L [id number] #### [facility] ([employer]) [address] [place] [address] Hemoglobin (Bld) [Mass/Vol] 10.2 g/dL Low 13.0-17.0 [facility] Comment on above: Performed By: #### L [id number] #### [facility] ([facility]) [address] [address] IMMATURE PLATELET FRACTION % 5.1 % Normal 0.8-6.3 [facility] Comment on above: Performed By: #### L [id number] #### [facility] ([facility]) [address] [place] [address] MCH (RBC) [Entitic mass] 34.6 pg High 27.0-33.0 [facility] Comment on above: Performed By: #### L [id number] #### [facility] ([facility]) [address] [place] [address] MCV (RBC) [Entitic vol] 103.7 fL High 82.0-98.0 [facility] Comment on above: Performed By: #### L [id number] #### [facility] ([facility]) [address] [place] [address] PLATELETS (10*3/UL) IN BLOOD AUTOMATED COUNT 129 10*3/uL Low 150-400 [facility] Comment on above: Performed By: #### L [id number] #### [facility] ([facility]) [address] [place] [address] RBC (Bld) [#/Vol] 2.95 10*6/uL Low 4.20-5.70 [facility] Comment on above: Performed By: #### L [id number] #### [facility] ([facility]) [address] [place] [address] WBC (Bld) [#/Vol] 12.00 10*3/uL High 4.00-10.60 [facility] Comment on above: Performed By: #### L [id number] #### [facility] ([facility] [address] [place] [address] COMPREHENSIVE METABOLIC PANE Gabriel 11-09-2023 Albumin [Mass/Vol] 3.2 g/dL Low 3.5-5.7 [facility] Comment on above: Performed By: #### L [id number] #### [facility] ([facility]) [address] [place] [address] ALP [Catalytic activity/Vol] 37 U/L Normal 34-104 [facility] Comment on above: Performed By: #### L [id number] #### [facility] ([facility]) [address] [place] [address] ALT [Catalytic activity/Vol] 3 U/L Low 7-52 [facility] Comment on above: Performed By: #### L [id number] #### [facility] ([facility]) [address] [place] [address] Anion gap [Moles/Vol] 9 mmol/L Normal 7-20 [facility] Comment on above: Performed By: #### L [id number] #### [facility] ([facility]) [address] [place] [address] AST [Catalytic activity/Vol] 11 U/L Low 13-39 [facility] Comment on above: Performed By: #### L [id number] #### [facility] ([facility]) [address] [place] [address] Bilirubin [Mass/Vol] 0.7 mg/dL Normal 0.3-1.0 [facility] Comment on above: Performed By: #### L [id number] #### [facility] ([facility]) [address] [place] [address] Calcium [Mass/Vol] 8.9 mg/dL Normal 8.6-10.3 [facility] Comment on above: Performed By: #### L [id number] #### [facility] ([facility]) [address] [place] [address] Chloride [Moles/Vol] 105 mmol/L Normal 98-107 [facility] Comment on above: Performed By: #### L [id number] #### [facility] ([facility]) [address] [place] [address] CO2 [Moles/Vol] 25 mmol/L Normal 21-31 [facility] Comment on above: Performed By: #### L [id number] #### [facility] ([facility]) [address] [place] [address] Creatinine [Mass/Vol] 0.86 mg/dL Normal 0.70-1.30 [facility] Comment on above: Performed By: #### L [id number] #### [facility] ([facility]) [address] [place] [address] GLOMERULAR FILTRATION RATE ML/MIN/1.73 SQ M.PREDICTED 88.6 mL/min/1.73m*2 Normal >60.0 [facility] Comment on above: Result Comment: [facility]???s estimated glomerular filtration rate (eGFR) will no [...] individuals. Performed By: #### L [id number] #### [facility] ([facility]) [address] [place] [address] Glucose [Mass/Vol] 91 mg/dL Normal 70-100 [facility] Comment on above: Performed By: #### L [id number] #### [facility] ([facility]) [address] [place] [address] Potassium [Moles/Vol] 4.4 mmol/L Normal 3.5-5.1 [facility] Comment on above: Performed By: #### L [id number] #### [facility] ([facility]) [address] [place] [address] Protein [Mass/Vol] 5.4 g/dL Low 6.0-8.3 [facility] Comment on above: Performed By: #### L [id number] #### [facility] (BEAKER) [address] [place] [address] Sodium [Moles/Vol] 135 mmol/L Low 136-145 [facility] Comment on above: Performed By: #### L [id number] #### [facility] (BEAKER) [address] [place] [address] Urea nitrogen [Mass/Vol] 26 mg/dL High - [facility] Comment on above: Performed By: #### L [id number] #### [facility] ([facility]) [address] [place] [address] UREA NITROGEN/CREATININ E (MASS RATIO) IN SER/PLAS 30.2 Normal [facility] Comment on above: Performed By: #### L [id number] #### [facility] ([facility]) [address] [place] [address] MAGNESIUMon 11-09-2023 Magnesium [Mass/Vol] 2.0 mg/dL Normal 1.9-2.7 [facility] Comment on above: Performed By: #### L [id number] #### [facility] ([facility]) [address] [place] [address] NURSNOTEon 11-09-2023 NURSNOTE Patient Name: Torin Kent [...] voiced no concerns at this time. The keno writer / runner urged the primary RN to call the rapid team if any concerns arise overnight. Wan Serrano, RN Rapid Response Team Nurse [phone] 11/09/2023 11:00 PM Normal [facility] NURSNOTE Patient Name: Torin Kent : 1945 [...] Maximilian Lam RN Rapid Response Team Nurse [phone] 11/09/2023 11:42 AM Normal [facility] NURSNOTE Patient Name: Torin Kent : 1945 [...] Lying Lying Pulse: 67 [phone] 69 Resp: Temp: 37 ???C (98.6 ???F) 36.9 ???C [...] voiced no concerns at this time. The keno writer / runner urged the primary RN to call the rapid team if any concerns arise overnight. Wan Serrano RN Rapid Response Team Nurse [phone] 11/09/2023 12:19 AM Normal [facility] 30on 11-08-2023 30 Problem: Pain - Adul [...] and maintained or improved Outcome: Progressing Normal [facility] 30 Daily Case Managemen t Update Multidisciplinary [...] Answer: eval and treat 11/08/23 0751 Normal [facility] BASIC METABOLIC PANELon 10-15 Anion gap [Moles/Vol] 8 mmol/L Normal 7-20 [facility] Comment on above: Performed By: #### L [id number] #### [facility] (BEAKER) [address] [place] [address] Calcium [Mass/Vol] 8.6 mg/dL Normal 8.6-10.3 [facility] Comment on above: Performed By: #### L [id number] #### [facility] (BEAKER) [address] [place] [address] Chloride [Moles/Vol] 106 mmol/L Normal 98-107 [facility] Comment on above: Performed By: #### L [id number] #### [facility] ([facility]) [address] [place] [address] CO2 [Moles/Vol] 24 mmol/L Normal 21-31 [facility] Comment on above: Performed By: #### L [id number] #### [facility] ([facility]) [address] [place] [address] Creatinine [Mass/Vol] 1.08 mg/dL Normal 0.70-1.30 [facility] Comment on above: Performed By: #### L [id number] #### [facility] ([facility]) [address] [place] [address] GLOMERULAR FILTRATION RATE ML/MIN/1.73 SQ M.PREDICTED 70.2 mL/min/1.73m*2 Normal >60.0 [facility] Comment on above: Result Comment: [facility]???s estimated glomerular filtration rate (eGFR) will no [...] individuals. Performed By: #### L [id number] #### [facility] ([facility]) [address] [place] [address] Glucose [Mass/Vol] 138 mg/dL High 70-100 [facility] Comment on above: Performed By: #### L [id number] #### [facility] ([facility]) [address] [place] [address] Potassium [Moles/Vol] 4.8 mmol/L Normal 3.5-5.1 [facility] Comment on above: Performed By: #### L [id number] #### [facility] (BEAKER) [address] [place] [address] Sodium [Moles/Vol] 133 mmol/L Low 136-145 [facility] Comment on above: Performed By: #### L [id number] #### [facility] (BEAKER) [address] [place] [address] Urea nitrogen [Mass/Vol] 28 mg/dL High 7-25 [facility] Comment on above: Performed By: #### L [id number] #### [facility] ([facility] [address] [place] [address] UREA NITROGEN/CREATININ E (MASS RATIO) IN SER/PLAS 25.9 Normal [facility] Comment on above: Performed By: #### L [id number] #### [facility] ([facility]) [address] [place] [address] CBCon 11-08-2023 Erythrocyte distribution width (RBC) [Ratio] 14.0 % Normal 11.5-15.0 [facility] Comment on above: Performed By: #### L [id number] #### [facility] ([facility] [address] [place] [address] ERYTHROCYTE MEAN CORPUSCULAR HEMOGLOBIN CONCENTRATION (G/DL) BY AUTOMATED 32.7 g/dL Normal 32.0-35.0 [facility] Comment on above: Performed By: #### L [id number] #### [facility] ([facility] [address] [place] [address] Hematocrit (Bld) [Volume fraction] 33.0 % Low 39.0-55.0 [facility] Comment on above: Performed By: #### L [id number] #### [facility] (BEAKER) [address] [place] [address] Hemoglobin (Bld) [Mass/Vol] 10.8 g/dL Low 13.0-17.0 [facility] Comment on above: Performed By: #### L [id number] #### [facility] (BEAKER) [address] [place] [address] MCH (RBC) [Entitic mass] 33.4 pg High 27.0-33.0 [facility] Comment on above: Performed By: #### L [id number] #### [facility] ([facility]) [address] [place] [address] MCV (RBC) [Entitic vol] 102.2 fL High 82.0-98.0 [facility] Comment on above: Performed By: #### L [id number] #### [facility] ([facility]) [address] [place] [address] PLATELETS (10*3/UL) IN BLOOD AUTOMATED COUNT 149 10*3/uL Low 150-400 [facility] Center Comment on above: Performed By: #### L [id number] #### [facility] ([facility]) [address] [place] [address] RBC (Bld) [#/Vol] 3.23 10*6/uL Low 4.20-5.70 [facility] Comment on above: Performed By: #### L [id number] #### [facility] ([facility]) [address] [place] [address] WBC (Bld) [#/Vol] 16.06 10*3/uL High 4.00-10.60 [facility] Comment on above: Performed By: #### L [id number] #### [facility] ([facility]) [address] [place] [address] 30on 11-07-2023 30 Problem: Pain - Adul [...] and behaviors that affect risk of falls [place] fall precautions as indicated by assessment Educate [...] to address these barriers include . Normal [facility] 30 Problem: Pain - Adul t Goal: [...] and maintained or improved Outcome: Progressing Normal [facility] BASIC METABOLIC PANELon 09-2 Anion gap [Moles/Vol] 11 mmol/L Normal -20 [facility] Comment on above: Performed By: #### L [id number] #### [facility] (BEAKER) [address] [place] [address] Calcium [Mass/Vol] 8.9 mg/dL Normal 8.6-10.3 [facility] Comment on above: Performed By: #### L [id number] #### [facility] ([facility]) [address] [place] [address] Chloride [Moles/Vol] 106 mmol/L Normal 98-107 [facility] Comment on above: Performed By: #### L [id number] #### [facility] ([facility]) [address] [place] [address] CO2 [Moles/Vol] 24 mmol/L Normal 21-31 [facility] Comment on above: Performed By: #### L [id number] #### [facility] ([facility]) [address] [place] [address] Creatinine [Mass/Vol] 1.03 mg/dL Normal 0.70-1.30 [facility] Comment on above: Performed By: #### L [id number] #### [facility] ([facility]) [address] [place] [address] GLOMERULAR FILTRATION RATE ML/MIN/1.73 SQ M.PREDICTED 74.4 mL/min/1.73m*2 Normal >60.0 [facility] Comment on above: Result Comment: [facility]???s estimated glomerular filtration rate (eGFR) will no [...] individuals. Performed By: #### L [id number] #### [facility] ([facility]) [address] [place] [address] Glucose [Mass/Vol] 111 mg/dL High 70-100 [facility] Comment on above: Performed By: #### L [id number] #### [facility] ([facility]) [address] [place] [address] Potassium [Moles/Vol] 4.7 mmol/L Normal 3.5-5.1 [facility] Comment on above: Performed By: #### L [id number] #### [facility] ([facility]) [address] [place] [address] Sodium [Moles/Vol] 136 mmol/L Normal 136-145 [facility] Comment on above: Performed By: #### L [id number] #### [facility] ([facility]) [address] [place] [address] Urea nitrogen [Mass/Vol] 26 mg/dL High 7-25 [facility] Comment on above: Performed By: #### L [id number] #### [facility] ([facility]) [address] [place] [address] UREA NITROGEN/CREATININ E (MASS RATIO) IN SER/PLAS 25.2 Normal [facility] Comment on above: Performed By: #### L [id number] #### [facility] ([facility]) [address] [address] CBCon 11-07-2023 Erythrocyte distribution width (RBC) [Ratio] 14.1 % Normal 11.5-15.0 [facility] Comment on above: Performed By: #### L [id number] ####[facility] ([facility])[address] [place] [address] ERYTHROCYTE MEAN CORPUSCULAR HEMOGLOBIN CONCENTRATION (G/DL) BY AUTOMATED 32.5 g/dL Normal 32.0-35.0 [facility] Comment on above: Performed By: #### L [id number] ####[facility] ([facility])[address] [place] [address] Hematocrit (Bld) [Volume fraction] 39.7 % Normal 39.0-55.0 [facility] Comment on above: Performed By: #### L [id number] ####[facility] [place] [address] Hemoglobin (Bld) [Mass/Vol] 12.9 g/dL Low 13.0-17.0 [facility] Comment on above: Performed By: #### L [id number] ####[facility] ([facility])[address] [place] [address] MCH (RBC) [Entitic mass] 33.8 pg High 27.0-33.0 [facility] Comment on above: Performed By: #### L [id number] ####[facility] ([facility])[place] [address] MCV (RBC) [Entitic vol] 103.9 fL High 82.0-98.0 [facility] Comment on above: Performed By: #### L [id number] ####[facility] ([facility])[address] [place] [address] PLATELETS (10*3/UL) IN BLOOD AUTOMATED COUNT 156 10*3/uL Normal 150-400 [facility] Comment on above: Performed By: #### L [id number] ####[facility] ([facility])[address] [place] [address] RBC (Bld) [#/Vol] 3.82 10*6/uL Low 4.20-5.70 [facility] Comment on above: Performed By: #### L [id number] ####[facility] ([facility])[address] [place] [address] WBC (Bld) [#/Vol] 15.10 10*3/uL High 4.00-10.60 [facility] Comment on above: Performed By: #### L [id number] ####[facility] ([facility])[address] [place] [address] CONSULTon 11-07-2023 CONSULT -- Attestation signed by [...] drugs. Family History: pulled available information in [facility] from previous visits Family History Problem [...] 13.6 oz)] 71 (more content not included)... [facility] HPon 11-07-2023 History Of Present Illness Claudia [...] aortic (valve) stenosis, PAD (peripheral artery disease) ([facility]), Peripheral arterial occlusive disease ([facility]), and PVC (premature ventricular contraction). He has no past medical history of Chronic bronchitis ([facility]). Surgical History He has a past surgical [...] Judgment: Judgm (more content not included)... Normal [facility] MAGNESIUMon 11-07-2023 Magnesium [Mass/Vol] 2.1 mg/dL Normal 1.9-2.7 [facility] Comment on above: Performed By: #### L [id number] #### [facility] ([facility]) [address] [place] [address] MRSA/MSSA DNA NASALon 2023 MRSA DNA Negative Normal Negative [facility] Comment on above: Order Comment: Testi ng [...] preclude nasal colonization. Performed By: #### L [id number] ####[facility] (BEAKER)[address] [place] [address] MSSA DNA Negative Normal Negative [facility] Comment on above: Order Comment: Testi ng [...] preclude nasal colonization. Performed By: #### L [id number] ####[facility] (BEAKER)[address] [place] [address] NURSNOTEon 11-07-2023 NURSNOTE 2ml removed from TR band Normal [facility] NURSNOTE 2ml removed from TR Band to R wrist Normal [facility] NURSNOTE 2ml removed from R wrist TR band Normal [facility] NURSNOTE 2ml air removed from TR band Normal [facility] OPNOTEon 11-07-2023 OPNOTE TAVR, Carotid CUTDOW N (L) Operative Note Date: 11/07/2023 Location: [facility] OR Name: Claudia Kent, : 1945, Diagnosis Pre-op Diagnosis * Nonrheumatic aortic valve stenosis [I35.0] Post-op Diagnosis * Nonrheumatic aortic valve stenosis [I35.0] Procedures TAVR 01146 - UT OFFICE/OUTPT VISIT,PROCEDURE ONLY Carotid CUTDOWN 19776 - UT OFFICE/OUTPT VISIT,PROCEDURE ONLY Successful transcatheter aortic valve [...] Evolut FX Transcatheter Aortic Valve 34mm - [id number] - [id number] Implanted [id number] Staff: Egg Worker: Canelo Robbins RN Relief Egg Worker: Yadiel Sherman RN Relief Scrub: Jenni Ortiz Scrub Person: Huma Hong CST Orientee Egg Worker: Justyn Parada RN Secondary Scrub: Óscar Crowley [...] bowel ischemia, liver failure, stroke, respiratory failure, NV, need for mechanical support such as balloon [...] the right internal jugular vein and a 7-Filipino x 11 cm introducer sheath was secured in place. A 5-Filipino balloon-tipped pacemaker wire was advanced through the internal jugular vein sheath to the right ventricular apex and adequate capture was confirmed. The right wrist area was prepped and draped in usual fashion. Access was obtained using ultrasound guidance and micropuncture technique in the right radial artery and a 7-Filipino x 11 cm Hydrophilic sheath was placed. [...] The access was upsized to a 8 Filipino by 11 cm sheath. Through the right radial sheath, an angled 5-Filipino pigtail catheter was then advanced to the ascending aorta and into the noncoronary cusp. Aortic root angiography was performed in the cusp overlap view as determined by prior CT scan measurements. A pigtai (more content not included)... Normal [facility] PHOSPHORUSon 11-07-2023 Magnesium [Mass/Vol] 2.8 mg/dL Normal 2.5-5.0 [facility] Comment on above: Performed By: #### L [id number] #### [facility] ([facility]) [address] [place] [address] POCT GLUCOSE METER UNSOLICIT ED RESULTSon 11-07-2023 Glucose [Mass/Vol] 98 mg/dL Normal 70-105 [facility] Comment on above: Order Comment: Waive d Testing in the ED is performed under the ED CLIA certificate #[id number]. Result Comment: jhag eman Performed By: #### L [id number] #### [facility] ([facility]ER) [address] [place] [address] TYPE AND SCREENon 11-07-2023 AB SCREEN Negative Normal [facility] Comment on above: Performed By: #### L [id number] #### [facility] , ABO group Nom (Bld) AB Normal [facility] Comment on above: Performed By: #### L [id number] #### [facility] , RH TYPE IN BLOOD Positive Normal [facility] Comment on above: Performed By: #### L [id number] #### [facility] , Orders Onlyon 11-01-2023 Orders Only [id number] Claudia Kent 1945 M Date Provider Department Center 11/01/2023 RISHI CALDWELL [facility] CARD ID HeartVAS Family History Problem Relation Age of Onset Coronary artery disease Other Heart attack Mother Heart disease Mother Family Status - Relation Status Age at Other Mother Normal [facility] Orders Onlyon 10-31-2023 Orders Only [id number] Claudia Kent 1945 M Date Provider Department Center 10/31/2023 RISHI CALDWELL [facility] CARD ID HeartVAS Family History Problem Relation Age of Onset Coronary artery disease Other Heart attack Mother Heart disease Mother Family Status - Relation Status Age at Other Mother Normal [facility] Abstracton 10-23-2023 Abstract [id number] Claudia Kent 1945 M Date Provider Department Center 10/23/2023 CARMELITA MCLEOD [facility] CARD Webber Count Family History Problem Relation Age of Onset Coronary artery disease Other Heart attack Mother Heart disease Mother Family Status - Relation Status Age at Other Mother Normal [facility] Orders Onlyon 10-18-2023 Orders Only [id number] Claudia Kent 1945 [employer] [facility] Provider Department Center 10/18/2023 Lucy-RISHI MADRIGAL [facility] CARD ID HeartVAS Family History Problem Relation Age of Onset Coronary artery disease Other Heart attack Mother Heart disease Mother Family Status - Relation Status Age at Other Mother [facility] HPon 10-12-2023 HP H&P reviewed. The patient was examined and there are no changes to the H&P. Discussed risks, benefits, and alternative therapies with the patient, he understands and willing to proceed with RHC/coronary angiogram and possible PCI. Ladarius Weeks MD PGY-7 Interventional Lab Technologist [facility] NURSNOTEon 10-12-2023 NURSNOTE RN educated pt on d/ c instructions. RN encouraged pt to voice any questions or concerns. Pt verbalizes no questions or concerns at this time. Pt was wheeled off of unit with all of belongings. [facility] NURSNOTFredrick Weeks at [facility] to assess pt groin sites. Per groin sites looks great and okay for pt to discharge at 1500. [facility] Abstracton 10-09-2023 Abstract [id number] Claudia Kent 1945 [facility] Provider Department Center 10/09/2023 CARMELITA MCLEOD [facility] CARD [facility] Family History Problem Relation Age of Onset Coronary artery disease Other Heart attack Mother Heart disease Mother Family Status - Relation Status Age at Other Mother [facility] Consulton 10-05-2023 Consult [id number] Claudia Kent 1945 [employer] Provider Department Center 10/05/2023 GIBRAN CARRION HVCTS ID HeartVAS Family History Problem Relation Age of Onset Coronary artery disease Other Heart attack Mother Heart disease Mother Family Status - Relation Status Age at Other Mother Level of Service:06481 UT OFFICE/OP CONSLTJ NEW/EST PT HIGH MDM 55 MINUTES Reason for Visit and Comments: New Patient [632] - Aortic valve stenosis Normal [facility] CTA ABDOMEN PELVIS W IV CONT Carmen [...] Ballard MD. Not Vldtd Invalid Interpretation Code [facility] CTA CHEST W IV CONTRASTon CTA CHEST [...] 3. Cusped view, anterior view, and no ASSEMBLY REPAIRER-CAU view are obtained in 3-D volume rendered [...] Margot Ballard MD. 9 Invalid Interpretation Code [facility] 09-20-2023 [facility] Cardiology [facility] Subjective Claudia Kent is a [...] 1.1, pot (more content not included)... Normal [facility] Office Visiton 09-20-2023 Follow-up visit [id number] Claudia Kent 1945 M Date Provider Department Center 09/20/2023 CARMELITA MCLEOD [facility] Family History Problem Relation Age of Onset Coronary artery disease Other Heart attack Mother Heart disease Mother Family Status - Relation Status Age at Other Mother Level of Service:88957 UT OFFICE/OUTPATIENT ESTABLISHED HIGH MDM 40 MIN Normal [facility] Orders Onlyon 09-20-2023 Orders Only [id number] Claudia Kent 1945 M Date Provider Department Center 09/20/2023 RISHI CALDWELL [facility] CARD ID HeartVAS Family History Problem Relation Age of Onset Coronary artery disease Other Family Status - Relation Status Age at Other [facility] 29on 09-06-2023 29 Addended by: PUHCVON on: 09/06/2023 05:00 PM Modules accepted: Orders [facility] 36on 09-06-2023 36 Spoke with patient a nd scheduled him to see Dr. Almanza on 09/19. Also informed him to start Eliquis 5mg bid and stop aspirin. He verbalized understanding. Rx sent to pharmacy. [facility] 36on 09-05-2023 36 He had his dobutamin e stress echo today at [facility]. He was found to have atrial fibrillation at baseline. Also, the aortic valve stenosis is severe. We need to start him on eliquis 5 mg bid. Diagnosis is persistent atrial fibrillation. Please have him stop aspirin after starting eliquis. I need to see him soon to discuss the results of the test and next step. [facility] Telephoneon 09-05-2023 Telephone [id number] Claudia Kent 1945 M Date Provider Department Center 09/05/2023 CARMELITA MCLEOD [facility] Family History Problem Relation Age of Onset Coronary artery disease Other Family Status - Relation Status Age at Other [facility] Office Visiton 08-10-2023 Follow-up visit [id number] Claudia Kent 1945 M Date Provider Department Center 08/10/2023 CARMELITA MCLEOD Family History Problem Relation Age of Onset Coronary artery disease Other Family Status - Relation Status Age at Other Level of Service:76970 UT OFFICE/OUTPATIENT ESTABLISHED MOD MDM 30 MIN [facility] ECHOCARDIO M/2D COMPLETEon 0 04-14-2022 ECHOCARDIO M/2D COMPLETE Patient: CLAUDIA KENT Exam Date: 04/14/2022 : 1945 Gender:M Ordering : DR CARMELITA ALMANZA M.D. Admission #: [id number] Family : DR ARMANI Beavers.Noemy. Order #: [id number] CLICK HERE TO VIEW EXAM ECHOCARDIOGRAM REPORT [...] Almanza M.D. on 04/14/2022 at 10:18 Normal [facility] LIPID PROFILEon 04-14-2022 CHOL-HDL RATIO NORM SEE BELOW Normal [facility] Comment on above: Result Comment: 3.3 - 4.4 LOW RISK 4.4 - 7.1 AVERAGE RISK 7.1 - 11.0 MODERATE RISK >11.0 HIGH RISK Performed By: #### L IPID #### [facility] [address] [address] [address] Jackie Christopher Cholesterol [Mass/Vol] 157 mg/dL Normal <=200 [facility] Comment on above: Performed By: #### L IPID #### [facility] [address] [address] [address] Jackie Christopher Cholesterol in HDL [Mass/Vol] 53 mg/dL Normal 40-60 [facility] Comment on above: Performed By: #### L IPID #### [facility] [address] [address] [address] Jackie Christopher Cholesterol in LDL [Mass/Vol] 90.6 mg/dL Normal [facility] Comment on above: Performed By: #### L IPID #### [facility] [address] [address] [address] Jackie Christopher Cholesterol.total/ Cholesterol in HDL [Mass ratio] 3.0 {ratio} Normal [facility] Comment on above: Performed By: #### L IPID #### [facility] [address] [address] [address] Jackie Christopher HDL NORMAL > or = 60 mg/dl - LO W CARDIOVASCULAR RISK <40 mg/dl - HIGH CARDIOVASCULAR RISK Normal [facility] Comment on above: Performed By: #### L IPID #### [facility] [address] [address] [address] Jackie Christopher LDL CALC NORMAL SEE BELOW Normal [facility] Comment on above: Result Comment: <100 mg/dl OPTIMAL 100 - 129 mg/dl NEAR OR ABOVE OPTIMAL 130 - 159 mg/dl BORDERLINE HIGH 160 - 189 mg/dl HIGH >190 mg/dl VERY HIGH Performed By: #### L IPID #### [facility] [address] [address] [address] Jackie Christopher Triglyceride [Mass/Vol] 67 mg/dL Normal <=150 [facility] Comment on above: Performed By: #### L IPID #### [facility] [address] [address] [address] Jackie Christopher VLDL CALC 13.4 mg/dL Normal [facility] Comment on above: Performed By: #### L IPID #### [facility] [address] [place], [place] [address] Dr. Jackie Christopher CBC with Diffon 10-18-2020 Abs. Basophil 0.00 k/uL Normal 0.0-0.[address] [facility] Comment on above: Performed By: #### C MPX, TROPI, CDP #### [facility] [address] [place] [address] Welding Process Engineer: Clinton Steven MD Abs.Neutrophil (Seg) 6.50 k/uL Normal 2.1-6.5 [facility] Comment on above: Performed By: #### C MPX, TROPI, CDP #### [facility] [address] [place] [address] Welding Process Engineer: Clinton Steven MD Auto Diff Performed YES Normal [facility] Comment on above: Performed By: #### C MPX, TROPI, CDP #### [facility] [address] [place] [address] Welding Process Engineer: Clinton Steven MD Basophils/100 WBC (Bld) 0 % Normal 0-2 [facility] Comment on above: Performed By: #### C MPX, TROPI, CDP #### [facility] [address] [place] [address] Welding Process Engineer: Clinton Steven MD Eosinophils (Bld) [#/Vol] 0.60 10*3/uL High 0.0-0.4 [facility] Comment on above: Performed By: #### C MPX, TROPI, CDP #### [facility] [address] [place] [address] Welding Process Engineer: Clinton Steven MD Eosinophils/100 WBC (Bld) 7 % High 0-5 [facility] Comment on above: Performed By: #### C MPX, TROPI, CDP #### [facility] [address] [place] [address] Welding Process Engineer: Clinton Steven MD Erythrocyte distribution width (RBC) [Ratio] 15.7 % High 12.1-15.2 [facility] Comment on above: Performed By: #### C GIOVANI AGUILARI, CDP #### [facility] [address] [place] [address] Welding Process Engineer: Clinton Steven MD Hematocrit (Bld) [Volume fraction] 37.2 % Low 41-53 [facility] Comment on above: Performed By: #### C MPGIOVANI GossI, CDP #### [facility] [address] [place] [address] Welding Process Engineer: Clinton Steven MD Hemoglobin (Bld) [Mass/Vol] 12.6 g/dL Low 13.5-17.5 [facility] Comment on above: Performed By: #### C GIOVANI AGUILARI, CDP #### [facility] [address] [place] [address] Welding Process Engineer: Clinton Steven MD Lymphocytes (Bld) [#/Vol] 0.70 10*3/uL Low 1.0-4.8 [facility] Comment on above: Performed By: #### C GIOVANI AGUILARI, CDP #### [facility] [address] [place] [address] Welding Process Engineer: Clinton Steven MD Lymphocytes/100 WBC (Bld) 8 % Low 13-44 [facility] Comment on above: Performed By: #### C MPGIOVANI GossI, CDP #### [facility] [address] [place] [address] Welding Process Engineer: Clinton Steven MD MCH (RBC) [Entitic mass] 33.5 pg Normal 26-34 [facility] Comment on above: Performed By: #### C JEFF TROPI, CDP #### [facility] [address] [place] [address] Welding Process Engineer: Clinton Steven MD MCHC (RBC) [Mass/Vol] 33.8 g/dL Normal 31-37 [facility] Comment on above: Performed By: #### C MPGIOVANI GossI, CDP #### [facility] [address] [place] [address] Welding Process Engineer: Clinton Steven MD MCV (RBC) [Entitic vol] 98.9 fL Normal 80-100 [facility] Comment on above: Performed By: #### C MPAna Paula, TROPI, CDP #### [facility] [address] [place] [address] Welding Process Engineer: Clinton Steven MD Monocytes (Bld) [#/Vol] 1.30 10*3/uL High 0.0-1.0 [facility] Comment on above: Performed By: #### C MPAna Paula TROPI, CDP #### [facility] [address] [place] [address] Welding Process Engineer: Clinton Steven MD Monocytes/100 WBC (Bld) 14 % High 5-9 [facility] Comment on above: Performed By: #### C MPAna Paula, TROPI, CDP #### [facility] [address] [place] [address] Welding Process Engineer: Clinton Steven MD Neutrophil (Seg) 71 % Normal 39-75 [facility] Comment on above: Performed By: #### C MPX, TROPI, CDP #### [facility] [address] [place] [address] Welding Process Engineer: Clinton Steven MD Platelets (Bld) [#/Vol] 191 10*3/uL Normal 140-450 [facility] Comment on above: Performed By: #### C MPX TROPI, CDP #### [facility] [address] [place], [place] [id number] (822) Welding Process Engineer: Clinton Steven MD RBC (Bld) [#/Vol] 3.76 10*6/uL Low 4.5-5.9 [facility] Comment on above: Performed By: #### C JAMAL AGUILAR, CDP #### [facility] [address] [place], [place] [id number] Welding Process Engineer: Clinton Steven MD WBC (Bld) [#/Vol] 9.2 10*3/uL Normal 3.5-11.0 [facility] Comment on above: Performed By: #### C MPGIOVANI GossI, CDP #### [facility] [address] [place], [place] [id number] Welding Process Engineer: Clinton Steven MD Abs.Imm.Granulocyt e NOT REPORTED Normal 0.00-0.30 [facility] Comment on above: Performed By: #### C JAMAL AGUILAR, CDP #### [facility] [address] [place], [place] [id number] Welding Process Engineer: Clinton Steven MD Immature Granulocyte NOT REPORTED Normal 0 [facility] Comment on above: Performed By: #### C GIOVANI AGUILARI, CDP #### [facility] [address] [place], [place] [id number] Welding Process Engineer: Clinton Steven MD MPV NOT REPORTED Normal 6.0-12.0 [facility] Comment on above: Performed By: #### C JEFF TROPI, CDP #### [facility] [address] [place], [place] [id number] Welding Process Engineer: Clinton Steven MD NRBC Automated NOT REPORTED Normal [facility] Comment on above: Performed By: #### C MPX TROPI, CDP #### [facility] [address] [place], [place] [id number] Welding Process Engineer: Clinton Steven MD Platelet Estimate NOT REPORTED Normal [facility] Comment on above: Performed By: #### C MPXGIOVANII, CDP #### [facility] [address] [place] [address] Welding Process Engineer: Clinton Steven MD RBC morphology finding Nom (Bld) NOT REPORTED Normal [facility] Comment on above: Performed By: #### C MPX, TROPI, CDP #### [facility] [address] [place] [address] Welding Process Engineer: Clinton Steven MD WBC Morphology NOT REPORTED Normal [facility] Comment on above: Performed By: #### C MPX, TROPI, CDP #### [facility] [address] [place], [place] [id number] Welding Process Engineer: Clinton Steven MD CT HEAD WO CONTRASTon [...] Sharp MD 10/17/20 Final result Normal [facility] CTA HEAD NECK W CONTRASTon 0 [...] is patent origins of the SCA and PUBLIC SPEAKING INSTRUCTOR bilaterally. DEVELOPMENTAL ANOMALIES: None. OTHER: No pathologic [...] thrombus or stenosis is seen in the [place] and the distal distributions appear symmetric. A note was placed in the ops stat file for notification of the provider at 1:31 AM on 10/18/2020. 2. No aneurysm Interpreted by: Amaury Chamberlain Signed by: Amaury Chamberlain 10/18/20 Final result Normal [facility] Comp Metabolic Pr/rfx MGon 0 10-18-2020 Albumin [Mass/Vol] 4.0 g/dL Normal 3.5-5.2 [facility] Comment on above: Performed By: #### C GIOVANI AGUILARI, CDP #### [facility] [address] [place], [place] [id number] Welding Process Engineer: Clinton Steven MD Alkaline Phos 78 U/L Normal 40-[address] [facility] Comment on above: Performed By: #### C MPAna Paula TROPI, CDP #### [facility] [address] [place] [address] Welding Process Engineer: Clinton Steven MD ALT [Catalytic activity/Vol] 14 U/L Normal 5-41 [facility] Comment on above: Performed By: #### C JEFF TROPI, CDP #### [facility] [address] [place], [place] [id number] Welding Process Engineer: Clinton Steven MD Anion gap [Moles/Vol] 10 mmol/L Normal 9-17 [facility] Comment on above: Performed By: #### C GIOVANI AGUILARI, CDP #### [facility] [address] [place], [place] [id number] Welding Process Engineer: Clinton Steven MD AST [Catalytic activity/Vol] 15 U/L Normal <40 [facility] Comment on above: Performed By: #### C JEFF TROPI, CDP #### [facility] [address] [place], [place] [id number] Welding Process Engineer: Clinton Steven MD Bilirubin [Mass/Vol] 0.42 mg/dL Normal 0.30-1.20 [facility] Comment on above: Performed By: #### C MPX TROPI, CDP #### [facility] [address] [place], [place] [id number] Welding Process Engineer: Clinton Steven MD Calcium [Mass/Vol] 9.4 mg/dL Normal 8.6-10.4 [facility] Comment on above: Performed By: #### C MPX, TROPI, CDP #### [facility] [address] [place] [address] Welding Process Engineer: Clinton Steven MD Chloride [Moles/Vol] 102 mmol/L Normal 98-107 [facility] Comment on above: Performed By: #### C MPX, TROPI, CDP #### [facility] [address] [place] [address] Welding Process Engineer: Clinton Steven MD CO2 [Moles/Vol] 27 mmol/L Normal 20-31 [facility] Comment on above: Performed By: #### C MPX, TROPI, CDP #### [facility] [address] [place] [address] Welding Process Engineer: Clinton Steven MD Creatinine [Mass/Vol] 1.45 mg/dL High 0.70-1.20 [facility] Comment on above: Performed By: #### C MPX, TROPI, CDP #### [facility] [address] [place] [address] Welding Process Engineer: Clinton Steven MD GFR, Amer 58 mL/min Low >60 [facility] Comment on above: Performed By: #### C MPX, TROPI, CDP #### [facility] [address] [place] [address] Welding Process Engineer: Clinton Steven MD GFR,non Amer 47 mL/min Low >60 [facility] Comment on above: Performed By: #### C MPX, TROPI, CDP #### [facility] [address] [place] [address] Welding Process Engineer: Clinton Steven MD Glucose [Mass/Vol] 95 mg/dL Normal 70-99 [facility] Comment on above: Performed By: #### C MPX, TROPI, CDP #### [facility] [address] [place], [place] [id number] Welding Process Engineer: Clinton Steven MD Potassium [Moles/Vol] 4.3 mmol/L Normal 3.7-5.3 [facility] Comment on above: Performed By: #### C MPX TROPI, CDP #### [facility] [address] [place], [place] [id number] Welding Process Engineer: Clinton Steven MD Protein [Mass/Vol] 6.8 g/dL Normal 6.4-8.3 [facility] Comment on above: Performed By: #### C MPX TROPI, CDP #### [facility] [address] [place], [place] [id number] Welding Process Engineer: Clinton Steven MD Sodium [Moles/Vol] 139 mmol/L Normal 135-144 [facility] Comment on above: Performed By: #### C MPX TROPI, CDP #### [facility] [address] [place], [place] [id number] Welding Process Engineer: Clinton Steven MD Urea nitrogen [Mass/Vol] 16 mg/dL Normal 8-23 [facility] Comment on above: Performed By: #### C DENEENX TROPI, CDP #### [facility] [address] [place], [place] [id number] Welding Process Engineer: Clinton Steven MD (cont.) Normal [facility] Comment on above: Result Comment: Aver age GFR for 70 or more years old: 75 mL/min/1.73sq m Chronic Kidney Disease: <60 mL/min/1.73sq m Kidney failure: <15 mL/min/1.73sq m eGFR calculated using average adult body mass. Additional eGFR calculator available at: http://www.getbetter!.PF Changs/multiple_crcl_2012.htm Performed By: #### C MPX, TROPI, CDP #### [facility] [address] [place] [address] Welding Process Engineer: Clinton Steven MD Albumin/Glob Ratio NOT REPORTED Normal 1.0-2.5 [facility] Comment on above: Performed By: #### C MPX, TROPI, CDP #### [facility] [address] [place] [address] Welding Process Engineer: Clinton Steven MD BUN/CRE Ratio NOT REPORTED Normal 9-20 [facility] Comment on above: Performed By: #### C MPX, TROPI, CDP #### [facility] [address] [place] [address] Welding Process Engineer: Clinton Steven MD Staging: NOT REPORTED Normal [facility] Comment on above: Performed By: #### C MPX, TROPI, CDP #### [facility] [address] [place] [address] Welding Process Engineer: Clinton Steven MD [facility] 10-18-2020 Dba Manager Authentication Interface Message Text Attestation signed by [...] degree of stenosis of both carotid arteries. [facility] DIVISION OF ACUTE CARE SURGERY EMERGENCY GENERAL [...] thrombus or stenosis is seen in the [place] and the distal distributions appear [...] rev (more content not included)... Normal [facility] [employer] Dba Manager Authentication Interface Message Text Eye Consult Note [...] of RD - No retinal breaks/detachment/heme on NETWORK TECHNICIAN - Retinal detachment precautions reviewed with patient - Patient lives in [facility] and has an appointment with his textile bag sewer [place] the [place] on [place] 03-- follow-up for new flashes at that visit. Please page [phone] with additional questions/concerns Vashti Reis MD Ophthalmology Resident Eye clinic [phone], located 3rd floor specialty services [facility] Physician Note: This was a resident only visit. I personally reviewed the mckeon and critical portions of the history and the ophthalmologic exam. I reviewed the resident's documentation, the patient's history and examination as documented above. I agree with the resident's medical decision making as documented in the resident's note. Tamar Nathan MD Normal [facility] ED Noteson 10-18-2020 Dba Manager Authentication Interface Message Text Vascular at bedside at this time Normal [facility] ED Provider Noteson 10-19-19 Dba Manager Authentication Interface Message Text EMERGENCY DEPARTMENT - VISIT NOTE -------- HISTORY OF PRESENT ILLNESS ---- Chief Complaint Patient presents with * Other sympt/complt of eye started with vision changes last night. sent from [facility]. here for vascular/neuro consult Hand Wood Sander: not needed - patient preferred language is Hebrew. The history is provided by the Patient. [...] thrombus or stenosis is seen in the [place] and the distal distributions appear [...] History: - Follows with vascular surgery at [place] for PVD: he has had stents placed in the thigh, CABG 1997, [place] in 1986, defibrillator placed in 1995 batteries [...] who will come eval the patient [CM] [address], [facility] surgery consult, he passed the consult on to another provider at [phone] [CM] 1059 Spoke to [facility] Surg analytics consultant who will talk to her chief as carotid duplex can't be performed today [CM] ED Course User Index [CM] Armani Sullivan MD Medical Decision Makin (more content not included)... Normal [facility] [id number] 10-18-2020 SARS-CoV-2 (COVID-19) RNA JOCELIN+probe Ql (Unsp spec) Not detected Normal NOTDET [facility] Comment on above: Result Comment: Rapid [...] management decisions. Fact sheet for Healthcare Providers: https://www.fda.gov/media/483265/download Fact sheet for Patients: https://www.fda.gov/media/378796/download Methodology: Isothermal Nucleic Acid Amplification Performed By: #### C OVRB #### [facility] [address] [place] [address] Welding Process Engineer: Clinton Steven MD Troponinon 10-18-2020 Troponin, High Sens 28 ng/L High 0-22 [facility] Comment on above: Result Comment: High Sensitivity Troponin values cannot be compared with other Troponin methodologies. Patients with high levels of Biotin oral intake (i.e >5mg/day) may have falsely decreased Troponin levels. Samples collected within 8 hours of biotin intake may require additional information for diagnosis. Performed By: #### C MPX, TROPI, CDP #### [facility] [address] [place] [address] Welding Process Engineer: Clinton Steven MD Troponin Interp. NOT REPORTED Normal [facility] Comment on above: Performed By: #### C MPX, TROPI, CDP #### [facility] [address] [place] [address] Welding Process Engineer: Clinton Steven MD Troponin T NOT REPORTED Normal <0.03 [facility] Comment on above: Performed By: #### C MPX, TROPI, CDP #### [facility] [address] [place] [address] Welding Process Engineer: Clinton Steven MD Vital Signs Date Time Vital Sign Value Performing Clinician Olga zurita 11-29-2023 13:31-0400 Body height 172.7 cm Gibran Gongora DPM Work Phone: [facility] 11-29-2023 13:31-0400 Body mass index (BMI) [Ratio] 26.76 kg/m2 Gibran Gongora DPM Work Phone: [facility] 11-29-2023 13:31-0400 Body weight 79.83 kg Gibran Gongora DPM Work Phone: [facility] Encounters Encounter Date Encounter Type Care Provider Facility Start: 05-24-[address] [facility] Start: 05-24-2024 Encounter for preprocedural cardiovascular examination [facility] Start: 05-23-2024 End: 05-23-2024 ambulatory LAUREN [facility] Start: 04-29-[address] [facility] Start: 04-29-2024 End: 04-29-2024 ambulatory [facility] Start: 01-30-2024 End: 01-30-[address] [facility] Start: 01-08-2024 End: 01-09-2024 ambulatory [facility] Start: 12-28-2023 End: 12-28-2023 ambulatory ZO NAVARRO [facility] Start: 12-21-2023 End: 12-21-2023 Telephone encounter Sabiha Pearce CMA [facility] Start: 12-20-2023 End: 12-20-[address] [facility] Start: 12-19-2023 End: 12-29-2023 Telephone encounter Itzel Dial RN [facility] Start: 12-15-2023 End: 12-15-2023 Orders Only Gibran Gongora DPM Work Phone: [facility] Comment on above: Peripheral vascular disease (CMS/HCC) (Primary Dx) Start: 12-14-2023 End: 12-14-2023 ambulatory GIBRAN GONGORA Not Available Start: 12-07-2023 End: 12-07-2023 ambulatory [facility] Start: 12-05-2023 End: 12-05-[address] [facility] Start: 12-05-2023 End: 12-05-[address] [facility] Start: 11-29-2023 End: 11-29-2023 ambulatory GIBRAN GONGORA Not Available Start: 11-29-2023 End: 11-29-2023 Office outpatient new 45 minutes Gibran Gongora DPM Work Phone: [facility] Comment on above: Onychodystrophy (Jeanette muna Dx); Onychomycosis; Right foot pain; Peripheral vascular disease (CMS/HCC) Start: 11-14-2023 End: 11-14-2023 ambulatory LAUREN PARHAM [facility] Start: 11-08-2023 Evaluation and manag ement of inpatient RISHI [facility] Start: 11-07-2023 End: 11-07-2023 ambulatory RISHI [facility] Start: 11-07-2023 End: 11-10-2023 Evaluation and management of inpatient [facility] Start: 10-12-2023 End: 10-12-2023 ambulatory [facility] Start: 10-10-2023 End: 10-10-2023 ambulatory KYLE GREENFIELD [facility] Start: 10-05-2023 [facility] Start: 09-25-2023 End: 09-25-2023 ambulatory RISHI MADRIGAL [facility] Start: 09-20-2023 End: 09-20-2023 ambulatory [facility] Start: 09-05-2023 End: 09-05-2023 ambulatory [facility] Start: 08-10-2023 End: 08-10-2023 ambulatory [facility] Start: 04-14-2022 End: 04-15-[address] DOCTOR GONZALEZ Facility:[facility] Start: 10-10-[address] CARMELITA ALMANZA Fac ility:[facility] Start: 04-29-2021 End: 04-30-2021 ambulatory PROVIDER UNKNOWN Facility:[facility] Start: 10-18-2020 ambulatory UNKNOWN PROVIDER Facili ty:[facility] Start: 10-18-2020 End: 10-18-2020 ambulatory [facility] Start: 10-18-2020 End: 10-18-2020 Emergency department patient visit IP SURGERY VASCULAR CONSULT [facility] Start: 10-17-2020 End: 10-18-2020 Emergency department patient visit ARMANI Ceballos [facility] Plan of Treatment Date Care Activity Detail Author Start: 08-25-2030 DTaP,Tdap and Td Vac cines (2 - Tdap) DTaP,Tdap and Td Vaccines (2 - Tdap) [facility] Start: 2009 Fall Risk Screening Fall Risk Screen ing [facility] Start: 2009 Pneumococcal Vaccine : 65+ Years (1 of 1 - PCV) Pneumococcal Vaccine: 65+ Years (1 of 1 - PCV) [facility] Start: 1994 Administration of varicella zoster vaccine Zoster (Shingles) Vaccine (1 of 2) [facility] Start: 1956 Depression Screening Depression Scre ening [facility] Start: 1956 Tobacco Screening Tobacco Screening [facility] US.doppler Extremity arteries - bilateral for physiologic artery study at rest and with exercise VASC US PVR/SEGMENTAL PRESSURES LOWER Imaging Routine Peripheral vascular disease (CMS/HCC) Ordered: 11/29/2023 [facility] Work Phone: Comment on above: Ordered: 11/29/2023 Immunizations Immunization Date Immunization Notes Care Provider Layton madera 11-17-2023 influenza, high dose seasonal, preservative-free Gibran Rusher DPM Work Phone: [facility] 11-10-2022 RSV, recombinant, pr otein subunit RSVpreF, adjuvant reconstitu, 120mcg/0.5mL, PF (Arexvy) Gibran Rusher DPM Work Phone: [facility] 11-16-2021 Influenza, Seasonal, Quadrivalent, Adjuvanted Gibran Rusher DPM Work Phone: [facility] 12-02-2020 Influenza, Seasonal, Quadrivalent, Adjuvanted Gibran Rusher DPM Work Phone: [facility] 08-25-2020 diphtheria, tetanus toxoids and pertussis vaccine Gibran Rusher DPM Work Phone: [facility] 11-27-2017 influenza, injectabl e, quadrivalent, preservative free Gibran Rusher DPM Work Phone: [facility] Payers Date Payer Category Payer Medicare (Managed Care) [facility] MEDIC[facility] [id number] 2023 Medicare [id number] 2020 Private Health Insurance 1959 Medicare [id number] 1959 Self-pay [id number] 1959 Unknown [id number] 1944 Unknown [id number] 1944 Unknown [id number] 1944 Unknown [id number] 1944 Unknown [id number] 1944 Unknown [id number] 1944 Unknown [id number] 1944 Unknown [id number] 1944 Unknown [id number] .[id number] 1944 Unknown [id number] Social History Date Type Detail Facility Start: 11-29-2023 [facility] History of tobacco use Cigarette Smoker [facility] Start: 11-29-2023 Tobacco use and exposure Smokeless tobacco non-user [facility] Start: 11-29-2023 Alcoholic beverage intake Current drinker of alcohol (finding) [facility] Start: 07-25-2018 End: 11-29-2023 Alcoholic beverage intake [facility] Start: 1945 Sex assigned at Not on file [facility] Start: 07-25-2018 End: 11-29-2023 Gender identity Not on file [facility] Tobacco smoking stat [facility] Tobacco smoking consumption unknown [facility] Childcare Unknown [facility] Start: 09-18-2014 Sex Male (finding) [facility] Clinical Notes 08-10-2023 to 05-23-2024 Telephone Encounter - Sabiha Pearce, MANGLE CATCHER - 12/21/2023 4:05 PM ESTTelephone Encounter - Sabiha Pearce, OWEN - 12/21/2023 4:05 PM ESTTelephone Encounter - Itzel Dial RN - 12/19/2023 9:00 AM EST Note Date & Type Note Facility 05-23-2024 Note Patient here for a w ound check. 4 week s/p defibrillator generator change. Patient states he has dyspnea with exertion. Patient denies fevers or chills. Wound is red, warm, blister intact. Labs done on 04/29/2024 Review of Systems Cardiovascular: Positive for dyspnea on exertion. [facility] 05-23-2024 Note Cardiovascular Medic [facility] SUBJECTIVE Chief Complaint Patient presents with Congestive Heart Failure Claudia [place] is a 78 y.o. male here for follow-up to assess his ICD incision. HPI PMHx: aortic valve stenosis s/p TAVR, peripheral vascular disease s/p SMS stenting, CAD s/p bypass 1997, carotid stenosis s/p right CEA, HFrEF EF 25-30%, ICM s/p ICD, renal artery stenosis, persistent a.fib 05/23/2024 Since I last saw patient, he underwent an ICD gen change on 12/20/2023. On 04/29/2024 he was seen by Dr. Almanza and there was some concern for ICD incision infection. He was seen by Dr. Greenfield on the same day. He was started on doxy and bactrim ds for 2 weeks and is being seen today for follow-up. He completed his abx last week. Denies any drainage since last seen. Denies any fevers or chills. He noticed blisters over his incision start this morning. He c/o some tenderness over the device along with swelling. 11/18/2023 Doing well after his recent TAVR. He has some dizziness with position changes. He has no SOB. Denies CP, palpitations. Trace leg edema that his stable. He would like to go on a golf outing this weekend, I advised he rest. 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 Primary cardiomyopathy (CMS/HCC) Chronic systolic congestive heart failure (CMS/HCC) Abnormal cardiovascular stress test Aortic stenosis, severe ICD (implantable cardioverter-defibrillator), single, in situ Past Medical History: Diagnosis Date Abnormal ECG Arrhythmia Atrial fibrillation (CMS/HCC) BPH (benign prostatic hyperplasia) Cardiomyopathy (CMS/HCC) Carotid artery stenosis CHF (congestive heart failure) (CMS/HCC) Coronary artery disease Gastric ulcer Heart valve disease Hyperlipidemia Hypertension Implantable cardioverter-defibrillator (ICD) in situ Nonrheumatic aortic (valve) stenosis PAD (peripheral artery disease) Peripheral arterial occlusive disease PVC (premature ventricular contraction) Family History Problem Relation Name Age of Onset Coronary artery disease Other Heart attack Mother juliann gautam Heart disease Mother juliann gautam Social History Tobacco Use Smoking status: Every Day Current packs/day: 0.50 Average packs/day: 0.5 packs/day for 55.9 years (27.9 ttl pk-yrs) Types: Cigarettes Start date: 07/14/1968 Smokeless tobacco: Never Substance Use Topics Alcohol use: Yes Alcohol/week: 6.0 standard drinks of alcohol Types: 6 Cans of beer per week Comment: 6 per month Drug use: Never No Known Allergies ROS Cardiovascular: Positive for dyspnea on exertion, claudication (RLE). Hematologic/Lymphatic: Bruises/bleeds easily. Musculoskeletal: Positive for arthritis, back pain and joint pain. Neurological: Positive for light-headedness. All other systems reviewed and are negative. OBJECTIVE Visit Vitals BP 129/55 (BP Location: Right arm, Patient Position: Sitting) Pulse 52 Ht 1.727 m (5' 8 ) Wt 72.6 kg (160 lb) SpO2 97% BMI 24.33 kg/m??? Smoking Status Every Day BSA 1.87 m??? Medications: Current Outpatient Medications: apixaban (Eliquis) 5 mg tablet, Take 1 tablet (5 mg) by mouth two times daily., Disp: 180 tablet, Rfl: 3 atorvastatin (Lipitor) 80 mg tablet, Take 80 mg by mouth at bedtime., Disp: , Rfl: budesonide-formoteroL (Symbicort) 160-4.5 mcg/actuation inhaler, Inhale 2 puffs twice a day by inhalation route., Disp: , Rfl: carvedilol (Coreg) 12.5 mg tablet, Take 6.25 mg by mouth with breakfast and with evening meal., Disp: , Rfl: cholecalciferol, vitamin D3, (VITAMIN D3 ORAL), Take 2,000 Int'l Units by mouth in the morning., Disp: , Rfl: clopidogrel (Plavix) 75 mg tablet, Take 1 tablet every day by oral route for 90 days., Disp: , Rfl: empagliflozin (Jardiance) 25 mg, Take 25 mg by mouth once daily as directed., Disp: , Rfl: folic acid (Folvite) 800 mcg tablet, Take 0.8 mg by mouth in the morning., Disp: , Rfl: montelukast (Singulair) 10 mg tablet, Take 10 mg by mouth at bedtime., Disp: , Rfl: sacubitriL-valsartan (Entresto) 24-26 mg tablet, Take 0.5 tablets twice a day by oral route., Disp: , Rfl: spironolactone (Aldactone) 25 mg tablet, Take 25 mg by mouth once daily as directed., Disp: , Rfl: tamsulosin (Flomax) 0.4 mg 24 hr capsule, Take 1 capsule by mouth at bedtime., Disp: , Rfl: doxycycline (Vibra-Tabs) 100 mg tablet, Take 1 tablet (100 mg) by mouth two times daily for 10 days. Take with a full glass of water and do not lie down for at least 30 minutes after., D (more content not included)... [facility] 04-29-2024 Note ID Electrophysiology Consult Note ID Cardiology - [facility] Reason for visit: Device at TIARRA 04/29/24 Pt was sent to ID clinic by Dr HOLLAND who saw pt in [facility] and there was a concern of clear drainage seeping from the edge of incision. Pt is afebrile and his post op healing was normal with complete wound healing. This was sudden and no history of fever / falls. He is on DOAC and antiplatelet. Prior HPI: Claudia Kent is a 78 y.o. year old with past medical history [...] Given that he has an ICD [place] single-chamber ICD which reached [facility] and he underwent gen change on 12/20/23. He elects PMH: Past Medical History: Diagnosis Date Abnormal ECG Arrhythmia Atrial fibrillation (CMS/HCC) BPH (benign prostatic hyperplasia) Cardiomyopathy (CMS/HCC) Carotid artery stenosis CHF (congestive heart failure) (CMS/HCC) Coronary artery disease Gastric ulcer Heart valve disease Hyperlipidemia Hypertension Implantable cardioverter-defibrillator (ICD) in situ Nonrheumatic aortic (valve) stenosis PAD (peripheral artery disease) Peripheral arterial occlusive disease PVC (premature ventricular contraction) PSH: Past Surgical History: Procedure Laterality Date CARDIAC CATHETERIZATION 1986 CORONARY ANGIOPLASTY 1996 CORONARY ARTERY BYPASS GRAFT 1997 CTA LOWER EXTREMITY LEFT W IV CONTRAST INSERT / REPLACE / REMOVE PACEMAKER SH: Social Determinants of Health Tobacco Use: High Risk (12/07/2023) Patient History Smoking Tobacco Use: Every Day [...] Connections: Not on file Intimate Partner Violence: Not At Risk (12/07/2023) Humiliation, Afraid, Rape, and Kick questionnaire Fear of Current or Ex-Partner: No Emotionally Abused: No Physically Abused: No Sexually Abused: No Depression: Not at risk (12/07/2023) PHQ-2 PHQ-2 Score: 0 Housing Stability: Low Risk (11/07/2023) Housing Stability Vital Sign Unable to Pay for Housing in the Last Year: Not on file Number of Places Lived in the Last Year: Not on file Unstable Housing in the Last Year: No Utilities: Not At Risk (11/07/2023) [facility] Utilities Threatened with loss of utilities: No Health Literacy: Not on file Allergies: No Known Allergies Weight: 71.7kg Visit Vitals Wt 71.7 kg (158 lb) BMI 24.02 kg/m??? Smoking Status Every Day BSA 1.85 m??? Meds: Current Outpatient Medications on File [...] Take 1 capsule by mouth at bedtime. No current facility-administered medications on file prior to visit. ROS: Review of Systems (more content not included)... [facility] 04-29-2024 Note ID Cardiology - [facility] Subjective Claudia Kent is a 78 y.o. year old male patient being seen for 3 mo follow up valve disorder, PAF, and CAD. He is now 6 mo s/p TAVR. Says his device incision site was leaking clear fluid 1-2 weeks ago. Says he took some antibiotics for a few days (which belonged to his who recently ). Denies chest pain, SOB, palpitations, and bleeding on Eliquis. He's noticed he's getting more frequent episodes of lightheadedness. Denies falls/syncope. 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 Primary cardiomyopathy (CMS/HCC) Chronic systolic congestive heart failure (CMS/HCC) Abnormal cardiovascular stress test Aortic stenosis, severe ICD (implantable cardioverter-defibrillator), single, in situ Family History Problem Relation Name Age of Onset Coronary artery disease Other Heart attack Mother juliann gautam Heart disease Mother juliann gautam Social History Tobacco Use Smoking status: Every Day Current packs/day: 0.50 Average packs/day: 0.5 packs/day for 55.8 years (27.9 ttl pk-yrs) Types: Cigarettes Start date: [birth year]/14/1968 Smokeless tobacco: Never Substance Use Topics Alcohol use: Yes Alcohol/week: 6.0 standard drinks of alcohol Types: 6 Cans of beer per week Comment: 6 per month Drug use: Never HPI Update 04/29/2024: He is seen in follow-up. From a cardiac perspective he has been doing reasonably well. Aside from occasional lightheadedness he does not have chest pain or significant shortness of breath. His main issue is that few days ago he had some discharge from the site of the ICD and he took some antibiotic he had at home which she does not know the name of. He says that the discharge stopped. But the site of the ICD is tender. He does not have fever. Update 01/08/2024: He is seen in follow-up. Following last visit with me he underwent ICD generator change on 12/20/[address] Kyle Greenfield. Today he is seen to discuss his peripheral vascular disease. He recently had an ingrown toenail and the motor vehicle compliance analyst trimmed that but did not want to [...] which was lower than previously reported. Update (more content not included)... [facility] 01-08-2024 Note ID Cardiology - [facility] Subjective Claudia Kent is a 78 y.o. year old male patient being seen for follow up segmental pressures performed on 12/14/2023 at [facility]. This was ordered by his motor vehicle compliance analyst, who he says is asking for clearance to remove an ingrown toenail. He said he was able to trim it back but wasn't able to remove it because the motor vehicle compliance analyst didn't feel good pulses per patient. He [...] Coronary artery disease Other Heart attack [facility] Heart disease [facility] Social History Tobacco Use Smoking status: Every [...] recently had an ingrown toenail and the motor vehicle compliance analyst trimmed that but did not want to [...] He is seen (more content not included)... [facility] 12-28-2023 Note ID Cardiology - [facility] Subjective Claudia Kent [...] Coronary artery disease Other Heart attack [facility] Heart disease [facility] Social History Tobacco Use Smoking status: Every [...] HDL 43, t (more content not included)... [facility] 12-21-2023 Miscellaneous Notes Spoke with patient in regards to referral from Dr. Gongora. Patient seen Dr. Almanza. 12/21/23- insurance OON - patient see Dr. Almanza. 12/19/23- spoke with Dr. Alamo office and they are sending facesheet, isurance info and office note. 12/15/23- LVM at Dr. Gongora office to to get more information on the patient. - 12/18/23 PT STATES HE SEES A VASC DR DENISE AND WILL SEE HIM documented in this encounter [facility] 12-21-2023 Telephone encounter Note Spoke with patient [...] - 12/18/23 [facility] HIM [facility] 12-20-2023 Note Patient: Claudia Ohara Procedure Information Date/Time: 12/20/23 1420 Procedure: ICD DC generator change - PC APPROVED 12/04-01/18 Location: [facility] ORIENTAL RUG REPAIRER 1 / [facility] (Cath) Providers: Kyle Greenfield MD Clinical information reviewed: Allergies Physical Exam Airway Mallampati: II TM distance: >3 FB Neck ROM: full Cardiovascular Dental Pulmonary Abdominal Anesthesia Plan ASA 3 CSE Anesthetic plan and risks discussed with patient. Use of blood products discussed with patient who. Additional Equipment Requests [facility] 12-19-2023 Miscellaneous Notes Images from the original note were not included. Attempted to call patient to get scheduled. zora Patterson that he had another vascular doctor. Wanted to inquire who this was as this referral was sent in 12/[address] Gongora. Spoke with patients and she will have patient call office back. Spoke with patient. He states he sees Dr Carmelita Almanza for vascular. Inquired if he is a vascular surgeon because to note- he is skip locator. Patient states he can do both. He states he will see Dr Hawk tomorrow and will discuss with him and give us a call back regarding a ENVIRONMENTAL HEALTH TECHNOLOGIST appt. documented in this encounter [facility] 12-19-2023 Telephone encounter Note Images from the original note were not included. Attempted to call patient to get scheduled. zora Patterson that he had another vascular doctor. Wanted to inquire who this was as this referral was sent in 12/[address] Gongora. Spoke with patients and she will have patient call office back. [employer] 12-19-2023 Telephone encounter Note Spoke with patient. He states he sees Dr Carmelita Almanza for vascular. Inquired if he is a vascular surgeon because to note- he is skip locator. Patient states he can do both. He states he will see Dr Hawk tomorrow and will discuss with him and give us a call back regarding a ENVIRONMENTAL HEALTH TECHNOLOGIST appt. [employer] [facility] 12-07-2023 Note ID Cardiology - [facility] Subjective Claudia Kent [...] to low bloo (more content not included)... [facility] 12-05-2023 Note ID Electrophysiology Consult Note ID Cardiology - [facility] Reason for visit: Device at TIARRA [...] Year: No Utilities: Not At Risk (11/07/2023) [facility] Utilities Threatened with loss of utilities: [...] on exertion (int (more content not included)... [facility] 11-29-2023 History of Present illness Narrative Images from the original note were not included. Subjective Patient ID: Claudia Kent is a 77 y.o. 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 Pt [...] incident utilizing a nail Nipper and bur grinder set up operator thread tool without incident. We will follow up with [...] Gibran Gongora DPM documented in this encounter [facility] 11-14-2023 Note Pt is here for a one week post TAVR. Pt denies chest pain, palpatations, sob. Review of Systems Cardiovascular: Positive for claudication (RLE). Hematologic/Lymphatic: Bruises/bleeds easily. Musculoskeletal: Positive for arthritis, back pain and joint pain. Neurological: Positive for light-headedness. All other systems reviewed and are negative. [facility] 11-14-2023 Note Cardiovascular Medic [facility] SUBJECTIVE Chief Complaint Patient presents with Post-op [...] AVS --CBC, CMP, next week (lives near [facility]). 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 [facility] 11-10-2023 Note Occupational Therapy Name: Claudia Kent [...] appropriate. Check No Charge Time attempted: 1400p [facility] 11-10-2023 Note Subjective 77 year old male [...] round, and reactive to light. Neck: Comments: [place] size left neck hematoma unchanged. No bruit. [...] ECG 12 lead (more content not included)... [facility] 11-10-2023 Note Physical Therapy Physical Therapy Treatment [...] call light and all needs available upon keno writer / runner exit. PT Assessment PT Assessment/DENTAL TECHNICIAN INSTRUCTOR Summary Pt exhibited mild fatigue and SOB with activity, however, was able to recognize when rest breaks were warranted without cues. Pt may benefit from one more treatment this admission to ensure safe return to [facility] as his goal is to return home. Prognosis Good Evaluation/Treatment Tolerance Patient tolerated treatment well Medical Staff Made Aware Yes PT Education/Comments safety Plan Level of assist 1 assist Treatment/Interventions Functional transfer training;Endurance training;Patient/family training;Bed mobility;Gait training PT Plan Skilled PT P (more content not included)... [facility] 11-10-2023 Note Daily Case Managemen t Update [...] OT? Answer: eval and treat 11/08/23 0751 [facility] 11-09-2023 Note Occupational Therapy Occupational Therapy Treatment [...] Eating meals?: None (Independent) Total Score OT [facility]: 22 Assessment/Plan OT Assessment OT Impairments: Decreased ADL status, Decreased endurance, Decreased functional mobility OT Assessment/FIRST AID ATTENDANT Summary: Continue with skilled OT due to [...] safe mobility 11/08/23 (more content not included)... [facility] 11-09-2023 Note Subjective 77 year old male [...] 0955 (!) 126/45 36.8 ???C (98.2 ???F) 65 20 100 % -- 11/09/23 0529 -- -- -- -- -- -- 73.9 kg (163 lb) 11/09/23 0409 134/59 36.8 ???C (98.3 ???F) 68 14 96 % -- 11/09/23 0005 140/71 36.8 ???C (98.2 ???F) 69 17 98 % -- 11/08/23 1953 114/57 36.9 ???C (98.4 ???F) 67 18 97 % -- 09/25/24 1635 155/69 37 ???C (98.6 ???F) Temporal 67 21 99 % -- 11/08/23 1302 -- -- -- -- -- -- 73.8 kg (162 lb 9.6 oz) Physical Exam Constitutional: Appearance: Normal appearance. HENT: Head: Normocephalic. Eyes: Pupils: Pupils are equal, round, and reactive to light. Neck: Comments: [place] size left neck hematoma unchanged. No bruit. [...] 88 QT Interval 430 QTC CALCULATION(BAZETT) 447 R-[place] -26 T Wave [place] 116 Impression Atrial fibrillation Anterior infarct , age undetermined T wave abnormality, consider lateral ischemia Abnormal ECG When compared with ECG of 12-OCT-2023 06:58, Atrial fibrillation has replaced Electronic ventricular pacemaker Confirmed by SHELDON (more content not included)... [facility] 11-09-2023 Note Physical Therapy Name: Claudia Kent Date of : 1945 Today's Date: 11/09/23 Pt is unable to be seen for therapy at this time secondary to session okay per RN. Upon entry to room, pt EOB working with occupational therapy . Will check back and complete therapy session as appropriate. Check No Charge Time attempted: 1126 Susan Taylor, PT [facility] 11-09-2023 Note [facility] CARDIOLOGY INPAT IENT PROGRESS [...] 88 QT Interval 430 QTC CALCULATION(BAZETT) 447 R-[place] -26 T Wave [place] 116 Impression Atrial fibrillation Anterior infarct , [...] 50%. Overall Conc (more content not included)... [facility] 11-08-2023 Note [facility]TP CARDIOLOGY INPAT IENT PROGRESS [...] -- -- 57 15 99 % -- 11/07/23 2130 -- -- -- 57 13 99 % -- 11/07/235 -- -- -- 64 15 100 [...] 88 QT Interval 430 QTC CALCULATION(BAZETT) 447 R-[place] -26 T Wave [place] 116 Impression Atrial fibrillation Anterior infarct , [...] diagram). Right Mo (more content not included)... [facility] 11-08-2023 Note Subjective 77 year old male [...] -- -- -- 57 13 99 % 11/07/232114 -- -- -- 64 15 100 [...] 33.0 (L) 11/08/2023 (more content not included)... [facility] 11-08-2023 Note 11/08/23 1033 Admission Assessment Questions [...] Not Interested Does the patient have a machine adjuster leader case trim assigned to them through their insurance? No [...] link and activate MyChart? MyChart already active [facility] 11-08-2023 Note Attestation signed by Héctor Blancas [...] % (11/07 699) Height: -- Weight: -- [place] Coma Scale Score: 15 I/O last 3 [...] 88 QT Interval 430 QTC CALCULATION(BAZETT) 447 R-[place] -26 T Wave [place] 116 Impression Atrial fibrillation Anterior infarct , age undetermined T wave abnormality, consider lateral ischemia Abnormal ECG When compared with ECG of 12-OCT-2023 06:58, Atrial fibrillation has replaced Electronic ventricular pacemaker Confirmed by Lona JUAREZ, LONA Alexandra ([id number]) on 11/07/2023 5:0 (more content not included)... [facility] 11-08-2023 Note Interventional cardi ology update Reviewed [...] from . Ladarius Weeks MD PGY-7 Interventional Lab Technologist [facility] 11-08-2023 Note Physical Therapy Physical Therapy Evaluation [...] Level of Function Prior Function Level of [place]: Independent with ADLs and functional transfers, Independent [...] length though st (more content not included)... 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 [facility] 11-07-2023 Note Patient: Claudia Ohara Procedure Summary Date: 11/07/23 Room / Location: [address] / [facility] Operating Room Anesthesia Start: 830 Anesthesia Stop: [...] no known notable events for this encounter. [facility] 11-07-2023 Note Patient: Claudia Ohara Procedure Information Anesthesia Start Date/Time: 11/07/23830 Procedures: TAVR Carotid intervention Location: [facility] OR [address] [place] [address] / [facility] Operating Room Surgeons: Carmleita Almanza MD Relevant Problems Cardio (+) Aortic [...] jugular side port central line from surgeon. PILO.) Patient did not smoke on day of procedure. Education provided regarding risk of obstructive sleep apnea. intravenous induction Postoperative administration of opioids is intended. Trial extubation is planned. Anesthetic plan and risks discussed with patient. Use of blood products discussed with patient who consented to blood products. Plan discussed with attending. Additional Equipment Requests [facility] 11-07-2023 Note Airway Date/Time: 11/07/2023 9:22 AM Urgency: elective General Information and Staff Patient location during procedure: OR Anesthesiologist: Dev Rosa DO Resident/LETTER OF CREDIT CLERK/CAA: Marybel Irizarry MD Performed: resident/LETTER OF CREDIT CLERK/CAA Indications and Patient Condition Indications for airway [...] 1 Number of other approaches attempted: 0 [facility] 10-12-2023 Note Patient: Claudia Ohara Procedure Information Date/Time: 10/12/23 0730 Procedures: Coronary angiography Right heart cath Coronary bypass graft study Location: [facility] ORIENTAL RUG REPAIRER 2 B[address]LANE / [facility] (Cath) Providers: Carmelita Almanza MD Clinical information reviewed: [facility] Meds Physical Exam Airway Mallampati: II TM [...] Plan discussed with attending. Additional Equipment Requests [facility] 10-05-2023 Note Subjective Patient ID: Claudia Kent [...] primary prevention. He recently presented to his skip locator with complaints of chest pain, dyspnea with [...] valve stenosis. He is accompanied by his [id number] today. - He has multiple comorbid conditions, [...] will discuss his case with the referring skip locator. This case will likely be discussed at [...] Interval 434 ms QTC CALCULATION(BAZETT) 411 ms R-[place] 13 degrees T Wave [place] 107 degrees POC Hb02% Collection Time: 10/12/23 8:11 AM Result Value Ref Range KOXOOJ11% 69.6 (A) 90 - 95 % QC Pass/Fail Passed QC LOT # [id number] QC Expiration Date 43,025 SAMPLESITE PA No follow-ups on file. [facility] 09-20-2023 Note ID Cardiology - [facility] Subjective Claudia Kent is a [...] creatinine 1.1, pot (more content not included)... [facility] 08-10-2023 Note ID Cardiology - [facility] Subjective Claudia Kent is a 77 y.o. year old male patient being seen for 6 mo follow up aortic valve stenosis, chronic systolic heart failure, PAD, and CAD. He has not completed dobutamine stress echo that was ordered at last visit in Jan 2023. He would like to discuss this with Dr. Almanza first. His device was last interrogated in [...] valve stenosis, mild (more content not included)... [facility] Evaluation note Diagnosis Onychodystrophy- Primary Other specified disease of nail Onychomycosis Dermatophytosis of nail Right foot pain Pain in soft tissues of limb Peripheral vascular disease (CMS/HCC) Unspecified peripheral vascular disease documented [facility] Diagnosis Peripheral vascular disease (CMS/HCC)- Primary Unspecified peripheral vascular disease documented in this encounter [facility] HealthcareInstructionsNot on filedocumented in this encounterProBarber[facility] SystemInstructionsNot on filedocumented in this encounterProBar[facility] Summary Purpose Family History No [...] content) DATE CREATED AUTHOR 10/19/2020 [facility] DATE CREATED AUTHOR AUTHOR'S ORGANIZ ATION 03/23/2021 [employer] DATE CREATED AUTHOR AUTHOR'S ORGANIZ ATION 05/06/2021 [facility] DATE CREATED AUTHOR AUTHOR'S ORGANIZ ATION 04/20/2022 [facility] DATE CREATED AUTHOR AUTHOR'S ORGANIZ ATION 12/18/2023 [facility] EPIC DATE CREATED AUTHOR AUTHOR'S ORGANIZ ATION 05/29/2024 [facility] Reason for Visit (unrecogniz ed section and content) Reason Comments Ingrown 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 Pt relates trying to cut out himself, made it worse. Pt states it is painful, denies drainage or pus. Pt keeping a band-aid on the toe; there was blood on band-aid. Care Teams (unrecognized sec tion and content) Still Operator Relationship Specialty Start Date End Date Armani Stewart MD [address] [place] [id number] PCP - General Internal Medicine 11/29/23 Still Operator Relationship Specialty Start Date End Date Armani Stewart MD [address] [place] [id number] PCP - General Internal Medicine 11/29/23 FOR [...] BE BASED ON THE PRIMARY CLINICAL RECORDS. [facility] [employer] [facility]. provides no warranty or guarantee of the accuracy or completeness of information in this document.
[2024-05-31 10:49] LABS: Alanine Aminotransferase 19 U/L (16-63); Albumin Level 3.4 g/dL (3.4-5.0); Alkaline Phosphatase 73 U/L (46-116); Aspartate Amino Transferase 21 U/L (15-37); BUN Creatinine Ratio 29.4; Bilirubin Total 0.5 mg/dL (0.2-1.0); Calcium 9.7 mg/dL (8.5-10.1); Carbon Dioxide 29.4 mmol/L (21.0-32.0); Chloride 103 mmol/L (98-107); Estimated GFR (African America >60 (>=60 mL/min/1.73m^2); Estimated GFR (Non-African Ame >60 (>=60 mL/min/1.73m^2); Globulin 3.3 g/dL; Glucose 94 mg/dL (74-106); Potassium 5.4 mmol/L (3.5-5.1); Sodium 138 mmol/L (136-145); Total Protein 6.7 g/dL (6.4-8.2)
[2024-05-31 10:51] LABS: Basophils Absolute Auto 0.1 10^3/uL (0.0-0.1); Basophils Percent Auto 0.5 % (0.2-2.0); Eosinophils Absolute Auto 0.3 10^3/uL (0.0-0.7); Eosinophils Percent Auto 2.6 % (0.9-7.0); Hematocrit 35.1 % (42.0-54.0); Hemoglobin 11.4 g/dL (14.0-18.0); Immature Granulocytes Abs Auto 0.09 10^3/uL (0.00-0.03); Immature Granulocytes Pct Auto 0.9 % (0.0-0.5); Lymphocytes Absolute Auto 0.9 10^3/uL (1.2-3.8); Lymphocytes Percent Auto 8.6 % (20.5-60.0); Mean Corpuscular HGB Conc 32.5 g/dL (29.9-35.2); Mean Corpuscular Hemoglobin 32.9 pg (25.9-34.0); Mean Corpuscular Volume 101.4 fL (80.0-94.0); Mean Platelet Volume 10.3 fL (9.5-13.5); Monocytes Absolute Auto 1.5 10^3/uL (0.3-0.8); Monocytes Percent Auto 15.3 % (1.7-12.0); Neutrophils Absolute Auto 7.1 10^3/uL (1.4-6.5); Neutrophils Percent Auto 72.1 % (43.0-75.0); Platelet Count 209 10^3/uL (150-450); Red Blood Count 3.46 10^6/uL (4.70-6.10); Red Cell Distribution Width 14.5 % (11.0-15.0); White Blood Count 9.8 10^3/uL (4.0-11.0)
== END 2024-05-31 10:04 | disposition home or self-care (01) ==
PROVIDERS: PCP Internal Medicine; Visit Provider Internal Medicine Interventional Cardiology
DX: I48.19 Other persistent atrial fibrillation (principal); Z95.810 Presence of automatic (implantable) cardiac defibrillator
CPT/HCPCS: 36415; 80053; 85025

== ENCOUNTER 2024-06-27 09:55 | Outpatient (OUT) | payer MEDICARE, SELFPAY ==
[2024-06-27 10:41] LABS: Anion Gap 8.6; BUN Creatinine Ratio 20.1; Calcium 9.2 mg/dL (8.5-10.1); Chloride 100 mmol/L (98-107); Estimated GFR (African America 57 (>=60 mL/min/1.73m^2); Estimated GFR (Non-African Ame 47 (>=60 mL/min/1.73m^2); Glucose 77 mg/dL (74-106); Potassium 4.6 mmol/L (3.5-5.1); Sodium 133 mmol/L (136-145)
== END 2024-06-27 09:56 | disposition home or self-care (01) ==
LOC: LAB 09:56
PROVIDERS: PCP Internal Medicine; Visit Provider Internal Medicine Interventional Cardiology
DX: E87.5 Hyperkalemia (principal)
CPT/HCPCS: 36415; 80048

== ENCOUNTER 2024-07-10 09:16 | Outpatient (OUT) | payer MEDICARE, SELFPAY ==
--- OUTSIDE RECORDS SUMMARY | 2023-12-04 04:30 | XMS_ITS ---
Author Organization [facility] vices Address [address] [facility] [place] [id number] Care Team Providers Care Employee Benefits Coordinator Name Role Phone Patricia Lim Unavailable [phone] REASON FOR VISIT MANAGER SOCIAL SERVICES Comp Exam (78) Encounters Encounter Location Date Provider Diagnosis [facility] [address] [place], [place] [id number] 12/04/2023 Patricia Lim Plan Of Treatment No Information Progress Notes * Donald YATESDOB:1945 (78 yo M)Acc No.[id number]:12/04/2023 Patient: Donald OLVERA Provider: Jo Lim DDS :1945 A ge:77 Y S ex:Male Date:12/04/2023 Address:[address] [place] [address] [facility] Subjective: * Chief Complaints: * 1 . MANAGER SOCIAL SERVICES Comp Exam (78). * Medical History: Objective: * Vitals: Assessment: Plan: * Treatment: * Billing Information: * Visit Code: * Procedure Codes: * Electronic signature of Matthias Lim DDS on 07/10/2024 at 09:19 AM EDT Sign off status: Pending * Provider: Jo Lim DDS Date: 1 Generated for Jose ng/Faaura/eTransmitting on: 0 07/10/2024 09:19 AM EDT
--- OUTSIDE RECORDS SUMMARY | 2024-06-27 09:45 | XMS_ITS | Encounter Summary ---
Author Organization [facility] Address [address] [place] [address] Care Team Providers Care Qc Tech Name Role Phone Armani Vera MD Primary Care Provider [phone] Encounter Details Date Type Department Care Team (Latest Contact Info) Description 06/27/2024 9:45 AM EDT Ancillary Procedure [facility] [address] [place] [address] Encounter for implantable defibrillator reprogramming or check Social History Tobacco Use Types Packs/Day Years Used Date Smoking Tobacco: Every Day Cigarettes 0.5 56 Started: [birth year]/14/1969 Smokeless Tobacco: Never Alcohol Use Standard Drinks/Week Comments Yes 6 (1 standard drink = 0.6 oz pur e alcohol) 6 per month [facility] Utilities Answer Date Recorded In the past 12 months has [facility] [employer], gas, oil, or water company threatened to shut off services in your home? No 11/07/2023 Humiliation, Afraid, Rape, and Kick questionnair e Answer Date Recorded Within the last year, have y ou been afraid of your partner or ex-partner? No 12/07/2023 Within the last year, have y ou been humiliated or emotionally abused in other ways by your partner or ex-partner? No Within the last year, have y ou been kicked, hit, slapped, or otherwise physically hurt by your partner or ex-partner? No 12/07/2023 Within the last year, have y ou been raped or forced to have any kind of sexual activity by your partner or ex-partner? No 12/07/2023 Overall Financial Resource Strain (CARDIA) Answe r Date Recorded How hard is it for you to pa y for the very basics like food, housing, medical care, and heating? Not hard at all 11/07/2023 PHQ-2 Answer Date Recorded Patient Health Questionnaire-2 Score 0 12/07/2023 Transportation Answer Date Recorded In the past 12 months, has l ack of transportation kept you from medical appointments or from getting medications? No 11/07/2023 Lack of Transportation (Non-Medical) Not on file 11/07/2023 Housing Stability Vital Sign Answer Inocencio e Recorded Unable to Pay for Housing in the Last Year Not o n file 11/07/2023 Number of Places Lived in the Last Year Not on f ile 11/07/2023 In the last 12 months, was t here a time when you did not have a steady place to sleep or slept in a fpc (including now)? No 11/07/2023 Hunger Vital Sign Answer Date Recorded Within the past 12 months, y ou worried that your food would run out before you got the money to buy more. Never true 11/07/19 Ran Out of Food in the Last Year Not on file 11/07/2023 Sex and Gender Information Value Date Recorded Sex Assigned at Male 09/25/2023 1:42 PM EDT Gender Identity Male 09/25/2023 1:42 PM EDT Sexual Orientation Heterosexual or Straight 09/13 1:42 PM EDT documented as of this encounter Plan of Treatment Upcoming Encounters Date Type Department Care Team (Late st Contact Info) Description 07/16/2024 9:00 AM EDT Office Visit [facility] [address] [place] [address] Kyle Rodas MD [address] [place] [address] documented as of this encounter Visit Diagnoses Diagnosis Encounter for implantable defibrillator reprogramming or check Fitting and adjustment of automatic implantable cardiac defibrillator documented in this encounter Care Teams Qc Tech Relationship Specialty Start Date End Date Armani Vera MD [address] [place] [phone] PCP - General 04/06/22 documented as of this encounter
--- OUTSIDE RECORDS SUMMARY | 2024-06-27 11:00 | XMS_ITS | Encounter Summary ---
Author Organization [facility] Address [address] [place] [address] Care Team Providers Care Sales Development Associate Name Role Phone Armani Vera MD Primary Care Provider [phone] Reason for Visit * Reason Comments Wound Check Encounter Details Date Type Department Care Team (Late st Contact Info) Description 06/27/2024 11:00 AM EDT Office Visit [facility] [address] [place] [address] Angelica Awan, LAY OUT TECHNICIAN [address] [facility] [place] [address] Chronic systolic heart failure (CMS/HCC) (Primary Dx); 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, initial encounter; AICD (automatic cardioverter/defibrill ator) present; Nonrheumatic aortic valve stenosis; S/p TAVR (transcatheter aortic valve replacement), bioprosthetic; Persistent atrial fibrillation (CMS/HCC); Coronary artery disease involving [place] coronary artery of [place] heart without angina pectoris; 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 No 11/07/2023 Hunger Vital Sign [...] PM EDT documented as of this encounter Last Filed Vital Signs Vital Sign Reading Time Taken Comments Blood Pressure 138/86 06/27/2024 10:58 AM EDT Pulse 65 06/27/2024 10:58 AM EDT Temperature - - Respiratory Rate - - Oxygen Saturation 97% 06/27/2024 10:58 AM EDT Inhaled Oxygen Concentration - - Weight 71.2 kg (157 lb) 06/27/2024 10:58 AM EDT Height 172.7 cm (5' 8 ) 06/27/2024 10:58 AM EDT Body Mass Index 23.87 06/27/2024 10:58 AM EDT documented in this encounter Progress Notes * Rena Jack MA - 06/27/2024 11:00 AM EDT Patient is here today for follow wound check, device check and labs. Patient states he is doing well, patient denies fever, chills, body aches, or pain. Review of Systems Constitutional: Negative. * Angelica Awan CNP - 06/27/2024 11:00 AM EDT Images from the original note were not included. Cardiovascular Medicine [facility] SUBJECTIVE Chief Complaint Patient presents with Wound Check Raymon Kent is a 78 y.o. male here for follow-up to assess his ICD incision. HPI PMHx: aortic valve stenosis s/p TAVR, peripheral vascular disease s/p SMS stenting, CAD s/p bypass 1997, carotid stenosis s/p right CEA, HFrEF EF 25-30%, ICM s/p ICD, renal artery stenosis, persistent a.fib 06/27/2024 Since last seen, he underwent pacemaker pocket revision by Dr. Rodas. He has been feeling well. 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 05/23/2024 Since I last saw patient, he underwent an ICD gen change on 12/20/2023. On 04/29/2024 he was seen by Dr. Almanza and there was some concern for ICD incision infection. Hewas seen by Dr. Rodas on the same day. 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-D) Past Medical History: Diagnosis Date Abnormal ECG [...] Problem Relation Name Age of Onset Heart attack Mother juliann gautam Heart disease Mother juliann gautam Coronary artery disease Other Social History Tobacco Use Smoking status: Every Day Current packs/day: 0.50 Average packs/day: 0.5 packs/day for 56.0 years (28.0 ttl pk-yrs) Types: Cigarettes Start date: 07/14/1968 Smokeless tobacco: Never Substance Use Topics Alcohol use: Yes Alcohol/week: 6.0 standard drinks of alcohol Types: 6 Cans of beer per week Comment: 6 per month Drug use: Never No Known Allergies OBJECTIVE Visit Vitals BP 138/86 (BP Location: Right arm, Patient Position: Sitting) Pulse 65 Ht 1.727 m (5' 8 ) Wt 71.2 kg (157 lb) SpO2 97% BMI 23.87 kg/m?? Smoking Status Every Day BSA 1.85 m?? Medications: Current Outpatient Medications: apixaban (Eliquis) 5 [...] tablets twice a day by oral route., Disp:, Rfl: spironolactone (Aldactone) 25 mg tablet, Take 25 mg by mouth once daily as directed., Disp: , Rfl: sulfamethoxazole-trimethoprim (Bactrim DS) 800-160 mg tablet, Take 1 tablet by mouth two times daily., Disp: 60 tablet, Rfl: 0 tamsulosin (Flomax) 0.4 mg 24 hr capsule, Take 1 capsule by mouth at bedtime., Disp: , Rfl: doxycycline (Vibra-Tabs) 100 mg tablet, Take 1 tablet (100 mg) by mouth two times daily for 21 days. Take with a full glass of water and do not lie down for at least 30 minutes after., Disp: 42 tablet, Rfl: 0 Physical Exam Constitutional: Appearance: Normal appearance. He is normal weight. HENT: Head: Normocephalic and atraumatic. Right Ear: External ear normal. Left Ear: External ear normal. Eyes: Extraocular Movements: Extraocular movements intact. Pupils: Pupils are equal, round, and reactive to light. Cardiovascular: Rate and Rhythm: Rhythm irregular. Pulses: Normal pulses. Heart sounds: Murmur (mild) heard. Pulmonary: Effort: Pulmonary effort is normal. Breath sounds: Normal breath sounds. Abdominal: General: Bowel sounds are normal. Palpations: Abdomen is soft. Musculoskeletal: General: Normal range of motion. Cervical back: Neck supple. Right lower leg: No edema. Left lower leg: No edema. Skin: General: Skin is warm and dry. Comments: See media for pictures of device incision Neurological: General: No focal deficit present. Mental Status: He is alert and oriented to person, place, and time. Psychiatric: Mood and Affect: Mood normal. Behavior: Behavior normal. Thought Content: Thought content normal. Judgment: Judgment normal. Labs: Admission on 06/06/2024, Discharged on 06/06/2024 Component Date Value Ref Range Status Wound Culture 06/06/2024 Isolated from Broth Culture Cutibacterium acnes (A) Corrected Gram Stain Result 06/06/2024 Few Polymorphonuclear leukocytes Final Gram Stain Result 06/06/2024 No organisms seen Final No results found for: EXTCMP , BMPR1A , CBCDIF , BNP , LASAP , RED 06/27/24 Cr 1.44, BUN 29, K 4.6, Na 133, eGFR 47 05/31/24 Hgb 11.4, plt 209 Cr 1.09, BUN 32, K 5.4, Na 138, eGFR >60, AST 21, ALT 19 04/29/24 Cr 1.29, BUN 34, K 5.1, Na 133, eGFR 54, AST 17, ALT 19 Testing/Procedures: No results found for this or any previous visit (from the past 4464 hour(s)). Echocardiogram 04/14/2022: Left ventricular systolic function is moderately reduced with a segmental wall motion abnormalities. LVEF is 35 to 40%. Normal right ventricular size and systolic function. Severe aortic valve stenosis [stage D2, low-flow low gradient in the setting of reduced ejection fraction]. Mild aortic valve regurgitation. Mild to moderate tricuspid and mitral regurgitation. Normal right-sided pressures. Echocardiogram 2022: CONCLUSION: 1. Global left ventricular systolic function is severely reduced; visually estimated ejection fraction is 20 to 25% 2. Segmental wall motion abnormalities 3. The right ventricle appears enlarged with preserved systolic function 4. Biatrial enlargement 5. Diastolic dysfunction 6. Mild to moderate tricuspid regurgitation 7. Moderately elevated right ventricular systolic pressure; RVSP 48 mmHg 8. Moderate mitral regurgitation 9. Severe, low-flow, low gradient, aortic valve stenosis; DVI 0.18 Device check 08/24/2022: 2 episodes of possible NSVT. ABIs 08/21/2023: Elevated right leg ENRIQUETA due to arterial sclerosis, abnormal right TBI indicates moderate ischemia. Left leg ENRIQUETA consistent with mild arterial occlusive disease. Right ENRIQUETA 1.75, left ENRIQUETA 0.75. Right TBI 0.43, left TBI 0.88. Dobutamine stress echocardiogram 09/05/2023: Overall Conclusions: Dobutamine stress echo valve study: At baseline EF 25-30% with low-flow low- gradient severe (ACCgrade D2); At baseline the peak velocity is 3.5 m/sec with mean gradient 27 mmHg and PETER 0.60 cm2 and DVI 0.19; At peak dobutamine (20 mcg/kg/min) the EF increased to 40% and the Vmax increased to 4.1 m/sec the PETER remained at 0.63 cm2 and DVI 0.20 all consistent with severe EKG demonstrates atrial fibrillation with slow ventricular response. No ischemic EKG changes noted.Occasional PVCs and V-couplets noted. Also, chronotropic incompetence noted with increase in heart rate only to 66 bpm with peak dobutamine. Ischemia evaluation by dobutamin stress echo: possible ischemia in the anterior wall with increasedcontractility at low dose dobutamine but hypokinesis with peak dobutamine. The anteroseptal wall isthinned and consitent with old scar from old [place]. All other segements show appopriate increase in contractility with dobutamine. Carotid US 09/25/2023 Conclusions: Antegrade flow of bilateral vertebral arteries. <50% stenosis in right internal carotid artery. <50% stenosis in left internal carotid artery. Cardiac cath 10/12/23 Impression/Findings: Severe 3 vessel coronary artery disease and patent 5 coronary bypass grafts [Patent YOUNG to LAD, patent sequential saphenous venous graft to 3 obtuse marginal branches, patent saphenous venous graft to the right sided PDA]. Mild elevation of left filling pressures. Mild elevation of right filling pressures. No pulmonary hypertension. Normal cardiac output and cardiac index. Controlled systemic hypertension. Plan: Medical therapy for coronary artery disease. Aspirin 81 mg daily for life. Statin therapy for life. Guideline directed medical therapy for heart failure. Risk factor control. We will proceed with completing the evaluation for TAVR. One of the main issues would be difficult vascular access. TAVR procedure 11/07/23 PROCEDURES: Successful transcatheter aortic valve replacement using a 34 mm Medtronic Evolut FX valve via percutaneous transcarotid access. Aortic root angiography. Placement of a temporary pacemaker wire. Left heart catheterization. Access into the right internal jugular vein and right radial artery under ultrasound guidance. Balloon aortic valvuloplasty. Surgical left carotid cutdown performed by cardiothoracic surgery. Limited ECHO 11/08/23 Left Ventricle: The left ventricle is mildly enlarged. Global left ventricular systolic function ismoderately to severely reduced. The EF is 35 [...] dilated. Respiratory inspiration less than 50%. Overall Conclusions: Due to suboptimal imaging Lumason contrast was administered for opacification and better delineation of endocardial borders. POCKET REVISION PROCEDURE NOTE DATE OF PROCEDURE: 06/06/2024 PERFORMING PHYSICIAN: Dr. Kyle Rodas CONSENT: Patient LOCATION: EP Lab PROCEDURE PERFORMED: 1. Pocket revision for pocket swelling. INDICATIONS: 1. Prior history of pocket discharge and swelling. IMPRESSION: 1. Successful pocket revision. RECOMMENDATIONS: 1. Dressing to be removed after 2 weeks 2. Do not wet the incision for 7 days 3. F/u in device clinic 2 weeks from discharge or sooner for any concerns 4. Follow up in EP clinic in 1 month. 5. Doxycycline and Bactrim x 4 weeks depending on culture Kyle Rodas MD Cardiac Electrophysiology ASSESSMENT/PLAN: Diagnoses and all orders for this visit: Chronic systolic heart failure (CMS/HCC) - Basic metabolic panel; Future 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, initial encounter - doxycycline (Vibra-Tabs) 100 mg tablet; Take 1 tablet (100 mg) by mouth two times daily for 21 days. Take with a full glass of water and do not lie down for at least 30 minutes after. AICD (automatic cardioverter/defibrillator) present Nonrheumatic aortic valve stenosis S/p TAVR (transcatheter aortic valve replacement), bioprosthetic Persistent atrial fibrillation ([facility]/HCC) Coronary artery disease involving [place] coronary artery of [place] heart without angina pectoris Benign hypertensive cardiomyopathy with heart failure ([facility]) #ICD s/p generator change 12/2023, s/p pocket infection with pocket revision 06/06/24 -Incision appears to be healing well, reviewed with Dr. Rodas. -Pt stopped doxy as he no longer had any more pills to take. Will refill doxy and continug 100mg BID along with Bactrim 800/160mg BID until his follow-up with Dr. Rodas on 07/16/24 -Advised he cover the incision with dry gauze, change the dressing daily. #Severe aortic valve stenosis s/p TAVR 11/07/23 -Doing well -He will need prophylactic antibiotics prior to any dental work #Chronic systolic heart failure s/p ICD -He appears compensated on exam -GDMT: continue entresto 12/13mg BID, spironolactone 25mg daily, carvedilol 6.25mg BID, jardiace 25mg daily. #PAD -Mod dz per 08/2023 ABIs -Sx's of claudication are stable, non-limiting at this time. Will continue medical management. #CAD s/p CABG 1998 -Cath 09/2023 showed patent 5/5 bypass grafts -He denies angina or dyspnea -Continue Plavix, statin, BB #HTN -Controlled -Continue carvedilol, Entresto, spironolactone #Persistent a.fib -Asymptomatic -Continue Eliquis 5mg BID #BROOKE -Continue plavix, statin #LIANA -Recent blood work shows Cr elevated to 1.4 which is above his basline of 1-1.2 -He admits to only drinking about 1 bottle of water day. Advise he try to drink at least 3 bottles of water a day. -Repeat labs in 2 weeks. Follow up in about 3 weeks (around 07/18/2024). Angelica Awan CNP [facility] Cardiovascular Medicine documented in this encounter Plan of Treatment Upcoming Encounters Date Type Department Care Team (Late st Contact Info) Description 07/16/2024 9:00 AM EDT Office Visit [facility] [address] [place] [phone] Kyle Rodas MD [address] [place] [address] Scheduled Orders Name Type Priority Associated Diagnoses Orde r Schedule Basic metabolic panel Lab Routine Chronic systolic heart failure (CMS/HCC) Expected: 06/27/2024 (Approximate), Expires: 06/27/2025 documented as of this encounter Visit Diagnoses Diagnosis Chronic systolic heart failure (CMS/HCC)- Primary Chronic systolic heart failure 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, initial encounter AICD (automatic cardioverter/defibrillator) present Automatic implantable cardiac defibrillator in situ Nonrheumatic aortic valve stenosis S/p TAVR (transcatheter aortic valve replacement), bioprosthetic Persistent atrial fibrillation (CMS/HCC) Atrial fibrillation Coronary artery disease involving [place] coronary artery of [place] heart without angina pectoris 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) documented in this encounter Care Teams Sales Development Associate Relationship Specialty Start Date End Date Armani Vera MD [facility] [place] [phone] PCP - General 04/06/22 documented as of this encounter
--- OUTSIDE RECORDS SUMMARY | 2024-07-10 09:19 | XMS_ITS | Referral Summary ---
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, initial encounter; AICD (automatic cardioverter/defibrillato r) present; Nonrheumatic aortic valve stenosis; S/p TAVR (transcatheter aortic valve replacement), bioprosthetic; Persistent atrial fibrillation (CMS/HCC); Coronary artery disease involving chehalis coronary artery of chehalis heart without angina pectoris; 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) 06/22/2024 Orders Only [facility] [address] [place] [phone] Kyle Rodas MD 06/19/2024 Telephone [facility] [address] [place] [address] Hanny Solares MA 06/14/2024 2:40 PM EDT Office Visit [facility] [address] [facility] [place] [address] Karthik Croft MD ICD (implantable cardioverter-defibrillato r), single, in situ (Primary Dx); Encounter for replacement of pulse generator of cardiac resynchronization therapy defibrillator (FOOD AND BEVERAGE ASSISTANT-D) 06/06/2024 Travel 06/06/2024 3:00 PM EDT - 06/06/2024 4:00 PM EDT Surgery [facility] [address] [place] [address] Kyle Rodas MD Pocket revision [[id number]] 06/06/2024 1:42 PM EDT - 06/06/2024 6:38 PM EDT Hospital Encounter [facility] [address] [place] [address] Kyle Rodas MD 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, initial encounter; Superficial skin infection; AICD (automatic cardioverter/defibrillato r) present Discharge Disposition: Home or Self Care (01) 05/23/2024 Orders Only [facility] [address] [facility] [place] [address] Tina Puentes MA 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, initial encounter 05/23/2024 11:20 AM EDT Office Visit [facility] [address] [facility] [place] [address] Angelica Awan CNP Superficial skin infection (Primary Dx); AICD (automatic cardioverter/defibrillato r) present; Chronic systolic heart failure (CMS/HCC); Nonrheumatic aortic valve stenosis; S/p TAVR (transcatheter aortic valve replacement), bioprosthetic; Persistent atrial fibrillation (CMS/HCC); Coronary artery disease involving chehalis coronary artery of chehalis heart without angina pectoris; History of coronary artery bypass surgery; PAD (peripheral artery disease); 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) 05/22/2024 5:40 PM EDT Ancillary Procedure [facility] [address] [place] [phone] Pre-operative cardiovascular examination, ICD in place 04/29/2024 2:30 PM EDT Office Visit [facility] [address] [place] [address] Kyle Rodas MD Superficial skin infection (Primary Dx) 04/29/2024 10:45 AM EDT Office Visit [facility] [address] [place] [address] Rob Almanza MD S/p TAVR (transcatheter aortic valve replacement), bioprosthetic (Primary Dx); AICD (automatic cardioverter/defibrillato r) present; Persistent atrial fibrillation (CMS/HCC); PAD (peripheral artery disease); Coronary artery disease involving chehalis coronary artery of chehalis heart without angina pectoris; History of coronary artery bypass surgery; Bilateral carotid artery stenosis; Essential hypertension from Last 3 Months Allergies No known active allergies Medications Medication Sig Dispensed Refills Start Date End Date Status sacubitriL-valsarta n (Entresto) 24-26 mg tablet Take 0.5 tablets twice a day by oral route. 08/22/2020 Active clopidogrel (Plavix) 75 mg tablet Take 1 tablet every day by oral route for 90 days. Active spironolactone (Aldactone) 25 mg tablet Take 25 mg by mouth once daily as directed. Active tamsulosin (Flomax) 0.4 mg 24 hr capsule Take 1 capsule by mouth at bedtime. Active budesonide-formoter oL (Symbicort) 160-4.5 mcg/actuation inhaler Inhale 2 puffs twice a day by inhalation route. Active atorvastatin (Lipitor) 80 mg tablet Take 80 mg by mouth at bedtime. Active carvedilol (Coreg) 12.5 mg tablet Take 6.25 mg by mouth with breakfast and with evening meal. Active empagliflozin (Jardiance) 25 mg Take 25 mg by mouth once daily as directed. Active apixaban (Eliquis) 5 mg tabletIndications:P aroxysmal atrial fibrillation (CMS/HCC) Take 1 tablet (5 mg) by mouth two times daily. 180 tablet 3 09/28/2023 Active folic acid (Folvite) 800 mcg tablet Take 0.8 mg by mouth in the morning. Active cholecalciferol, vitamin D3, (VITAMIN D3 ORAL) Take 2,000 Int'l Units by mouth in the morning. Active montelukast (Singulair) 10 mg tablet Take 10 mg by mouth at bedtime. Active doxycycline (Vibra-Tabs) 100 mg tabletIndications:I nfection of automatic implantable cardioverter-defibr illator generator, initial encounter Take 1 tablet (100 mg) by mouth two times daily for 21 days. Take with a full glass of water and do not lie down for at least 30 minutes after. 42 tablet 06/27/2024 07/18/2024 Active sulfamethoxazole-tr imethoprim (Bactrim DS) 800-160 mg tabletIndications:A ICD (automatic cardioverter/defibr illator) present Take 1 tablet by mouth two times daily. 60 tablet 06/06/2024 07/06/2024 doxycycline (Vibra-Tabs) 100 mg tabletIndications:S uperficial skin infection,AICD (automatic cardioverter/defibr illator) present Take 1 tablet (100 mg) by mouth two times daily for 10 days. Take with a full glass of water and do not lie down for at least 30 minutes after. 20 tablet 06/06/2024 06/16/2024 Active Problems Problem Noted Date Diagnosed Date Encounter for replacement of pulse generator of cardiac resynchronization therapy defibrillator (FOOD AND BEVERAGE ASSISTANT-D) 06/16/2024 Infection of automatic impla ntable cardioverter-defibrillator generator, initial encounter 05/23/2024 ICD (implantable cardioverte r-defibrillator), single, in situ 12/05/2023 Aortic stenosis, severe 11/07/2023 Chronic systolic congestive heart failure 2023 Abnormal cardiovascular stress test 09/20/2023 Bruit 04/06/2022 Gastric ulcer 04/06/2022 Left ventricular systolic dysfunction 04/06/2022 Carotid artery stenosis 04/06/2022 Mesenteric artery stenosis 04/06/2022 Peripheral arterial occlusive disease 04/06/2022 Chronic systolic heart failure 03/29/2021 Aortic valve stenosis 08/27/2020 Essential hypertension 11/06/2012 Hyperlipidemia 11/06/2012 Aortic valve disorder 06/05/2012 Implantable cardioverter-defibrillator (ICD) in situ 11/08/2011 Coronary atherosclerosis 06/23/2011 Paroxysmal ventricular tachycardia 06/23/2011 Primary cardiomyopathy 06/23/2011 Resolved Problems Problem Noted Date Diagnosed Date Resolved Date Acute tonsillitis 11/06/2012 04/29/2024 Social History Tobacco Use Types Packs/Day Years Used Date Smoking Tobacco: Every Day Cigarettes 0.5 56 Started: 07/14/1968 Smokeless Tobacco: Never Tobacco Cessation:Ready to Q uit: Not Asked; Counseling Given: Not Answered Alcohol Use Standard Drinks/Week Comments Yes 6 (1 standard drink = 0.6 oz pur e alcohol) 6 per month [facility] Utilities Answer Date Recorded In the past 12 months has th e [employer], gas, oil, or water [employer] threatened to shut off services in your [...] place to sleep or slept in a snf (including now)? No 11/07/2023 Hunger Vital Sign Answer Date Recorded Within the past 12 months, y ou worried that your food would run out before you got the money to buy more. Never true 11/07/19 24 Ran Out of Food in the Last Year Not on file 11/07/2023 Sex and Gender Information Value Date Recorded Sex Assigned at Male 09/25/2023 1:42 PM EDT Gender Identity Male 09/25/2023 1:42 PM EDT Sexual Orientation Heterosexual or Straight 09/13 1:42 PM EDT Last Filed Vital Signs Vital Sign Reading Time Taken Comments Blood Pressure 138/86 06/27/2024 10:58 AM EDT Pulse 65 06/27/2024 10:58 AM EDT Temperature 36.5 C (97.7 F) 11/10/2023 12:00 PM EDT Respiratory Rate 26 06/06/2024 6:15 PM EDT Oxygen Saturation 97% 06/27/2024 10:58 AM EDT Inhaled Oxygen Concentration - - Weight 71.2 kg (157 lb) 06/27/2024 10:58 AM EDT Height 172.7 cm (5' 8 ) 06/27/2024 10:58 AM EDT Body Mass Index 23.87 06/27/2024 10:58 AM EDT Plan of Treatment Upcoming Encounters Date Type Department Care Team (Late st Contact Info) Description 07/16/2024 9:00 AM EDT Office Visit [facility] [address] [place] [address] Kyle Rodas MD [address] [place] [address] Medical Devices Implanted Type Area Jewel Flat Surfacer Device Identifier Shelf Expiration Date Model / Serial / Lot Palomo [id number] Implanted:Qty: 1 on 12/20/2023 by Kyle Rodas MD at [facility] ICD Left: Chest [employer] [id number] 12/13/2024 [id number] / [id number] / Evolut Fx Transcatheter Aortic Valve 34mm - [id number] - [id number] Implanted:Qty: 1 on 11/07/2023 by Rob Almanza MD at [facility] Prosthetic Valve N/A: Heart Med[employer] [id number] 04/25/2025 [id number] -34 / [id number] / Icd Heart Procedures Procedure Name Priority Date/Time Associated Diagnosis Comments CARDIAC DEVICE CHECK - REMOTE - ICD Routine 06/22/2024 12:00 AM EDT POCKET REVISION - PPM Routine 06/06/2024 5:46 PM EDT 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, initial encounter WOUND CULTURE Routine 06/06/2024 4:50 PM EDT CARDIAC DEVICE CHECK - REMOTE - ICD Routine 05/24/2024 11:55 AM EDT Pre-operative cardiovascular examination, ICD in place from Last 3 Months Results * Cardiac device check - Remote ICD (06/22/2024 12:00 AM EDT) Anatomical Region Laterality Modality Other 06/22/2024 Kyle Rodas MD CV IMPLANTABLE CARDI AC DEVICE PROCEDURES * POCKET REVISION - PPM (06/06/2024 5:46 PM EDT) Anatomical Region Laterality Modality Other Impressions 06/06/2024 10:55 PM EDT 1. Successful pocket revision. RECOMMENDATIONS: 1. Dressing to be removed after 2 weeks 2. Do not wet the incision for 7 days 3. F/u in device clinic 2 weeks from discharge or sooner for any concerns 4. Follow up in EP clinic in 1 month. 5. Doxycycline and Bactrim x 4 weeks depending on culture Kyle Rodas MD Cardiac Electrophysiology Narrative 06/06/2024 10:55 PM EDT POCKET REVISION PROCEDURE NOTE DATE OF PROCEDURE: 06/06/2024 PERFORMING PHYSICIAN: Dr. Kyle Rodas CONSENT: Patient LOCATION: EP Lab PROCEDURE PERFORMED: 1. Pocket revision for pocket swelling. INDICATIONS: 1. Prior history of pocket discharge and swelling. PROCEDURAL SEDATION: Versed and Fentanyl. Moderate sedation was administered by the sedation nurse under my supervision and noted in the CVL log. Intraprocedural face to face sedation time: 118min. Monitoring: Cardiac telemetry, Blood pressure, continuous pulse oxymetry. FLUROSCOPY: 0s EBL: 15cc SPECIMEN REMOVED: None INDICATION: 78 y.o. year old with past medical [...] an ICD [place]/[employer]ong single-chamber ICD which reached [facility] and he underwent gen change on 12/20/23. He did well until recently he noted some discharge which subsequently stopped with antibiotics. Patient was noted to have a swelling and so was brought for pocket exploration. During prior gen change, he was noted to extreme calcification in the pocket with abandoned leads. He had a previously abandoned dual coil IS-1/DF-1 ICD lead. PROCEDURAL DETAILS: A procedural pause was performed identifying the patient, the procedure to be performed and the site of implant. The left chest was prepped and draped in the usual sterile fashion. Preoperative antibiotics was administered. Patient was placed in supine position and I decided to proceed with opening of the pocket. Local infiltration of 1% Lidocaine was performed, and an incision was created in the left upper chest over the previous incision. Dissection was then performed using cautery. Upon opening the pocket and entering the capsule, a caseous material was noted. Cultures were sent. This was completely suctioned and I proceeded to perform capsulotomy. The old leads were scarred in and tethered. This was freed completely meticulously. The capsule was removed until fresh tissue was seen (muscle layer). The device was placed in Tyrx antibiotic pouch. The wound was cleaned and washed with antibiotics and then closed in layers. Since he lacked sufficient tissue, I made an effort to place the lead deep to avoid erosion. Pocket hemostasis was secured and it was then copiously and vigorously irrigated with antibiotic solution. The leads were wrapped under the device and the device was placed in the pocket and tacked to underlying muscle. The pocket was closed in layers: muscular and subcutaneous layer using 2-0 Vicryl and subcuticular using 3-0 Vicryl absorbable monofilament suture. Glue was applied and dressing was placed on top. Pressure dressing was placed. POST PROCEDURE EXAM: Patient was hemodynamically stable. COMPLICATIONS: None. Angelica Awan LAST [facility] CV ELECTROPHYSIOLOGY PROCEDURES * (ABNORMAL) Wound culture (06/06/2024 4:50 PM EDT) Wound Culture Isolated from Broth Culture Cutibacterium acnes(A) ANTONIA 06/11/2024 10:22 AM EDT [facility] ([facility]) Comment: This is an appended report. These results have been appended to a previously final verified report. Gram Stain Result Few Polymorphonuclear leukocytes 06/11/2024 10:22 AM EDT [facility] ([facility]) Gram Stain Result No organisms seen 06/11/2024 10:22 AM EDT [facility] ([facility]) Swab (Chest) Non-blood Collection / Unknown 06/06/2024 4:50 PM EDT 06/06/2024 4:50 PM EDT Kyle Rodas MD LAB MICROBIOLOGY - G ENERAL ORDERABLES [facility] ([facility]) [address] [place] [address] * CARDIAC DEVICE CHECK - REMOTE - ICD (05/24/2024 11:55 AM EDT) BSA 1.87 m2 CPACS Anatomical Region Laterality Modality Other Narrative 05/27/2024 9:26 PM EDT I have reviewed the documentation. Routine EP device follow up as per schedule. THORACIC IMPEDANCE VALUES CorVue reviewed and is stable with no impedance alerts in the last 31 days PENSION FUND MANAGER RVP 4.7% Kyle Rodas MD CV IMPLANTABLE CARDI AC DEVICE PROCEDURES from Last 3 Months Advance Directives * Full Code (Latest Code Status on File) Date Activated Date Inactivated Comments 11/07/2023 2:46 PM 11/10/2023 7:37 PM Care Teams Mold Car Pusher Relationship Specialty Start Date End Date Armani Vera MD [facility] [place] [id number] PCP - General 04/06/22
--- OUTSIDE RECORDS SUMMARY | 2024-07-10 09:19 | XMS_ITS | Patient Health Record ---
Author Organization [facility] Address [address] [place] [id number] Care Team Providers Care Apartment Maintenance Technician Name Role Phone Raphael Patricia Unavailable [phone] Reason For Referral No Information Plan Of Treatment No Information Insurance Providers Payer Name Payer Address Payer Phone Subscriber Number Group Number Insured Name Patient Relationship to Insured Coverage Start Date Coverage End Date [employer] [address] [address] [place], [place] [id number] [place] - patient is the insured
--- OUTSIDE RECORDS SUMMARY | 2024-07-10 09:19 | XMS_ITS | Encounter Summary ---
Author Organization [facility] Address [address] [place] [address] Care Team Providers Care Gem Setter Name Role Phone Armani Vera MD Primary Care Provider [phone] Encounter Details Date Type Department Care Team (Late st Contact Info) Description 06/22/2024 Orders Only [facility] [address] [place] [phone] Kyle Rodas MD [address] [facility] [place] [address] Social History Tobacco Use Types Packs/Day Years Used Date Smoking Tobacco: Every Day Cigarettes 0.5 56 Started: 07/14/1968 Smokeless Tobacco: Never Alcohol Use Standard Drinks/Week Comments Yes 6 (1 standard drink = 0.6 oz pur e alcohol) 6 per month [facility] Utilities Answer Date Recorded In the past 12 months has [employer], oil, or water [employer] threatened to shut off services in your [...] place to sleep or slept in a custodial (including now)? No 11/07/2023 Hunger Vital Sign [...] 07/16/2024 9:00 AM EDT Office Visit [facility] [address] [place] [address] Kyle Rodas MD [address] [place] [address] documented as of this encounter Procedures Procedure Name Priority Date/Time Associated Diagnosis Comments CARDIAC DEVICE CHECK - REMOTE - ICD Routine 06/22/2024 12:00 AM EDT documented in this encounter Results * Cardiac device check - Remote ICD (06/22/2024 12:00 AM EDT) Anatomical Region Laterality Modality Other 06/22/2024 Kyle Rodas MD CV IMPLANTABLE CARDI AC DEVICE PROCEDURES documented in this encounter Visit Diagnoses Not on filedocumented in this encounter Care Teams Gem Setter Relationship Specialty Start Date End Date Armani Vera MD [facility] [place] [address] PCP - General 04/06/22 documented as of this encounter
--- OUTSIDE RECORDS SUMMARY | 2024-07-10 09:19 | XMS_ITS | Clinical Summary ---
Author Organization [facility] Address [address] [place] [address] Care Team Providers Care Dissolver Operator Name Role Phone Armani Vera MD Primary Care Provider [phone] Allergies No known active allergies Medications Medication [...] pulse generator of cardiac resynchronization therapy defibrillator (ALIGNER TYPEWRITER-D) 06/16/2024 Infection of automatic impla ntable cardioverter-defibrillator [...] Date Resolved Date Acute tonsillitis 11/06/2012 04/29/2024 Encounters Date Type Department Care Team Description 06/27/2024 11:00 AM EDT Office Visit [facility] [address] [place] [address] Angelica Awan CNP Chronic systolic heart failure (CMS/HCC) (Primary Dx); 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, initial encounter; AICD (automatic cardioverter/defibrillato r) present; Nonrheumatic aortic valve stenosis; S/p TAVR (transcatheter aortic valve replacement), bioprosthetic; Persistent atrial fibrillation (CMS/HCC); Coronary artery disease involving ottawa coronary artery of ottawa heart without angina pectoris; 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) 06/27/2024 9:45 AM EDT Ancillary Procedure [facility] [address] [place] [address] Encounter for implantable defibrillator reprogramming or check 06/22/2024 Orders Only [facility] [address] [place] [address] Kyle Rodas MD 06/19/2024 Telephone [facility] [address] [place] [address] Hanny Solares MA 06/14/2024 2:40 PM EDT Office Visit [facility] [address] [place] [address] Karthik Croft MD ICD (implantable cardioverter-defibrillato r), single, in situ (Primary Dx); Encounter for replacement of pulse generator of cardiac resynchronization therapy defibrillator (ALIGNER TYPEWRITER-D) 06/06/2024 3:00 PM EDT - 06/06/2024 4:00 PM EDT Surgery [facility] Heart formerly [facility] [address] [place] [address] Kyle Rodas MD Pocket revision [[id number]] 06/06/2024 1:42 PM EDT - 06/06/2024 6:38 PM EDT Hospital Encounter [facility] Vascular Lab [address] [place] [address] Kyle Rodas MD 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, initial encounter; Superficial skin infection; AICD (automatic cardioverter/defibrillato r) present Discharge Disposition: Home or Self Care (01) 06/06/2024 Travel 05/23/2024 11:20 AM EDT Office Visit [facility] [address] [place] [address] Angelica Awan CNP Superficial skin infection (Primary Dx); AICD (automatic cardioverter/defibrillato r) present; Chronic systolic heart failure (CMS/HCC); Nonrheumatic aortic valve stenosis; S/p TAVR (transcatheter aortic valve replacement), bioprosthetic; Persistent atrial fibrillation (CMS/HCC); Coronary artery disease involving ottawa coronary artery of ottawa heart without angina pectoris; History of coronary artery bypass surgery; PAD (peripheral artery disease); 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) 05/23/2024 Orders Only [facility] [address] [place] [address] Tina Puentes MA 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, initial encounter 05/22/2024 5:40 PM EDT Ancillary Procedure [facility] [address] [place] [phone] Pre-operative cardiovascular examination, ICD in place 04/29/2024 2:30 PM EDT Office Visit [facility] [address] [place] [phone] Kyle Rodas MD Superficial skin infection (Primary Dx) 04/29/2024 10:45 AM EDT Office Visit [facility] [address] [place] [address] Rob Almanza MD S/p TAVR (transcatheter aortic valve replacement), bioprosthetic (Primary Dx); AICD (automatic cardioverter/defibrillato r) present; Persistent atrial fibrillation (CMS/HCC); PAD (peripheral artery disease); Coronary artery disease involving ottawa coronary artery of ottawa heart without angina pectoris; History of coronary artery bypass surgery; Bilateral carotid artery stenosis; Essential hypertension from Last 3 Months Family History Medical History Relation Name Comments Heart attack Mother juliann gautam Heart disease Mother juliann gautam Coronary artery disease Other Relation Name Status Comments Father Mother juliann gautam Other Social History Tobacco Use Types Packs/Day Years Used Date Smoking Tobacco: Every Day Cigarettes 0.5 56 Started: [birth year]/14/1968 Smokeless Tobacco: Never Tobacco Cessation:Ready to Q uit: Not Asked; Counseling Given: Not Answered Alcohol Use Standard Drinks/Week Comments Yes 6 (1 standard drink = 0.6 oz pur e alcohol) 6 per month [facility] Utilities Answer Date Recorded In the past 12 months has e [employer], oil, or water [employer] threatened to shut off services in your [...] Description 07/16/2024 9:00 AM EDT Office Visit [facility] at [facility] [address] [place] [address] Kyle Rodas MD [address] [place] [address] Health Maintenance Due Date Last Done Comments Medicare Annual Wellness (AWV) 1945 Pneumococcal Vaccine: 65+ Years (1 of 2 - PCV) 1950 Adult Tetanus 1966 COVID-19 Vaccine ( season) 2024 11/17/2023, 11/10/2022, 11/16/2021, Additional history exists Depression Screening 12/06/2024 12/07/2023 Fall Risk Screening 12/06/2024 12/07/2023 Zoster Vaccines Completed 01/22/2019, 11/06/2018 Influenza Vaccine Completed 11/17/2023, , 12/02/2020, Additional history exists HIB Vaccines Aged Out No longer eligi ble based on patient's age to complete this topic HPV Vaccines Aged Out No longer eligi ble based on patient's age to complete this topic IPV Vaccines Aged Out No longer eligi ble based on patient's age to complete this topic Meningococcal B Vaccine Aged Out No l onger eligible based on patient's age to complete this topic Meningococcal Vaccine Aged Out No sara martha eligible based on patient's age to complete this topic Rotavirus Vaccines Aged Out No longer eligible based on patient's age to complete this topic Medical Devices Implanted Type Area Spotter Device Identifier Shelf Expiration Date Model / Serial / Lot Haiku [id number] Implanted:Qty: 1 on 12/20/2023 by Kyle Rodas MD at [facility] ICD Left: Chest [employer] [id number] 12/13/2024 [id number] / [id number] / Evolut Fx Transcatheter Aortic Valve 34mm - [id number] - [id number] Implanted:Qty: 1 on 11/07/2023 by Rob Almanza MD at [facility] Prosthetic Valve N/A: Heart Medtronic [id number] 04/25/2025 EVOLUTFX -34 / [id number] / Icd Heart Procedures Procedure Name Priority [...] ICD [place]uong single-chamber ICD which reached [facility] and he underwent gen change [...] was hemodynamically stable. COMPLICATIONS: None. Angelica Awan [facility] CV ELECTROPHYSIOLOGY PROCEDURES * (ABNORMAL) Wound culture (06/06/2024 4:50 PM EDT) Wound Culture Isolated from Broth Culture Cutibacterium acnes(A) ANTONIA 06/11/2024 10:22 AM EDT [facility] ([place]) Comment: This is an appended report. These results have been appended to a previously final verified report. Gram Stain Result Few Polymorphonuclear leukocytes 06/11/2024 10:22 AM EDT [facility] ([facility]) Gram Stain Result No organisms seen 06/11/2024 10:22 AM EDT [facility] ([facility]) Swab (Chest) Non-blood Collection / Unknown 06/06/2024 4:50 PM EDT 06/06/2024 4:50 PM EDT Kyle Rodas MD LAB MICROBIOLOGY - G ENERAL ORDERABLES [facility] ([facility]) [address] [place], [place] [id number] * CARDIAC DEVICE CHECK - REMOTE - ICD (05/24/2024 11:55 AM EDT) BSA 1.87 m2 CPACS Anatomical Region Laterality Modality Other Narrative 05/27/2024 9:26 PM EDT I have reviewed the documentation. Routine EP device follow up as per schedule. THORACIC IMPEDANCE VALUES CorVue reviewed and is stable with no impedance alerts in the last 31 days LINEN AIDE RVP 4.7% Kyle Rodas MD CV IMPLANTABLE CARDI AC DEVICE PROCEDURES from Last 3 Months Advance Directives * Full Code (Latest Code Status on File) Date Activated Date Inactivated Comments 11/07/2023 2:46 PM 11/10/2023 7:37 PM Care Teams Dissolver Operator Relationship Specialty Start Date End Date Armani Vera MD [address] [place] [phone] PCP - General 04/06/22
--- OUTSIDE RECORDS SUMMARY | 2024-07-10 09:19 | XMS_ITS | Clinical Summary ---
Author Organization [facility] Address [address] [place] [address] Care Team Providers Care Utilization Review Coordinator Name Role Phone LynnlalithaArmani DO Primary Care Provider [phone] Allergies No known active allergies Medications No known medications Social History Tobacco Use Types Packs/Day Years Used Date Smoking Tobacco: Every Day Cigarettes Smokeless Tobacco: Never Alcohol Use Standard Drinks/Week Comments Yes 0 (1 standard drink = 0.6 oz pur e alcohol) 6 beers a month Sex and Gender Information Value Date Recorded Sex Assigned at Not on file Legal Sex Male 8:51 PM EST Gender Identity Not on file Sexual Orientation Not on file Last Filed Vital Signs Vital Sign Reading Time Taken Comments Blood Pressure 142/38 10/18/2020 8:35 AM EDT Pulse 79 10/18/2020 8:35 AM EDT Temperature 36.7 C (98 F) 10/17/2020 8:26 PM EDT Respiratory Rate 21 10/18/2020 8:35 AM EDT Oxygen Saturation 94% 10/18/2020 8:35 AM EDT Inhaled Oxygen Concentration - - Weight 75.6 kg (166 lb 11.2 oz) 10/17/2020 8:26 PM EDT Height - - Body Mass Index - - Plan of Treatment Not on file Insurance MEDICARE [employer] Advance Directives Documents on File Type Date Recorded Patient Distribution Clerk Expl anation ACP-Advance Directive 06/09/2016 3:19 PM Care Teams Utilization Review Coordinator Relationship Specialty Start Date End Date Armani Vera DO [address] [place] [phone] PCP - General Internal Medicine 06/06/16
--- OUTSIDE RECORDS SUMMARY | 2024-07-10 09:19 | XMS_ITS | Encounter Summary ---
Author Organization [facility] Address [address] [facility] [place] [address] Care Team Providers Care District Fire Chief Name Role Phone Armani Vera MD Primary Care Provider Encounter Details Date Type Department Care Team (Late st Contact Info) Description 12/11/2023 Orders Only [facility] [address] [place] [phone] Clinton Ambrocio MD [address] [place] [address], [place] [address] Social History Tobacco Use Types Packs/Day Years Used Date Smoking Tobacco: Every Day Cigarettes Smokeless Tobacco: Never Alcohol Use Standard Drinks/Week Comments Yes 2 (1 standard drink = 0.6 oz pur e alcohol) Sex and Gender Information Value Date Recorded Sex Assigned at Not on file Legal Sex Male 7:19 PM EDT Gender Identity Not on file Sexual Orientation Not on file documented as of this encounter Plan of Treatment Not on file documented as of this encounter Procedures Procedure Name Priority Date/Time Associated Diagnosis Comments VASC US ANKLE BRACHIAL INDEX (ENRIQUETA) WITHOUT EXERCISE Routine 08/22/2023 4:33 PM EDT documented in this encounter Results * Vascular US ankle brachial index (ENRIQUETA) without exercise (08/22/2023 4:33 PM EDT) Anatomical Region Laterality Modality Lower Extremities Ultrasound us Clinton Ambrocio MD IMG US PROCEDURES Final Result documented in this encounter Visit Diagnoses Not on filedocumented in this encounter Care Teams District Fire Chief Relationship Specialty Start Date End Date Armani Vera MD [address] [place] [phone] PCP - General Internal Medicine 11/29/23 documented as of this encounter
--- OUTSIDE RECORDS SUMMARY | 2024-07-10 09:19 | XMS_ITS | Clinical Summary ---
Author Organization [facility] Address [address] [place] [address] Care Team Providers Care Clinical Faculty Name Role Phone Armani Vera MD Primary Care Provider Allergies No known active allergies Medications atorvastatin (Lipitor) 40 MG tablet Take 1 tablet by mouth Daily Active apixaban (Eliquis) 5 MG tablet Take 5 mg by mouth in the morning and 5 mg in the evening. 4 Active budesonide-form oterol (Symbicort) 160-4.5 MCG/ACT inhaler Inhale 2 puffs twice a day by inhalation route. Active carvedilol (Coreg) 12.5 MG tablet Take 12.5 mg by mouth Active clopidogrel (Plavix) 75 MG tablet Take 75 mg by mouth Active folic acid (Folvite) 800 MCG tablet 0.8 mg Active montelukast (Singulair) 10 MG tablet Take 10 mg by mouth Active tamsulosin (Flomax) 0.4 MG 24 hr capsule Take 1 capsule by mouth at bedtime Active spironolactone (Aldactone) 25 MG tablet Take 25 mg by mouth Active sacubitril-vals tonya (Entresto) 24-26 MG tablet Take 0.5 tablets twice a day by oral route. Active empagliflozin (Jardiance) 25 MG Take 25 mg by mouth Active polyethylene glycol, PEG, 3350 (Miralax) 17 g packet Take by mouth Acti ve cholecalciferol (Vitamin D-3) 25 MCG (1000 UT) capsule Take 2,000 Units by mouth Daily Active Immunizations Immunization Administration Dates Next Due DTP 08/25/2020 Influenza, High Dose Seasonal, Preservative Free 11/17/2023 Influenza, Seasonal, Quadrivalent, Adjuvanted ,12/02/2020 Influenza, injectable, quadrivalent, preservativ e free 11/27/2017 RSV, recombinant, protein schmidt bunit RSVpreF, adjuvant reconstitu, 120mcg/0.5mL, PF (Arexvy) 11/10/2022 Family History Medical History Relation Name Comments Heart disease Mother Relation Name Status Comments Father Mother Social History Tobacco Use Types Packs/Day Years Used Date Smoking Tobacco: Every Day Cigarettes Smokeless Tobacco: Never Tobacco Cessation:Ready to Q uit: No; Counseling Given: Not Answered Alcohol Use Standard Drinks/Week Comments Yes 2 (1 standard drink = 0.6 oz pur e alcohol) Sex and Gender Information Value Date Recorded Sex Assigned at Not on file Legal Sex Male 7:19 PM EDT Gender Identity Not on file Sexual Orientation Not on file Last Filed Vital Signs Vital Sign Reading Time Taken Comments Blood Pressure 108/58 05/28/2018 12:00 PM EDT Pulse - - Temperature - - Respiratory Rate - - Oxygen Saturation - - Inhaled Oxygen Concentration - - Weight 79.8 kg (176 lb) 11/29/2023 1:31 PM EDT Height 172.7 cm (5' 8 ) 11/29/2023 1:31 PM EDT Body Mass Index 26.76 11/29/2023 1:31 PM EDT Plan of Treatment Health Maintenance Due Date Last Done Comments Pneumococcal Vaccine: 65+ Ye ars (1 of 1 - PCV) 1994 Influenza Vaccine Completed 11/17/2023, , 12/02/2020, Additional history exists Insurance [employer] [place] [address] Care Teams Clinical Faculty Relationship Specialty Start Date End Date Armani Vera MD [address] [place], [place] [phone] PCP - General Internal Medicine 11/29/23
[2024-07-10 10:01] LABS: Anion Gap 12.9; BUN Creatinine Ratio 27.7; Calcium 9.2 mg/dL (8.5-10.1); Carbon Dioxide 25.6 mmol/L (21.0-32.0); Chloride 104 mmol/L (98-107); Estimated GFR (African America >60 (>=60 mL/min/1.73m^2); Estimated GFR (Non-African Ame 50 (>=60 mL/min/1.73m^2); Glucose 107 mg/dL (74-106); Potassium 4.5 mmol/L (3.5-5.1); Sodium 138 mmol/L (136-145)
== END 2024-07-10 09:17 | disposition home or self-care (01) ==
LOC: LAB 09:17
PROVIDERS: PCP Internal Medicine; Visit Provider Nurse Practitioner Family
DX: I50.22 Chronic systolic (congestive) heart failure (principal)
CPT/HCPCS: 36415; 80048

== ENCOUNTER 2024-10-08 08:48 | Outpatient (OUT) | payer MEDICARE, SELFPAY ==
--- OUTSIDE RECORDS SUMMARY | 2023-12-04 04:30 | XMS_ITS ---
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 * Medical History: Objective: * Vitals: Assessment: Plan: * Treatment: * Billing Information: * Visit Code: * Procedure Codes: * Electronic signature of Matthias Lim DDS on 10/08/2024 at 08:50 AM EDT Sign off status: Pending * Provider: Jo Lim DDS Date: 1 Generated for Jose ng/Faaura/eTransmitting on: 0 10/08/2024 08:50 AM EDT
--- OUTSIDE RECORDS SUMMARY | 2024-10-08 08:51 | XMS_ITS | Encounter Summary ---
Author Organization [facility] Address [address] [facility] [place] [address] Care Team Providers Care Dinner Cook Name Role Phone Armani Vera MD Primary Care Provider [phone] Encounter Details Date Type Department Care Team (Late st Contact Info) Description 12/11/2023 [facility] [address] [place] [phone] Clinton Ambrocio MD [address] [place] [address], [place] [address] Social History Tobacco Use Types Packs/Day Years [...] on filedocumented in this encounter Care Teams Dinner Cook Relationship Specialty Start Date End Date Armani Vera MD [facility] [place] [address] PCP - General Internal Medicine 11/29/23 documented as of this encounter
--- OUTSIDE RECORDS SUMMARY | 2024-10-08 08:51 | XMS_ITS | Encounter Summary ---
Author Organization [facility] Address [address] [place] [address] Care Team Providers Care Physician Relations Specialist Name Role Phone Unavailable Primary Care Provider Unavailabl e Encounter Details Date Type Department Care Team (Late st Contact Info) Description 02/12/2021 Abstract PATIENT ACUITY SCORE Social History Tobacco Use Types Packs/Day Years Used Date Smoking Tobacco: Never Assessed Sex and Gender Information Value Date Recorded Sex Assigned at Not on file Legal Sex Male 3:18 AM EDT Gender Identity Not on file Sexual Orientation Not on file documented as of this encounter Plan of Treatment Not on file documented as of this encounter Visit Diagnoses Not on filedocumented in this encounter
--- OUTSIDE RECORDS SUMMARY | 2024-10-08 08:51 | XMS_ITS | Encounter Summary ---
Author Organization [facility] Address [address] [place] [address] Care Team Providers Care Ceramic Tile Installer Name Role Phone Unavailable Primary Care Provider Unavailabl e Encounter Details Date Type Department Care Team (Late st Contact Info) Description 08/12/2021 Abstract PATIENT ACUITY SCORE Social History Tobacco [...]
--- OUTSIDE RECORDS SUMMARY | 2024-10-08 08:51 | XMS_ITS | Encounter Summary ---
Author Organization [facility] Address [address] [place] [address] Care Team Providers Care Operations Manager Assistant Name Role Phone Armani Vera MD Primary Care Provider [phone] Encounter Details Date Type Department Care Team (Late st Contact Info) Description 09/23/2024 Orders Only [facility] [address] [facility] [place] [phone] Coty Lopes MD [address] [facility] [place] [address] Social History Tobacco Use Types Packs/Day Years Used Date Smoking Tobacco: Every Day Cigarettes 0.5 56.2 Started: [birth year]/14/1968 Smokeless Tobacco: Never Alcohol Use Standard Drinks/Week Comments Yes 6 (1 standard drink = 0.6 oz pur e alcohol) 6 per month [facility] Utilities Answer Date Recorded In the past 12 months has [employer], oil, or water [employer] threatened to shut off services in your [...] place to sleep or slept in a correction (including now)? No 11/07/2023 Hunger Vital Sign Answer Date Recorded Within the past 12 months, y ou worried that your food would run out before you got the money to buy more. Never true 11/07/19 Ran Out of Food in the Last Year Not on file 11/07/2023 Sex and Gender Information Value Date Recorded Sex Assigned at Male 09/25/2023 1:42 PM EDT Legal Sex Male 9:45 PM EDT Gender Identity Male 09/25/2023 1:42 PM EDT Sexual Orientation Heterosexual or Straight 09/13 1:42 PM EDT documented as of this encounter Plan of Treatment Upcoming Encounters Date Type Department Care Team (Late st Contact Info) Description 11/04/2024 9:45 AM EDT Office Visit [facility] [address] [place] [address] Rob Almanza MD [address] [facility] [place] [phone] documented as of this encounter Procedures Procedure Name Priority Date/Time Associated Diagnosis Comments CARDIAC DEVICE CHECK - REMOTE - ICD Routine 09/23/2024 12:00 AM EDT documented in this encounter Results * Cardiac device check - Remote ICD (09/23/2024 12:00 AM EDT) Anatomical Region Laterality Modality Other 09/23/2024 Coty Lopes MD CV IMPLANTABLE CARDIAC DEVICE PROCEDURES Final Result documented in this encounter Visit Diagnoses Not on filedocumented in this encounter Care Teams Operations Manager Assistant Relationship Specialty Start Date End Date Armani Vera MD [facility] [place] [phone] PCP - General 04/06/22 documented as of this encounter
--- OUTSIDE RECORDS SUMMARY | 2024-10-08 08:51 | XMS_ITS | Clinical Summary ---
Author Organization [facility] Address [address] [place] [address], [address] [place] [address] Care Team Providers Care Bioinformatics Assistant Name Role Phone Armani Vera DO Primary Care Provider Allergies No known active allergies Medications No [...] Documents on File Type Date Recorded Patient Quality Control Manager Expl anation ACP-Advance Directive 06/09/2016 3:19 PM Care Teams Bioinformatics Assistant Relationship Specialty Start Date End Date Armani Vera DO [address] [place] [phone] PCP - General Internal Medicine 06/06/16
--- OUTSIDE RECORDS SUMMARY | 2024-10-08 08:51 | XMS_ITS | Patient Health Record ---
Author Organization [facility] Address [address] [facility] [id number] Care Team Providers Care Auto Glass Worker Name Role Phone Patricia Lim Unavailable [phone] Reason For Referral No Information Plan Of Treatment No Information Insurance Providers Payer Name Payer Address Payer Phone Subscriber Number Group Number Insured Name Patient Relationship to Insured Coverage Start Date Coverage End Date [facility] [address] [address] [place] [address] [id number] [facility] [place] [facility] Self - patient is the insured
--- OUTSIDE RECORDS SUMMARY | 2024-10-08 08:51 | XMS_ITS | Clinical Summary ---
Author Organization [facility] Address [address] [place] [address] Care Team Providers Care Focuser Name Role Phone Unavailable Primary Care Provider Unavailabl e Source Comments The following information is NOT included in Care Everywhere downloads:Psychiatric notes, ECG results, Cardiac Rehab notes, Pulmonary Function notes, data from SmartForms (includes but not limited toPregnancy data,audiograms, eye exams, pre-surgical evaluation notes, well-child exam data).[facility] Immunizations Immunization Administration Dates Next Due DTP (CVX=01) 08/25/2020 Influenza, injectable, adjuv anted, quadrivalent, preservative free (VCB=419) 12/02/2020 Influenza, injectable, quadr ivalent, preservative free (DVB=390) 11/27/2017 Social History Tobacco Use Types Packs/Day Years Used Date Smoking Tobacco: Never Assessed Sex and Gender Information Value Date Recorded Sex Assigned at Not on file Legal Sex Male 3:18 AM EDT Gender Identity Not on file Sexual Orientation Not on file Last Filed Vital Signs Vital Sign Reading Time Taken Comments Blood Pressure 123/74 10/18/2020 3:41 PM EDT Pulse 75 10/18/2020 3:41 PM EDT Temperature 36.7 C (98 F) 10/18/2020 11:07 AM EDT Respiratory Rate 17 10/18/2020 3:41 PM EDT Oxygen Saturation 99% 10/18/2020 3:41 PM EDT Inhaled Oxygen Concentration - - Weight 75.3 kg (166 lb) 10/18/2020 3:50 AM EDT Height - - Body Mass Index - - Plan of Treatment Health Maintenance Due Date Last Done Comments Hepatitis C Antibody 1962 Tdap Booster 1962 Hepatitis A (HAV) Vaccine (o ptional start 19+ years) 12/24/1963 Pneumococcal Vaccine(s) (50+ yrs) (1 of 1 - PCV) 1994 Shingles (RZV) Vaccine (1 of 2) 1994 Hepatitis B (HBV) Vaccine (o ptional start 60+ years) 2004 RSV vaccine (adult) (1 - 1-d ose 75+ series) 12/24/2019 Annual Wellness Visit (G0438) 10/14/2021 COVID-19 Vaccine (2 - 2023- season) 2023 Influenza Vaccine (#1) 2024 12/02/2020, 2017 Insurance MEDICARE [facility]
--- OUTSIDE RECORDS SUMMARY | 2024-10-08 08:51 | XMS_ITS | Clinical Summary ---
Author Organization [facility] Address [address] [place] [address] Care Team Providers Care Bean Sprout Laborer Name Role Phone Armani Vera MD Primary Care Provider [phone] Allergies No known active allergies Medications sacubitriL-valsar carson (Entresto) 24-26 mg tablet Take 0.5 tablets twice a day by oral route. 1 Active clopidogrel (Plavix) 75 mg tablet Take 1 tablet every day by oral route for 90 days. Active spironolactone (Aldactone) 25 mg tablet Take 25 mg by mouth once daily as directed. Active tamsulosin (Flomax) 0.4 mg 24 hr capsule Take 1 capsule by mouth at bedtime. Active budesonide-formot King (Symbicort) 160-4.5 mcg/actuation inhaler Inhale 2 puffs twice a day by inhalation route. Active atorvastatin (Lipitor) 80 mg tablet Take 80 mg by mouth at bedtime. Active carvedilol (Coreg) 12.5 mg tablet Take 6.25 mg by mouth with breakfast and with evening meal. Active empagliflozin (Jardiance) 25 mg Take 25 mg by mouth once daily as directed. Active apixaban (Eliquis) 5 mg tabletIndications :Paroxysmal atrial fibrillation (CMS/HCC) Take 1 tablet (5 mg) by mouth two times daily. 180 tablet 3 4 Active folic acid (Folvite) 800 mcg tablet Take 0.8 mg by mouth in the morning. Active cholecalciferol, vitamin D3, (VITAMIN D3 ORAL) Take 2,000 Int'l Units by mouth in the morning. Active montelukast (Singulair) 10 mg tablet Take 10 mg by mouth at bedtime. 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 [...] Encounters Date Type Department Care Team Description 09/23/2024 2:30 PM EDT Ancillary Procedure [facility] [address] [place] [phone] Pre-operative cardiovascular examination, ICD in place 09/23/2024 Orders Only [facility] [address] [place] [address] Coty Lopes MD 08/23/2024 1:30 AM EDT Ancillary Procedure [facility] [address] [place] [address] Pre-operative cardiovascular examination, ICD in place 08/23/2024 Orders Only [facility] [address] [place] [address] Coty Lopes MD 07/31/2024 Orders Only [email or web address] Vascular Lab [address] [place] [address] Laxmi Brooks, MAXIM S/p TAVR (transcatheter aortic valve replacement), bioprosthetic (Primary Dx); Aortic stenosis, severe 07/16/2024 9:00 AM EDT Office Visit [facility] [address] [place] [facility] [place] [address] Kyle Rodas MD 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, initial encounter (Primary Dx) 07/10/2024 Orders Only [facility] [address] [place] [address] ProviderRonnie MD 07/10/2024 Refill [facility] [address] [place] [facility] [place] [address] Tina Puentes MA AICD (automatic cardioverter/defibrill ator) present from Last 3 Months Family History Medical History Relation Name Comments Heart attack Mother juliann gautam Heart disease Mother juliann gautam Coronary artery disease Other Relation Name Status Comments Father Mother juliann gautam Other Social History Tobacco Use Types Packs/Day Years Used Date Smoking Tobacco: Every Day Cigarettes 0.5 56.2 Started: 07/14/1968 Smokeless Tobacco: Never Tobacco Cessation:Ready to Q uit: Not Asked; Counseling Given: Not Answered Alcohol Use Standard Drinks/Week Comments Yes 6 (1 standard drink = 0.6 oz pur e alcohol) 6 per month [facility] Utilities Answer Date Recorded In the past 12 months has e [employer], gas, oil, or water [employer] threatened to shut off services in your [...] place to sleep or slept in a prison (including now)? No 11/07/2023 Hunger Vital Sign [...] Sign Reading Time Taken Comments Blood Pressure 112/62 07/16/2024 9:07 AM EDT Pulse 65 07/16/2024 9:07 AM EDT Temperature 36.5 C (97.7 F) 11/10/2023 12:00 PM EDT Respiratory Rate 26 06/06/2024 6:15 PM EDT Oxygen Saturation 96% 07/16/2024 9:07 AM EDT Inhaled Oxygen Concentration - - Weight 71.2 kg (157 lb) 07/16/2024 9:07 AM EDT Height 172.7 cm (5' 8 ) 07/16/2024 9:07 AM EDT Body Mass Index 23.87 07/16/2024 9:07 AM EDT Plan of Treatment Upcoming Encounters Date Type Department Care Team (Late st Contact Info) Description 11/04/2024 9:45 AM EDT Office Visit [facility] Heart at [facility] [address] [place] [address] Rob Almanza MD [address] [facility] [place] [address] Health Maintenance Due Date Last Done Comments Medicare Annual Wellness (AWV) 1945 Adult Tetanus 1966 COVID-19 Vaccine ( season) 2024 11/17/2023, 11/10/2022, 11/16/2021, Additional history exists Influenza Vaccine (#1) 2024 , 10/14/2022, 12/14/2021, Additional history exists Depression Screening 12/06/2024 12/07/2023 Fall Risk Screening 12/06/2024 12/07/2023 Pneumococcal Vaccine: 50+ Years Completed 06/13/2016, 11/13/2014, 11/13/2008, Additional history exists Zoster Vaccines Completed 01/22/2019, 11/06/2018 HIB Vaccines Aged Out No longer eligi [...] this topic Medical Devices Implanted Type Area Livestock Commission Agent Device Identifier Shelf Expiration Date Model / Serial / Lot Knob Noster [id number] Implanted:Qty: 1 on 12/20/2023 by Kyle Rodas MD at [facility] ICD Left: Chest [employer] [id number] 12/13/2024 [id number] / [id number] / Evolut Fx Transcatheter Aortic Valve 34mm - [id number] - [id number] Implanted:Qty: 1 on 11/07/2023 by Rob Almanza MD at [facility] Prosthetic Valve N/A: Heart Medtronic [id number] 04/25/2025 [id number] / [id number] / Icd Heart Procedures Procedure Name Priority Date/Time Associated Diagnosis Comments CARDIAC DEVICE CHECK CHECK - REMOTE Routine 09/30/2024 4:09 PM EDT Pre-operative cardiovascular examination, ICD in place CARDIAC DEVICE CHECK - REMOTE - ICD Routine 09/23/2024 12:00 AM EDT CARDIAC DEVICE CHECK CHECK - REMOTE Routine 09/11/2024 1:45 PM EDT Pre-operative cardiovascular examination, ICD in place CARDIAC DEVICE CHECK - REMOTE - ICD Routine 08/23/2024 12:00 AM EDT CARDIAC DEVICE CHECK - IN CLINIC - ICD SINGLE CHAMBER W/ PROG Routine 07/17/2024 12:09 PM EDT Encounter for implantable defibrillator reprogramming or check BASIC METABOLIC PANEL Routine 07/10/2024 11:16 AM EDT from Last 3 Months Results * CARDIAC DEVICE CHECK - REMOTE - ICD (09/30/2024 4:09 PM EDT) Only the most recent of2 resultswithin the time period is included. us Baljit Payan MD CV IMPLANTABLE CARDIAC DEVICE CO OCEDURES Final Result CPACS * Cardiac device check - Remote ICD (09/23/2024 12:00 AM EDT) Only the most recent of2 resultswithin the time period is included. Anatomical Region Laterality Modality Other 09/23/2024 us Coty Lopes MD CV IMPLANTABLE CARDIAC DEVICE PROCEDURES Final Result * CARDIAC DEVICE CHECK - IN CLINIC - ICD SINGLE CHAMBER W/ PROG (07/17/2024 12:09 PM EDT) BSA 1.85 m2 GE PACS CARDIO Anatomical Region Laterality Modality Other Narrative 07/25/2024 1:08 PM EDT By using the attestations below, the signing clinician agrees that I have read and verify that the documentation has been personally reviewed by me and ensure that the documentation accurately reflects the encounter. Routine EP device follow up as per schedule. Please see attached note Kyle Rodas MD CV IMPLANTABLE CARDIAC DEVICE CO OCEDURES Final Result * Basic metabolic panel (07/10/2024 11:16 AM EDT) Blood Venous blood specimen / Unknown Historical Provider LAB BLOOD ORDERABLES Beatrice l Result from Last [address] [place] [address] [employer] MEDICARE ADVANTAGE Advance Directives * Full Code (Latest Code Status on File) Date Activated Date Inactivated Comments 11/07/2023 2:46 PM 11/10/2023 7:37 PM Care Teams Bean Sprout Laborer Relationship Specialty Start Date End Date Armani Vera MD [address] [place] [phone] PCP - General 04/06/22
--- OUTSIDE RECORDS SUMMARY | 2024-10-08 08:51 | XMS_ITS | Encounter Summary ---
Author Organization [facility] Address [address] [place] [address] Care Team Providers Care Typing Office Worker Name Role Phone Armani Vera MD Primary Care Provider [phone] Encounter Details Date Type Department Care Team (Late st Contact Info) Description 08/23/2024 Orders Only [facility] [address] [facility] [place] [phone] Coty Lopes MD [address] [facility] [place] [address] Social History Tobacco Use Types Packs/Day Years Used Date Smoking Tobacco: Every Day Cigarettes 0.5 56.2 Started: [birth year]/14/1969 Smokeless Tobacco: Never Alcohol Use Standard Drinks/Week Comments Yes 6 (1 standard drink = 0.6 oz pur e alcohol) 6 per month [facility] Utilities Answer Date Recorded In the past 12 months has [employer], oil, or water [employer] threatened to shut off services in your [...] place to sleep or slept in a senior living (including now)? No 11/07/2023 Hunger Vital Sign [...] Description 11/04/2024 9:45 AM EDT Office Visit [facility] Heart at [facility] [address] [place] [address] Rob lAmanza MD [address] [facility] [place] [phone] documented as of this encounter Procedures Procedure Name Priority Date/Time Associated Diagnosis Comments CARDIAC DEVICE CHECK - REMOTE - ICD Routine 08/23/2024 12:00 AM EDT documented in this encounter Results * Cardiac device check - Remote ICD (08/23/2024 12:00 AM EDT) Anatomical Region Laterality Modality Other 08/23/2024 Coty Lopes MD CV IMPLANTABLE CARDIAC DEVICE PROCEDURES Final Result documented in this encounter Visit Diagnoses Not on filedocumented in this encounter Care Teams Typing Office Worker Relationship Specialty Start Date End Date Armani Vera MD [facility] [place] [phone] PCP - General 04/06/22 documented as of this encounter
--- OUTSIDE RECORDS SUMMARY | 2024-10-08 08:51 | XMS_ITS | Clinical Summary ---
Author Organization [facility] Address [address] [place] [place] [address] Care Team Providers Care Multifocal Lens Inspector Name Role Phone Armani Vera MD Primary [...] of 1 - PCV) 1994 Influenza Vaccine (#1) 2024 , 11/16/2021, 12/02/2020, Additional history exists Insurance [place] [id number] Care Teams Multifocal Lens Inspector Relationship Specialty Start Date End Date Armani Vera MD [facility] [place] [address] PCP - General Internal Medicine 11/29/23
--- OUTSIDE RECORDS SUMMARY | 2024-10-08 08:51 | XMS_ITS | Encounter Summary ---
Author Organization [facility] Address [address] [place] [address] Care Team Providers Care Thread Spooler Name Role Phone Armani Vera MD Primary Care Provider [phone] Encounter Details Date Type Department Care Team (Late st Contact Info) Description 06/22/2024 Orders Only [facility] [address] [place] [phone] Kyle Rodas MD [address] [facility] [place] [address] Social History Tobacco Use Types Packs/Day Years Used Date Smoking Tobacco: Every Day Cigarettes 0.5 56.2 Started: [birth year]/14/1969 Smokeless Tobacco: Never Alcohol Use Standard Drinks/Week Comments Yes 6 (1 standard drink = 0.6 oz pur e alcohol) 6 per month [facility] Utilities Answer Date Recorded In the past 12 months has [employer], oil, or water [employer] threatened to shut off services in your [...] place to sleep or slept in a fdc (including now)? No 11/07/2023 Hunger Vital Sign [...] Description 11/04/2024 9:45 AM EDT Office Visit [facility] Heart at [facility] [address] [place] [address] Rob Almanza MD [address] [facility] [place] [phone] documented as of this encounter Procedures Procedure Name Priority Date/Time Associated Diagnosis Comments CARDIAC DEVICE CHECK - REMOTE - ICD Routine 06/22/2024 12:00 AM EDT documented in this encounter Results * Cardiac device check - Remote ICD (06/22/2024 12:00 AM EDT) Anatomical Region Laterality Modality Other 06/22/2024 Kyle Rodas MD CV IMPLANTABLE CARDIAC DEVICE [place] OCEDURES Final Result documented in this encounter Visit Diagnoses Not on filedocumented in this encounter Care Teams Thread Spooler Relationship Specialty Start Date End Date Armani Vera MD [address] [place] [phone] PCP - General 04/06/22 documented as of this encounter
--- OUTSIDE RECORDS SUMMARY | 2024-10-08 08:53 | XMS_ITS | CCD ---
Author Organization [facility] Care Team Providers Care Mortgage Closing Clerk Name Role Phone ARMANI STEWART Primary [...] Primary Care Unavailable PAT, ARMANI Referring Unavailable MOUKARBKUNAL, DR MAE Admitting Unavailable MOUKARBEL, DR MAE Attending Unavailable VALONE, DR CASTRO Primary Care Unavailable MISC, DR COLEMAN Admitting Unavailable MISC, DR COLEMAN Attending Unavailable PAT, DR CASTRO Primary Care Unavailable MISC, DR COLEMAN Consulting Unavailable Armani Stewart MD Primary Care Provider GIBRAN GONGORA Attending Unavailable GIBRAN GONGORA Referring Unavailable Unavailable Primary Care Provider Unavaileliseo e CARMELITA ALMANZA Referring Unavailable ZO NAVARRO Attending Unavailable MOUKACARMELITA GARCIA Referring Unavailable DERGIBRAN PRITCHETT Attending Unavailable JEAN PIERREKYLE Salguero Attending Unavailable MOUKARBELCARMELITA Admitting Unavailable MOUKARBELCARMELITA Attending Unavailable JEAN PIERREKYLE Attending Unavailable JEAN PIERREKYLE Referring Unavailable JEAN PIERREKYLE Admitting Unavailable JEAN PIERREKYLE Salguero Attending Unavailable KYLE GREENFIELD Referring Unavailable BORISFELY Delgadillo Referring Unavailable JEAN PIERREKYLE Referring Unavailable LAUREN PARHAM Attending Unavailable ESTELLA ADAM Attending Unavailable MADRIGALRISHI Referring Unavailable MADRIGALRISHI Referring Unavailable JEAN PIERREKYLE Referring Unavailable MOUKARBELCARMELITA Attending Unavailable LAUREN PARHAM Attending Unavailable MOUKARBELCARMELITA Attending Unavailable LAUREN PARHAM Attending Unavailable KYLE GREENFIELD Referring Unavailable MOUKARBEL, CARMELITA Attending Unavailable KYLE GREENFIELD Admitting Unavailable KYLE GREENFIELD Attending Unavailable CARMELITA ALMANZA Admitting Unavailable CARMELITA ALMANZA Attending Unavailable RISHI MADRIGAL Referring Unavailable FELY ESCALANTE Referring Unavailable KYLE GREENFIELD Attending Unavailable Allergies Allergy Classification Reported Allergen(s) Allergy Type Date of Onset Reaction(s) Facility (1 source) 88559,00; Translations: [81060,00] Propensity to adverse reactions (disorder) [address] [facility] Repository Medications Current Medications Medication Drug Class(es) [...] mg by mouth Active polyethylene glycol 3350 99071 mg powder for oral solution (3 sources) [...] Documented Date Episodic/Chronic Cardiac dysrhythmias (2 sources) Paroxysmal atrial fibrillation; Translations: [Paroxysmal atrial fibrillation] Onset: 10-12-2023 Chronic Conduction disorders (6 sources) Presence of automatic (implantable) cardiac defibrillator; Translations: [Encounter for checking and testing of cardiac pacemaker pulse generator [battery]] Onset: 10-10-2023 Chronic Congestive heart failure; nonhypertensive (3 sources) Chronic systolic (congestive) heart failure; Translations: [CHRONIC SYSTOLIC HEART FAILURE] Onset: 04-18-2022 Chronic Coronary atherosclerosis and other heart disease (2 sources) Atherosclerotic heart disease of [place] coronary artery without angina pectoris; Translations: [Atherosclerotic heart disease of [place] coronary artery without angina pectoris] Onset: 04-29-2024 Chronic Disorders of lipid metabolism (4 sources) [...] disease; Translations: [Peripheral vascular disease, unspecified] Onset: 04-29-2024 11-29-2023 Chronic Substance-related disorders (1 source) Nicotine dependence, cigarettes, uncomplicated; Translations: [NICOTINE DEPEND CIGARETTES UNCOMP] Onset: 04-18-2022 Chronic Unclassified (2 sources) Other persistent atrial fibrillation; Translations: [Other persistent atrial fibrillation] Onset: 04-29-2024 Unclassified (1 source) Encounter for other specified prophylactic measures; Translations: [Encounter for other specified prophylactic measures] Onset: 11-07-2023 Unclassified (2 sources) New Patient; Translations: [New Patient] Onset: 10-05-2023 Past or Other Problems Problem Classification Problem Date Documented Da te Episodic/Chronic Complication of device; implant or graft (2 sources) Infection and inflammatory reaction due to other cardiac and vascular devices, implants and grafts, initial encounter; Translations: [Infection and inflammatory reaction due to other cardiac and vascular devices, implants and grafts, initial encounter] Onset: 05-27-2024 Episodic Coronary atherosclerosis and other heart disease (3 sources) Presence of aortocoronary bypass graft; Translations: [PRESENCE AORTOCORONARY BYPASS GRAFT] Onset: 04-18-2022 Episodic Other screening for suspected conditions (not mental disorders or infectious disease) (2 sources) Abnormal result of other cardiovascular function study; Translations: [Abnormal result of other cardiovascular function study] Onset: 10-06-2023 Episodic Skin and subcutaneous tissue infections (2 sources) Local infection of the skin and subcutaneous tissue, unspecified; Translations: [Local infection of the skin and subcutaneous tissue, unspecified] Onset: 06-06-2024 Episodic Unclassified (1 source) Encounter for other specified prophylactic measures; Translations: [Encounter for other specified prophylactic measures] Onset: 11-07-2023 Results Test Name Value Interpretation Reference Range Facility Orders Onlyon 09-23-2024 Orders Only [id number] Claudia Kent 1945 M Date Provider Department Center 09/23/2024 325-LONA JUAREZ HVC CARD [facility] Family History Problem Relation Age of Onset Heart attack Mother Heart disease Mother Coronary artery disease Other Family Status - Relation Status Age at Mother Father Other Normal [facility] Orders Onlyon 07-31-2024 Orders Only [id number] Claudia Kent 1945 [facility] Provider Department Center 07/31/2024 [id number] AYALA C VASC LAB [facility] Family History Problem Relation Age of Onset Heart attack Mother Heart disease Mother Coronary artery disease Other Family Status - Relation Status Age at Mother Father Other Normal [facility] Office Visiton 07-16-2024 Follow-up visit [id number] Cluadia Kent 1945 M Date Provider Department Center 07/16/2024 241-KYLE GREENFIELD CARD [facility] Family History Problem Relation Age of Onset Heart attack Mother Heart disease Mother Coronary artery disease Other Family Status - Relation Status Age at Mother Father Other Level of Service:62592 MT OFFICE/OUTPATIENT ESTABLISHED LOW MDM [address] [facility] Orders Onlyon 07-10-2024 Orders Only [id number] Claudia Kent 1945 Date Provider Department Center 07/10/2024 [id number], HISTORICAL CARD [facility] Family History Problem Relation Age of Onset Heart attack Mother Heart disease Mother Coronary artery disease Other Family Status - Relation Status Age at Mother Father Other Normal [facility] Office Visiton 06-27-2024 Follow-up visit [id number] Claudia Kent 1945 M Date Provider Department Center 06/27/2024 166-LAUREN PARHAM CARD [facility] Family History Problem Relation Age of Onset Heart attack Mother Heart disease Mother Coronary artery disease Other Family Status - Relation Status Age at Mother Father Other Level of Service:93400 MT OFFICE/OUTPATIENT ESTABLISHED MOD MDM 30 MIN Reason for Visit and Comments: Wound Check [369825] [facility] Orders Onlyon 06-22-2024 Orders Only [id number] Claudia Kent 1945 M Date Provider Department Center 06/22/2024 241-KYLE GREENFIELD [facility] CARD [facility] Family History Problem Relation Age of Onset Heart attack Mother Heart disease Mother Coronary artery disease Other Family Status - Relation Status Age at Mother Father Other [facility] 36on 06-19-2024 36 Regarding lab result s from 05/31/2024: MD Hanny Machuca MA His potassium is elevated and I want him to reduce spironolactone to 12.5 mg once daily and get a repeat BMP in 2 weeks. Spoke with patient and advised him to have BMP prior to his apt next week with Mariela. He will cut spironolactone in half. He verbalized understanding. Order faxed to [facility]. [facility] Telephoneon 06-19-2024 Telephone [id number] Claudia Kent 1945 [facility] Provider Department Center 06/19/2024 928-HANNY FRIEND GERMAINE [facility] Family History Problem Relation Age of Onset Coronary artery disease Other Heart attack Mother Heart disease Mother Family Status - Relation Status Age at Other Mother [facility] Office Visiton 06-14-2024 Follow-up visit [id number] Claudia Kent 1945 [facility] Provider Department Center 06/14/2024 [id number] ADAM CARD [facility] Family History Problem Relation Age of Onset Coronary artery disease Other Heart attack Mother Heart disease Mother Family Status - Relation Status Age at Other Mother Level of Service:67050 MT POSTOP FOLLOW UP VISIT RELATED TO ORIGINAL PX [facility] HPon 06-06-2024 [facility] Electrophysiology Consult Note [facility] - [facility] Reason for visit: Device at [facility] 04/29/24 Pt was sent to [place] clinic by Dr HOLLAND who saw pt in [facility] and there was a concern of clear [...] ICD [place] single-chamber ICD which reached [facility] and he underwent gen change on 12/20/23. He elects PMH: Past Medical History: Diagnosis Date Abnormal ECG Arrhythmia Atrial fibrillation (CMS/HCC) BPH (benign prostatic hyperplasia) Cardiomyopathy (CMS/HCC) Carotid artery stenosis CHF (congestive heart failure) (CMS/HCC) Coronary artery disease Gastric ulcer Heart valve disease Hyperlipidemia Hypertension Implantable cardioverter-defibrilla tor (ICD) in situ Nonrheumatic aortic (valve) stenosis PAD (peripheral artery disease) Peripheral arterial occlusive disease PVC (premature ventricular contraction) PSH: Past Surgical History: Procedure Laterality Date CARDIAC CATHETERIZATION 1986 CORONARY ANGIOPLASTY 1996 CORONARY ARTERY BYPASS GRAFT 1997 CTA LOWER EXTREMITY LEFT W IV CONTRAST INSERT / REPLACE / REMOVE PACEMAKER SH: Social Determinants of Health Tobacco Use: High Risk (05/23/2024) Patient History Smoking Tobacco Use: Every Day [...] Year: No Utilities: Not At Risk (11/07/2023) [facility] Utilities Threatened with loss of utilities: No Health Literacy: Not on file Allergies: No Known Allergies Weight: 71.7kg Visit Vitals BP 138/54 Pulse 60 Resp 18 SpO2 93% Smoking Status Every Day Meds: No current facility-administered medications on file prior to encounter. Current Outpatient Medications on File Prior to Encounter Medication Sig Dispense Refill apixaban (Eliquis) 5 [...] Take 1 capsule by mouth at bedtime. [] doxycycline (Vibra-Tabs (more content not included)... [facility] NURSNOTEon 06-06-2024 NURSNOTE RN educated pt on d/ c [...] off of unit with all of belongings. [facility] NURSNOTE CHG wipes and betadi ne nasal swabs completed. [facility] WOUND CULTUREon 06-06-2024 GRAM STAIN RESULT Normal [facility] Comment on above: Order Comment: PACEM TRAVON POCKET Result Comment: Few Polymorphonuclear leukocytes No organisms seen Performed By: #### L [id number] ####[facility] ([facility])[address] [place] [address] WOUND CULTURE CUT[facility]ACTERIUM [facility]ES [facility] on above: Order Comment: PACEM TRAVON POCKET Result Comment: Isol ated from Broth Culture Cutibacterium acnes This is an appended report. These results have been appended to a previously final verified report. Performed By: #### L [id number] ####[facility] ([facility])[address] [place] [address] Office Visiton 05-23-2024 Follow-up visit [id number] Claudia Kent 1945 M Date Provider Department Center 05/23/2024 [facility] Family History Problem Relation Age of Onset Coronary artery disease Other Heart attack Mother Heart disease Mother Family Status - Relation Status Age at Other Mother Level of Service:12956 MT OFFICE/OUTPATIENT ESTABLISHED MOD MDM 30 MIN Reason for Visit and Comments: Congestive Heart Failure [127] Normal [facility] Orders Onlyon 05-23-2024 Orders Only [id number] Claudia Kent 1945 [facility] Provider Department Center 05/23/2024 895-ERMA CORDERO CARD [facility] Family History Problem Relation Age of Onset Coronary artery disease Other Heart attack Mother Heart disease Mother Family Status - Relation Status Age at Other Mother Normal [facility] Office Visiton 04-29-2024 Follow-up visit [id number] Claudia Kent 1945 Date Provider Department Center 04/29/2024 241-KYLE GREENFIELD [facility] CARD [facility] Family History Problem Relation Age of Onset Coronary artery disease Other Heart attack Mother Heart disease Mother Family Status - Relation Status Age at Other Mother Level of Service:88197 MT OFFICE/OUTPATIENT ESTABLISHED LOW MDM [address] [facility] Follow-up visit [id number] Claudia Kent 1945 [facility] Provider Department Center 04/29/2024 367-CARMELITA ALMANZA CARD [facility] Family History Problem Relation Age of Onset Coronary artery disease Other Heart attack Mother Heart disease Mother Family Status - Relation Status Age at Other Mother Level of Service:67634 MT OFFICE/OUTPATIENT ESTABLISHED MOD MDM [address] [facility] Office Visiton 01-08-2024 Follow-up visit [id number] Claudia Kent 1945 [facility] Provider Department Center 01/08/2024 367-CARMELITA ALMANZA CARD [facility] Family History Problem Relation Age of Onset Coronary artery disease Other Heart attack Mother Heart disease Mother Family Status - Relation Status Age at Other Mother Level of Service:46715 MT OFFICE/OUTPATIENT ESTABLISHED LOW MDM [address] [facility] Office Visiton 12-28-2023 Follow-up visit [id number] Claudia Kent 1945 [facility] Provider Department Center 12/28/2023 3848-ZO NAVARRO CARD [facility] Family History Problem Relation Age of Onset Coronary artery disease Other Heart attack Mother Heart disease Mother Family Status - Relation Status Age at Other Mother Level of Service:02236 MT OFFICE/OUTPATIENT ESTABLISHED LOW MDM [address] [facility] HPon 12-20-2023 [facility] Electrophysiology Consult Note [place] [facility] - [facility] Reason for visit: Device at TIARRA [...] ulcer Heart valve disease Hyperlipidemia Hypertension Implantable cardioverter-defibrilla tor (ICD) in situ Nonrheumatic aortic (valve) stenosis [...] Year: No Utilities: Not At Risk (11/07/2023) [facility] Utilities Threatened with loss of utilities: [...] on exertion (int (more content not included)... [facility] NURSNOTEon 12-20-2023 NURSNOTE RN educated pt on [...] off of unit with all of belongings. [facility] NURSNOTE CHG wipes and betadi ne nasal swabs completed. [facility] Orders Onlyon 12-20-2023 Orders Only [id number] Claudia Kent 1945 M [facility] Provider Department Center 12/20/2023 CRESCENCIO ANTHONY [facility] VASC LAB [facility] Family History Problem Relation Age of Onset Coronary artery disease Other Heart attack Mother Heart disease Mother Family Status - Relation Status Age at Other Mother [facility] Telephoneon 12-18-2023 Telephone [id number] Claudia Kent 1945 M [facility] Provider Department Center 12/18/2023 [id number] MCDONALD [facility] VAS LAB [facility] Family History Problem Relation Age of Onset Coronary artery disease Other Heart attack Mother Heart disease Mother Family Status - Relation Status Age at Other Mother Reason for Visit and Comments: 1 mo KCCQ [Other] [facility] Follow-Upon 12-07-2023 Follow-Up [id number] Claudia Kent 1945 M Date Provider Department Center 12/07/2023 CARMELITA MCLEOD [facility] CARD [facility] Family History Problem Relation Age of Onset Coronary artery disease Other Heart attack Mother Heart disease Mother Family Status - Relation Status Age at Other Mother Level of Service:54630 MT OFFICE/OUTPATIENT ESTABLISHED LOW MDM 20 MIN Reason for Visit and Comments: Follow-up [723546] Post-op TAVR [730] Normal [facility] Office Visiton 12-05-2023 Follow-up visit [id number] Claudia Kent 1945 M Date Provider Department Center 12/05/2023 KYLE PALMER CARD [facility] Family History Problem Relation Age of Onset Coronary artery disease Other Heart attack Mother Heart disease Mother Family Status - Relation Status Age at Other Mother Level of Service:19391 MT OFFICE/OUTPATIENT NEW MODERATE MDM [address] [facility] VASC US PVR/SEGMENTAL PRESSU RES LOWERon 11-29-2023 [...] report is generated using voice recognition reporting ([employer]). On occasion [employer] erroneously drops words from the report or [...] Thank you. Orders Onlyon 11-15-2023 Orders Only [id number] Claudia Kent 1945 M Date Provider Department Center 11/15/2023 [id number], HISTORICAL DCC ONC DCC Family History Problem Relation Age of Onset Coronary artery disease Other Heart attack Mother Heart disease Mother Family Status - Relation Status Age at Other Mother Normal [facility] Follow-Upon 11-14-2023 Follow-Up [id number] Claudia Kent 1945 M Date Provider Department Center 11/14/2023 Geovany-LAUREN PARHAM CARD [facility] Family History Problem Relation Age of Onset Coronary artery disease Other Heart attack Mother Heart disease Mother Family Status - Relation Status Age at Other Mother Level of Service:63031 MT OFFICE/OUTPATIENT ESTABLISHED MOD MDM 30 MIN Reason for Visit and Comments: Post-op TAVR [730] Coronary Artery Disease [187] Normal [facility] 36on 11-11-2023 36 Post Discharge Call Good morning, I am Siddharth Sarmiento RN a lead nurse from [facility]. I am calling you to follow [...] No. Had a question about lab work, newspaper writer reached out to [facility] [employer]LLING [employer]ACH[employer]PER[employer] and she will correct lab work. [facility] will also call patient this afternoon. Patient Name Claudia Kent Date 11/11/23 [facility] Telephoneon 11-11-2023 Telephone [id number] Claudia Kent 1945 M Date Provider Department Center 11/11/2023 1912-SIDDHARTH [facility]O [facility] Medical Family History Problem Relation Age of Onset Coronary artery disease Other Heart attack Mother Heart disease Mother Family Status - Relation Status Age at Other Mother Reason for Visit and Comments: Hospital Follow-up [832] [facility] DSon 11-10-2023 DS Admission Admitted 11/07/2023 for [...] 25, --H (more content not included)... Normal [facility] 30on 11-09-2023 30 The patient is Moderately [...] and maintained or improved Outcome: Progressing Normal [facility] 30 Daily Case Managemen t Update Multidisciplinary [...] Answer: eval and treat 11/08/[address] [facility] CBCon 11-09-2023 Erythrocyte distribution width (RBC) [Ratio] 14.2 % Normal 11.5-15.0 [facility] Comment on above: Performed By: #### L [id number] #### [facility] ([facility]) [address] [place] [address] ERYTHROCYTE MEAN CORPUSCULAR HEMOGLOBIN CONCENTRATION (G/DL) BY AUTOMATED 33.3 g/dL Normal 32.0-35.0 [facility] Comment on above: Performed By: #### L [id number] #### [facility] ([facility]) [address] [place] [address] Hematocrit (Bld) [Volume fraction] 30.6 % Low 39.0-55.0 [facility] Comment on above: Performed By: #### L [id number] #### [facility] ([facility]) [address] [place] [address] Hemoglobin (Bld) [Mass/Vol] 10.2 g/dL Low 13.0-17.0 [facility] Comment on above: Performed By: #### L [id number] #### [facility] ([facility]) [address] [place] [address] IMMATURE PLATELET FRACTION % 5.1 % Normal 0.8-6.3 [facility] Comment on above: Performed By: #### L [id number] #### [facility] ([facility]) [address] [place] [address] MCH (RBC) [Entitic mass] 34.6 pg High 27.0-33.0 [facility] Comment on above: Performed By: #### L [id number] #### [facility] ([facility]) [address] [place] [address] MCV (RBC) [Entitic vol] 103.7 fL High 82.0-98.0 [facility] Comment on above: Performed By: #### L [id number] #### [facility] ([facility]) [address] [place] [address] PLATELETS (10*3/UL) IN BLOOD AUTOMATED COUNT 129 10*3/uL Low 150-400 [facility] Comment on above: Performed By: #### L [id number] #### [facility] ([facility]) [address] [place] [address] RBC (Bld) [#/Vol] 2.95 10*6/uL Low 4.20-5.70 [facility] Comment on above: Performed By: #### L [id number] #### [facility] ([facility]) [address] [place] [address] WBC (Bld) [#/Vol] 12.00 10*3/uL High 4.00-10.60 [facility] Comment on above: Performed By: #### L [id number] #### [facility] ([facility]) [address] [place] [address] COMPREHENSIVE METABOLIC PANE Gabriel 11-09-2023 Albumin [Mass/Vol] 3.2 g/dL Low 3.5-5.[address] [facility] Comment on above: Performed By: #### L [id number] #### [facility] ([facility]) [address] [place] [address] ALP [Catalytic activity/Vol] 37 U/L Normal 34-104 [facility] Comment on above: Performed By: #### L [id number] #### [facility] ([facility]) [address] [place] [address] ALT [Catalytic activity/Vol] 3 U/L Low 7-52 [facility] Comment on above: Performed By: #### L [id number] #### [facility] ([facility]) [address] [place] [address] Anion gap [Moles/Vol] 9 mmol/L Normal 7-20 [facility] Comment on above: Performed By: #### L [id number] #### [facility] ([facility]) [address] [place] [address] AST [Catalytic activity/Vol] 11 U/L Low 13-39 [facility] Comment on above: Performed By: #### L [id number] #### [facility] ([facility]) [address] [place] [address] Bilirubin [Mass/Vol] 0.7 mg/dL Normal 0.3-1.0 [facility] Comment on above: Performed By: #### L [id number] #### [facility] ([facility]) [address] [place] [address] Calcium [Mass/Vol] 8.9 mg/dL Normal 8.6-10.[address] [facility] Comment on above: Performed By: #### L [id number] #### [facility] ([facility]) [address] [place] [address] Chloride [Moles/Vol] 105 mmol/L Normal 98-107 [facility] Comment on above: Performed By: #### L [id number] #### [facility] ([facility]) [address] [place] [address] CO2 [Moles/Vol] 25 mmol/L Normal 21-31 [facility] Comment on above: Performed By: #### L [id number] #### [facility] ([facility]) [address] [place] [address] Creatinine [Mass/Vol] 0.86 mg/dL Normal 0.70-1.30 [facility] Comment on above: Performed By: #### L [id number] #### [facility] ([facility]) [address] [place] [address] GLOMERULAR FILTRATION RATE ML/MIN/1.73 SQ M.PREDICTED 88.6 mL/min/1.73m*2 Normal >60.0 [facility] Comment on above: Result Comment: The [facility]???s estimated glomerular filtration rate (eGFR) will no [...] group of individuals. Performed By: #### L [id number] #### [facility] ([facility]) [address] [place] [address] Glucose [Mass/Vol] 91 mg/dL Normal 70-[address] [facility] Comment on above: Performed By: #### L [id number] #### [facility] ([facility]) [address] [place] [address] Potassium [Moles/Vol] 4.4 mmol/L Normal 3.5-5.1 [facility] Comment on above: Performed By: #### L [id number] #### [facility] ([facility]) [address] [place] [address] Protein [Mass/Vol] 5.4 g/dL Low 6.0-8.[address] [facility] Comment on above: Performed By: #### L [id number] #### [facility] ([facility]) [address] [place] [address] Sodium [Moles/Vol] 135 mmol/L Low 136-[address] [facility] Comment on above: Performed By: #### L [id number] #### [facility] ([facility]) [address] [place] [address] Urea nitrogen [Mass/Vol] 26 mg/dL High - [facility] Comment on above: Performed By: #### L [id number] #### [facility] ([facility]) [address] [place] [address] UREA NITROGEN/CREATININE (MASS RATIO) IN SER/PLAS 30.[address] [facility] Comment on above: Performed By: #### L [id number] #### [facility] ([facility]) [address] [place] [address] MAGNESIUMon 11-09-2023 Magnesium [Mass/Vol] 2.0 mg/dL Normal 1.9-2.7 [facility] Comment on above: Performed By: #### L [id number] #### [facility] ([facility]) [address] [place] [address] NURSNOTEon 11-09-2023 NURSNOTE Patient Name: Torin eKnt : 1945 Primary Care Physician: Armani Stewart [...] voiced no concerns at this time. The newspaper writer urged the primary RN to call the rapid team if any concerns arise overnight. Wan Serrano RN Rapid Response Team Nurse [phone] 11/09/2023 11:[address] [facility] NURSNOTE Patient Name: Torin Kent : 1945 [...] Maximilian Lam RN Rapid Response Team Nurse [phone] 11/09/2023 11:[address] [facility] NURSNOTE Patient Name: Torin Kent : 1945 [...] voiced no concerns at this time. The newspaper writer urged the primary RN to call the rapid team if any concerns arise overnight. Wan Serrano RN Rapid Response Team Nurse [phone] 11/09/2023 12:[address] [facility] 30on 11-08-2023 30 Problem: Pain - Adul [...] and maintained or improved Outcome: Progressing Normal [facility] 30 Daily Case Managemen t Update Multidisciplinary [...] Answer: eval and treat 11/08/[address] [facility] BASIC METABOLIC PANELon - Anion gap [Moles/Vol] 8 mmol/L Normal 7-20 [facility] Comment on above: Performed By: #### L AB15 ####[facility] ([facility]ER)[address] [place] [address] Calcium [Mass/Vol] 8.6 mg/dL Normal 8.6-10.[address] [facility] Comment on above: Performed By: #### L [id number] ####[facility] ([facility])[address] [place] [address] Chloride [Moles/Vol] 106 mmol/L Normal 98-107 [facility] Comment on above: Performed By: #### L [id number] ####[facility] ([facility]ER)[address] [place] [address] CO2 [Moles/Vol] 24 mmol/L Normal 21-31 [facility] Comment on above: Performed By: #### L [id number] ####[facility] ([facility])[address] [place] [address] Creatinine [Mass/Vol] 1.08 mg/dL Normal 0.70-1.30 [facility] Comment on above: Performed By: #### L AB15 ####[facility] ([facility])[address] [place] [address] GLOMERULAR FILTRATION RATE ML/MIN/1.73 SQ M.PREDICTED 70.2 mL/min/1.73m*2 Normal >60.0 [facility] Comment on above: Result Comment: The [facility]???s estimated glomerular filtration rate (eGFR) will no [...] of individuals. Performed By: #### L AB15 ####[facility] ([facility])[address] [place] [address] Glucose [Mass/Vol] 138 mg/dL High 70-[address] [facility] Comment on above: Performed By: #### L [id number] ####[facility] ([facility])[address] [place] [address] Potassium [Moles/Vol] 4.8 mmol/L Normal 3.5-5.1 [facility] Comment on above: Performed By: #### L [id number] ####[facility] ([facility])[address] [place] [address] Sodium [Moles/Vol] 133 mmol/L Low 136-[address] [facility] Comment on above: Performed By: #### L [id number] ####[facility] ([facility])[address] [place] [address] Urea nitrogen [Mass/Vol] 28 mg/dL High 7-25 [facility] Comment on above: Performed By: #### L [id number] ####[facility] ([facility])[address] [place] [address] UREA NITROGEN/CREATININE (MASS RATIO) IN SER/PLAS 25.[address] [facility] Comment on above: Performed By: #### L [id number] ####[facility] ([facility])[address] [place] [address] CBCon 11-08-2023 Erythrocyte distribution width (RBC) [Ratio] 14.0 % Normal 11.5-15.0 [facility] Comment on above: Performed By: #### L [id number] #### [facility] ([facility]) [address] [place] [address] ERYTHROCYTE MEAN CORPUSCULAR HEMOGLOBIN CONCENTRATION (G/DL) BY AUTOMATED 32.7 g/dL Normal 32.0-35.0 [facility] Comment on above: Performed By: #### L [id number] #### [facility] ([facility]) [address] [place] [address] Hematocrit (Bld) [Volume fraction] 33.0 % Low 39.0-55.0 [facility] Comment on above: Performed By: #### L [id number] #### [facility] ([facility]) [address] [place] [address] Hemoglobin (Bld) [Mass/Vol] 10.8 g/dL Low 13.0-17.0 [facility] Comment on above: Performed By: #### L [id number] #### [facility] ([facility]) [address] [place] [address] MCH (RBC) [Entitic mass] 33.4 pg High 27.0-33.0 [facility] Comment on above: Performed By: #### L [id number] #### [facility] ([facility]) [address] [place] [address] MCV (RBC) [Entitic vol] 102.2 fL High 82.0-98.0 [facility] Comment on above: Performed By: #### L [id number] #### [facility] ([facility]) [address] [place] [address] PLATELETS (10*3/UL) IN BLOOD AUTOMATED COUNT 149 10*3/uL Low 150-400 [facility] Comment on above: Performed By: #### L [id number] #### [facility] ([facility]) [address] [place] [address] RBC (Bld) [#/Vol] 3.23 10*6/uL Low 4.20-5.70 [facility] Comment on above: Performed By: #### L [id number] #### [facility] ([facility]) [address] [place] [address] WBC (Bld) [#/Vol] 16.06 10*3/uL High 4.00-10.60 [facility] Comment on above: Performed By: #### L [id number] #### [facility] ([facility]) [address] [place] [address] 30on 11-07-2023 30 Problem: Pain - Adul [...] and behaviors that affect risk of falls [place] fall precautions as indicated by assessment Educate [...] to address these barriers include . Normal [facility] 30 Problem: Pain - Adul t Goal: [...] and maintained or improved Outcome: Progressing Normal [facility] BASIC METABOLIC PANELon 09-2 Anion gap [Moles/Vol] 11 mmol/L Normal 7-20 [facility] Comment on above: Performed By: #### L [id number] #### [facility] ([facility]) [address] [place] [address] Calcium [Mass/Vol] 8.9 mg/dL Normal 8.6-10.[address] [facility] Comment on above: Performed By: #### L [id number] #### [facility] ([facility]) [address] [place] [address] Chloride [Moles/Vol] 106 mmol/L Normal 98-107 [facility] Comment on above: Performed By: #### L [id number] #### [facility] ([facility]) [address] [place] [address] CO2 [Moles/Vol] 24 mmol/L Normal 21-31 [facility] Comment on above: Performed By: #### L [id number] #### [facility] ([facility]) [address] [place] [address] Creatinine [Mass/Vol] 1.03 mg/dL Normal 0.70-1.30 [facility] Comment on above: Performed By: #### L [id number] #### [facility] ([facility]) [address] [place] [address] GLOMERULAR FILTRATION RATE ML/MIN/1.73 SQ M.PREDICTED 74.4 mL/min/1.73m*2 Normal >60.0 [facility] Comment on above: Result Comment: [facility]???s estimated glomerular filtration rate (eGFR) will no [...] group of individuals. Performed By: #### L [id number] #### [facility] ([facility]) [address] [place] [address] Glucose [Mass/Vol] 111 mg/dL High 70-[address] [facility] Comment on above: Performed By: #### L [id number] #### [facility] ([facility]) [address] [place] [address] Potassium [Moles/Vol] 4.7 mmol/L Normal 3.5-5.1 [facility] Comment on above: Performed By: #### L [id number] #### [facility] ([facility]) [address] [place] [address] Sodium [Moles/Vol] 136 mmol/L Normal 136-[address] [facility] Comment on above: Performed By: #### L [id number] #### [facility] ([facility]) [address] [place] [address] Urea nitrogen [Mass/Vol] 26 mg/dL High 7-25 [facility] Comment on above: Performed By: #### L [id number] #### [facility] ([facility]) [address] [place] [address] UREA NITROGEN/CREATININE (MASS RATIO) IN SER/PLAS 25.[address] [facility] Comment on above: Performed By: #### L [id number] #### [facility] ([facility]) [address] [place] [address] CBCon 11-07-2023 Erythrocyte distribution width (RBC) [Ratio] 14.1 % Normal 11.5-15.0 [facility] Comment on above: Performed By: #### L [id number] ####[facility] ([facility])[address] [place] [address] ERYTHROCYTE MEAN CORPUSCULAR HEMOGLOBIN CONCENTRATION (G/DL) BY AUTOMATED 32.5 g/dL Normal 32.0-35.0 [facility] Comment on above: Performed By: #### L [id number] ####[facility] ([facility])[address] [place] [address] Hematocrit (Bld) [Volume fraction] 39.7 % Normal 39.0-55.0 [facility] Comment on above: Performed By: #### L [id number] ####[facility] ([facility])[address] [place] [address] Hemoglobin (Bld) [Mass/Vol] 12.9 g/dL Low 13.0-17.0 [facility] Comment on above: Performed By: #### L [id number] ####[facility] ([facility])[address] [place] [address] MCH (RBC) [Entitic mass] 33.8 pg High 27.0-33.0 [facility] Comment on above: Performed By: #### L [id number] ####[facility] ([facility])[address] [place] [address] MCV (RBC) [Entitic vol] 103.9 fL High 82.0-98.0 [facility] Comment on above: Performed By: #### L [id number] ####[facility] ([facility])[address] [place] [address] PLATELETS (10*3/UL) IN BLOOD AUTOMATED COUNT 156 10*3/uL Normal 150-400 [facility] Comment on above: Performed By: #### L [id number] ####[facility] ([facility])[address] [place] [address] RBC (Bld) [#/Vol] 3.82 10*6/uL Low 4.20-5.70 [facility] Comment on above: Performed By: #### L [id number] ####[facility] ([facility])[address] [place] [address] WBC (Bld) [#/Vol] 15.10 10*3/uL High 4.00-10.60 [facility] Comment on above: Performed By: #### L [id number] ####[facility] ([facility])[address] [place] [address] CONSULTon 11-07-2023 CONSULT --- Attestation signed by Héctor Blancas MD at [...] ulcer, Heart valve disease, Hyperlipidemia, Hypertension, Implantable cardioverter-defibrilla tor (ICD) in situ, Nonrheumatic aortic (valve) stenosis, [...] Family History: pulled available information in [facility] from previous visits Family History Problem Relation Name Age of Onset Coronary artery disease Other Heart attack Mother juliann gautam Heart disease Mother [facility] Interval History: Objective Vitals: BP: (88-157)/(36-109) 125/66 (11/06 1600) Temp: [36 ???C (96.8 ???F)-36.2 ???C (97.2 ???F)] 36 ???C (96.8 ???F) (11/06 1400) Temp Source: Temporal (11/06 1250) Heart Rate: [52-106] 75 (11/07 1599) Resp: [10-19] 19 (11/07 1599) SpO2: [98 %-100 %] 100 % (11/06 1752) Height: [172.7 cm (5' 8 )] 172.7 cm (5' 8 ) (11/06 06) Weight: [71.6 kg (157 lb 13.6 oz)] 71 (more content not included)... Normal [facility] HPon 11-07-2023 History Of Present Illness [...] ulcer, Heart valve disease, Hyperlipidemia, Hypertension, Implantable cardioverter-defibrilla tor (ICD) in situ, Nonrheumatic aortic (valve) stenosis, PAD (peripheral artery disease) (CMS/HCC), Peripheral arterial occlusive disease (CMS/HCC), and PVC (premature ventricular contraction). He has no past medical history of Chronic bronchitis (CMS/HCC). Surgical History He has a past surgical [...] Judgment: Judgm (more content not included)... Normal [facility] MAGNESIUMon 11-07-2023 Magnesium [Mass/Vol] 2.1 mg/dL Normal 1.9-2.7 [facility] Comment on above: Performed By: #### L [id number] #### [facility] ([facility]) [address] [place] [address] MRSA/MSSA DNA NASALon 2023 MRSA DNA Negative Normal Negative [facility] Comment on above: Order Comment: Testi ng [...] preclude nasal colonization. Performed By: #### L [id number] #### [facility] ([facility]) [address] [place] [address] MSSA DNA Negative Normal Negative [facility] Comment on above: Order Comment: Testi ng [...] preclude nasal colonization. Performed By: #### L [id number] #### [facility] ([facility]) [address] [place] [address] NURSNOTEon 11-07-2023 NURSNOTE 2ml removed from TR band Normal [facility] NURSNOTE 2ml removed from TR Band to R wrist Normal [facility] NURSNOTE 2ml removed from R wrist TR band Normal [facility] NURSNOTE 2ml air removed from TR band Normal [facility] OPNOTEon 11-07-2023 OPNOTE TAVR, Carotid CUTDOW N (L) Operative Note Date: 11/07/2023 Location: [facility] Name: Claudia Kent, : 1945, Diagnosis Pre-op Diagnosis * Nonrheumatic aortic valve stenosis [I35.0] Post-op Diagnosis * Nonrheumatic aortic valve stenosis [I35.0] Procedures TAVR 62921 - [place] OFFICE/OUTPT VISIT,PROCEDURE ONLY Carotid CUTDOWN 49371 - [place] OFFICE/OUTPT VISIT,PROCEDURE ONLY Successful transcatheter aortic valve [...] Evolut FX Transcatheter Aortic Valve 34mm - [id number] - [id number] Implanted [id number] Staff: Network Systems Integrator: Canelo Robbins RN Relief Network Systems Integrator: Yadiel Sherman RN Relief Scrub: Jenni Ortiz Scrub Person: Huma Hong CST [employer] Network Systems Integrator: Justyn Parada RN Secondary Scrub: Óscar Crowley [...] bowel ischemia, liver failure, stroke, respiratory failure, [place], need for mechanical support such as balloon [...] the right internal jugular vein and a 7-Syrian x 11 cm introducer sheath was secured in place. A 5-Syrian balloon-tipped pacemaker wire was advanced through the internal jugular vein sheath to the right ventricular apex and adequate capture was confirmed. The right wrist area was prepped and draped in usual fashion. Access was obtained using ultrasound guidance and micropuncture technique in the right radial artery and a 7-Syrian x 11 cm Hydrophilic sheath was placed. [...] The access was upsized to a 8 Syrian by 11 cm sheath. Through the right radial sheath, an angled 5-Syrian pigtail catheter was then advanced to the ascending aorta and into the noncoronary cusp. Aortic root angiography was performed in the cusp overlap view as determined by prior CT scan measurements. A pigtai (more content not included)... Normal [facility] PHOSPHORUSon 11-07-2023 Magnesium [Mass/Vol] 2.8 mg/dL Normal 2.5-5.0 [facility] Comment on above: Performed By: #### L [id number] #### [facility] ([facility]) [address] [place] [address] POCT GLUCOSE METER UNSOLICIT ED RESULTSon 11-07-2023 Glucose [Mass/Vol] 98 mg/dL Normal 70-[address] [facility] Comment on above: Order Comment: Waive d Testing in the ED is performed under the ED CLIA certificate #[id number]. Result Comment: jhag eman Performed By: #### L [id number] #### [facility] ([facility]) [address] [place] [address] TYPE AND SCREENon 11-07-2023 AB SCREEN Negative Normal [facility] Comment on above: Performed By: #### L [id number] #### [facility] , ABO group Nom (Bld) AB Normal [facility] Comment on above: Performed By: #### L [id number] #### [facility] , RH TYPE IN BLOOD Positive Normal [facility] Comment on above: Performed By: #### L [id number] #### [facility] , Orders Onlyon 11-01-2023 Orders Only [id number] Claudia Kent 1945 Date Provider Department Center 11/01/2023 RISHI CALDWELL C CARD [facility] Family History Problem Relation Age of Onset Coronary artery disease Other Heart attack Mother Heart disease Mother Family Status - Relation Status Age at Other Mother Normal [facility] Orders Onlyon 10-31-2023 Orders Only [id number] Claudia Kent 1945 M Date Provider Department Center 10/31/2023 RISHI CALDWELL HVC CARD [facility] Family History Problem Relation Age of Onset Coronary artery disease Other Heart attack Mother Heart disease Mother Family Status - Relation Status Age at Other Mother Normal [facility] Abstracton 10-23-2023 Abstract [id number] Claudia Kent 1945 M Date Provider Department Center 10/23/2023 CARMELITA MCLEOD [facility] CARD [place] Count Family History Problem Relation Age of Onset Coronary artery disease Other Heart attack Mother Heart disease Mother Family Status - Relation Status Age at Other Mother Normal [facility] Orders Onlyon 10-18-2023 Orders Only [id number] Claudia Kent 1945 M Date Provider Department Center 10/18/2023 RISHI CALDWELL HVC CARD [facility] Family History Problem Relation Age of Onset Coronary artery disease Other Heart attack Mother Heart disease Mother Family Status - Relation Status Age at Other Mother Normal [facility] HPon 10-12-2023 HP H&P reviewed. The patient was examined and there are no changes to the H&P. Discussed risks, benefits, and alternative therapies with the patient, he understands and willing to proceed with RHC/coronary angiogram and possible PCI. Ladarius Weeks MD PGY-7 Interventional Server Service Assistant [facility] NURSNOTEon 10-12-2023 NURSNOTE RN educated pt on d/ c instructions. RN encouraged pt to voice any questions or concerns. Pt verbalizes no questions or concerns at this time. Pt was wheeled off of unit with all of belongings. [facility] JOSSELIN Weeks at [facility] to assess pt groin sites. Per groin sites looks great and okay for pt to discharge at [address]. [facility] Abstracton 10-09-2023 Abstract [id number] Claudia Kent 1945 M Date Provider Department Center 10/09/2023 CARMELITA MCLEOD [facility] CARD Webber Count Family History Problem Relation Age of Onset Coronary artery disease Other Heart attack Mother Heart disease Mother Family Status - Relation Status Age at Other Mother [facility] Consulton 10-05-2023 Consult [id number] Claudia Kent 1945 M Date Provider Department Center 10/05/2023 GIBRAN CARRION [facility]CTS [facility] Family History Problem Relation Age of Onset Coronary artery disease Other Heart attack Mother Heart disease Mother Family Status - Relation Status Age at Other Mother Level of Service:69498 [place] OFFICE/OP CONSLTJ NEW/EST PT HIGH MDM 55 MINUTES Reason for Visit and Comments: New Patient [632] - Aortic valve stenosis [facility] ECHOCARDIO M/2D COMPLETEon 0 04-14-2022 ECHOCARDIO M/2D COMPLETE Patient: CLAUDIA KENT Exam Date: 04/14/2022 : 1945 Gender:M Ordering : DR CARMELITA ALMANZA M.D. Admission #: [id number] Family : DR ARMANI STEWART D.O. Order #: [id number] CLICK HERE TO VIEW EXAM ECHOCARDIOGRAM REPORT [...] Almanza M.D. on 04/14/2022 at 10:18 Normal [facility] LIPID PROFILEon 04-14-2022 CHOL-HDL RATIO NORM SEE BELOW Normal [facility] Comment on above: Result Comment: 3.3 - 4.4 LOW RISK 4.4 - 7.1 AVERAGE RISK 7.1 - 11.0 MODERATE RISK >11.0 HIGH RISK Performed By: #### L IPID #### [facility] [address] [place] [address] Dr. Jackie Christopher Cholesterol [Mass/Vol] 157 mg/dL Normal <=200 [facility] Comment on above: Performed By: #### L IPID #### [facility] [address] [place] [address] [address] Jackie Christopher Cholesterol in HDL [Mass/Vol] 53 mg/dL Normal 40-60 [facility] Comment on above: Performed By: #### L IPID #### [facility] [address] [address] [address] Jackie Christopher Cholesterol in LDL [Mass/Vol] 90.6 mg/dL Normal [facility] Comment on above: Performed By: #### L IPID #### [facility] [address] [place] [address] Dr. Jackie Christopher Cholesterol.total/C holesterol in HDL [Mass ratio] 3.0 {ratio} Normal [facility] Comment on above: Performed By: #### L IPID #### [facility] [address] [place] [address] Dr. Jackie Christopher HDL NORMAL > or = 60 mg/dl - LO W CARDIOVASCULAR RISK <40 mg/dl - HIGH CARDIOVASCULAR RISK Normal [facility] Comment on above: Performed By: #### L IPID #### [facility] [address] [place] [address] Dr. Jackie Christopher LDL CALC NORMAL SEE BELOW Normal [facility] Comment on above: Result Comment: <100 mg/dl OPTIMAL 100 - 129 mg/dl NEAR OR ABOVE OPTIMAL 130 - 159 mg/dl BORDERLINE HIGH 160 - 189 mg/dl HIGH >190 mg/dl VERY HIGH Performed By: #### L IPID #### [facility] [address] [place] [address] Dr. Jackie Christopher Triglyceride [Mass/Vol] 67 mg/dL Normal <=150 [facility] Comment on above: Performed By: #### L IPID #### [facility] [address] [place] [address] Dr. Jackie Christopher VLDL CALC 13.4 mg/dL Normal [facility] Comment on above: Performed By: #### L IPID #### [facility] [address] [place] [address] [address] Jackie Christopher CBC with Diffon 10-18-2020 Abs. Basophil 0.00 k/uL Normal 0.0-0.2 [facility] Comment on above: Performed By: #### C JEFF TROPI, CDP #### [facility] [address] [place] [address] Poising Inspector: Clinton Steven MD Abs.Neutrophil (Seg) 6.50 k/uL Normal 2.1-6.5 [facility] Comment on above: Performed By: #### C MPX TROPI, CDP #### [facility] [address] [place] [address] Poising Inspector: Clinton Steven MD Auto Diff Performed YES Normal [facility] Comment on above: Performed By: #### C MPAna Paula TROPI, CDP #### [facility] [address] [place] [address] Poising Inspector: Clinton Steven MD Basophils/100 WBC (Bld) 0 % Normal 0-2 [facility] Comment on above: Performed By: #### C GIOVANI AGUILARI, CDP #### [facility] [address] [place], [place] [id number] Poising Inspector: Clinton Steven MD Eosinophils (Bld) [#/Vol] 0.60 10*3/uL High 0.0-0.4 [facility] Comment on above: Performed By: #### C MPX TROPI, CDP #### [facility] [address] [place], [place] [id number] Poising Inspector: Clinton Steven MD Eosinophils/100 WBC (Bld) 7 % High 0-5 [facility] Comment on above: Performed By: #### C MPX TROPI, CDP #### [facility] [address] [place], [place] [id number] Poising Inspector: Clinton Steven MD Erythrocyte distribution width (RBC) [Ratio] 15.7 % High 12.1-15.2 [facility] Comment on above: Performed By: #### C JAMAL AGUILAR, CDP #### [facility] [address] [place] [address] Poising Inspector: Clinton Steven MD Hematocrit (Bld) [Volume fraction] 37.2 % Low 41-53 [facility] Comment on above: Performed By: #### C JAMAL AGUILAR, CDP #### [facility] [address] [place] [address] Poising Inspector: Clinton Steven MD Hemoglobin (Bld) [Mass/Vol] 12.6 g/dL Low 13.5-17.5 [facility] Comment on above: Performed By: #### C JAMAL AGUILAR, CDP #### [facility] [address] [place] [id number] Poising Inspector: Clinton Steven MD Lymphocytes (Bld) [#/Vol] 0.70 10*3/uL Low 1.0-4.8 [facility] Comment on above: Performed By: #### C JAMAL AGUILAR, CDP #### [facility] [address] [place] [address] Poising Inspector: Clinton Steven MD Lymphocytes/100 WBC (Bld) 8 % Low 13-44 [facility] Comment on above: Performed By: #### C JAMAL AGUILAR, CDP #### [facility] [address] [place] [address] Poising Inspector: Clinton Steven MD MCH (RBC) [Entitic mass] 33.5 pg Normal 26-34 [facility] Comment on above: Performed By: #### C JAMAL AGUILAR, CDP #### [facility] [address] [place] [address] Poising Inspector: Clinton Steven MD MCHC (RBC) [Mass/Vol] 33.8 g/dL Normal 31-37 [facility] Comment on above: Performed By: #### C JAMAL AGUILAR, CDP #### [facility] [address] [place] [address] Poising Inspector: Clinton Steven MD MCV (RBC) [Entitic vol] 98.9 fL Normal 80-100 [facility] Comment on above: Performed By: #### C GIOVANI AGUILARI, CDP #### [facility] [address] [place] [address] Poising Inspector: Clinton Steven MD Monocytes (Bld) [#/Vol] 1.30 10*3/uL High 0.0-1.0 [facility] Comment on above: Performed By: #### C GIOVANI AGUILARI, CDP #### [facility] [address] [place] [address] Poising Inspector: Clinton Steven MD Monocytes/100 WBC (Bld) 14 % High 5-9 [facility] Comment on above: Performed By: #### C GIOVANI AGUILARI, CDP #### [facility] [address] [place] [address] Poising Inspector: Clinton Steven MD Neutrophil (Seg) 71 % Normal 39-75 [facility] Comment on above: Performed By: #### C GIOVANI AGUILARI, CDP #### [facility] [address] [place] [address] Poising Inspector: Clinton Steven MD Platelets (Bld) [#/Vol] 191 10*3/uL Normal 140-450 [facility] Comment on above: Performed By: #### C GIOVANI AGUILARI, CDP #### [facility] [address] [place] [address] Poising Inspector: Clinton Steven MD RBC (Bld) [#/Vol] 3.76 10*6/uL Low 4.5-5.9 [facility] Comment on above: Performed By: #### C MPX, TROPI, CDP #### [facility] [address] [place], [place] [phone] Poising Inspector: Clinton Steven MD WBC (Bld) [#/Vol] 9.2 10*3/uL Normal 3.5-11.0 [facility] Comment on above: Performed By: #### C MPX, TROPI, CDP #### [facility] [address] [place] [address] Poising Inspector: Clinton Steven MD Abs.Imm.Granulocyte NOT REPORTED Normal 0.00-0.30 [facility] Comment on above: Performed By: #### C MPX, TROPI, CDP #### [facility] [address] [place] [address] Poising Inspector: Clinton Steven MD Immature Granulocyte NOT REPORTED Normal 0 [facility] Comment on above: Performed By: #### C MPX, TROPI, CDP #### [facility] [address] [place] [address] Poising Inspector: Clinton Steven MD MPV NOT REPORTED Normal 6.0-12.0 [facility] Comment on above: Performed By: #### C MPX, TROPI, CDP #### [facility] [address] [place] [address] Poising Inspector: Clinton Steven MD NRBC Automated NOT REPORTED Normal [facility] Comment on above: Performed By: #### C MPX, TROPI, CDP #### [facility] [address] [place] [address] Poising Inspector: Clinton Steven MD Platelet Estimate NOT REPORTED Normal [facility] Comment on above: Performed By: #### C MPX, TROPI, CDP #### [facility] [address] [place] [address] Poising Inspector: Clinton Steven MD RBC morphology finding Nom (Bld) NOT REPORTED Normal [facility] Comment on above: Performed By: #### C MPXGIOVANII, CDP #### [facility] [address] [place] [address] Poising Inspector: Clinton Steven MD WBC Morphology NOT REPORTED Normal [facility] Comment on above: Performed By: #### C MPXGIOVANII, CDP #### [facility] [address] [place] [address] Poising Inspector: Clinton Steven MD CT HEAD WO CONTRASTon [...] Gt Sharp MD 10/17/20 Final result Normal [facility] CTA HEAD NECK W CONTRASTon [...] is patent origins of the SCA and OWNER OPERATOR bilaterally. DEVELOPMENTAL ANOMALIES: None. OTHER: No [...] thrombus or stenosis is seen in the [place] and the distal distributions appear symmetric. A note was placed in the ops stat file for notification of the provider at 1:31 AM on 10/18/2020. 2. No aneurysm Interpreted by: Amaury Chamberlain Signed by: Amaury Chamberlain 10/18/20 Final result Normal [facility] Comp Metabolic Pr/rfx MGon 0 10-18-2020 Albumin [Mass/Vol] 4.0 g/dL Normal 3.5-5.2 [facility] Comment on above: Performed By: #### C MPX TROPI, CDP #### [facility] [address] [place], [place] [id number] Poising Inspector: Clinton Steven MD Alkaline Phos 78 U/L Normal 40-129 [facility] Comment on above: Performed By: #### C MPX TROPI, CDP #### [facility] [address] [place], [place] [id number] Poising Inspector: Clinton Steven MD ALT [Catalytic activity/Vol] 14 U/L Normal 5-41 [facility] Comment on above: Performed By: #### C MPAna Paula TROPI, CDP #### [facility] [address] [place], [place] [phone] Poising Inspector: Clinton Steven MD Anion gap [Moles/Vol] 10 mmol/L Normal 9-17 [facility] Comment on above: Performed By: #### C MPX TROPI, CDP #### [facility] [address] [place], [place] [phone] Poising Inspector: Clinton Steven MD AST [Catalytic activity/Vol] 15 U/L Normal <40 [facility] Comment on above: Performed By: #### C MPX TROPI, CDP #### [facility] [address] [place], [place] [phone] Poising Inspector: Clinton Steven MD Bilirubin [Mass/Vol] 0.42 mg/dL Normal 0.30-1.20 [facility] Comment on above: Performed By: #### C MPX, TROPI, CDP #### [facility] [address] [place] [address] Poising Inspector: Clinton Steven MD Calcium [Mass/Vol] 9.4 mg/dL Normal 8.6-10.4 [facility] Comment on above: Performed By: #### C MPX TROPI, CDP #### [facility] [address] [place] [address] Poising Inspector: Clinton Steven MD Chloride [Moles/Vol] 102 mmol/L Normal 98-107 [facility] Comment on above: Performed By: #### C MPX, TROPI, CDP #### [facility] [address] [place], [place] [id number] Poising Inspector: Clinton Steven MD CO2 [Moles/Vol] 27 mmol/L Normal 20-31 [facility] Comment on above: Performed By: #### C MPX, TROPI, CDP #### [facility] [address] [place], [place] [phone] Poising Inspector: Clinton Steven MD Creatinine [Mass/Vol] 1.45 mg/dL High 0.70-1.20 [facility] Comment on above: Performed By: #### C MPX, TROPI, CDP #### [facility] [address] [place], [place] [phone] Poising Inspector: Clinton Steven MD GFR, Amer 58 mL/min Low >60 [facility] Comment on above: Performed By: #### C MPX, TROPI, CDP #### [facility] [address] [place], [place] [id number] Poising Inspector: Clinton Steven MD GFR,non Amer 47 mL/min Low >60 [facility] Comment on above: Performed By: #### C MPX, TROPI, CDP #### [facility] [address] [place], [place] [id number] Poising Inspector: Clinton Steven MD Glucose [Mass/Vol] 95 mg/dL Normal 70-99 [facility] Comment on above: Performed By: #### C MPX, TROPI, CDP #### [facility] [address] [place] [address] Poising Inspector: Clinton Steven MD Potassium [Moles/Vol] 4.3 mmol/L Normal 3.7-5.3 [facility] Comment on above: Performed By: #### C JAMAL AGUILAR, CDP #### [facility] [address] [place], [place] [id number] Poising Inspector: Clinton Steven MD Protein [Mass/Vol] 6.8 g/dL Normal 6.4-8.3 [facility] Comment on above: Performed By: #### C GIOVANI AGUILARI, CDP #### [facility] [address] [place] [address] Poising Inspector: [place] Steven MD Sodium [Moles/Vol] 139 mmol/L Normal 135-144 [facility] Comment on above: Performed By: #### C JAMAL AGUILAR, CDP #### [facility] [address] [place], [place] [phone] Poising Inspector: Clinton Steven MD Urea nitrogen [Mass/Vol] 16 mg/dL Normal 8-23 [facility] Comment on above: Performed By: #### C JAMAL AGUILAR, CDP #### [facility] [address] [place] [address] Poising Inspector: Clinton Steven MD (cont.) Normal [facility] Comment on above: Result Comment: Aver age GFR for 70 or more years old: 75 mL/min/1.73sq m Chronic Kidney Disease: <60 mL/min/1.73sq m Kidney failure: <15 mL/min/1.73sq m eGFR calculated using average adult body mass. Additional eGFR calculator available at: http://www.Hassle.com.com/multiple_crcl_2012.htm Performed By: #### C GIOVANI AGUILARI, CDP #### [facility] [address] [place] [address] Poising Inspector: Clinton Steven MD Albumin/Glob Ratio NOT REPORTED Normal 1.0-2.5 [facility] Comment on above: Performed By: #### C MPX, TROPI, CDP #### [facility] [address] [place] [address] Poising Inspector: Clinton Steven MD BUN/CRE Ratio NOT REPORTED Normal 9-20 [facility] Comment on above: Performed By: #### C MPX, TROPI, CDP #### [facility] [address] [place] [address] Poising Inspector: Clinton Steven MD Staging: NOT REPORTED Normal [facility] Comment on above: Performed By: #### C MPX, TROPI, CDP #### [facility] [address] [place] [address] Poising Inspector: Clinton Steven MD [facility] 10-18-2020 Dialysis Clinical Manager Authentication Interface Message Text Attestation signed [...] memory loss, disorientation, inattention, feelings of depression) Hematologic/Lymphatic/I mmunologic: negative (no anemia, bleeding, bruising) Endocrine: negative [...] thrombus or stenosis is seen in the [place] and the distal distributions appear symmetric. ASSESSMENT/RECOMMENDATI ONS: Claudia Kent is a 74 year old [...] rev (more content not included)... 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 Please page [phone] with additional questions/concerns Vashti Reis MD Ophthalmology Resident Eye clinic [phone], located 3rd floor specialty services [facility] Physician Note: This was a resident only visit. I personally reviewed the mckeon and critical portions of the history and the ophthalmologic exam. I reviewed the resident's documentation, the patient's history and examination as documented above. I agree with the resident's medical decision making as documented in the resident's note. Tamar Nathan MD Normal [facility] ED Noteson 10-18-2020 Dialysis Clinical Manager Authentication Interface Message Text Vascular at bedside at this time Normal [facility] ED Provider Noteson 10-19-19 Dialysis Clinical Manager Authentication Interface Message Text EMERGENCY DEPARTMENT - VISIT NOTE ------- HISTORY OF PRESENT ILLNESS --- Chief Complaint Patient presents with * Other sympt/complt of eye started with vision changes last night. sent from [facility]. here for vascular/neuro consult Industrial Editor: not needed - patient preferred language is Russian. The history is provided by the Patient. [...] thrombus or stenosis is seen in [place] and the distal distributions appear [...] rash. Neurological: Negative for dizziness and headaches. Psychiatric/Behavioral: Negative for sleep disturbance. PAST HISTORY Pertinent Past History: - Follows with vascular surgery at [facility] for PVD: he has had stents placed [...] eval the patient [CM] 1711 Paged Kyle, vasc surgery consult, he passed the consult on to another provider at [phone] [CM] 1846 Spoke to Vasc Surg corporate travel consultant who will talk to her chief as carotid duplex can't be performed today [CM] ED Course User Index [CM] Armani Sullivan MD Medical Decision Makin (more content not included)... Normal [facility] [id number] 10-18-2020 SARS-CoV-2 (COVID-19) RNA JOCELIN+probe Ql (Unsp spec) Not detected Normal NOTDET [facility] Comment on above: Result Comment: [...] management decisions. Fact sheet for Healthcare Providers: https://www.fda.gov/media/965824/download Fact sheet for Patients: https://www.fda.gov/media/222035/download Methodology: Isothermal Nucleic Acid Amplification Performed By: #### C OVRB #### [facility] [address] [place] [address] Poising Inspector: Clinton Steven MD Troponinon 10-18-2020 Troponin, High Sens 28 ng/L High 0-22 [facility] Comment on above: Result Comment: High Sensitivity Troponin values cannot be compared with other Troponin methodologies. Patients with high levels of Biotin oral intake (i.e >5mg/day) may have falsely decreased Troponin levels. Samples collected within 8 hours of biotin intake may require additional information for diagnosis. Performed By: #### C MPX, TROPI, CDP #### [facility] [address] [place] [address] Poising Inspector: Clinton Steven MD Troponin Interp. NOT REPORTED Normal [facility] Comment on above: Performed By: #### C MPX, TROPI, CDP #### [facility] [address] [place], [place] [id number] Poising Inspector: Clinton Steven MD Troponin T NOT REPORTED Normal <0.03 [facility] Comment on above: Performed By: #### C MPX, TROPI, CDP #### [facility] [address] [place], [place] [id number] Poising Inspector: Clinton Steven MD Vital Signs Date Time Vital Sign Value Performing Clinician Faci lit 11-29-2023 13:31-0400 Body height 172.7 cm Gibran Gongora DPM Work Phone: [facility] 11-29-2023 13:31-0400 Body mass index (BMI) [Ratio] 26.76 kg/m2 Gibran Gongora DPM Work Phone: [facility] 11-29-2023 13:31-0400 Body weight 79.83 kg Gibran Gongora DPM Work Phone: [facility] Encounters Encounter Date Encounter Type Care Provider Facility Start: 09-30-2024 ambulatory [facility] Start: 09-11-2024 ambulatory [facility] Start: 07-16-2024 End: 07-16-[address] [facility] Start: 06-27-2024 End: 06-27-2024 ambulatory [facility] Start: 06-14-2024 End: 06-14-2024 ambulatory [facility] Start: 06-06-2024 End: 06-06-[address] [facility] Start: 05-24-[address] [facility] Start: 05-24-2024 Encounter for preprocedural cardiovascular examination [facility] Start: 05-23-2024 End: 05-23-[address] [facility] Start: 04-29-[address] [facility] Start: 04-29-2024 End: 04-29-2024 ambulatory [facility] Start: 01-30-2024 End: 01-30-[address] [facility] Start: 01-08-2024 End: 01-09-2024 ambulatory [facility] Start: 12-28-2023 End: 12-28-2023 ambulatory [facility] Start: 12-21-2023 End: 12-21-2023 Telephone encounter Sabiha Pearce CMA [facility] Start: 12-20-2023 End: 12-20-[address] [facility] Start: 12-19-2023 End: 12-29-2023 Telephone encounter Itzel Dial RN [facility] Start: 12-15-2023 End: 12-15-2023 Orders Only Gibran Gongora DPM Work Phone: [facility] Comment on above: Peripheral vascular disease (CMS/HCC) (Primary Dx) Start: 12-14-2023 End: 12-14-2023 ambulatory GIBRAN GONGORA Not Available Start: 12-07-2023 End: 12-07-[address] [facility] Start: 12-05-2023 End: 12-05-[address] [facility] Start: 12-05-2023 End: 12-05-[address] [facility] Start: 11-29-2023 End: 11-29-2023 ambulatory GIBRAN GONGORA Not Available Start: 11-29-2023 End: 11-29-2023 Office outpatient new 45 minutes Gibran Gongora DPM Work Phone: [facility] Comment on above: Onychodystrophy (Jeanette muna Dx); Onychomycosis; Right foot pain; Peripheral vascular disease (CMS/HCC) Start: 11-14-2023 End: 11-14-[address] [facility] Start: 11-08-2023 Evaluation and manag ement of inpatient RISHI [facility] Start: 11-07-2023 End: 11-07-[address] [facility] Start: 11-07-2023 End: 11-10-2023 Evaluation and management of inpatient [facility] Start: 10-12-2023 End: 10-12-2023 ambulatory [facility] Start: 10-10-2023 End: 10-10-2023 [facility] Start: 10-05-2023 ambulatory GIBRAN ENGLISH [facility] Start: 04-14-2022 End: 04-15-[address] DOCTOR GONZALEZ Facility:[facility] Start: 10-10-[address] CARMELITA ALMANZA Fac ility:[facility] Start: 04-29-2021 End: 04-30-2021 ambulatory PROVIDER UNKNOWN Facility:[facility] Start: 10-18-2020 ambulatory UNKNOWN PROVIDER Facili ty:[facility] Start: 10-18-2020 End: 10-18-2020 ambulatory UNKNOWN PROVIDER [facility] Start: 10-18-2020 End: 10-18-2020 Emergency department patient visit IP SURGERY VASCULAR CONSULT Facility:[facility] Start: 10-17-2020 End: 10-18-2020 Emergency department patient visit [facility] Plan of Treatment Date Care Activity Detail Author Start: 08-25-2030 DTaP,Tdap and Td Vac cines (2 - Tdap) DTaP,Tdap and Td Vaccines (2 - Tdap) [facility] Start: 2009 Fall Risk Screening Fall Risk Screen [facility] Start: 2009 Pneumococcal Vaccine : 65+ Years (1 of 1 - PCV) Pneumococcal Vaccine: 65+ Years (1 of 1 - PCV) [facility] Start: 1994 Administration of varicella zoster vaccine Zoster (Shingles) Vaccine (1 of 2) [facility] Start: 1956 [facility] Start: 1956 Tobacco Screening Tobacco Screening [facility] US.doppler Extremity arteries - bilateral for physiologic artery study at rest and with exercise VASC US PVR/SEGMENTAL PRESSURES LOWER Imaging Routine Peripheral vascular disease (CMS/HCC) Ordered: 11/29/2023 [facility] Work Phone: Comment on above: Ordered: 11/29/2023 Immunizations Immunization Date Immunization Notes Care Provider Fa gabety 11-17-2023 influenza, high dose seasonal, preservative-free Gibran Rusher DPM Work Phone: [facility] 11-10-2022 RSV, recombinant, pr otein subunit RSVpreF, adjuvant reconstitu, 120mcg/0.5mL, PF (Arexvy) Gibran Rusher DPM Work Phone: [facility] 11-16-2021 Influenza, Seasonal, Quadrivalent, Adjuvanted Gibran Rusher DPM Work Phone: [facility] 12-02-2020 Influenza, Seasonal, Quadrivalent, Adjuvanted Gibran Rusher DPM Work Phone: [facility] 08-25-2020 diphtheria, tetanus toxoids and pertussis vaccine Gibran Rusher DPM Work Phone: [facility] 11-27-2017 influenza, injectabl e, quadrivalent, preservative free Gibran Rusher DPM Work Phone: [facility] Payers Date Payer Category Payer Medicare (Managed Care) [facility] [id number] 2023 Medicare [id number] 2020 Private Health Insurance 1959 Medicare [id number] 1959 Self-pay [id number] 1959 Unknown [id number] 1944 Unknown [id number] 1944 Unknown [id number] 1944 Unknown [id number] 1944 Unknown [id number] 1944 Unknown [id number] 1944 Unknown [id number] 1944 Unknown [id number] 1944 Unknown [id number] 1945 Unknown [id number] Social History Date Type Detail Facility Start: 11-29-2023 [facility] History of tobacco use Cigarette Smoker [...] on file [facility] Tobacco smoking stat [facility] Tobacco smoking consumption unknown [facility] Childcare Unknown [facility] Start: 09-18-2014 Sex Male (finding) [facility] Clinical Notes 10-05-2023 to 07-16-2024 Telephone Encounter - Sabiha Pearce CMA - 12/21/2023 4:05 PM ESTTelephone Encounter - Sabiha Pearce CMA - 12/21/2023 4:05 PM ESTTelephone Encounter - Itzel Dial RN - 12/19/2023 9:00 AM EST Note Date & Type Note Facility 07-16-2024 Note ME Electrophysiology Consult Note ME Cardiology - [facility] Reason for visit: Device at [facility] 07/16/2024 Patient underwent pocket revision on 05/17/2024. The wound is clean and dry and healing well. He is currently on antibiotics and tolerating them 04/29/24 Pt was sent to [place] clinic by Dr HOLLAND who saw pt in [facility] and there was a concern of clear [...] ICD [place]/Vuong single-chamber ICD which reached [facility] and he underwent gen change on 12/20/23. [...] Determinants of Health Tobacco Use: High Risk (07/16/2024) Patient History Smoking Tobacco Use: Every Day [...] Year: No Utilities: Not At Risk (11/07/2023) [facility] Utilities Threatened with loss of utilities: No Health Literacy: Not on file Allergies: No Known Allergies Weight: 71.2kg Visit Vitals BP 112/62 (BP Location: Left arm, Patient Position: Sitting) Pulse 65 Ht 1.727 m (5' 8 ) Wt 71.2 kg (157 lb) SpO2 96% BMI 23.87 kg/m??? Smoking Status Every Day BSA 1.85 [...] day by oral route for 90 days. doxycycline (Vibra-Tabs) 100 mg tablet Take 1 tablet (100 mg) by mouth two times daily for 21 days. Take with a full glass of water and do not lie down for at least 30 minutes after. 42 tablet 0 empagliflozin (Jardiance) 25 mg Take 25 mg by mouth once daily as directed. folic acid (Folvite) 800 mcg tablet Take 0. (more content not included)... [facility] 06-27-2024 Note Patient is here toda y for follow wound check, device check and labs. Patient states he is doing well, patient denies fever, chills, body aches, or pain. Review of Systems Constitutional: Negative. [facility] 06-27-2024 Note Cardiovascular Medic [facility] SUBJECTIVE Chief Complaint Patient presents with Wound Check Claudia Kent is a 78 y.o. male here for follow-up to assess his ICD incision. HPI PMHx: aortic valve stenosis s/p TAVR, peripheral vascular disease s/p SMS stenting, CAD s/p bypass 1997, carotid stenosis s/p right CEA, HFrEF EF 25-30%, ICM s/p ICD, renal artery stenosis, persistent a.fib 06/27/2024 Since last seen, he underwent pacemaker pocket revision by Dr. Greenfield. He has been feeling well. 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 05/23/2024 Since I last saw patient, [...] pulse generator of cardiac resynchronization therapy defibrillator (PUMP SERVICE SUPERVISOR-D) Past Medical History: Diagnosis Date Abnormal ECG [...] kg (157 lb) SpO2 97% BMI 23.87 kg/m??? Smoking Status Every Day BSA 1.85 m??? Medications: Current Outpatient Medications: apixaban (Eliquis) [...] 1 capsule by mouth at bedtime., Disp: (more content not included)... [facility] 06-14-2024 Note The patient kilo t ICD pocket revision performed 06/06/[address] Greenfield. He is here for wound check. He denies any problem at the site. It has been covered with dressing but he denies any pain. He does not recognize any swelling. Denies any drainage. The dressing were taken off and the incision appears to be healing very well without any oozing or redness. There is some swelling around the generator but not at the level of the incision and there is no redness or tenderness. Patient is taking antibiotics as advised Patient was advised that he can have a standing shower now but to avoid sitting in the bath tub and to continue to avoid heavy lifting or pushing or pulling. He was advised that if the swelling get any worse or if he has pain or redness or oozing to contact us immediately. I will bring him back in about 2 weeks to recheck it again [facility] 06-06-2024 Note Patient: Claudia Ohara Procedure Information Date/Time: 06/06/24 1500 Procedure: Pocket revision - PC APPROVED Location: [facility] PETROLEUM INSPECTOR SUPERVISOR 1 / [facility] (Cath) Providers: Kyle Greenfield MD Clinical information reviewed: Allergies Meds Physical Exam Airway Mallampati: II TM distance: >3 FB Neck ROM: full Cardiovascular Dental Pulmonary Abdominal Anesthesia Plan ASA 3 CSE Anesthetic plan and risks discussed with patient. Use of blood products discussed with patient who. Additional Equipment Requests [facility] 05-23-2024 Note Cardiovascular Medic [facility] SUBJECTIVE Chief Complaint Patient presents with [...] Coronary artery disease Other Heart attack [facility] Social History Tobacco Use Smoking status: Every [...] minutes after., D (more content not included)... [facility] 05-23-2024 Note Patient here for a w ound check. 4 week s/p defibrillator generator change. Patient states he has dyspnea with exertion. Patient denies fevers or chills. Wound is red, warm, blister intact. Labs done on 04/29/2024 Review of Systems Cardiovascular: Positive for dyspnea on exertion. [facility] 04-29-2024 Note ME Electrophysiology Consult Note ME Cardiology - [facility] Reason for visit: Device at [facility] 04/29/24 Pt was sent to [place] clinic by Dr HOLLAND who saw pt in [facility] and there was a concern of clear [...] ICD [place]/Vuong single-chamber ICD which reached [facility] and he underwent gen change on 12/20/23. [...] Year: No Utilities: Not At Risk (11/07/2023) [facility] Utilities Threatened with loss of utilities: [...] Review of Systems (more content not included)... [facility] 04-29-2024 Note ME Cardiology - [facility] Heart [facility] V[facility] Subjective [...] recently had an ingrown toenail and the balloon maker trimmed that but did not want to [...] which was lower than previously reported. Update 06/27/ (more content not included)... [facility] 01-08-2024 Note ME Cardiology - [facility] V[facility] Subjective Claudia Copeland St Ohara is a 78 y.o. year old male patient being seen for follow up segmental pressures performed on 12/14/2023 at [facility]. This was ordered by his balloon maker, who he says is asking for clearance to remove an ingrown toenail. He said he was able to trim it back but wasn't able to remove it because the balloon maker didn't feel good pulses per patient. He [...] recently had an ingrown toenail and the balloon maker trimmed that but did not want to [...] He is seen (more content not included)... [facility] 12-28-2023 Note ME Cardiology - [facility] Subjective [...] HDL 43, t (more content not included)... [facility] 12-21-2023 Miscellaneous Notes Spoke with patient in [...] PT STATES HE SEES A VASC DR ALREADY AND WILL SEE HIM documented in this encounter [facility] [email or web address] 12-21-2023 Telephone encounter Note Spoke with patient [...] PT STATES HE SEES A VASC DR ALREADY AND WILL SEE HIM [facility] 12-20-2023 Note Patient: Claudia Ohara Procedure Information Date/Time: 12/20/23 1420 Procedure: ICD DC generator change - PC APPROVED 12/04-01/18 Location: [facility] PETROLEUM INSPECTOR SUPERVISOR 1 / [facility] (Cath) Providers: Kyle Greenfield MD Clinical information reviewed: Allergies Physical Exam Airway Mallampati: II TM distance: >3 FB Neck ROM: full Cardiovascular Dental Pulmonary Abdominal Anesthesia Plan ASA 3 CSE Anesthetic plan and risks discussed with patient. Use of blood products discussed with patient who. Additional Equipment Requests [facility] 12-19-2023 Miscellaneous Notes Images from the original note were not included. Attempted to call patient to get scheduled. Raysa told Trudy radiology scheduler that he had another vascular doctor. Wanted to inquire who this was as this referral was sent in 12/[address] Gongora. Spoke with patients and she will have patient call office back. Spoke with patient. He states he sees Dr Carmelita Almanza for vascular. 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 Patient states he can do both. He states he will see Dr Hawk tomorrow and will discuss with him and give us a call back regarding a ROLLING MACHINE OPERATOR AUTOMATIC appt. documented in this encounter [employer] 12-19-2023 Telephone encounter Note Images from the original note were not included. Attempted to call patient to get scheduled. Raysa told Trudy, radiology scheduler that he had another vascular doctor. Wanted to inquire who this was as this referral was sent in 12/[address] Gongora. Spoke with patients and she will have patient call office back. [employer] 12-19-2023 Telephone encounter Note Spoke with patient. He states he sees Dr Carmelita Almanza for vascular. 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 Patient states he can do both. He states he will see Dr Hawk tomorrow and will discuss with him and give us a call back regarding a ROLLING MACHINE OPERATOR AUTOMATIC appt. [employer] 12-07-2023 Note ME Cardiology - [facility] Center Subjective [...] to low bloo (more content not included)... [facility] 12-05-2023 Note ME Electrophysiology Consult Note ME Cardiology - [facility] Reason for visit: Device at [facility] [...] Year: No Utilities: Not At Risk (11/07/2023) [facility] Utilities Threatened with loss of utilities: [...] on exertion (int (more content not included)... [facility] 11-29-2023 History of Present illness Narrative Images from the original note were not included. Subjective Patient ID: Claudia Kent is a 77 y.o. 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 Pt [...] foot pain M79.671 4. Peripheral vascular disease (CMS/[facility]) I73.9 VASC US PVR/SEGMENTAL PRESSURES LOWER Patient [...] incident utilizing a nail Nipper and bur snuff grinder without incident. We will follow up [...] Gibran Gongora DPM documented in this encounter [facility] 11-14-2023 Note Cardiovascular Medic [facility] SUBJECTIVE Chief Complaint Patient presents with [...] AVS --CBC, CMP, next week (lives near [facility]). 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 [facility] 11-14-2023 Note Pt is here for a one week post TAVR. Pt denies chest pain, palpatations, sob. Review of Systems Cardiovascular: Positive for claudication (RLE). Hematologic/Lymphatic: Bruises/bleeds easily. Musculoskeletal: Positive for arthritis, back pain and joint pain. Neurological: Positive for light-headedness. All other systems reviewed and are negative. [facility] 11-10-2023 Note Occupational Therapy Name: Claudia Kent [...] appropriate. Check No Charge Time attempted: 1400p [facility] 11-10-2023 Note Subjective 77 year old male [...] round, and reactive to light. Neck: Comments: [place] size left neck hematoma unchanged. No bruit. [...] ECG 12 lead (more content not included)... 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 PT Assessment PT Assessment/ASSISTANT SUPERINTENDENT FOR CURRICULUM Summary Pt exhibited mild fatigue and SOB with activity, however, was able to recognize when rest breaks were warranted without cues. Pt may benefit from one more treatment this admission to ensure safe return to [facility] as his goal is to return home. Prognosis Good Evaluation/Treatment Tolerance Patient tolerated treatment well Medical Staff Made Aware Yes PT Education/Comments safety Plan Level of assist 1 assist Treatment/Interventions Functional transfer training;Endurance training;Patient/family training;Bed mobility;Gait training PT Plan Skilled PT P (more content not included)... [facility] 11-10-2023 Note Daily Case Managemen t Update Barriers to Discharge et per Progress Note/s: POD#3 TAVR. Eliquis resumed yesterday @ 2206. Monitor for signs of bleeding for 24 [...] OT? Answer: eval and treat 11/08/[address] 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 [facility] 11-09-2023 Note Subjective 77 year old male [...] round, and reactive to light. Neck: Comments: [place] size left neck hematoma unchanged. No bruit. [...] 88 QT Interval 430 QTC CALCULATION(BAZETT) 447 R-[place] -26 T Wave [place] 116 Impression Atrial fibrillation Anterior infarct , age undetermined T wave abnormality, consider lateral ischemia Abnormal ECG When compared with ECG of 12-OCT-2023 06:58, Atrial fibrillation has replaced Electronic ventricular pacemaker Confirmed by SHELDON (more content not included)... [facility] 11-09-2023 Note Physical Therapy Name: Claudia Kent Date of : 1945 Today's Date: 11/09/23 Pt is unable to be seen for therapy at this time secondary to session okay per RN. Upon entry to room, pt EOB working with occupational therapy . Will check back and complete therapy session as appropriate. Check No Charge Time attempted: 1126 Susan Taylor, PT [facility] 11-09-2023 Note [facility] CARDIOLOGY INPAT IENT PROGRESS [...] 88 QT Interval 430 QTC CALCULATION(BAZETT) 447 R-[place] -26 T Wave [place] 116 Impression Atrial fibrillation Anterior infarct , [...] 50%. Overall Conc (more content not included)... [facility] 11-08-2023 Note [facility]TP CARDIOLOGY INPAT IENT PROGRESS NOTE Reason for follow up: severe aortic stenosis s/p TAVR, HFrEF Subjective [facility] Good [facility], left side of neck is [...] 11/08/23 1953 114/57 36.9 ???C (98.4 ???F) 18 97 % -- 11/08/23 1635 155/69 37 ???C (98.6 ???F) 21 99 % -- 11/08/23 1302 -- [...] 88 QT Interval 430 QTC CALCULATION(BAZETT) 447 R-[place] -26 T Wave [place] 116 Impression Atrial fibrillation Anterior infarct , [...] diagram). Right Mo (more content not included)... [facility] 11-08-2023 Note Subjective 77 year old male [...] 33.0 (L) 11/08/2023 (more content not included)... [facility] 11-08-2023 Note 11/08/23 1033 Admission Assessment Questions [...] Not Interested Does the patient have a director case assigned to them through their insurance? No [...] link and activate MyChart? MyChart already active [facility] 11-08-2023 Note Attestation signed by Héctor Blancas [...] % (11/07 699) Height: -- Weight: -- [place] Coma Scale Score: 15 I/O last 3 [...] 88 QT Interval 430 QTC CALCULATION(BAZETT) 447 R-[place] -26 T Wave [place] 116 Impression Atrial fibrillation Anterior infarct , age undetermined T wave abnormality, consider lateral ischemia Abnormal ECG When compared with ECG of 12-OCT-2023 06:58, Atrial fibrillation has replaced Electronic ventricular pacemaker Confirmed by Lona JUAREZ, LONA Alexandra ([id number]) on 11/07/2023 5:0 (more content not included)... [facility] 11-08-2023 Note Interventional cardi ology update Reviewed [...] from . Ladarius Weeks MD PGY-7 Interventional Server Service Assistant [facility] 11-08-2023 Note Physical Therapy Physical Therapy Evaluation [...] Level of Function Prior Function Level of [place]: Independent with ADLs and functional transfers, Independent [...] length though st (more content not included)... [facility] 11-08-2023 Note Occupational Therapy Occupational Therapy Evaluation [...] With: Spouse Home Adaptive Equipment: (sc, gb, [facility]) Home Layout: One level Home Access: Stairs to enter with rails (2) Bathroom Shower/Tub: Tub/shower unit Prior Level of Function Prior Function Level of [place]: Independent with ADLs and functional transfers, Independent [...] Eating meals?: None (Independent) Total Score OT [facility]: 21 Assessment/Plan OT Assessment OT Impairments: Decreased ADL status, Decreased endurance, Decreased functional mobility OT Assessment/WOOD BOX MAKER Summary: (needs skilled OT due to weakness [...] Start Date Expected (more content not included)... [facility] 11-07-2023 Note Patient: Claudia Ohara Procedure Summary Date: 11/07/23 Room / Location: [facility] OR [address] [place] [address] / [facility] Operating Room Anesthesia Start: 830 Anesthesia Stop: [...] no known notable events for this encounter. [facility] 11-07-2023 Note Patient: Claudia Ohara Procedure Information Anesthesia Start Date/Time: 11/07/23830 Procedures: TAVR Carotid intervention Location: [facility] OR [address] [place] [address] / [facility] Operating Room Surgeons: Carmelita Almanza MD Relevant [...] jugular side port central line from surgeon. DAIGLE.) Patient did not smoke on day of procedure. Education provided regarding risk of obstructive sleep apnea. intravenous induction Postoperative administration of opioids is intended. Trial extubation is planned. Anesthetic plan and risks discussed with patient. Use of blood products discussed with patient who consented to blood products. Plan discussed with attending. Additional Equipment Requests [facility] 11-07-2023 Note Airway Date/Time: 11/07/2023 9:22 AM Urgency: elective General Information and Staff Patient location during procedure: OR Anesthesiologist: Dev Rosa DO Resident/BATCH TRUCKER/CAA: Marybel Irizarry MD Performed: resident/BATCH TRUCKER/CAA Indications and Patient Condition Indications for airway [...] 1 Number of other approaches attempted: 0 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 (Cath) Providers: Carmelita [...] Plan discussed with attending. Additional Equipment Requests [facility] 10-05-2023 Note Subjective Patient ID: Claudia Kent [...] primary prevention. He recently presented to his director case with complaints of chest pain, dyspnea with [...] orthopnea or PND. Review of Systems See [facility] Objective Visit Vitals BP 112/83 (BP Location: [...] valve stenosis. He is accompanied by his [id number] today. - He has multiple comorbid conditions, [...] will discuss his case with the referring director case. This case will likely be discussed at [...] Interval 434 ms QTC CALCULATION(BAZETT) 411 ms R-[place] 13 degrees T Wave [place] 107 degrees POC Hb02% Collection Time: 10/12/23 8:11 AM Result Value Ref Range FQJYPV77% 69.6 (A) 90 - 95 % QC Pass/Fail Passed QC LOT # [id number] QC Expiration Date 43,025 SAMPLESITE PA No follow-ups on file. [facility] Evaluation note Diagnosis Onychodystrophy- Primary Other specified disease of nail Onychomycosis Dermatophytosis of nail Right foot pain Pain in soft tissues of limb Peripheral vascular disease (CMS/HCC) Unspecified peripheral vascular disease documented in this encounter [facility] HealthcareEvaluation note* Diagnosis Peripheral vascular disease (CMS/HCC)- Primary Unspecified peripheral vascular disease documented in this encounter [facility] HealthcareInstructionsNot on filedocumented in this encounterProMediFulton [facility] SystemInstructionsNot on filedocumented in this encounterProMercer County Community [facility] System Summary Purpose Family History No [...] and content) DATE CREATED AUTHOR 10/19/2020 [facility] DATE CREATED AUTHOR AUTHOR'S ORGANIZ ATION 03/23/2021 [facility] DATE CREATED AUTHOR AUTHOR'S ORGANIZ ATION 05/06/2021 [facility] DATE CREATED AUTHOR AUTHOR'S ORGANIZ ATION 04/20/2022 [facility] DATE CREATED AUTHOR AUTHOR'S ORGANIZ ATION 12/18/2023 [facility] EPIC DATE CREATED AUTHOR AUTHOR'S ORGANIZ ATION 10/01/2024 [facility] Reason for Visit (unrecogniz ed section and content) Reason Comments Ingrown Toenail 77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 Pt relates trying to cut out himself, made it worse. Pt states it is painful, denies drainage or pus. Pt keeping a band-aid on the toe; there was blood on band-aid. Care Teams (unrecognized sec tion and content) Mortgage Closing Clerk Relationship Specialty Start Date End Date Armani Stewart MD [address] [place] [id number] PCP - General Internal Medicine 11/29/23 Mortgage Closing Clerk Relationship Specialty Start Date End Date Armani Stewart MD [address] [place] [address] [id number] PCP - General Internal Medicine 11/29/23 FOR [...] BE BASED ON THE PRIMARY CLINICAL RECORDS. [facility]. provides no warranty or guarantee of the accuracy or completeness of information in this document.
--- NOTE | 2024-10-08 08:59 | CA_ITS ---
Patient Name: CLAUDIA DIAS MR#: [id number] : 1945 Exam Date: 10/08/2024 Ordering Doctor: DR CARMELITA WALLACE M.D. ECHOCARDIOGRAM REPORT PROCEDURE: CA ECHO DOPPLER COMPLETE INDICATIONS: S/P TAVR, Severe Aortic valve stenosis COMPARISON: None. DESCRIPTION: COMPLETE ECHOCARDIOGRAM Real-time transthoracic echocardiography with 2D, M-mode, spectral and color flow Doppler performed. QUALITY: Technical quality was good. LEFT VENTRICLE: Mild dilatation. Thickened septal wall. LV EF: Global left ventricular systolic function is moderately decreased. Visual estimation of left ventricular ejection fraction is 30-35%. 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 DIASTOLIC: Diastolic dysfunction. E/E' consistent with volume overload. ATRIAL SEPTUM: Inadequately seen. LEFT ATRIUM: Severe dilatation. RIGHT ATRIUM: Moderate dilatation. RIGHT VENTRICLE: Normal chamber size. Normal right ventricular systolic function. Pacer wire present. TRICUSPID VALVE: Normal mobility and thickness. Moderate to severe regurgitation. No evidence of pulmonary hypertension. RVSP 30mmHg. MITRAL VALVE: Moderately thickened with decreased mobility. Mild mitral stenosis. Mild mitral annular calcification. Moderate mitral regurgitation. MVA 1.7cm2, mean gradient 2mmHg. AORTIC VALVE: Bio-Prosthetic valve appears well seated in the aortic position with normal Doppler flow. DVI 0.26, PETER 1.2cm2, Vmax 2.04m/s, peak/mean gradient 17/8mmHg. No significant aortic regurgitation. AORTIC ROOT: Normal diameter and appearance. PULMONIC VALVE: Normal thickness and mobility. No stenosis. Mild regurgitation. PERICARDIUM: No evidence of pericardial effusion. IVC: Collapses with inspiration. Mildly dilated measuring 2.4cm. CONCLUSION: 1. Global left ventricular systolic function is moderately reduced; visually estimated ejection fraction is 30 to 35% 2. Segmental wall motion abnormalities 3. Normal right ventricular size and systolic function 4. Biatrial dilatation 5. Diastolic dysfunction: E/E' consistent with volume overload 6. Moderate to severe tricuspid regurgitation 7. Mild mitral stenosis; moderate mitral regurgitation 8. A bioprosthetic aortic valve is seen with normal Doppler flows, which may be underestimated due to the reduced global left ventricular systolic function - DVI (0.26) would suggest prosthetic aortic stenosis; consider transesophageal echocardiography if clinically indicated 9. Mild pulmonic regurgitation Adult Echocardiography Procedure Report Left Ventricle LVEDD (3.7 - 5.6 cm): 6.14 cm LVESD (2.2 - 4.0 cm): 5.08 cm LVIVS thickness (0.6 - 1.2 cm): 1.08 cm LVPW thickness (0.5 - 1.0 cm): 0.75 cm e': 0.07 m/s E - e': 14.34 LVOT Max Gradient: 1.12 mm[Hg] LVOT Area (cm2): 0.53 m/s Peak Velocity (LVOT): 0.53 m/s Mean Velocity (LVOT): 0.37 m/s LVOT Diameter 2.28 cm Left Ventricular Ejection Fraction: 51.79 % Left Atrium LA Volume Index (2D A2C): 56.84 ml/m2 Left Atrium Systolic Dimension: 6.18 cm Mitral Valve MV E to A Ratio: 214.31 Mitral Valve A-Wave Peak Velocity: 0.00 m/s Mitral Valve E-Wave Peak Velocity: 1.03 m/s Right Ventricle Aorta AO Root Diam: 3.00 cm Aortic Valve AoV Area (Peak Estevan): 1.16 cm2, 1.17 cm2 AoV Area (VTI): 1.42 cm2, 1.45 cm2 Peak Velocity(Antegrade Flow): 1.84 m/s, 1.71 m/s, 1.79 m/s, 2.04 m/s, 1.89 m/s Peak Gradient(Antegrade Flow): 13.55 mm[Hg], 11.73 mm[Hg], 12.79 mm[Hg], 16.63 mm[Hg], 14.29 mm[Hg] Mean Velocity(Antegrade Flow): 1.25 m/s, 1.15 m/s, 1.05 m/s, 1.20 m/s, 1.14 m/s Mean Gradient(Antegrade Flow): 7.01 mm[Hg], 5.97 mm[Hg], 5.56 mm[Hg], 7.23 mm[Hg], 6.34 mm[Hg] Velocity Time Integral: 36.34 cm, 33.34 cm, 34.92 cm, 42.49 cm, 38.32 cm Tricuspid Valve Peak Velocity (Regurgitant Flow): 2.23 m/s, 2.34 m/s, 2.36 m/s Pulmonic Valve Mean Gradient: 1.41 mm[Hg], 1.41 mm[Hg] Mean Velocity: 0.54 m/s, 0.54 m/s Peak Velocity: 0.84 m/s Peak Gradient: 2.82 mm[Hg], 2.82 mm[Hg] Right Atrium Dictated by: Josep Christianson M.D. on 10/09/2024 at 16:09 Approved by: Josep Christianson M.D. on 10/09/2024 at 16:20
== END 2024-10-08 08:49 | disposition home or self-care (01) ==
LOC: CARD 08:48
PROVIDERS: PCP Internal Medicine; Visit Provider Internal Medicine Interventional Cardiology
DX: I35.0 Nonrheumatic aortic (valve) stenosis (principal); Z95.3 Presence of xenogenic heart valve
CPT/HCPCS: 93306